=== PATIENT | female | born 1955 | race Caucasian/White ===

== ENCOUNTER 2020-01-30 13:54 | Outpatient (CLI) | payer OTHER, SELFPAY ==
--- NOTE | ~2020-01-30 | US_ITS ---
EXAMINATION: US art doppler w press LE BI DATE: 01/30/2020 15:05 CDT INDICATION: Leg pain. TECHNIQUE: Segmental pressures and plethysmographic and Doppler waveforms of the brachial and lower e xtremity arteries were obtained. COMPARISON: None. FINDINGS: Right and left brachial artery pressures of 131 mm Hg and 122 mm Hg, respectively, are concordant (no rmal difference <= 30 mmHg). The right high-thigh pressure index is 1.28 (normal > 1.2). The right ankle-brachial index (CLAUDIO) is 1 .02 (normal >= 0.9-1.0). The right great toe-brachial index (TBI) is 0.63 (normal >= 0.60). The right lower extremity segmental pressure gradients are normal (normal gradients <= 20-30 mmHg between armando cent levels on the same leg or the same levels on the two legs). Arterial Doppler waveforms are bipha sic and triphasic. The left high-thigh pressure index is 1.14. The left CLAUDIO is 0.98. The left TBI is 0.72. The left lowe r extremity segmental pressure gradients are normal. Arterial Doppler waveforms are mixed biphasic an d triphasic. IMPRESSION: 1. Normal lower extremity Doppler. Normal ankle-brachial indices. Reviewed, dictated and finalized at location A.
== END 2020-01-30 13:55 | disposition home or self-care (01) ==
PROVIDERS: PCP Internal Medicine; Visit Provider Nurse Practitioner
DX: M79.604 Pain in right leg (principal); M79.605 Pain in left leg
CPT/HCPCS: 93923

== ENCOUNTER → 2020-03-08 13:49 | Outpatient (CLI) | payer OTHER, SELFPAY ==
--- NOTE | ~2020-03-08 | MM_ITS ---
EXAMINATION: MM screening [facility] BI w oziel HISTORY: Screening mammogram TECHNIQUE: Craniocaudal and mediolateral oblique 3-D tomosynthesis images were obtained and synthetic 2-D images were generated. CAD analysis was submitted and interpreted. COMPARISON: 01/08/2019, 01/14/2018, 01/05/2018, 11/09/2015 BREAST PARENCHYMAL COMPOSITION: There are scattered areas of fibroglandular density. FINDINGS: Scattered benign-appearing calcifications are present. There is no evidence of suspicious m ass, calcification, or architectural distortion to suggest malignancy in either breast. There has bee n no suspicious interval change. IMPRESSION: 1. No mammographic evidence of malignancy. 2. Recommend routine screening mammography in one year. BI-RADS Category 2: Benign finding(s). Reviewed, dictated and finalized at location A.
--- NOTE | ~2020-03-08 | CT_ITS ---
EXAMINATION: CT lung screening DATE: 03/08/2020 14:34 INDICATION: History of tobacco use. Personal history of tobacco dependence. TECHNIQUE: Computed tomography (CT) of the chest was performed without intravenous contrast. The dose -length product was 98.20 mGy-cm. Automated exposure control and iterative reconstruction technique w ere employed. COMPARISON: CT dated 03/12/2016 FINDINGS: There is emphysema. No significant pleural or pericardial effusion. No thoracic lymphadenop athy. There is atherosclerosis of the aorta and coronary arteries. There are liver cysts. There is a 5 mm perifissural subsolid nodule, image 72. No other pulmonary nodules or masses. No endobronchial l esions. No pneumothorax. No focal lung consolidation. IMPRESSION: 1. Lung-RADS category 2: Benign appearance or behavior. Continue annual screening with noncontrast lo w-dose chest CT in 12 months. Reviewed, dictated and finalized at location A. IMPRESSION: 1. Lung-RADS category 2: Benign appearance or behavior. Continue annual screeni ng with noncontrast low-dose chest CT in 12 months.
== END ==
PROVIDERS: PCP Internal Medicine; Visit Provider Nurse Practitioner
DX: Z12.2 Encounter for screening for malignant neoplasm of respiratory organs (principal); Z87.891 Personal history of nicotine dependence; Z12.31 Encounter for screening mammogram for malignant neoplasm of breast
CPT/HCPCS: 77063; 77067; G0297

== ENCOUNTER 2020-03-14 12:55 | Outpatient (CLI) | payer OTHER, SELFPAY ==
--- NOTE | ~2020-03-14 | DEXA_ITS ---
Bone Density Report Name: Delaney Mckeon Age: 64 Sex: Female Ethnicity: White Date of : 1955 Indication: postmenopausal; height loss; prior fracture; Referring Provider: CAROL TAPIA Study: Bone densitometry was performed. Exam Date: March 14, 2020 Accession number: [id number] Bone Density: Region BMD T-score Z-score Classification AP Spine (L1, L4) 1.008 -0.3 1.6 Normal Femoral Neck (Left) 0.708 -1.3 0.3 Osteopenia Total Hip (Left) 0.840 -0.8 0.5 Normal Total Hip Bilateral Avg 0.809 -1.1 0.3 Osteopenia Femoral Neck (Right) 0.644 -1.8 -0.2 Osteopenia Total Hip (Right) 0.778 -1.3 0.0 Osteopenia World Health Organization criteria for BMD impression classify patients as: Normal (T-score at or above -1.0), Osteopenia (T-score between -1.0 and -2.5), or Osteoporosis (T-score at or below -2.5). 10-year Fracture Risk(1): Major Osteoporotic Fracture 17% Hip Fracture 2.4% Reported Risk Factors: [place] (), Neck BMD=0.644, BMI=29.1, previous fracture (1) FRAX(R) Version 3.08. Fracture probability calculated for an untreated patient. Fracture probability may be lower if the patient has received treatment. Clinical Information Provided by Patient: Has had a low trauma fracture Has used the following medications: Vitamin D, Calcium Patient maximum height was 65.5 Menopause Age: 50 Onset of menses at age 13 Number of children 0 Impression: The patient has low bone mass, based on the Right Femoral Neck T-score. The patient has an estimated ten-year risk of hip fracture of 2.4% and an estimated ten-year risk of major fracture of 17%, based on the WHO FRAX algorithm. The patient has risk factors, including: previous fracture. Discussion: BONE DENSITY IS LOW AT ONE OR MORE SKELETAL SITES. This patient's lowest T-score is low at one or more skeletal sites. It meets the World Health Organization's (WHO) criteria for ?low bone mass? (T-score between -1.0 and -2.5). The patient's 10-year risk of fracture as calculated by FRAX is less than the threshold where pharmacological therapy is recommended by the National Osteoporosis Foundation (NOF). However, all treatment decisions require clinical judgment and consideration of individual patient factors, including patient preferences, comorbidities, previous drug use, risk factors not captured in the FRAX model (e.g., frailty, falls, vitamin D deficiency, increased bone turnover, interval significant decline in bone density) and possible under or overestimation of fracture risk by FRAX. The patient should follow a healthful lifestyle (good nutrition with adequate calcium and vitamin D, and appropriate weight-bearing exercise). Follow-Up: Consider repeating this study in 2 to 3 years to reassess this patient's status, or sooner if there is some new clinical ind
== END 2020-03-14 12:56 | disposition home or self-care (01) ==
LOC: ANHIMG 13:00
PROVIDERS: PCP Internal Medicine; Visit Provider Internal Medicine
DX: Z78.0 Asymptomatic menopausal state (principal); I10 Essential (primary) hypertension; Z79.899 Other long term (current) drug therapy; M85.852 Other specified disorders of bone density and structure, left thigh; M85.851 Other specified disorders of bone density and structure, right thigh
CPT/HCPCS: 77080

== ENCOUNTER 2020-04-18 07:55 | Outpatient (CLI) | payer OTHER, SELFPAY ==
--- NOTE | 2020-04-27 12:07 | WPDPFTINT ---
PFT Interpretation PFT Interpretation: This PFT met all criteria for ATS standards and reproducibility FEV/FVC post bronchodilator 69% FEV1 133% FVC 140% TLC 133% RV 134% RV/TLC 39% DLCO 73% when adjusted for alveolar volume but not adjusted for hemoglobin Flow volume loops showed some expiratory coving Impression: Mild airflow obstruction with hyperinflation, air trapping and mildly reduced diffusion capacity. This pattern is suggestive of COPD. Clinical correlation is advised.
== END 2020-04-18 07:56 | disposition home or self-care (01) ==
PROVIDERS: PCP Internal Medicine; Visit Provider Internal Medicine
DX: J43.9 Emphysema, unspecified (principal); I10 Essential (primary) hypertension; Z79.899 Other long term (current) drug therapy
CPT/HCPCS: 94060; 94726; 94729

== ENCOUNTER 2020-10-10 10:31 | Outpatient (CLI) | payer OTHER, SELFPAY ==
--- NOTE | ~2020-10-10 | US_ITS ---
EXAMINATION: US thyroid DATE: 10/10/2020 10:58 INDICATION: Nontoxic multinodular goiter. TECHNIQUE: Multiple ultrasound images of the thyroid were obtained. COMPARISON: Ultrasound 03/05/2018 FINDINGS: The right thyroid lobe is absent The left thyroid lobe measures 4.1 x 1.7 x 1.8 cm. In the left thyr oid lobe, there is a 15 mm solid, isoechoic, [id number] nodule with ill-defined margin without e chogenic foci (TI-RADS TR3), stable from 04/25/2016. IMPRESSION: 1. Left thyroid nodule, stable from 04/25/2016. Biopsy on 05/01/2016 was benign. Reviewed, dictated and finalized at location A. IMPRESSION: 1. Left thyroid nodule, stable from 04/25/2016. Biopsy on 05/01/2016 was benign .
== END 2020-10-10 10:32 | disposition home or self-care (01) ==
PROVIDERS: PCP Internal Medicine; Visit Provider Nurse Practitioner
DX: E04.2 Nontoxic multinodular goiter (principal)
CPT/HCPCS: 76536

== ENCOUNTER 2021-03-14 14:18 | Outpatient (CLI) | payer OTHER, SELFPAY ==
--- NOTE | ~2021-03-14 | CT_ITS ---
EXAMINATION: CT lung screening DATE: 03/14/2021 14:43 INDICATION: Personal history of nicotine dependence, prior smoker with 60 pack year history TECHNIQUE: Computed tomography (CT) of the chest was performed without intravenous contrast. The dose -length product (DLP) was 105.07 mGy-cm. Automated exposure control and iterative reconstruction tech Lift were employed. COMPARISON: 03/08/2020 FINDINGS: There is a stable 2 mm nodule of the right middle lobe. A stable fissural lymph node is aga in noted in the right minor fissure. No new pulmonary nodules are identified. There is moderate emphy sema. The lungs are free of acute opacities. There is no pleural effusion or pneumothorax. There are changes of right hemithyroidectomy. No pathologically enlarged thoracic lymph nodes are identified. T he heart size is normal. There is calcified coronary artery atherosclerosis. Cysts of the liver measu re up to 1.6 cm in the left hepatic lobe. There is severe thoracic spondylosis. IMPRESSION: 1. Lung-RADS category 2: Benign appearance or behavior. Continue annual screening with noncontrast lo w-dose chest CT in 12 months. Reviewed, dictated and finalized at location B. IMPRESSION: 1. Lung-RADS category 2: Benign appearance or behavior. Continue annual screeni ng with noncontrast low-dose chest CT in 12 months.
== END 2021-03-14 14:19 | disposition home or self-care (01) ==
LOC: ANHIMG 14:18
PROVIDERS: PCP Internal Medicine; Visit Provider Nurse Practitioner
DX: Z87.891 Personal history of nicotine dependence (principal)
CPT/HCPCS: 71271

== ENCOUNTER → 2021-05-28 13:31 | Outpatient (CLI) | payer OTHER, SELFPAY ==
--- NOTE | ~2021-05-28 | MM_ITS ---
EXAMINATION: MM screening [facility] BI w oziel HISTORY: Screening TECHNIQUE: Craniocaudal and mediolateral oblique 3-D tomosynthesis images were obtained and synthetic 2-D images were generated. CAD analysis was submitted and interpreted. COMPARISON: Comparison to multiple prior studies sequentially, with oldest reviewed study dated 05/2015. BREAST PARENCHYMAL COMPOSITION: There are scattered areas of fibroglandular density. FINDINGS: There is no evidence of suspicious mass, calcification, or architectural distortion to sugg est malignancy in either breast. There has been no suspicious interval change. IMPRESSION: 1. No mammographic evidence of malignancy. 2. Recommend routine screening mammography in one year. BI-RADS Category 1: Negative Reviewed, dictated and finalized at location A. WINDER
== END ==
PROVIDERS: PCP Internal Medicine; Visit Provider Nurse Practitioner
DX: Z12.31 Encounter for screening mammogram for malignant neoplasm of breast (principal)
CPT/HCPCS: 77063; 77067

== ENCOUNTER 2021-07-28 14:09 | Emergency (ER) | payer OTHER, SELFPAY ==
--- NOTE | ~2021-07-28 | XR_ITS ---
XR femur RT min 2V DATE: 07/28/2021 15:06 INDICATION: Fall. Right hip and leg pain TECHNIQUE: AP and lateral views COMPARISON: None FINDINGS: There is a comminuted distal femoral metaphyseal fracture with impaction and approximately 1.3 cm lateral displacement. There is a transverse fracture of the mid to upper aspect of the patella. Normal alignment at the hip and knee joints. No dislocation. IMPRESSION: Comminuted fracture of the distal femoral metaphysis Transverse patellar fracture Reviewed, dictated and finalized at location A.
--- NOTE | ~2021-07-28 | CT_ITS ---
EXAMINATION: CT cervical spine wo con DATE: 07/28/2021 14:48 INDICATION: Fall today. Head and neck injury. TECHNIQUE: Computed tomography (CT) of the cervical spine was performed without intravenous contrast. Automated exposure control and iterative reconstruction technique were employed. Exam dose: 463.63 mGy-cm total exam DLP. COMPARISON: None FINDINGS: There is reversal of the cervical spine. No fracture or dislocation or locked facet. There is minimal anterolisthesis at C2-3 and C3-4. There is 3 mm anterolisthesis at C4-5. There is mild degenerative disc disease at C4-5. There is severe degenerative disc disease at C5-6. There is moderately severe degenerative disc disease at C6-7 and C7-T1.. There is degenerative change at the apophyseal joints, especially severe at C2-3, C3-4, C4-5. Emphysematous changes are noted. IMPRESSION: Reversal of cervical curvature Minimal anterolisthesis at C2-3 and C3-4 3mm anterolisthesis at C4-5 Multi-level degenerative disc disease No fracture or dislocation or locked facet. Reviewed, dictated and finalized at Location A. Reviewed, dictated and finalized at location A.
--- NOTE | ~2021-07-28 | XR_ITS ---
XR humerus RT DATE: 07/28/2021 15:05 INDICATION: Fall, injury of arm TECHNIQUE: AP and lateral views COMPARISON: None FINDINGS: There is a transverse minimally medially displaced fracture at the surgical neck of the num erus. No other fracture or dislocation, periosteal reaction or bone destruction. IMPRESSION: Surgical neck fracture of humerus Reviewed, dictated and finalized at location A.
--- NOTE | ~2021-07-28 | XR_ITS ---
XR knee RT 2V DATE: 07/28/2021 15:06 INDICATION: Fall. Right knee injury. TECHNIQUE: AP and crosstable lateral views COMPARISON: None FINDINGS: There is a prominently comminuted intra-articular fracture of the right distal femoral meta physeal area with impaction and approximately 12 mm medial displacement of the distal fragment. Additionally there is an intra-articular minimally displaced transverse fracture through the mid to u pper aspect of the patella. No dislocation. Mild osteoarthritis including periarticular spurring of the patella. Diffuse osteopenia. IMPRESSION: Comminuted distal femoral metaphyseal fracture Transverse patellar fracture Reviewed, dictated and finalized at location A.
--- NOTE | ~2021-07-28 | CT_ITS ---
EXAMINATION: CT brain wo con DATE: 07/28/2021 14:48 INDICATION: Fall today. Head injury. TECHNIQUE: Computed tomography (CT) of the head was performed without intravenous contrast. The mA wa s adjusted according to patient size. Iterative reconstruction technique was employed. Exam dose: 60 5.33 mGy-cm total exam DLP. COMPARISON: None FINDINGS: There is bilateral vertebral artery and carotid siphon internal carotid artery calcificatio n. There is nonspecific diminished attenuation of the cerebral white matter, likely due to chronic sm all vessel ischemic changes. No intracranial mass lesion or hemorrhage or cerebrovascular accident is evident. No subdural or epid ural hematoma. No orbital mass lesion. Included paranasal sinuses and mastoid air cells are normally developed and aerated. No fracture or b one destruction of the cranial vault. IMPRESSION: Cerebral atherosclerosis and chronic small vessel ischemic changes of cerebral white mat ter No acute intracranial finding or skull fracture Reviewed, dictated and finalized at Location A. Reviewed, dictated and finalized at location A. IMPRESSION: Cerebral atherosclerosis and chronic small vessel ischemic changes of cerebral white matter No acute intracranial finding or skull fracture
--- NOTE | ~2021-07-28 | XR_ITS ---
XR hip RT 2V w AP pelvis DATE: 07/28/2021 15:06 INDICATION: Fall. Right hip injury, pain TECHNIQUE: AP pelvis. AP and crosstable lateral views of right hip COMPARISON: None FINDINGS: No pelvic fracture or bone destruction. Normal alignment at the pubic symphysis and sacral iliac joints. Hip joint spaces are relatively preserved. No fracture or dislocation, avascular necrosis or bone destruction of the right hip. IMPRESSION: No pelvic or right hip fracture or dislocation Reviewed, dictated and finalized at location A.
--- NOTE | ~2021-07-28 | XR_ITS ---
XR shoulder RT min 2V DATE: 07/28/2021 15:05 INDICATION: Fall. Right shoulder injury, pain TECHNIQUE: 2 views COMPARISON: None FINDINGS: There is a transverse fracture of the surgical neck of the right humerus with minimal media l displacement. Old healed fracture of the midshaft of the clavicle. Alignment is preserved at the acromioclavicular and glenohumeral joints. Diffuse osteopenia. IMPRESSION: Transverse fracture of right humeral surgical neck Osteopenia Reviewed, dictated and finalized at location A.
[2021-07-28 14:13] VITALS: BP 153/58; PULSE 89; RESP 24; TEMP 36.2; O2SAT 98
[2021-07-28] MEDS: fentaNYL CITRATE INJ (*CRX) 100 MCG/2 ML VIAL 50 MCG IV PUSH (15:04)
[2021-07-28 15:53] VITALS: BP 142/77; PULSE 97; RESP 18; O2SAT 99
--- NOTE | 2021-07-28 15:56 | ED.FALL ---
HPI - Fall General Chief Complaint: Fall Stated Complaint: FALL WITH INJURIES Time Seen by Provider: 07/28/21 14:21 History of Present Illness HPI Narrative: Patient is a 66-year-old female who presents ER with pain to the right side of her body. Patient was stepping over a dog gate when she tripped falling onto her right side. She had sudden onset pain in her shoulder and her knee. She has been unable to get up or move. EMS reports deformity to the knee and the shoulder. They placed her in a sling for comfort. Patient did strike her head but did not lose consciousness. She has some achiness in her neck as well. Denies numbness or tingling to the arms or legs. Patient is not on a blood thinner. Related Data Home Medications Medication Instructions Recorded Confirmed cholecalciferol (vitamin D3) 25 1,000 unit PO DAILY 07/28/19 04/01/21 mcg (1,000 unit) capsule multivitamin 1 tablet PO DAILY 02/15/20 04/01/21 calcium-vit D3-ferrous fumarate tablet PO BID tablet 04/01/21 04/01/21 600 mg-125 unit-18 mg tablet Allergies Allergy/AdvReac Type Severity Reaction Status Date / Time Sulfa (Sulfonamide Allergy Unknown Hives Verified 07/28/21 14:25 Antibiotics) Review of Systems Review of Systems: All systems reviewed & are unremarkable except as noted in HPI and below Constitutional: Constitutional: Denies chills, Denies fever(s) and Denies weakness ENT: Denies nasal congestion and Denies sore throat Cardiovascular: Cardiovascular: Denies chest pain, Denies rapid heart rate and Denies radiating jaw, neck or arm pain Respiratory: Respiratory: Denies cough, Denies dyspnea and Denies wheezing Gastrointestinal: Gastrointestinal: Denies abdominal pain, Denies nausea and Denies vomiting Musculoskeletal: Musculoskeletal: Reports arthralgias, Reports joint swelling and Denies muscle cramps Neurologic: Denies dizziness, Denies syncope, Denies headache(s), Denies focal weakness and Denies numbness PMFSH Past Medical History Medical History Anxiety Arthritis of foot, degenerative Depression Dizziness Hypertension Muscle spasm of calf Obesity Vertigo Vision abnormalities Surgical History Surgical History Status post removal of thyroid nodule Family History Family History Father Hypertension, Onset Age: 72 Patient's father is , Onset Age: 72 Other Family history of alcoholism High cholesterol Social History Social History Smoking packs per day: 2 Smoking cigarettes per day: 40.0 Years smoked: 25 Smoking pack-years: 50.00 Smoking status: Former smoker Tobacco type: cigarettes Second hand tobacco smoke exposure: No Smoking end date: 05/11/07 Alcohol intake: never Substance use: never Substance use type: does not use Exam Narrative: GENERAL: Well-appearing, well-nourished, and in no acute distress. HEAD: Normocephalic, atraumatic. EYES: PERRLA and EOMI. ENT: Mucous membranes moist. NECK: Supple. C-Spine immobilized. CHEST: Clear to auscultation. No respiratory distress. HEART: Regular rate and rhythm. Normal peripheral pulses. ABDOMEN: Soft, nontender, nondistended. EXTREMITIES: Swelling of the right knee with tenderness over the patella and distal femur. Range of motion not performed right lower extremity due to pain. No tenderness at the hip. Patient has tenderness at the right shoulder and her arm is in a sling. No tenderness at the elbow/forearm/wrist. Neurovascular intact in both extremities. No abnormalities to the left sided extremities. SKIN: Warm, dry, no rash. NEURO: Alert and oriented x3. PSYCH: Normal mood and affect. Course Reevaluation(s) Reevaluation #1: Patient informed of results. Will necessitate transf
[2021-07-28] MEDS: MORPHINE SULFATE (*CRX) 4 MG/ML INJ IV PUSH (16:36)
[2021-07-28 17:21] VITALS: BP 138/72; PULSE 76; RESP 18; O2SAT 99
== END 2021-07-28 17:24 | disposition short-term general hospital (02) ==
PROVIDERS: Emergency Provider Emergency Medicine; PCP Internal Medicine
DX: S42.211A Unspecified displaced fracture of surgical neck of right humerus, initial encounter for closed fracture (principal); S79.191A Other physeal fracture of lower end of right femur, initial encounter for closed fracture; S82.031A Displaced transverse fracture of right patella, initial encounter for closed fracture; I10 Essential (primary) hypertension; M19.079 Primary osteoarthritis, unspecified ankle and foot; E66.9 Obesity, unspecified; Z68.29 Body mass index [BMI] 29.0-29.9, adult; Z87.891 Personal history of nicotine dependence; I67.2 Cerebral atherosclerosis; M50.323 Other cervical disc degeneration at C6-C7 level; M85.811 Other specified disorders of bone density and structure, right shoulder; W18.09XA Striking against other object with subsequent fall, initial encounter
CPT/HCPCS: 70450; 72125; 73030; 73060; 73502; 73552; 73560; 96374; 96375; 99285; J2270; J3010

== ENCOUNTER 2022-04-17 11:00 | Outpatient (CLI) | payer OTHER, SELFPAY ==
--- NOTE | ~2022-04-17 | CT_ITS ---
EXAMINATION: CT lung screening DATE: 04/17/2022 11:16 INDICATION: Personal history of tobacco dependence TECHNIQUE: Computed tomography (CT) of the chest was performed without intravenous contrast. The dose -length product was 103.08 mGy-cm. Automated exposure control and iterative reconstruction technique were employed. COMPARISON: CT dated 03/14/2021 FINDINGS: Heart size is normal. There is atherosclerosis. No mediastinal lymphadenopathy. No signific ant pleural or pericardial effusion. There are liver cysts, largest measuring 1.7 cm. There is emphys sandra. Stable 2 mm right middle lobe nodule since August right fissural lymph node measuring 3 mm. No en dobronchial lesions. No pneumothorax. No focal airspace disease. No new pulmonary nodules or masses. Moderate-severe thoracic spondylosis. No focal lytic or blastic lesions. IMPRESSION: 1. Lung-RADS category 2: Benign appearance or behavior. Continue annual screening with noncontrast lo w-dose chest CT in 12 months. Reviewed, dictated and finalized at location A. 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 Lung-RADS category 2: Benign appearance or behavior. Continue annual screeni ng with noncontrast low-dose chest CT in 12 months.
== END 2022-04-17 11:01 | disposition home or self-care (01) ==
PROVIDERS: PCP Internal Medicine; Visit Provider Nurse Practitioner
DX: Z12.2 Encounter for screening for malignant neoplasm of respiratory organs (principal); Z87.891 Personal history of nicotine dependence
CPT/HCPCS: 71271

== ENCOUNTER 2023-04-04 13:54 | Emergency (ER) | payer OTHER, SELFPAY ==
--- NOTE | ~2023-04-04 | XR_ITS ---
EXAM: XR wrist RT min 3V DATE: 04/04/2023 15:31 HISTORY: fall; Rt wrist pain . COMPARISON: None available. FINDINGS: Decreased mineralization. No fracture or dislocation. No lytic or blastic lesion. Scattere d osteoarthritic changes. No erosion or periosteal change. Soft tissues within normal limits. IMPRESSION: No acute osseous finding in the right wrist. Reviewed, dictated and finalized at location K. 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
--- NOTE | ~2023-04-04 | XR_ITS ---
EXAM: XR humerus RT DATE: 04/04/2023 16:02 HISTORY: fall . COMPARISON: 07/28/2021. FINDINGS: Decreased mineralization. Old healed right humeral head fracture. No new acute fracture or dislocation. No lytic or blastic lesion. Moderate degenerative change at the AC joint and glenohumer al joint. No erosion or periosteal change. Soft tissues within normal limits. IMPRESSION: No acute osseous finding in the right humerus. Reviewed, dictated and finalized at location K. S GRINDER
--- NOTE | ~2023-04-04 | CT_ITS ---
EXAMINATION: CT brain wo con DATE: 04/04/2023 15:23 INDICATION: fall . TECHNIQUE: Computed tomography (CT) of the head was performed without intravenous contrast. The mA wa s adjusted according to patient size. Iterative reconstruction technique was employed. The dose-lengt h product was 605.33 mGy-cm. COMPARISON: 07/28/2021. FINDINGS: No acute intracranial hemorrhage or extra-axial fluid collection. No hydrocephalus, mass, or herniation. No acute ischemic infarct. Unremarkable dural venous sinus attenuation. No acute osseous abnormality. The aerated spaces are clear. Mild atrophy and chronic white matter change. Atherosclerotic intracranial calcification. Bilateral l ens replacements. IMPRESSION: No acute intracranial process. Reviewed, dictated and finalized at location K. ORATOR OPERATOR
--- NOTE | ~2023-04-04 | CT_ITS ---
EXAMINATION: CT facial & cervical spine wo DATE: 04/04/2023 15:23 INDICATION: fall TECHNIQUE: Computed tomography (CT) of the maxillofacial region and cervical spine was performed with out intravenous contrast. Automated exposure control and iterative reconstruction technique were empl oyed. The dose-length product was 330.72 mGy-cm. COMPARISON: CT C-spine 07/28/2021; ultrasound thyroid 10/10/2020. FINDINGS: CERVICAL: Vertebral Body Alignment: Intact. Stable multilevel grade 1 degenerative listheses. Craniocervical and atlantoaxial alignment: Moderate degenerative change. Alignment intact. Osseous structures/fracture: No evidence of a lytic or blastic process in the visualized spine. No e vidence of acute fracture. Cervical soft tissues: The paraspinal soft tissues planes are maintained. Right thyroid lobectomy. Pr eviously biopsied left thyroid nodule. Emphysematous changes in the lung apices. Degenerative changes: Multilevel degenerative disc disease and facet arthropathy. No severe neural fo raminal narrowing. Moderate-severe degenerative central canal narrowing at C5-6. FACE: Soft Tissues: No significant superficial soft tissue swelling. Facial bones: No acute fracture. No lytic or blastic process. Eyes: The globes are intact. Bilateral lens replacements. The soft tissue planes of the orbits are m aintained. Paranasal Sinuses: The visualized aerated spaces are clear. Foreign Bodies: No radiopaque foreign bodies. Other Findings: None. IMPRESSION: No acute fracture or traumatic malalignment in the cervical spine. No acute facial bone fracture. Reviewed, dictated and finalized at location K. NCE CLERK IMPRESSION: No acute fracture or traumatic malalignment in the cervical spine. No acute fac ial bone fracture.
--- NOTE | ~2023-04-04 | XR_ITS ---
EXAMINATION: XR chest 2V Exam Date/Time: 04/04/2023 15:25 DAIRY FROZEN MANAGER HISTORY: fall, HTN, prev smoker Comparison: 03/25/2017; CT lung screening 04/17/2022. RESULT: Lines, tubes, and devices: None. Lungs and pleura: Clear. Cardiomediastinal silhouette: Stable. Other: No acute osseous or upper abdominal finding. IMPRESSION: No acute cardiopulmonary process. Reviewed, dictated and finalized at location K. Y FROZEN MANAGER
[2023-04-04 13:56] VITALS: BP 180/88; PULSE 90; RESP 18; TEMP 36.9; O2SAT 100
--- NOTE | 2023-04-04 15:52 | ED.GENADULT ---
[facility] - General Adult General Chief complaint: Fall Stated complaint: fall, hit head, right wrist Time Seen by Provider: 04/04/23 15:30 Source: patient Mode of arrival: ambulatory Limitations: no limitations History of Present Illness HPI narrative: This is a 67-year-old female who presents to the ED with chief complaint of a fall today. Reports that she stumbled while caring a small flag pole while in the backyard. Reports that she fell onto the flag on her chest. Reports that she hit her face on the ground. With reports of right arm and right wrist pain after the fall. She is complaining of some right lateral chest pain following the fall. Denies any preceding chest pain, shortness of breath. Denies any syncope, numbness or weakness. Denies headache, neck pain, back pain, any further sites of pain or injury. Related Data Allergies Allergy/AdvReac Type Severity Reaction Status Date / Time Sulfa (Sulfonamide Allergy Unknown Hives Verified 03/12/23 12:36 Antibiotics) Review of Systems Review of Systems: All systems as dictated in [facility] Past Medical History Medical History Anxiety Arthritis of foot, degenerative Depression Dizziness Hypertension Muscle spasm of calf Obesity Vertigo Vision abnormalities Surgical History Surgical History Status post removal of thyroid nodule Family History Family History Father Hypertension, Onset Age: 72 Patient's father is , Onset Age: 72 Other Family history of alcoholism High cholesterol Social History Social History Smoking packs per day: 1 Smoking cigarettes per day: 20.0 Years smoked: 30 Smoking pack-years: 30.00 Smoking status: Former smoker Tobacco type: cigarettes Second hand tobacco smoke exposure: No Smoking end date: 05/11/07 Alcohol intake: former Alcohol use details: Quit in 1992 Substance use: never Substance use type: does not use Exam Narrative: GENERAL: Well-appearing, well-nourished, and in no acute distress. HEAD: Normocephalic, atraumatic. EYES: PERRLA and EOMI. ENT: Mild tenderness to the right periorbital area. No bruising or crepitus. Nares clear, no rhinorrhea or epistaxis. Mucous membranes moist. Oropharynx without tonsillar hypertrophy exudate or other lesions. NECK: Supple. No adenopathy or masses. CHEST: No respiratory distress. Clear to auscultation. No wheezes rales or rhonchi HEART: Regular rate and rhythm. No murmur heard. Normal peripheral pulses. ABDOMEN: Soft, nontender, nondistended, normal active bowel sounds. MSK: Mild tenderness to the right lateral upper arm. No bruising or deformity. Mild tenderness to the lateral and medial right wrist. No bruising or deformity. Neurovascularly intact distally. MSK exam is otherwise intact. She is ambulatory. SKIN: Warm, dry, no rash. NEURO: Alert and oriented x3. No focal deficits. PSYCH: Normal mood and affect. Course Vital Signs Vital signs: Vital Signs Temperature 98.5 F 04/04/23 13:56 Pulse Rate 90 04/04/23 13:56 Respiratory Rate 18 04/04/23 13:56 Blood Pressure 180/88 H 04/04/23 13:56 Pulse Oximetry 100 04/04/23 13:56 Temperature 98.5 F 04/04/23 13:56 Pulse Rate 90 04/04/23 13:56 Respiratory Rate 18 04/04/23 13:56 Blood Pressure 180/88 H 04/04/23 13:56 Pulse Oximetry 100 04/04/23 13:56 Medical Decision Making MDM Narrative Medical decision making narrative: This is a 67-year-old female who presents to the ED with chief complaint of a mechanical ground level fall today. She has some facial, right arm, right wrist and right lateral chest wall pain. Vitals are normal. Exam remarkable for the above. Imaging of the chest, brain,
[2023-04-04] MEDS: ACETAMINOPHEN 500 MG TABLET 1000 MG PO (17:00)
[2023-04-04 17:02] VITALS: BP 167/63; PULSE 80; RESP 18; O2SAT 96
== END 2023-04-04 17:07 | disposition home or self-care (01) ==
PROVIDERS: Emergency Provider Physician Assistant; PCP Nurse Practitioner
DX: R07.81 Pleurodynia (principal); S09.93XA Unspecified injury of face, initial encounter; S69.91XA Unspecified injury of right wrist, hand and finger(s), initial encounter; S49.91XA Unspecified injury of right shoulder and upper arm, initial encounter; I10 Essential (primary) hypertension; M19.079 Primary osteoarthritis, unspecified ankle and foot; E66.9 Obesity, unspecified; Z68.27 Body mass index [BMI] 27.0-27.9, adult; Z87.891 Personal history of nicotine dependence; F41.9 Anxiety disorder, unspecified; F32.A Depression, unspecified; W01.198A Fall on same level from slipping, tripping and stumbling with subsequent striking against other object, initial encounter
CPT/HCPCS: 70450; 70486; 71046; 72125; 73060; 73110; 99284; A9270

== ENCOUNTER 2023-04-24 09:30 | Outpatient (CLI) | payer OTHER, SELFPAY ==
--- NOTE | ~2023-04-24 | CT_ITS ---
CT Scan of the Chest without Contrast: Clinical Indication: Lung cancer screening, smoking history Technique: Contiguous sections were acquired throughout the chest without intravenous contrast. Dose reduction technique was used on this scan by utilizing automated exposure control and iterative recon struction technique. The dose-length product (DLP) was 115.66 mGy-cm. COMPARISON: 04/17/2022 Findings: There is no evidence of any significant mediastinal, hilar or axillary lymphadenopathy. There are ath erosclerotic calcifications of the aorta and coronary arteries. There is no evidence of pleural or pericardial effusion. The lungs are clear. No pulmonary nodules or infiltrates are noted. Moderate emphysema. Images through the upper abdomen reveal probable hepatic cysts and 6 mm nonobstructing left renal sto ne. Impression: Lung RADS 1: Negative. [address] advised. Moderate emphysema. Reviewed, dictated and finalized at [facility]. HER SOFTENER Impression: Lung RADS 1: Negative. [address] advised. Moderate emphysema.
== END 2023-04-24 09:31 | disposition home or self-care (01) ==
PROVIDERS: PCP Nurse Practitioner; Visit Provider Nurse Practitioner
DX: Z12.2 Encounter for screening for malignant neoplasm of respiratory organs (principal); Z87.891 Personal history of nicotine dependence; J43.9 Emphysema, unspecified
CPT/HCPCS: 71271

== ENCOUNTER 2023-07-13 07:47 | Inpatient (IN) | payer OTHER, SELFPAY ==
[2023-07-13] VITALS (52 sets, daily range): BP systolic 58–140; BP diastolic 31–91; PULSE 88–111; RESP 17–27; TEMP 36.3–37.2; O2SAT 87–98; BMI 31.7
--- NOTE | ~2023-07-13 | XR_ITS ---
EXAM: XR abdomen/kub 1V DATE: 07/13/2023 20:38 HISTORY: abdominal distention . COMPARISON: CT abdomen pelvis, same date. FINDINGS: Temperature probe or Allen catheter projecting over the midline pelvis. Minimal bibasilar atelectasis. Normal bowel gas pattern. No organomegaly. No abnormal abdominal calcification. Thoracol umbar scoliosis and multilevel degenerative disc disease. Bilateral hip osteoarthritic arthritis. The proximal and of an intramedullary carlos noted in the right femur. IMPRESSION: No radiographic evidence of obstruction or ileus. Reviewed, dictated and finalized at location K. SPECIALIST
--- NOTE | ~2023-07-13 | XR_ITS ---
EXAMINATION: XR chest 2V DATE: 07/13/2023 08:46 INDICATION: Shortness of breath and weakness TECHNIQUE: AP and lateral views of the chest are obtained. COMPARISON: 04/04/2023 FINDINGS: The lungs are free of acute opacities. No pleural effusion or pneumothorax. The cardiomedia stinal silhouette is normal. There is moderate thoracic spondylosis. There is an old healed fracture of the proximal right humerus. IMPRESSION: 1. No acute cardiopulmonary abnormality. Reviewed, dictated and finalized at location B. INE PILOT/FIRST OFFICER
--- NOTE | ~2023-07-13 | XR_ITS ---
Portable chest x-ray Comparison: 07/14/2023 Clinical History: Shortness of breath Findings: Stable right IJ line present. There is minimal bibasilar haziness. Cardiomediastinal silh ouette is stable. Bones and soft tissues are unremarkable. Impression: Probable minimal bibasilar pulmonary edema/atelectasis. Stable support line. Reviewed, dictated and finalized at location . TING MACHINE OPERATOR Impression: Probable minimal bibasilar pulmonary edema/atelectasis. Stable support line.
--- NOTE | ~2023-07-13 | CT_ITS ---
EXAMINATION: CT abdomen pelvis wo con DATE: 07/13/2023 11:11 INDICATION: Severe sepsis. TECHNIQUE: Computed tomography (CT) of the abdomen and pelvis was performed without intravenous contr ast. Automated exposure control and iterative reconstruction technique were employed. The dose-length product was 1230.51 mGy-cm. COMPARISON: None. FINDINGS: The visualized portions of the lung bases demonstrate emphysema and mild atelectasis. No pl eural effusion. The heart size is normal. There are coronary artery calcifications. No pericardial ef fusion. There is a small sliding hiatal hernia. There is diffuse hepatic steatosis. There are cysts i n the kidneys measuring up to 18 mm. The gallbladder, spleen, pancreas, adrenal glands, and right kid ashley are normal. There are 3 stones in left kidney measuring up to 5 mm. There is mild left hydronephr osis. There are 5 mm and 2 mm stones in proximal left ureter. There are no dilated loops of bowel. Th e appendix is normal. There is asymmetric edema in left retroperitoneum. There are no pathologically enlarged lymph nodes. There is no free intraperitoneal fluid. There is calcified atherosclerosis of t he aorta and many of the other arteries. There is internal fixation of right femur. There is thoracol umbar dextroscoliosis and severe spondylosis. IMPRESSION: 1. 5 mm and 2 mm stones in proximal left ureter with mild left hydronephrosis. 2. Nonobstructing left kidney stones. 3. Small sliding hiatal hernia. Reviewed, dictated and finalized at location E. CTOR INFORMATION
--- NOTE | ~2023-07-13 | XR_ITS ---
EXAMINATION: XR chest port-a-cath/central INDICATION: Central line insertion TECHNIQUE: Portable AP chest at 1006 hours COMPARISON: 0841 hours FINDINGS: A right internal jugular central venous catheter is been inserted which ends with this tip in the distal superior vena cava. No pleural effusion or pneumothorax. The lungs are free of acute op acities. The cardiomediastinal silhouette is normal. Healed fracture of the proximal right humerus is again noted. IMPRESSION: 1. Right internal jugular central venous catheter insertion. No pneumothorax. Reviewed, dictated and finalized at location B. CONTENT MANAGER
--- NOTE | ~2023-07-13 | XR_ITS ---
EXAMINATION: XR retrograde pyelo w/stent LT DATE: 07/14/2023 10:48 INDICATION: Left ureteral stent placement TECHNIQUE: 8 fluoroscopic images of the abdomen and pelvis were obtained during procedure performed shabbir Diego. Radiologist was not present for the imaging or procedure. The amount of fluoroscopy t home used during this procedure was 0.3 minutes. COMPARISON: CT dated 07/13/2023 FINDINGS: Retrograde contrast injection into the left ureter extends to the left renal collecting system where there is persistent mild left hydronephrosis. The proximal left ureteral stone appears to remain in p lace, visible as a subtle density medially proximal to an abrupt change in course of the proximal ure ter. Final image demonstrates the proximal tip of an internal ureteral stent partially formed in the left renal pelvis. The stone appears to remain along side the stent in the proximal most left ureter. IMPRESSION: 1. Fluoroscopy utilized during left intraureteral stent placement for a prior obstructing proximal le ft ureteral stone which appears to remain in the same position along side the stent. See procedure no te for further detail. Reviewed, dictated and finalized at location A. OR SECURITY ANALYST IMPRESSION: 1. Fluoroscopy utilized during left intraureteral stent placement for a prior o bstructing proximal left ureteral stone which appears to remain in the same pos ition along side the stent. See procedure note for further detail.
--- NOTE | ~2023-07-13 | XR_ITS ---
EXAMINATION: XR chest 1V portable Exam Date/Time: 07/14/2023 17:30 ROTARY DRILLER HISTORY: SOB Comparison: 07/14/2023 at 7:30 AM. FINDINGS/IMPRESSION: Right IJ central line remains in stable and good position. Unchanged pulmonary opacities. Reviewed, dictated and finalized at location K. RY DRILLER
--- NOTE | ~2023-07-13 | US_ITS ---
EXAMINATION: US abdomen limited DATE: 07/14/2023 09:34 INDICATION: Elevated liver function tests and bilirubin TECHNIQUE: Multiple grayscale and Doppler ultrasound images of the abdomen were obtained. COMPARISON: None FINDINGS: The pancreatic head and body are normal in appearance. The pancreatic tail is not visualized. Liver has normal echogenicity and contour, with a smooth surface. There are 3 anechoic hepatic cysts measur ing 1.8 cm, 1.4 cm and 1.6 similar maximal diameters. 2 of these cysts appear to demonstrate thin int ernal septations. No intrahepatic biliary duct dilation suspected. Portal venous flow was seen in the hepatopetal, normal direction but demonstrates increased venous pulsatility which can be seen with t ricuspid regurgitation, right heart failure or other cause of elevated right heart pressures. The vis ualized proximal inferior vena cava is normal. Small right pleural effusion. There is edematous wall thickening of the gallbladder and minimal pericholecystic fluid. No lala dilation of the gallbladder or evident cholelithiasis. Sonographic Winkler sign was reported as negative by the pickler helper. Comm on bile duct measures 6 mm in maximal diameter which is within normal limits for age. Visualized port ion of the right kidney demonstrates normal contour and echogenicity with no hydronephrosis. IMPRESSION: 1. Increased portal venous pulsatility with normal direction which can be seen with tricuspid regurgi tation, right heart failure or other cause of elevated right heart pressure. 2. Nonspecific edematous wall thickening of the gallbladder with trace amount of pericholecystic flui d. No evident cholelithiasis or Winkler sign to more specifically suggest acute cholecystitis and this as with the increased portal venous pulsatility is likely related to congestive heart failure. 3. Right pleural effusion. Reviewed, dictated and finalized at location A. RATORY SAMPLER IMPRESSION: 1. Increased portal venous pulsatility with normal direction which can be seen with tricuspid regurgitation, right heart failure or other cause of elevated ri ght heart pressure. 2. Nonspecific edematous wall thickening of the gallbladder with trace amount o f pericholecystic fluid. No evident cholelithiasis or Winkler sign to more speci fically suggest acute cholecystitis and this as with the increased portal venou s pulsatility is likely related to congestive heart failure. 3. Right pleural effusion.
--- NOTE | ~2023-07-13 | XR_ITS ---
EXAMINATION: XR chest 1V portable Exam Date/Time: 07/13/2023 20:25 MACHINE BOOKKEEPER HISTORY: new O2 requirement Comparison: 07/13/2023. RESULT: Lines, tubes, and devices: Right IJ central venous line, in good position. Lungs and pleura: Mild diffuse reticular opacities and cuffing. Cardiomediastinal silhouette: Stable. Other: No acute osseous or upper abdominal finding. IMPRESSION: Mild interstitial edema. Reviewed, dictated and finalized at location K. INE BOOKKEEPER IMPRESSION: Mild interstitial edema.
--- NOTE | ~2023-07-13 | XR_ITS ---
EXAMINATION: XR chest 1V portable DATE: 07/14/2023 07:32 INDICATION: Pulmonary edema. TECHNIQUE: A single frontal view of the chest was obtained. COMPARISON: Chest single view at 07/13/2023 FINDINGS: There is mild atelectasis in the lower lung zones. No pleural effusion or pneumothorax. The heart size is normal. A right internal jugular central venous catheter is seen with tip in the super ior vena cava. There is old healed fracture of proximal right humerus. IMPRESSION: 1. Mild atelectasis in the lower lung zones. Reviewed, dictated and finalized at location E. TATION INSPECTOR
--- NOTE | 2023-07-13 07:53 | ECG_ITS ---
Measurements Intervals [place] Rate: 105 P: ME: 0 QRS: 64 QRSD: 94 T: 56 QT: 335 QTc: 444 Interpretive Statements SINUS TACHYCRDIA FREQUENT ATRIAL PREMATURE COMPLEXES BASELINE ARTIFACT- I, II, III, AVR, AVL, AVF ABNORMAL ECG NO PREVIOUS ECG AVAILABLE FOR COMPARISON Electronically Signed On 07-13-2023 8:35:32 BUTTERMAKER by Levi Willett D.O.
--- NOTE | 2023-07-13 08:12 | ED.SOB ---
HPI - SOB/Dyspnea General Chief Complaint: Shortness of Breath/Dyspnea Stated Complaint: DYSPNEA Time Seen by Provider: 07/13/23 07:50 History of Present Illness HPI Narrative: Patient is a 68-year-old female who presents the ER with weakness and shortness of breath. Reports over last week she has been feeling more weak and not herself. Denies fevers. She has been feeling cold and clammy. No known sick contacts. Reports she had some low back pain last week and now she has some discomfort in her upper back between her shoulders over the muscles. She also reports that today she developed shortness of breath. It feels central in her chest. Occasionally feels like her heart is racing. No history of arrhythmia or heart failure. Related Data Allergies Allergy/AdvReac Type Severity Reaction Status Date / Time Sulfa (Sulfonamide Allergy Unknown Hives Verified 07/13/23 08:05 Antibiotics) Review of Systems Review of Systems: All systems reviewed & are unremarkable except as noted in HPI and below Constitutional: Constitutional: Reports chills, Reports fatigue, Denies fever(s) and Reports weakness ENT: Denies nasal congestion and Denies sore throat Cardiovascular: Cardiovascular: Denies chest pain, Reports rapid heart rate, Denies radiating jaw, neck or arm pain and Denies slow heart rate Respiratory: Respiratory: Denies chest congestion, Denies cough, Reports dyspnea and Denies wheezing Gastrointestinal: Gastrointestinal: Reports no additional gastrointestinal complaints Genitourinary: Genitourinary: Reports no additional female genitourinary complaints Musculoskeletal: Musculoskeletal: Reports no additional musculoskeletal complaints Integumentary/Breasts: Skin/Breast: Reports system reviewed and no additional complaints, except as docu PMFSH Past Medical History Medical History Anxiety Arthritis of foot, degenerative Depression Dizziness Hypertension Muscle spasm of calf Obesity Vertigo Vision abnormalities Surgical History Surgical History Status post removal of thyroid nodule Family History Family History Father Hypertension, Onset Age: 72 Patient's father is , Onset Age: 72 Other Family history of alcoholism High cholesterol Social History Social History Smoking packs per day: 1 Smoking cigarettes per day: 20.0 Years smoked: 30 Smoking pack-years: 30.00 Smoking status: Former smoker Tobacco type: cigarettes Second hand tobacco smoke exposure: No Smoking end date: 05/11/07 Alcohol intake: former Alcohol use details: Quit in 1992 Substance use: never Substance use type: does not use Exam Narrative: GENERAL: Fatigued-appearing, well-nourished, and in no acute distress. HEAD: Normocephalic, atraumatic. ENT: Mucous membranes moist. NECK: Supple. CHEST: Clear to auscultation. No respiratory distress. HEART: Regular rate and rhythm. Normal peripheral pulses. ABDOMEN: Soft, nontender, nondistended. EXTREMITIES: Normal range of motion. No edema. SKIN: Warm, dry, no rash. NEURO: Alert and oriented x3. PSYCH: Normal mood and affect. Course Course Emergency Course: patient and family informed of diagnosis and treatment plan. Patient with evidence of septic shock related to UTI. Patient consented for a central line. Patient is also full code. I discussed the case with the drip box tender as well as the hospitalist to both accepted the patient to their care. Patient will be started on meropenem for broad-spectrum coverage. She has received a 30 milliliter/kilogram IV fluid bolus without improvement her blood pressure. She will be started on a Levophed drip. Critical care time was performed to separate from the t
[2023-07-13] MEDS: SODIUM CHLORIDE 0.9% IV 1,000 ML 999 ML IV CONT (08:25)
[2023-07-13] MEDS: KETOROLAC 15 MG/ML VIAL (*BKC) IV PUSH (08:26)
[2023-07-13 08:30] LABS: Hematocrit 31.8 % (37.0-47.0); Hemoglobin 10.1 g/dL (12.0-15.0); Mean Corpuscular HGB Conc 31.8 g/dl (32-36); Mean Corpuscular Hemoglobin 27.2 pg (26-34); Mean Corpuscular Volume 85.5 fl (80-100); Mean Platelet Volume 12.2 fl (7.4-10.4); Platelet Count Result 138 k/mm3 (150-375); Red Blood Count 3.72 M/mm3 (4.2-5.4); Red Cell Distribution Width 16.3 % (11.5-14.5); White Blood Count 17.1 K/mm3 (4.5-10.0)
[2023-07-13 08:46] LABS: Band Neutrophils Percent 24 % (0-6); Lymphocytes Absolute Manual 0.17 K/mm3 (1.1-4.5); Neutrophils Absolute Manual 16.92 K/mm3 (1.7-7.2); Neutrophils Percent Manual 75 % (46-73); Total Cells Counted 100
[2023-07-13 08:47] LABS: Hypochromasia 1+ (NORMAL); Schistocytes None Seen (NORMAL)
[2023-07-13 08:54] LABS: Albumin Level 3.4 g/dL (3.5-5.1); Alkaline Phosphatase 86 U/L (38-126); Anion Gap 16 mmol/L (8-16); Aspartate Amino Transferase 67 U/L (14-36); Bilirubin,Total 1.7 mg/dL (0.2-1.3); Blood Urea Nitrogen 36 mg/dL (7-17); Calcium 7.8 mg/dL (8.4-10.2); Carbon Dioxide 18 mmol/L (22-30); Chloride 99 mmol/L (98-107); Estimated CRCL calculation 27 ml/min; Estimated Glomerular Filt Rate 28; Glucose 104 mg/dL (65-110); Lactic Acid Reflex 6.6 mmol/L (0.7-2.0); Potassium 3.3 mmol/L (3.4-5.0); Sodium 133 mmol/L (137-145)
[2023-07-13 08:57] LABS: NT Pro B Type Natriuretic Pept 13000 pg/mL (19.9-100)
[2023-07-13] MEDS: SODIUM CHLORIDE 0.9% IV 2,400 ML/1,000 ML BAG 999 ML IV CONT ×3 (09:05→13:15)
[2023-07-13 09:06] LABS: Influenza A QL RT-PCR Negative (Negative); Influenza B QL RT-PCR Negative (Negative); RSV RNA, RT-PCR Negative (Negative); SARS-CoV-2 RNA PCR Negative (Negative)
[2023-07-13 09:42] LABS: Alanine Aminotransferase 50 U/L (6-35)
[2023-07-13 09:49] LABS: Appearance Urine Turbid (Clear); Bacteria Urine 4+ /hpf; Bilirubin Urine Negative (Negative); Blood Urine 3+ (Negative); Color Urine Yellow (Yellow); Glucose Urine UA Negative (Negative); Ketones Urine Trace mg/dL (Negative); Leukocyte Esterase Ur 3+ LEU/UL (Negative); Nitrate Urine Negative (Negative); Non Pathogenic Casts >20; Protein Urine 2+ mg/dL (Negative); RBC Urine 21-50 /hpf (0-2); Specific Grav Ur 1.018 (1.001-1.035); Squamous Epithelial Cell Urine None seen /hpf (Few); WBC Clumps Urine Present /HPF; WBC Urine >100 /hpf
[2023-07-13 09:51] LABS: Add Urine Microscopic? YES
[2023-07-13] MEDS: MEROPENEM 1 GM/NS 100 ML 1 GM/100 ML BAG IVPB ×2 (09:57→20:58)
[2023-07-13 10:01] LABS: Troponin I 0.038 ng/mL (0.000-0.034)
[2023-07-13] MEDS: NOREPINEPHRINE 8 MG/D5W 250 ML 8 MG/250 ML BAG 9.38 MG IV CONT (10:19)
[2023-07-13] MEDS: SODIUM CHLORIDE 0.9% IV 1,000 ML 125 ML IV CONT ×2 (10:37→17:53)
--- NOTE | 2023-07-13 11:24 | ADMGEN ---
This patient, Delaney Mckeon, was admitted to Intensive Care Unit-5. Patient/family oriented to hospital policies and general routines including ID bracelet, bed and alarms, visiting hours, pain management, procedures, bathroom and other care routines, personal items, smoking policy, room service/diet, and visiting hours. Information on how to activate the Rapid Response Team has been discussed. Patient/Family are encouraged to report perceived risks to care and to ask questions if they do not understand what they are told or what they should do.
[2023-07-13 11:25] LABS: Reflex Lactic Acid Yes or No Add Lactic
[2023-07-13 11:58] LABS: Lactic Acid 4.6 mmol/L (0.7-2.0)
--- NOTE | 2023-07-13 12:01 | WPDCNINT ---
Assessment and Plan Assessment and plan (1) Septic shock: Code(s): A41.9 - Sepsis, unspecified organism; R65.21 - Severe sepsis with septic shock Status: Acute Assessment and Plan: Patient with septic shock most likely related to pyelonephritis/UTI -CT scan of the abdomen and pelvis showed left-sided kidney stones with mild hydronephrosis, Urology has been consulted -patient was found to be hypotensive despite 2 L IV fluid bolus, and additional IV fluid bolus was also then given in the ER for a total of 3 L -central line in the right IJ was inserted in the ER on 07/13/2023 -started on Levophed, will maintain MAP > 65 mm Hg OR SBP > 100 mmHg all times for adequate end organ perfusion -continue to monitor renal function and urine output, - insert Allen for accurate I's and O's -patient started on meropenem, will add vancomycin (07/12) -07/12: Blood cultures have been ordered -07/12: Urine cultures have been ordered 07/12: CT scan abdomen and pelvis without contrast IMPRESSION: 1. 5 mm and 2 mm stones in proximal left ureter with mild left hydronephrosis. 2. Nonobstructing left kidney stones. 3. Small sliding hiatal hernia. (2) Acute UTI: Code(s): N39.0 - Urinary tract infection, site not specified Status: Acute Assessment and Plan: Acute UTI as above (3) OLIVA (acute kidney injury): Code(s): N17.9 - Acute kidney failure, unspecified Status: Acute Assessment and Plan: Acute kidney injury most likely related to hypotension, septic shock, UTI/pyelonephritis. Creatinine elevated at 1.80 on admission,(normal range is 0.6-0.8) -patient also takes lisinopril at home -patient has been hypotensive requiring 3 L IV fluid bolus in total in the ER, -continue maintenance IV fluids -continue Levophed to titrate mean arterial pressures > 65 mmHg for adequate renal perfusion -monitor urine output, renal function electrolytes (4) Anemia: Code(s): D64.9 - Anemia, unspecified Status: Acute Assessment and Plan: Check vitamin B12, folic acid -stool Hemoccult -no active bleeding noted, continue to monitor hemoglobin (5) Anxiety and depression: Code(s): F41.9 - Anxiety disorder, unspecified; F32.9 - Major depressive disorder, single episode, unspecified Status: Acute Assessment and Plan: On buspirone and venlafaxine at home -will restart a.m. (6) Benign essential hypertension: Code(s): I10 - Essential (primary) hypertension Status: Acute Assessment and Plan: Patient with history of essential hypertension on lisinopril at home currently on hold due to patient being on pressors (7) Mixed hyperlipidemia: Code(s): E78.2 - Mixed hyperlipidemia Status: Acute Assessment and Plan: Will start atorvastatin Plan DVT prophylaxis: Lovenox Stress ulcer prophylaxis: Not indicated Nutrition: Heart healthy diet Code Status: Full code Critical Care Time Spent: 49 minutes Discussed with patient and updated her with her condition and plan of care. I answered all her questions Due to a high probability of clinically significant, life threatening deterioration, the patient required my highest level of preparedness to intervene emergently and I personally spent this critical care time directly and personally managing the patient. This critical care time included obtaining a history; examining the patient; pulse oximetry; ordering and review of studies; arranging urgent treatment with development of a management plan; evaluation of patient's response to treatment; frequent reassessment; and discussions with other providers. It was exclusive of separately billable procedures and treating other patients and teaching time. Please see Assessment and Plan section and the rest of the note for further information on patient assessment and treatment This dictation may have been done utilizing a voice recognition system. Attempts have been ma
--- NOTE | 2023-07-13 12:47 | WPDURCON ---
Assessment and Plan Assessment and plan (1) Septic shock: Code(s): A41.9 - Sepsis, unspecified organism; R65.21 - Severe sepsis with septic shock Status: Acute (2) OLIVA (acute kidney injury): Code(s): N17.9 - Acute kidney failure, unspecified Status: Acute (3) Ureteral stone: Code(s): N20.1 - Calculus of ureter Status: Acute Plan patient is currently in the ICU. She has decreasing pressor requirements. She is actively eating lunch. In light of all this I think the risk benefit ratio of placing an emergent ureteral stent is on the side of waiting. I have spoken to the ICU provider. I have left the know if she has worsening clinical status overnight which should be called immediately and stent or nephrostomy tube should be considered. Otherwise we will plan on left ureteral stent tomorrow. Continue antibiotics. Awaiting urine culture. Continue ICU care Urology Consult Note HPI Date Seen: 07/13/23 Requesting Physician: Reid Zamarripa MD Primary Care Provider: Amadou Chapa APRN Consult Narrative Narrative: Delaney Mckeon is a 68 year old female she is seen at request of the ICU. Her family is present in the room. They tell me she has not been acting herself for about a week. She has been missing social engagements which is not like her normal personality. She has been having flu-like symptoms at home with fatigue and fevers and chills. She presented to the emergency room this morning. she was found to be hypotensive and showing signs of septic shock. She was transferred to the ICU and started on pressors. CT scan was done which showed 2 proximal ureteral stones with mild hydronephrosis. She had acute kidney injury with elevated creatinine and abnormal urinalysis. She is currently on pressors in the ICU. She is awake and alert. Her pressor requirements are decreasing. She has no symptoms of urinary tract infection. She has no blood in the urine or dysuria. She has no flank pain. She has no prior history of kidney stones Review of Systems Review of Systems: All systems reviewed & are unremarkable except as noted in HPI and below PMFSH Past Medical History Medical History Anxiety Arthritis of foot, degenerative Depression Dizziness Hypertension Muscle spasm of calf Obesity Vertigo Vision abnormalities Surgical History Surgical History Status post removal of thyroid nodule Family History Family History Father Hypertension, Onset Age: 72 Patient's father is , Onset Age: 72 Other Family history of alcoholism High cholesterol Social History Social History Smoking packs per day: 2 Smoking cigarettes per day: 40.0 Years smoked: 30 Smoking pack-years: 60.00 Smoking status: Former smoker Tobacco type: cigarettes Second hand tobacco smoke exposure: No Smoking end date: 05/11/07 Alcohol intake: never Alcohol use details: Quit in 1992 Substance use: never Substance use type: does not use Do You Feel Safe in your Home?: Yes Lack of Transportation: No Lack of Food: Never True Current Housing: I Have Housing Concerned About Future Housing: No Difficulty Paying Gas/Electric Bills: No Difficulty Paying for Meds: No Currently Unemployed: No Education: High School Diploma/GED Difficulty w/ Childcare or Family Care: No Spiritual care concerns: No Meds Home Medications and Allergies Home Medications Medication Instructions Recorded Confirmed Type calcium carbonate 500 mg-vitamin 500 mg PO BIDWM #0 tabs 08/19/21 07/13/23 Rx D3 5 mcg (200 unit) tablet (Oyster Shell Calcium-Vitamin D3) atorvastatin 20 mg tablet 20 mg PO DAILY #90 tabs 03/12/23 07/13/23 Rx
--- NOTE | 2023-07-13 12:57 | PM.IMHP ---
H&P: HPI History of Present Illness Date/Time: 07/13/23 12:57 Chief Complaint: SOB, Hypotension, Weakness Narrative: 68 y/o F presents here with multiple medical complaints with PMH of depression, dizziness, HTN, emphysema, and vertigo. Patient presented to [place] ED via EMS for further evaluation of SOB, weakness, chills, upper back pain, and intermittent palpitations. Patient's symptoms initially started approximately 1 week ago with flu-like symptoms, i.e. chills, congestion, cough, and fatigue. Subsequently developed poor p.o. intake, diarrhea, chills, clammy sensation, and low back pain. Low back pain is described as stiffness/aching, constant, and radiates into her abdomen. Family also noted that patient has been not acting like herself, citing missing social engagements and a deviation from our normal personality. Upon arrival to the ED, vital signs initially appeared stable with mild tachycardia, no tachypnea, and afebrile. Shortly thereafter developed profound hypotension, BP 58/36. Patient given 2400 mL sepsis bolus of NS. Hypotension did not resolve, started on norepinephrine was started. Infusion titrated with starting dose of 5 mcg/min and now 21 mcg/min and maintaining MAP greater than 60-65. Patient was started on meropenem and R IJ central line was placed. Patient is currently feeling modestly improved, remains fatigued. Fever, chills, and body aches have resolved. Continuing to have mild SOB. Denies dark tarry stools, BRB per rectum, or abnormal bleeding. Reporting new abdominal distention and tightness . LBM yesterday, /. Initial VS at presentation: 97.4 F, HR 105, RR 20, 108/82, 98% on RA -> HR 105, RR 22, 58/36, and 96% on RA. ED workup showed: WBC 17.1, Hgb 10.1, plt count 138, K 3.3, Ham Trimmer 1.8 (previously 0.73), lactic acid 4.6, AT/ALT mildly elevated, CK 350, trop 0.038, and BNP 85139, and UA consistent with UTI. CT of the abd/pelvis showed 5 mm and 2 mm stones in proximal left ureter with mild left hydronephrosis.Nonobstructing left kidney stones. Small sliding hiatal hernia. CXR showed no acute cardiopulmonary abnormality. EKG showed sinus tachycardia with a rate of 105 and frequent atrial premature complexes. Review of Systems Review of Systems: All systems reviewed & are unremarkable except as noted in HPI and below PMFSH Past Medical History Medical History Anxiety and depression Arthritis of foot, degenerative Chronic neck and back pain Closed fracture of right distal femur (~07/28/21) R patella and R humeral Fx as well - transferred to U Depression Dizziness Hypertension Mixed hyperlipidemia Muscle spasm of calf Obesity Osteopenia Postmenopause Vertigo Vision abnormalities Surgical History Surgical History Status post removal of thyroid nodule Family History Family History Father Hypertension, Onset Age: 72 Patient's father is , Onset Age: 72 Other Family history of alcoholism High cholesterol Social History Social History Smoking packs per day: 2 Smoking cigarettes per day: 40.0 Years smoked: 30 Smoking pack-years: 60.00 Smoking status: Former smoker Tobacco type: cigarettes Second hand tobacco smoke exposure: No Smoking end date: 05/11/07 Alcohol intake: never Alcohol use details: Quit in 1992 Substance use: never Substance use type: does not use Do You Feel Safe in your Home?: Yes Lack of Transportation: No Lack of Food: Never True Current Housing: I Have Housing Concerned About Future Housing: No Difficulty Paying Gas/Electric Bills: No Difficulty Paying for Meds: No Currently Unemployed: No Education: High School Diploma/GED Difficulty w/ Childcare or Family Care: No Spiritual care conc
[2023-07-13] MEDS: ALBUMIN HUMAN 25% 25 GM/100 ML 100 ML IVPB ×3 (13:04→23:52)
[2023-07-13] MEDS: VANCOMYCIN 2,000 MG/NS 500 ML 2,000 MG/500 ML BAG 250 MG IVPB (13:05)
[2023-07-13] MEDS: CENTRAL LINE FLUSH 10 ML IV PUSH ×2 (13:05→21:01)
[2023-07-13 13:19] LABS: Creatine Kinase 350 U/L (30-135)
[2023-07-13 14:12] LABS: MRSA (PCR) NOT DETECTED (NOT DETECTE)
[2023-07-13 14:15] LABS: Eosinophil Urine None Seen % (None Seen)
[2023-07-13 14:16] LABS: Urine Eos QC 2nd Tech Confirmed
[2023-07-13 14:25] LABS: Potassium Urine Random 48.1 meq/L; Sodium Urine Random 9 meq/L
[2023-07-13] MEDS: PANTOPRAZOLE SODIUM IV 40 MG VIAL IV PUSH (15:03)
[2023-07-13] MEDS: ACETAMINOPHEN 325 MG TABLET 650 MG PO (17:51)
[2023-07-13] MEDS: NOREPINEPHRINE 8 MG/D5W 250 ML 8 MG/250 ML BAG 18.75 MG IV CONT (18:37)
[2023-07-13 19:23] LABS: Iron 16 ug/dL (37-170)
[2023-07-13 19:33] LABS: Percent Iron Saturation 5 % (20-50)
[2023-07-13 19:43] LABS: Troponin I 0.079 ng/mL (0.000-0.034)
[2023-07-13] MEDS: LACTATED RINGERS 1,000 ML 75 ML IV CONT (20:58)
[2023-07-14] VITALS (27 sets, daily range): BP systolic 108–147; BP diastolic 38–95; PULSE 76–98; RESP 16–28; TEMP 33.3–37.3; O2SAT 92–100
--- NOTE | 2023-07-14 | ECHO_ITS ---
Patient Info Name: Delaney Mckeon Age: 68 years : 1955 Gender: Female Ht: 64 in Wt: 191 lbs BSA: 2.01 m2 HR: 97 bpm BP: 147 / 64 mmHg Heart Rhythm: Sinus Rhythm Technical Quality: Fair Exam Date: 07/14/2023 2:03 PM Exam Location: Echo Lab Patient Status: Inpatient Admit Date: 07/13/2023 Staff Ordering Physician: Luis Bojorquez MD Fixed Income Director: Yvonne Teague RDCS Attending Provider: Nilo Zamarripa MD Referring Physician: Reno SANTANA; Exam Type: CA echo doppler color flow Study Info Indications - elevated troponin Complete two-dimensional, color flow and Doppler transthoracic echocardiogram is performed. Summary 1. Complete two-dimensional, color flow and Doppler transthoracic echocardiogram is performed. 2. Left ventricular chamber dimension is normal. 3. Left ventricular systolic function is normal, estimated at 60-65%. 4. The left ventricular diastolic function is normal. 5. E/e' 9 is minimally elevated. 6. There is trace mitral valve regurgitation. 7. There is mild tricuspid valve regurgitation. 8. Moderate pulmonary hypertension, estimated pulmonary arterial systolic pressure is 58 mmHg. 9. Dilated inferior vena cava with <50% collapse upon inspiration consistent with elevated right atrial pressure, 10 mmHg. Left Ventricle E/e' 9 is minimally elevated. Left ventricular chamber dimension is normal. Left ventricular systolic function is normal, estimated at 60-65%. The left ventricular diastolic function is normal. Right Ventricle Right ventricular systolic function is normal and with normal TAPSE 1.9 cm. Right ventricular chamber dimension is normal. Left Atria Left atrial chamber dimension is normal. Right Atria Right atrial chamber dimension is normal. Aortic Valve The aortic valve is not well visualized. Cannot determine number of aortic valve leaflets. There is no aortic valve stenosis. There is no aortic valve regurgitation. Pulmonic Valve There is no pulmonic regurgitation. Mitral Valve There is no mitral valve stenosis. There is trace mitral valve regurgitation. Tricuspid Valve There is mild tricuspid valve regurgitation. Moderate pulmonary hypertension, estimated pulmonary arterial systolic pressure is 58 mmHg. Pericardium/Pleural There is no pericardial effusion. Inferior Vena Cava Dilated inferior vena cava with <50% collapse upon inspiration consistent with elevated right atrial pressure, 10 mmHg. Aorta The aortic root size at the sinus of Valsalva is normal. Left Ventricular Outflow Tract Name Value Normal LVOT 2D LVOT Diameter 1.9 cm LVOT Doppler LVOT Peak Gradient 6 mmHg LVOT Mean Gradient 3 mmHg LVOT VTI 20 cm LVOT VTI/AV VTI Ratio 0.9 LVOT Stroke Volume 56 ml LVOT CO 5.2 l/min LVOT CI 2.6 l/min/m2 Pulmonic Valve Name Value Normal
--- NOTE | 2023-07-14 04:31 | ECG_ITS ---
Measurements Intervals [place] Rate: 90 P: -3 SD: 133 QRS: 63 QRSD: 77 T: 39 QT: 384 QTc: 470 Interpretive Statements SINUS RHYTHM BASELINE ARTIFACT- I, II, III, AVR, AVL, AVF, V1-V2, V4 NORMAL ECG COMPARED TO ECG 07/13/2023 07:56:10 SINUS RHYTHM NOW PRESENT Electronically Signed On 07-14-2023 6:51:48 ELEVATOR INSTALLER APPRENTICE by Levi Willett D.O.
[2023-07-14 04:57] LABS: Basophils Absolute Auto 0.1 K/mm3 (0.0-0.1); Basophils Percent Auto 0.7 % (0.2-1.2); Eosinophils Percent Auto 0.1 % (0-4.4); Hematocrit 25.8 % (37.0-47.0); Hemoglobin 8.5 g/dL (12.0-15.0); Immature Granulocyte Absolute 2.59 K/mm3 (0.00-0.031); Immature Platelet Fraction Pct 9.4 % (0.9-11.2); Lymphocytes Absolute Auto 0.82 K/mm3 (0.9-3.2); Lymphocytes Percent Auto 4.7 % (18.3-44.2); Mean Corpuscular HGB Conc 32.9 g/dl (32-36); Mean Corpuscular Hemoglobin 27.7 pg (26-34); Monocytes Absolute Auto 0.4 K/mm3 (0.1-0.6); Monocytes Percent Auto 2.4 % (2.6-8.5); Neutrophils Absolute Auto 13.4 K/mm3 (1.3-6.7); Neutrophils Percent Auto 77.1 % (45.5-73.1); Platelet Count Result 80 k/mm3 (150-375); Red Blood Count 3.07 M/mm3 (4.2-5.4); Red Cell Distribution Width 16.5 % (11.5-14.5); White Blood Count 17.3 K/mm3 (4.5-10.0)
[2023-07-14 05:04] LABS: Lactic Acid Reflex 1.9 mmol/L (0.7-2.0)
[2023-07-14 05:18] LABS: Alanine Aminotransferase 52 U/L (6-35); Albumin Level 3.5 g/dL (3.5-5.1); Alkaline Phosphatase 80 U/L (38-126); Anion Gap 10 mmol/L (8-16); Aspartate Amino Transferase 96 U/L (14-36); Bilirubin,Total 2.5 mg/dL (0.2-1.3); Blood Urea Nitrogen 31 mg/dL (7-17); Calcium 7.4 mg/dL (8.4-10.2); Carbon Dioxide 19 mmol/L (22-30); Chloride 113 mmol/L (98-107); Creatine Kinase 704 U/L (30-135); Estimated CRCL calculation 42 ml/min; Estimated Glomerular Filt Rate 44; Glucose 106 mg/dL (65-110); Lipase 52 U/L (23-300); Magnesium 1.8 mg/dL (1.6-2.3); Phosphorus 2.7 mg/dL (2.5-4.5); Potassium 3.3 mmol/L (3.4-5.0); Sodium 142 mmol/L (137-145)
[2023-07-14 05:27] LABS: Troponin I 0.205 ng/mL (0.000-0.034)
[2023-07-14] MEDS: ASPIRIN 325 MG TABLET PO (06:09)
[2023-07-14] MEDS: CENTRAL LINE FLUSH 10 ML IV PUSH ×3 (06:09→23:20)
[2023-07-14] MEDS: ALBUMIN HUMAN 25% 25 GM/100 ML 100 ML IVPB (06:09)
[2023-07-14] MEDS: NITROGLYCERIN SL 0.4 MG TABLET SUBLINGUAL ×2 (06:20→17:32)
[2023-07-14] MEDS: PANTOPRAZOLE SODIUM IV 40 MG VIAL IV PUSH (07:48)
[2023-07-14] MEDS: ATORVASTATIN 20 MG TABLET PO (07:48)
[2023-07-14] MEDS: KCL 40 MEQ/WATER 100 ML 100 ML 25 ML IVPB (08:03)
[2023-07-14] MEDS: MEROPENEM 1 GM/NS 100 ML 1 GM/100 ML BAG IVPB ×2 (08:04→21:35)
[2023-07-14 08:14] LABS: Hepatitis B Surface Antigen Negative (Negative)
[2023-07-14 08:20] LABS: HAV RESULT Negative (Negative); Hepatitis B Core IgM Result Negative (Negative)
[2023-07-14 08:32] LABS: Hepatitis C Virus Antibody Negative (Negative)
--- NOTE | 2023-07-14 09:24 | WPDUROPN2 ---
Progress Note: A&P Assessment and Plan (1) Septic shock: Code(s): A41.9 - Sepsis, unspecified organism; R65.21 - Severe sepsis with septic shock Status: Acute Assessment and Plan: Source of infection felt to be septic stone/UTI Remains on pressors, managed by primary team (2) Ureteral stone: Code(s): N20.1 - Calculus of ureter Status: Acute Assessment and Plan: 5 mm and 2 mm left proximal ureteral stone mild left hydronephrosis noted on CT Planning for cystoscopy with left ureteral stent placement today with Dr. Diego Discussed procedure in detail and patient agrees to proceed. Discussed temporary nature of stent, possible stent pain/discomfort, need for definitive stone treatment at a later date and appropriate outpatient follow-up; she understands (3) Acute UTI: Code(s): N39.0 - Urinary tract infection, site not specified Status: Suspected Assessment and Plan: Urine culture pending, continue empiric antibiotics while awaiting urine culture results (4) OLIVA (acute kidney injury): Code(s): N17.9 - Acute kidney failure, unspecified Status: Acute Assessment and Plan: Creatinine trending down, 1.2 today Subjective Subjective Date/Time Seen: 07/14/23 09:24 Interval history: Delaney is feeling fair today. She complains of abdominal pressure and discomfort. Denies flank pain or back pain. She denies nausea, vomiting, fever, or chills. Her Allen catheter is draining clear yellow urine. Urine culture is pending. Preliminary blood cultures with growth of Gram-negative rods. WBC remains elevated, 17.3. Creatinine improved to 1.2 Review of Systems Review of Systems: All systems reviewed & are unremarkable except as noted in HPI and below Exam Narrative: General: Awake, alert, comfortable, no acute distress HEENT: Normocephalic, atraumatic, sclerae anicteric Respiratory: Normal respiratory effort, no accessory muscle use Abdomen: Nondistended, soft, nontender : Allen catheter draining clear yellow urine Skin: Normal coloration, warm and dry Neurologic: No focal neuro deficits noted Psychiatric: Appropriate mood and affect, judgment and insight intact Objective Data Vital Signs Vital Signs: Vital Signs - 24 hr 07/13/23 10:19 07/13/23 10:30 07/13/23 10:35 Temperature Pulse Rate 103 H 104 H 103 H Respiratory Rate 22 H Blood Pressure 68/41 L 77/55 L 76/45 L Pulse Oximetry 96 Oxygen Delivery Oxygen Flow Rate 07/13/23 10:42 07/13/23 10:56 07/13/23 11:00 Temperature Pulse Rate 105 H 107 H 106 H Respiratory Rate 22 H Blood Pressure 74/44 L 69/44 L 96/51 L Pulse Oximetry 96 Oxygen Delivery Oxygen Flow Rate 07/13/23 10:50 07/13/23 11:24 07/13/23 11:25 Temperature 98.4 F Pulse Rate 107 H 108 H 108 H Respiratory Rate 22 H Blood Pressure 76/36 L 70/42 L 70/42 L Pulse Oximetry 95 Oxygen Delivery Oxygen Flow Rate 07/13/23 11:31 07/13/23 11:36 07/13/23 11:45 Temperature Pulse Rate 106 H 106 H 109 H Respiratory Rate Blood Pressure 63/31 L 92/74 L 95/69 L Pulse Oximetry Oxygen Delivery Oxygen Flow Rate 07/13/23 12:00 07/13/23 12:00 07/13/23 12:00 Temperature 98.4 F Pulse Rate 102 H 111 H Respiratory Rate 26 H Blood Pressure 103/70 103/70 Pulse Oximetry 92 95 Oxygen Delivery Room Air Oxygen Flow Rate 07/13/23 12:00 07/13/23 12:20 07/13/23 12:40 Temperature Pulse Rate 108 H 106 H 104 H Respiratory Rate Blood Pressure 116/61 106/91 H Pulse Oximetry Oxygen Delivery Oxygen Flow Rate 07/13/23 12:50 07/13/23 13:00 07/13/23 13:23 Temperature Pulse Rate 105 H 104 H 102 H Respiratory Rate Blood Pressure 112/71 115/63 113/61 Pulse Oximetry Oxygen Delivery Oxygen Flow Rate 07/13/23 13:45 07/13/23 14:00 07/13/23 14:15 Temperature Pulse Rate 100 102 H 100 Respiratory Rate Blo
--- NOTE | 2023-07-14 09:49 | PC.NURSE ---
To OR per [stretcher ], IV [ saline locked]. Report given to [OR nurses ].
[2023-07-14] MEDS: LACTATED RINGERS 1,000 ML 30 ML IV CONT (09:50)
--- NOTE | 2023-07-14 10:16 | PM.CNCAR ---
Assessment and Plan Assessment and plan (1) Elevated troponin: Code(s): R79.89 - Other specified abnormal findings of blood chemistry Status: Acute Assessment and Plan: Mildly elevated troponin level in the setting of septic shock from urosepsis. EKG without ischemic changes. No chest pain. Likely from demand ischemia from septic shock, profound hypotension on presentation. Unlikely to be an acute coronary syndrome. In addition, given significant drop in platelet count, not a candidate for anticoagulation at this time. Echocardiogram ordered and pending. Agree with statin. (2) Septic shock: Code(s): A41.9 - Sepsis, unspecified organism; R65.21 - Severe sepsis with septic shock Status: Acute Assessment and Plan: From urosepsis. Management as per ICU team. (3) OLIVA (acute kidney injury): Code(s): N17.9 - Acute kidney failure, unspecified Status: Acute Assessment and Plan: From urosepsis. Follow renal function. Plan Recommendations and plan discussed with Building Manager, Dr. Bojorquez. History of Present Illness History of Present Illness Consult date/time: 07/14/23 10:16 Requesting physician: Luis Bojorquez MD Consult reason: Other (Elevated troponin) Reason For Visit: Septic Shock/UTI/OLIVA Narrative: We are consulted for elevated troponin. This is a 68 year old female with hypertension, emphysema, anxiety, depression, arthritis, vertigo who presented with shortness of breath, generalized weakness, flu-like symptoms for the past week, poor appetite, diarrhea. In the ER, she was found to be hypotensive with BP 58/36mmHg. Patient given fluids and started on Levophed. Admitted to the ICU for septic shock from urosepsis. Her ED workup showed WBC 17, SCr of 1.8, lactate of 4.6. Troponins of 0.038, 0.079, 0.205. CT A/P shows 5mm and 2mm stones in the proximal left ureter with mild left hydronephrosis, nonobstructing left kidney stones. EKG with sinus rhythm without ischemic changes. Blood cultures are now positive for Gram negative bacilli in aerobic bottles. She is undergoing cystoscopy with left ureteral stent plaement today with Urology. Review of Systems Review of Systems: All systems reviewed & are unremarkable except as noted in HPI and below (HPI) [facility] Past Medical History Medical History Anxiety and depression Arthritis of foot, degenerative Chronic neck and back pain Closed fracture of right distal femur (~07/28/21) R patella and R humeral Fx as well - transferred to U Depression Dizziness Hypertension Mixed hyperlipidemia Muscle spasm of calf Obesity Osteopenia Postmenopause Vertigo Vision abnormalities Surgical History Surgical History Status post removal of thyroid nodule Family History Family History Father Hypertension, Onset Age: 72 Patient's father is , Onset Age: 72 Other Family history of alcoholism High cholesterol Social History Social History Smoking packs per day: 2 Smoking cigarettes per day: 40.0 Years smoked: 30 Smoking pack-years: 60.00 Smoking status: Former smoker Tobacco type: cigarettes Second hand tobacco smoke exposure: No Smoking end date: 05/11/07 Alcohol intake: never Alcohol use details: Quit in 1992 Substance use: never Substance use type: does not use Do You Feel Safe in your Home?: Yes Lack of Transportation: No Lack of Food: Never True Current Housing: I Have Housing Concerned About Future Housing: No Difficulty Paying Gas/Electric Bills: No Difficulty Paying for Meds: No Currently Unemployed: No Education: High School Diploma/GED Difficulty w/ Childcare or Family Care: No Spiritual care concerns: No Meds Home Medications and Allergi
--- NOTE | 2023-07-14 10:17 | WPDANESEPPF ---
Anes - Initial Pre Proc Eval Procedure: Operation Date: 07/14/23 14:15 Proposed Procedures p Cystoscopy,Left Stent Placement - Jv Diego MD Date/Time: 07/14/23 10:17 Surgeon: Reid Zamarripa MD Pre Op Diagnosis: Septic Shock/UTI/OLIVA Patient Data Age: 68 Gender: F Height: 1.63 m Weight: 87 kg Last Vital Signs Temp 99.2 F 07/14/23 09:59 Pulse 97 07/14/23 09:59 Resp 20 07/14/23 09:59 BP 147/64 H 07/14/23 09:59 Pulse Ox 95 07/14/23 09:59 O2 Del Method Nasal Cannula 07/14/23 09:59 O2 Flow Rate 4 07/14/23 09:59 Allergies Allergy/AdvReac Type Severity Reaction Status Date / Time Sulfa (Sulfonamide Allergy Unknown Hives Verified 07/13/23 08:05 Antibiotics) Home Medications Medication Instructions Recorded Confirmed Type calcium carbonate 500 mg-vitamin 500 mg PO BIDWM #0 tabs 08/19/21 07/13/23 Rx D3 5 mcg (200 unit) tablet (Oyster Shell Calcium-Vitamin D3) atorvastatin 20 mg tablet 20 mg PO DAILY #90 tabs 03/12/23 07/13/23 Rx lisinopril 20 mg tablet 20 mg PO DAILY #90 tabs 03/12/23 07/13/23 Rx buspirone 30 mg tablet 30 mg PO BID 07/13/23 07/13/23 History venlafaxine 75 mg capsule,extended 225 mg PO DAILY 07/13/23 07/13/23 History release 24 hr Laboratory Tests 07/13/23 07/13/23 07/13/23 09:20 11:33 12:48 WBC RBC Hgb Hct MCV MCH MCHC RDW Plt Count MPV Immature Gran % (Auto) Neut % (Auto) Lymph % (Auto) [place] % (Auto) Eos % (Auto) Baso % (Auto) Lymph # (Auto) [place] # (Auto) Eos # (Auto) Baso # (Auto) Abs Immat Gran (auto) Absolute Neuts (auto) Absolute Nucleated RBC Nucleated RBC % % Immature Plt Fraction Sodium Potassium Chloride Carbon Dioxide Anion Gap BUN Creatinine Estim Creat Clear Calc Estimated GFR Glucose Lactic Acid 4.6 H* mmol/L (0.7-2.0) Calcium Phosphorus Magnesium Iron TIBC % Saturation Ferritin Total Bilirubin AST ALT Alkaline Phosphatase Total Creatine Kinase 350 H U/L (30-135) Troponin I Total Protein Albumin Lipase Urine Eosinophils None seen % (None Seen) Ur Random Creatinine Pending Ur Random Sodium 9 meq/L Ur Random Potassium 48.1 meq/L Ur Random Chloride Pending U Random Chloride/Creat Pending Urine Creatinine Cancelled Nasal MRSA (PCR) Hepatitis A IgM Ab Hep Bs Antigen Hep B Core IgM Ab Hepatitis C Ab Screen Ur L.pneumophila Ag Urine Pneumococcal Ag 07/13/23 07/13/23 07/14/23 12:48 19:06 04:47 WBC 17.3 H K/mm3 (4.5-10.0) RBC 3.07 L M/mm3 (4.2-5.4) Hgb 8.5 L g/dL (12.0-15.0) Hct 25.8 L % (37.0-47.0) MCV 84.0 fl (80-100) MCH 27.7 pg (26-34) MCHC 32.9 g/dl (32-36) RDW 16.5 H % (11.5-14.5) Plt Count 80 L k/mm3 (150-375) MPV 12.0 H fl (7.4-10.4) Immature Gran % (Auto) 15.0 H % (0-0.5) Neut % (Auto) 77.1 H % (45.5-73.1) Lymph % (Auto) 4.7 L % (18.3-44.2) [place] % (Auto) 2.4 L % (2.6-8.5) Eos % (Auto) 0.1 % (0-4.4) Baso % (Auto) 0.7 % (0.2-1.2) Lymph # (Auto) 0.82 L K/mm3 (0.9-3.2) [place] # (Auto) 0.4 K/mm3 (0.1
--- NOTE | 2023-07-14 10:17 | WPDHPUPDATE1 ---
History and Physical Update Update Date/Time: 07/14/23 10:17 History and Physical has been reviewed, including an updated exam of the patient. There are NO changes in the patient's condition. Risks, benefits, and alternatives have been discussed and questions answered. Patient agrees to proceed with procedure. Proceed with cystoscopy, left retrograde, left stent placement.
[2023-07-14] MEDS: LIDOCAINE HCL 2% GEL UROJET 10 ML PKG MUCOUS MEM (10:42)
--- NOTE | 2023-07-14 10:44 | W.PM.PROC2 ---
Procedure Note - Detailed Date of Procedure 07/14/23 Pre-op Diagnosis Left ureteral calculi and sepsis Post-op Diagnosis Same Procedure Performed Cystoscopy, left retrograde pyelogram, left ureteral stent placement 4.8 Singaporean contour Surgeon Jv Diego MD Anesthesia General Description of Procedure Patient was taken to the operative suite correctly identified. Once anesthesia was obtained she was placed in dorsal lithotomy position and prepped and draped usual sterile fashion. Twenty-two Singaporean scope was inserted in the bladder. There were no tumors. The left ureteral orifice was cannulated with a ureteral catheter and a pyelogram was performed to confirm placement of the stent. Contrast made its way all the way up into the renal pelvis. The stones were difficult to visualize. 4.8 Singaporean contour stent was then placed with the proximal end coiled in the renal pelvis and the distal in the bladder. 2% viscous lidocaine was inserted into the urethra. Sixteen Singaporean Allen was placed with 10 cc in the balloon. Patient is taken recovery stable condition. Will plan on a CT KUB when she gets over her acute episode for further evaluation and management decisions of the stones. This completes dictation. Please send a copy of op note to my office. Estimated Blood Loss 0 Drains Yes Packing No Pathology None sent Complications No immediate complications Condition Stable Disposition PACU
--- NOTE | 2023-07-14 11:07 | WPDINTPN ---
Progress Note: A&P Assessment and Plan (1) Septic shock: Code(s): A41.9 - Sepsis, unspecified organism; R65.21 - Severe sepsis with septic shock Status: Acute Assessment and Plan: Patient with septic shock most likely related to pyelonephritis/UTI -CT scan of the abdomen and pelvis showed left-sided kidney stones with mild hydronephrosis, Urology has been consulted -patient was found to be hypotensive despite 2 L IV fluid bolus, and additional IV fluid bolus was also then given in the ER for a total of 3 L -central line in the right IJ was inserted in the ER on 07/13/2023 -started on Levophed, will maintain MAP > 65 mm Hg OR SBP > 100 mmHg all times for adequate end organ perfusion -continue to monitor renal function and urine output, -lactic acid has resolved -continue meropenem and vancomycin (07/12) -07/12: Blood cultures growing Gram-negative bacilli / bottles, identification and sensitivities pending -07/12: Urine cultures have been ordered 07/12: CT scan abdomen and pelvis without contrast IMPRESSION: 1. 5 mm and 2 mm stones in proximal left ureter with mild left hydronephrosis. 2. Nonobstructing left kidney stones. 3. Small sliding hiatal hernia. (2) Ureteral stone: Code(s): N20.1 - Calculus of ureter Status: Acute Assessment and Plan: Patient in the OR for cystoscopy and left ureteral stent placement by Urology (3) Acute UTI: Code(s): N39.0 - Urinary tract infection, site not specified Status: Suspected Assessment and Plan: Acute UTI as above (4) OLIVA (acute kidney injury): Code(s): N17.9 - Acute kidney failure, unspecified Status: Acute Assessment and Plan: Acute kidney injury most likely related to hypotension, septic shock, UTI/pyelonephritis. Creatinine elevated at 1.80 on admission,(normal range is 0.6-0.8) -patient also takes lisinopril at home -patient has been hypotensive requiring 3 L IV fluid bolus in total in the ER, -will discontinue IV fluids -Creatinine trending down, urine output has been adequate -off Levophed -monitor urine output, renal function and electrolytes (5) Anemia: Code(s): D64.9 - Anemia, unspecified Status: Acute Assessment and Plan: -stool Hemoccult pending -no active bleeding noted, continue to monitor hemoglobin (6) Anxiety and depression: Code(s): F41.9 - Anxiety disorder, unspecified; F32.9 - Major depressive disorder, single episode, unspecified Status: Inactive Assessment and Plan: Will restart buspirone and venlafaxine, she is on these medications at home (7) Benign essential hypertension: Code(s): I10 - Essential (primary) hypertension Status: Inactive Assessment and Plan: Patient with history of essential hypertension on lisinopril at home, -continue to hold as she just came off pressors 0.038, 0.079, 0.205 -patient was given aspirin, nitroglycerin. -did not start on heparin infusion or therapeutic Lovenox due to thrombocytopenia -echocardiogram has been ordered -cardiology has been consulted (8) Mixed hyperlipidemia: Code(s): E78.2 - Mixed hyperlipidemia Status: Inactive Assessment and Plan: Continue atorvastatin (9) Chest tightness: Code(s): R07.89 - Other chest pain Status: Acute Assessment and Plan: Chest tightness overnight, EKG did not show any ST changes, normal sinus rhythm -troponins were elevated (10) Thrombocytopenia: Code(s): D69.6 - Thrombocytopenia, unspecified Status: Acute Assessment and Plan: Likely related to septic shock, Gram-negative bacteremia -no active bleeding noted -will continue to monitor Plan DVT prophylaxis: SCDs Stress ulcer prophylaxis: Not indicated Nutrition: Heart healthy diet Code Status: Full code Critical Care Time Spent: 33 minutes Discussed with patient and updated her with her condition and plan of care. I answered all her que
[2023-07-14] MEDS: VANCOMYCIN 1,250 MG/NS 250 ML 1,250 MG/250 ML BAG 166.67 MG IVPB (13:20)
--- NOTE | 2023-07-14 17:26 | PM.IMPN ---
Progress Note: A&P Assessment and Plan (1) Septic shock: Code(s): A41.9 - Sepsis, unspecified organism; R65.21 - Severe sepsis with septic shock Status: Acute Assessment and Plan: . - suspected source: urosepsis/pyelonephritis/septic stone - started on meropenem on 07/12 - blood cultures drawn on 07/12 - UA: turbid, 2+ protein, trace ketones, 3+ blood, 3+ leuks, 21-50 rbc's, greater than 100 wbc's, WBC clumps present, no epithelial cells, 4+ bacteria, greater than 20 casts - CXR: No acute cardiopulmonary abnormality. - R IJ central line placed, confirmed via CXR - dutton placed for accurate I&Os - admitted to ICU, professor of history consulted. [place] DON, provided the following recommendations: Add vancomycin, started on 07/12 Add albumin x4 Anemia: Check B12, folic acid, stool occult, monitor hemoglobin Anxiety: Restart BuSpar and venlafaxine in a.m. - pt is on levophed - pt is on merrem - order cxr as pt is sob resp is up post op stent placement (2) Acute UTI: Code(s): N39.0 - Urinary tract infection, site not specified Status: Suspected Assessment and Plan: - UA: Turbid, 2+ protein, trace ketones, 3+ blood, 3+ leuks, 21-50 rbc's, greater than 100 wbc's, WBC clumps present, no epithelial cells, 4+ bacteria, greater than 20 casts - UC pending, done on 07/12 - previous micro reviewed: none on file - started on Meropenem on 07/12 - currently complicated by kidney stones in the L proximal ureter with mild left hydronephrosis - pt had stent placed today (3) Ureteral stone: Code(s): N20.1 - Calculus of ureter Status: Acute Assessment and Plan: - CT abd/pelvis (07/12): There are cysts in the kidneys measuring up to 18 mm. There are 3 stones in left kidney measuring up to 5 mm. There is mild left hydronephrosis. There are 5 mm and 2 mm stones in proximal left ureter.? - sp stent placement (4) OLIVA (acute kidney injury): Code(s): N17.9 - Acute kidney failure, unspecified Status: Acute Assessment and Plan: - creatinine 1.8 - creat is 1.2 - continue fluids (5) SOB (shortness of breath): Code(s): R06.02 - Shortness of breath Status: Acute Assessment and Plan: - history of emphysema - no adventitious lung sounds on exam, however requiring supplemental O2: 3L - CXR, initial: No acute process. The lungs are free of acute opacities. No pleural effusion or pneumothorax. The cardiomediastinal silhouette is normal.? - CXR, repeat: Mild interstitial edema (mild diffuse reticular opacities and cuffing) - rpt cxr today - dc fluids as pt has received alot of fluids - DuoNebs p.r.n. should you diurese summary with a kidney stone with hydronephrosis (6) Elevated troponin: Code(s): R79.89 - Other specified abnormal findings of blood chemistry Status: Acute Assessment and Plan: - troponin: 0.038-> 0.079. Third troponin ordered. - suspect elevation in troponin is secondary to ischemia due to earlier hypotension/current sepsis - EKG, initial: Sinus tachycardia with a rate of 105, frequent atrial premature complexes, baseline artifact, no previous EKG available for comparison (7) Anemia: Code(s): D64.9 - Anemia, unspecified Status: Acute Assessment and Plan: - Hgb 10.1 - previously 13.0 on 03/2023 - MCV 85.5, MCHC 31.8, RDW 16.3 - check B12, folic acid, stool occult, iron, ferritin, TIBC panel - monitor hemoglobin (8) Hypertension: Code(s): I10 - Essential (primary) hypertension Status: Acute Assessment and Plan: - chronic, currently requiring pressor - hold home med: lisinopril - monitor closely Subjective Date/time seen: 07/14/23 17:26 Interval history: Reason for consult: Septic shock, UTI, left renal stones with mild hydronephrosis 07/14/2023: Patient seen and examined the ICU, had some chest tightness early this morning, EKG not show any ST-T chand
[2023-07-14] MEDS: busPIRone HCL 10 MG TABLET 30 MG PO (17:41)
--- NOTE | 2023-07-14 19:02 | ECG_ITS ---
Measurements Intervals [place] Rate: 91 P: 24 LA: 147 QRS: 59 QRSD: 79 T: 44 QT: 364 QTc: 449 Interpretive Statements SINUS RHYTHM BASELINE ARTIFACT- I, II, III, AVR, AVL, AVF NORMAL ECG COMPARED TO ECG 07/14/2023 04:40:58 NO SIGNIFICANT CHANGES Electronically Signed On 07-15-2023 6:27:11 [employer]IDE ATTENDANT by Levi Willett D.O.
[2023-07-14] MEDS: IPRATROPIUM 0.5 MG/ALBUTEROL SULFATE 2.5 MG AMPUL.NEB 3 ML INHALATION (19:54)
[2023-07-15] VITALS (12 sets, daily range): BP systolic 115–171; BP diastolic 63–89; PULSE 75–96; RESP 15–22; TEMP 36.6–37.2; O2SAT 92–100
[2023-07-15] MEDS: CENTRAL LINE FLUSH 10 ML IV PUSH ×3 (04:47→22:00)
[2023-07-15 05:52] LABS: Hematocrit 28.7 % (37.0-47.0); Hemoglobin 9.1 g/dL (12.0-15.0); Immature Platelet Fraction Pct 12.2 % (0.9-11.2); Mean Corpuscular HGB Conc 31.7 g/dl (32-36); Mean Corpuscular Hemoglobin 27.1 pg (26-34); Mean Corpuscular Volume 85.4 fl (80-100); Mean Platelet Volume 12.6 fl (7.4-10.4); Platelet Count Result 96 k/mm3 (150-375); Red Blood Count 3.36 M/mm3 (4.2-5.4); Red Cell Distribution Width 16.8 % (11.5-14.5); White Blood Count 25.8 K/mm3 (4.5-10.0)
[2023-07-15 05:57] LABS: Alanine Aminotransferase 49 U/L (6-35); Albumin Level 3.3 g/dL (3.5-5.1); Alkaline Phosphatase 105 U/L (38-126); Anion Gap 6 mmol/L (8-16); Aspartate Amino Transferase 68 U/L (14-36); Blood Urea Nitrogen 27 mg/dL (7-17); Carbon Dioxide 21 mmol/L (22-30); Chloride 114 mmol/L (98-107); Estimated CRCL calculation 61 ml/min; Estimated Glomerular Filt Rate > 60; Glucose 129 mg/dL (65-110); Magnesium 2.1 mg/dL (1.6-2.3); Phosphorus 2.9 mg/dL (2.5-4.5); Potassium 4.2 mmol/L (3.4-5.0); Sodium 141 mmol/L (137-145)
[2023-07-15 05:58] LABS: Lactic Acid Reflex 1.2 mmol/L (0.7-2.0)
[2023-07-15 08:25] LABS: Band Neutrophils Percent 16 % (0-6); Lymphocytes Absolute Manual 1.29 K/mm3 (1.1-4.5); Neutrophils Absolute Manual 24.51 K/mm3 (1.7-7.2); Neutrophils Percent Manual 79 % (46-73); Total Cells Counted 100
[2023-07-15 08:26] LABS: Hypochromasia 1+ (NORMAL); Platelet Estimate Decreased (Adequate); Schistocytes None Seen (NORMAL)
[2023-07-15] MEDS: busPIRone HCL 10 MG TABLET 30 MG PO ×2 (08:36→16:14)
[2023-07-15] MEDS: PANTOPRAZOLE SODIUM IV 40 MG VIAL IV PUSH (08:36)
[2023-07-15] MEDS: VENLAFAXINE HCL XR 75 MG CAP.ER.24H 225 MG PO (08:36)
[2023-07-15] MEDS: ATORVASTATIN 20 MG TABLET PO (08:37)
[2023-07-15] MEDS: MEROPENEM 1 GM/NS 100 ML 1 GM/100 ML BAG IVPB ×2 (08:37→20:09)
--- NOTE | 2023-07-15 08:56 | WPDANESPN ---
Anes - Prog Note Post-Op Date/Time: 07/15/23 08:56 Vital Signs: Last Vital Signs Temp 36.8 C 07/15/23 04:00 Pulse 81 07/15/23 06:00 Resp 16 07/15/23 04:00 BP 154/87 H 07/15/23 04:00 Pulse Ox 97 07/15/23 04:00 O2 Del Method Nasal Cannula 07/15/23 04:00 O2 Flow Rate 2 07/15/23 04:00 Pain Score (VAS): 0 I/O: Intake & Output 07/14/23 07/15/23 07/15/23 23:59 07:59 15:59 Intake Total 1200 400 Output Total 1000 1450 Balance 200 -1050 Laboratory Tests 07/15/23 05:37 07/15/23 05:37 07/15/23 05:37 WBC 25.8 H RBC 3.36 L Hgb 9.1 L Hct 28.7 L MCV 85.4 MCH 27.1 MCHC 31.7 L RDW 16.8 H Plt Count 96 L MPV 12.6 H Immature Gran % (Auto) Not Reportable Neut % (Auto) Not Reportable Lymph % (Auto) Not Reportable [place] % (Auto) Not Reportable Eos % (Auto) Not Reportable Baso % (Auto) Not Reportable Lymph # (Auto) Not Reportable [place] # (Auto) Not Reportable Eos # (Auto) Not Reportable Baso # (Auto) Not Reportable Abs Immat Gran (auto) Not Reportable Absolute Neuts (auto) Not Reportable Absolute Nucleated RBC Not Reportable Total Counted 100 Neutrophils % (Manual) 79 H Band Neutrophils % 16 H Lymphocytes % (Manual) 5.0 L Nucleated RBC % Not Reportable Abs Neuts (Manual) 24.51 H Abs Lymphs (Manual) 1.29 Platelet Estimate Decreased % Immature Plt Fraction 12.2 H Hypochromasia 1+ Schistocytes None seen Sodium 141 Potassium 4.2 Chloride 114 H Carbon Dioxide 21 L Anion Gap 6 L BUN 27 H Creatinine 0.80 Estim Creat Clear Calc 61 Estimated GFR > 60 Glucose 129 H Lactic Acid 1.2 Calcium 8.0 L Phosphorus 2.9 Magnesium 2.1 Total Bilirubin 2.0 H AST 68 H ALT 49 H Alkaline Phosphatase 105 Total Protein 6.0 L Albumin 3.3 L Microbiology 07/13/23 09:20 Blood Blood Culture - Preliminary Escherichia Coli 07/13/23 09:20 Blood Blood Culture - Preliminary Escherichia Coli 07/13/23 09:29 Urine Clean Catch Urine Culture - Preliminary Escherichia Coli Patient Feedback: Patient satisfied with anesthetic care. pt sleeping, report from RN that pt was doing fine, no issues from anesthesia that she was aware of.
--- NOTE | 2023-07-15 12:38 | PM.IMPN ---
Progress Note: A&P Assessment and Plan (1) Septic shock: Code(s): A41.9 - Sepsis, unspecified organism; R65.21 - Severe sepsis with septic shock Status: Acute Assessment and Plan: - suspected source: urosepsis/pyelonephritis/septic stone - started on meropenem on 07/12 - blood cultures drawn on 07/12 - UA: turbid, 2+ protein, trace ketones, 3+ blood, 3+ leuks, 21-50 rbc's, greater than 100 wbc's, WBC clumps present, no epithelial cells, 4+ bacteria, greater than 20 casts - CXR: No acute cardiopulmonary abnormality. - R IJ central line placed, confirmed via CXR - dutton placed for accurate I&Os - admitted to ICU, battery stacker consulted. [place] DON, provided the following recommendations: Add vancomycin, started on 07/12 Add albumin x4 Anemia: Check B12, folic acid, stool occult, monitor hemoglobin Anxiety: Restart BuSpar and venlafaxine in a.m. - pt is on merrem and oral vancomycin - off levophed now - bp slightly up today - Cxr shows opacities (2) Acute UTI: Code(s): N39.0 - Urinary tract infection, site not specified Status: Suspected Assessment and Plan: - UA: Turbid, 2+ protein, trace ketones, 3+ blood, 3+ leuks, 21-50 rbc's, greater than 100 wbc's, WBC clumps present, no epithelial cells, 4+ bacteria, greater than 20 casts - UC pending, done on 07/12 - previous micro reviewed: none on file - started on Meropenem on 07/12 - currently complicated by kidney stones in the L proximal ureter with mild left hydronephrosis - pt had stent placed yesterday (3) Ureteral stone: Code(s): N20.1 - Calculus of ureter Status: Acute Assessment and Plan: - CT abd/pelvis (07/12): There are cysts in the kidneys measuring up to 18 mm. There are 3 stones in left kidney measuring up to 5 mm. There is mild left hydronephrosis. There are 5 mm and 2 mm stones in proximal left ureter.? - sp stent placement (4) LOIVA (acute kidney injury): Code(s): N17.9 - Acute kidney failure, unspecified Status: Acute Assessment and Plan: - creatinine is 0.8 can dc fluids (5) SOB (shortness of breath): Code(s): R06.02 - Shortness of breath Status: Acute Assessment and Plan: - history of emphysema - no adventitious lung sounds on exam, however requiring supplemental O2: 3L - CXR, initial: No acute process. The lungs are free of acute opacities. No pleural effusion or pneumothorax. The cardiomediastinal silhouette is normal.? - CXR, repeat: Mild interstitial edema (mild diffuse reticular opacities and cuffing) - rpt cxr today - dc fluids as pt has received alot of fluids - DuoNebs p.r.n. should you diurese summary with a kidney stone with hydronephrosis (6) Elevated troponin: Code(s): R79.89 - Other specified abnormal findings of blood chemistry Status: Acute Assessment and Plan: - troponin: 0.038-> 0.079. Third troponin ordered. - suspect elevation in troponin is secondary to ischemia due to earlier hypotension/current sepsis - EKG, initial: Sinus tachycardia with a rate of 105, frequent atrial premature complexes, baseline artifact, no previous EKG available for comparison (7) Anemia: Code(s): D64.9 - Anemia, unspecified Status: Acute Assessment and Plan: - Hgb 10.1 - previously 13.0 on 03/2023 - MCV 85.5, MCHC 31.8, RDW 16.3 - check B12, folic acid, stool occult, iron, ferritin, TIBC panel - monitor hemoglobin (8) Hypertension: Code(s): I10 - Essential (primary) hypertension Status: Acute Assessment and Plan: - chronic, Bp corrected restart oral bp medications Subjective Date/time seen: 07/15/23 12:38 Interval history: Reason for consult: Septic shock, UTI, left renal stones with mild hydronephrosis 07/14/2023: Patient seen and examined the ICU, had some chest tightness early this morning, EKG not show any ST-T changes, normal sinus rhythm. Patient also compl
[2023-07-15 12:54] LABS: Vancomycin Trough 6.8 ug/mL (10.0-20.0)
[2023-07-15] MEDS: lisinopriL 20 MG TABLET PO (13:08)
--- NOTE | 2023-07-15 13:55 | WPDUROPN2 ---
Progress Note: A&P Assessment and Plan (1) Septic shock: Code(s): A41.9 - Sepsis, unspecified organism; R65.21 - Severe sepsis with septic shock Status: Acute Assessment and Plan: Source of infection felt to be septic stone/UTI Continue antibiotics tailored to blood in urine cultures (2) Ureteral stone: Code(s): N20.1 - Calculus of ureter Status: Acute Assessment and Plan: 5 mm and 2 mm left proximal ureteral stone with mild left hydronephrosis noted on CT Underwent cystoscopy, left retrograde pyelogram, and left ureteral stent placement on 07/14/[address] Diego She is aware of need for outpatient follow-up for definitive stone management (3) Acute UTI: Code(s): N39.0 - Urinary tract infection, site not specified Status: Suspected Assessment and Plan: Urine culture with growth of E coli (also present in blood cultures). Continue IV meropenem (4) OLIVA (acute kidney injury): Code(s): N17.9 - Acute kidney failure, unspecified Status: Acute Assessment and Plan: Resolved. Creatinine has normalized, 0.8 today Subjective Subjective Date/Time Seen: 07/15/23 09:00 Interval history: Delaney is doing well today. She was sitting up in bed eating breakfast at the time of my evaluation. Reports no concerns. Allen catheter draining light pink urine. Creatinine normalized, 0.8 today. WBC increased to 25.8. Review of Systems Review of Systems: All systems reviewed & are unremarkable except as noted in HPI and below Exam Narrative: General: Awake, alert, comfortable, no acute distress HEENT: Normocephalic, atraumatic, sclerae anicteric Respiratory: Normal respiratory effort, no accessory muscle use Abdomen: Nondistended, soft, nontender : Allen catheter draining clear light pink urine Skin: Normal coloration, warm and dry Neurologic: No focal neuro deficits noted Psychiatric: Appropriate mood and affect, judgment and insight intact Objective Data Vital Signs Vital Signs: Vital Signs - 24 hr 07/14/23 14:18 07/14/23 16:00 07/14/23 14:00 Temperature 98.4 F 92 F L Pulse Rate 95 92 94 Respiratory Rate 21 H 24 H Blood Pressure 124/38 L 129/73 Pulse Oximetry 96 96 Oxygen Delivery Oxygen Flow Rate 07/14/23 16:00 07/14/23 18:00 07/14/23 19:55 Temperature Pulse Rate 92 89 94 Respiratory Rate 24 H 24 H Blood Pressure Pulse Oximetry 96 Oxygen Delivery Nasal Cannula Oxygen Flow Rate 4 07/14/23 20:07 07/14/23 20:00 07/14/23 20:00 Temperature Pulse Rate 96 87 96 Respiratory Rate 22 H 18 Blood Pressure Pulse Oximetry 96 Oxygen Delivery Nasal Cannula Oxygen Flow Rate 2 07/14/23 20:00 07/14/23 22:00 07/15/23 00:00 Temperature 98.2 F Pulse Rate 88 76 76 Respiratory Rate 18 Blood Pressure 125/67 Pulse Oximetry 94 Oxygen Delivery Oxygen Flow Rate 07/15/23 00:00 07/15/23 00:00 07/15/23 03:00 Temperature 97.9 F Pulse Rate 76 76 75 Respiratory Rate 22 H 16 Blood Pressure 115/63 Pulse Oximetry 97 97 Oxygen Delivery Nasal Cannula Oxygen Flow Rate 2 07/15/23 04:00 07/15/23 04:00 07/15/23 04:00 Temperature 98.2 F Pulse Rate 77 80 82 Respiratory Rate 16 16 Blood Pressure 154/87 H Pulse Oximetry 97 97 Oxygen Delivery Nasal Cannula Oxygen Flow Rate 2 07/15/23 06:00 07/15/23 08:00 07/15/23 08:00 Temperature Pulse Rate 81 81 Respiratory Rate Blood Pressure Pulse Oximetry 98 Oxygen Delivery Nasal Cannula Oxygen Flow Rate 2 07/15/23 08:00 07/15/23 09:37 07/15/23 10:00 Temperature 98.4 F Pulse Rate 81 93 Respiratory Rate 15 Blood Pressure 160/80 H Pulse Oximetry 100 93 Oxygen Delivery Nasal Cannula Oxygen Flow Rate 2 07/15/23 12:00 07/15/23 12:00 07/15/23 12:00 Temperature 99 F Pulse Rate 92 92 Respiratory Rate 18 Blood Pressure 171/86 H Pulse Oximetry 96 97 Oxygen De
--- NOTE | 2023-07-15 15:53 | PM.PNCARD ---
Progress Note: A&P Assessment and Plan (1) SOB (shortness of breath): Code(s): R06.02 - Shortness of breath Status: Acute Assessment and Plan: Has some shortness of breath, on supplemental oxygen. CXR with bilateral opacities. She did receive a lot of IVFs on admission given septic shock and is currently 4.7L net positive. Will give a one time dose of IV Lasix. (2) Elevated troponin: Code(s): R79.89 - Other specified abnormal findings of blood chemistry Status: Acute Assessment and Plan: Mildly elevated troponin level in the setting of septic shock from urosepsis. EKG without ischemic changes. No chest pain. Likely from demand ischemia from septic shock, profound hypotension on presentation. Unlikely to be an acute coronary syndrome. Agree with statin. Echocardiogram shows normal LVEF 60-65%, normal diastolic dysfunction, no significant valvular disease, moderate PHTN (3) Septic shock: Code(s): A41.9 - Sepsis, unspecified organism; R65.21 - Severe sepsis with septic shock Status: Acute Assessment and Plan: From urosepsis. Management as per ICU team. Off pressors now (4) OLIVA (acute kidney injury): Code(s): N17.9 - Acute kidney failure, unspecified Status: Acute Assessment and Plan: From urosepsis. Follow renal function. (5) Hypertension: Code(s): I10 - Essential (primary) hypertension Status: Acute Assessment and Plan: Agree with resuming Lisinopril. Subjective Date/time seen: 07/15/23 15:53 Interval history: Reason for visit: Elevated troponin HPI: We are consulted for elevated troponin. This is a 68 year old female with hypertension, emphysema, anxiety, depression, arthritis, vertigo who presented with shortness of breath, generalized weakness, flu-like symptoms for the past week, poor appetite, diarrhea. In the ER, she was found to be hypotensive with BP 58/36mmHg. Patient given fluids and started on Levophed. Admitted to the ICU for septic shock from urosepsis. Her ED workup showed WBC 17, SCr of 1.8, lactate of 4.6. Troponins of 0.038, 0.079, 0.205. CT A/P shows 5mm and 2mm stones in the proximal left ureter with mild left hydronephrosis, nonobstructing left kidney stones. EKG with sinus rhythm without ischemic changes. Blood cultures are now positive for Gram negative bacilli in aerobic bottles. She is undergoing cystoscopy with left ureteral stent placement today with Urology. Date of service 07/14: Feels short of breath at times. Otherwise, no chest pain. Exam Const: General: comfortable and no acute distress HENMT: Mouth: Yes moist mucous membranes Eyes: General: appearance normal, both eyes and all related structures Sclera: sclerae normal Neck: Neck: supple Resp: Effort & Inspection: normal respiratory effort Cardio: Rate: regular rate Skin: General skin exam: normal color Neuro: Speech: normal speech Psych: Mental Status: mental status grossly normal Affect: normal affect Objective Data Vital Signs Vital Signs: Vital Signs - 24 hr 07/14/23 16:00 07/14/23 16:00 07/14/23 18:00 Temperature 33.3 C L Pulse Rate 92 92 89 Respiratory Rate 24 H 24 H Blood Pressure 129/73 Pulse Oximetry 96 96 Oxygen Delivery Nasal Cannula Oxygen Flow Rate 4 07/14/23 19:55 07/14/23 20:07 07/14/23 20:00 Temperature Pulse Rate 94 96 87 Respiratory Rate 24 H 22 H Blood Pressure Pulse Oximetry Oxygen Delivery Oxygen Flow Rate 07/14/23 20:00 07/14/23 20:00 07/14/23 22:00 Temperature 36.8 C Pulse Rate 96 88 76 Respiratory Rate 18 18 Blood Pressure 125/67 Pulse Oximetry 96 94 Oxygen Delivery Nasal Cannula Oxygen Flow Rate 2 07/15/23 00:00 07/15/23 00:00 07/15/23 00:00 Temperature 36.6 C Pulse Rate 76 76 76 Respiratory Rate 22 H 16 Blood Pressure 115/63 Pulse Oximetry 97 97 Oxygen Delivery Nasal Cannula Oxygen Flow Rate 2 07/15/23 03:00 07/15/23 04:0
[2023-07-15] MEDS: FUROSEMIDE INJ 40 MG/4 ML VIAL IV PUSH (16:14)
[2023-07-15 18:38] LABS: Pneumococcal Antigen Urine Not Detected (Not Detected)
[2023-07-16] VITALS (11 sets, daily range): BP systolic 131–191; BP diastolic 67–93; PULSE 81–104; RESP 13–21; TEMP 36.6–37.3; O2SAT 95–98
[2023-07-16 01:59] LABS: Legionella pneumophila Ag Ur Not Detected (Not Detected)
[2023-07-16] MEDS: CENTRAL LINE FLUSH 10 ML IV PUSH ×3 (05:44→21:37)
[2023-07-16 06:12] LABS: Basophils Percent Auto 0.1 % (0.2-1.2); Eosinophils Percent Auto 0.1 % (0-4.4); Hematocrit 28.3 % (37.0-47.0); Hemoglobin 9.1 g/dL (12.0-15.0); Immature Granulocyte Absolute 0.16 K/mm3 (0.00-0.031); Immature Granulocyte Percent A 0.9 % (0-0.5); Lymphocytes Absolute Auto 1.64 K/mm3 (0.9-3.2); Lymphocytes Percent Auto 9.7 % (18.3-44.2); Mean Corpuscular HGB Conc 32.2 g/dl (32-36); Mean Corpuscular Hemoglobin 26.5 pg (26-34); Mean Corpuscular Volume 82.5 fl (80-100); Mean Platelet Volume 12.5 fl (7.4-10.4); Monocytes Percent Auto 5.7 % (2.6-8.5); Neutrophils Absolute Auto 14.2 K/mm3 (1.3-6.7); Neutrophils Percent Auto 83.5 % (45.5-73.1); Nucleated Red Blood Cells Perc 0.1 % (0.0-0.2); Platelet Count Result 100 k/mm3 (150-375); Red Blood Count 3.43 M/mm3 (4.2-5.4); Red Cell Distribution Width 16.7 % (11.5-14.5)
[2023-07-16 06:16] LABS: Lactic Acid Reflex 0.9 mmol/L (0.7-2.0)
[2023-07-16 06:20] LABS: Alanine Aminotransferase 57 U/L (6-35); Albumin Level 3.2 g/dL (3.5-5.1); Alkaline Phosphatase 106 U/L (38-126); Anion Gap 7 mmol/L (8-16); Aspartate Amino Transferase 58 U/L (14-36); Bilirubin,Total 1.6 mg/dL (0.2-1.3); Blood Urea Nitrogen 35 mg/dL (7-17); Calcium 8.1 mg/dL (8.4-10.2); Carbon Dioxide 24 mmol/L (22-30); Chloride 110 mmol/L (98-107); Estimated CRCL calculation 49 ml/min; Estimated Glomerular Filt Rate 55; Glucose 96 mg/dL (65-110); Magnesium 1.8 mg/dL (1.6-2.3); Phosphorus 3.5 mg/dL (2.5-4.5); Potassium 3.4 mmol/L (3.4-5.0); Sodium 141 mmol/L (137-145)
[2023-07-16] MEDS: lisinopriL 20 MG TABLET PO (08:42)
[2023-07-16] MEDS: ATORVASTATIN 20 MG TABLET PO (08:42)
[2023-07-16] MEDS: MEROPENEM 1 GM/NS 100 ML 1 GM/100 ML BAG IVPB (08:43)
[2023-07-16] MEDS: busPIRone HCL 10 MG TABLET 30 MG PO ×2 (08:43→16:23)
[2023-07-16] MEDS: VENLAFAXINE HCL XR 75 MG CAP.ER.24H 225 MG PO (08:44)
[2023-07-16] MEDS: PANTOPRAZOLE SODIUM IV 40 MG VIAL IV PUSH (08:44)
--- NOTE | 2023-07-16 09:57 | PM.PNCARD ---
Progress Note: A&P Assessment and Plan (1) SOB (shortness of breath): Code(s): R06.02 - Shortness of breath Status: Acute Assessment and Plan: Had some shortness of breath, was on supplemental oxygen. CXR with bilateral opacities. She did receive a lot of IVFs on admission given septic shock and was 4.7L net positive. Gave her a one time dose of IV Lasix 3/6, with great urine output. Denies shortness of breath now and is off of supplemental oxygen. Do not anticipate that she will need terminal make up operator or maintenance dose of Lasix. (2) Elevated troponin: Code(s): R79.89 - Other specified abnormal findings of blood chemistry Status: Acute Assessment and Plan: Mildly elevated troponin level in the setting of septic shock from urosepsis. EKG without ischemic changes. No chest pain. Likely from demand ischemia from septic shock, profound hypotension on presentation. Unlikely to be an acute coronary syndrome. Agree with statin. Echocardiogram shows normal LVEF 60-65%, normal diastolic dysfunction, no significant valvular disease, moderate PHTN (3) Septic shock: Code(s): A41.9 - Sepsis, unspecified organism; R65.21 - Severe sepsis with septic shock Status: Acute Assessment and Plan: From urosepsis. Management as per ICU team. Off pressors now (4) OLIVA (acute kidney injury): Code(s): N17.9 - Acute kidney failure, unspecified Status: Acute Assessment and Plan: From urosepsis. Follow renal function. (5) Hypertension: Code(s): I10 - Essential (primary) hypertension Status: Acute Assessment and Plan: Agree with resuming Lisinopril. Plan Cardiology will sign off at this time. Please call us back if needed. Subjective Date/time seen: 07/16/23 09:57 Interval history: Reason for visit: Elevated troponin HPI: We are consulted for elevated troponin. This is a 68 year old female with hypertension, emphysema, anxiety, depression, arthritis, vertigo who presented with shortness of breath, generalized weakness, flu-like symptoms for the past week, poor appetite, diarrhea. In the ER, she was found to be hypotensive with BP 58/36mmHg. Patient given fluids and started on Levophed. Admitted to the ICU for septic shock from urosepsis. Her ED workup showed WBC 17, SCr of 1.8, lactate of 4.6. Troponins of 0.038, 0.079, 0.205. CT A/P shows 5mm and 2mm stones in the proximal left ureter with mild left hydronephrosis, nonobstructing left kidney stones. EKG with sinus rhythm without ischemic changes. Blood cultures are now positive for Gram negative bacilli in aerobic bottles. She is undergoing cystoscopy with left ureteral stent placement today with Urology. Date of service 07/14: Feels short of breath at times. Otherwise, no chest pain. Date of service 07/15: Feeling well this morning. Denies shortness of breath. Off of oxygen now. She diuresed quite well yesterday with the IV Lasix. Review of Systems Review of Systems: All systems reviewed & are unremarkable except as noted in HPI and below (HPI) Exam Const: General: comfortable and no acute distress Eyes: General: appearance normal, both eyes and all related structures Sclera: sclerae normal Resp: Effort & Inspection: normal respiratory effort Cardio: Rate: regular rate Rhythm: regular rhythm Skin: General skin exam: normal color Neuro: Speech: normal speech Psych: Mental Status: mental status grossly normal Affect: normal affect Objective Data Vital Signs Vital Signs: Vital Signs - 24 hr 07/15/23 10:00 07/15/23 12:00 07/15/23 12:00 Temperature Pulse Rate 93 92 Respiratory Rate Blood Pressure Pulse Oximetry 96 Oxygen Delivery Nasal Cannula Oxygen Flow Rate 2 07/15/23 12:00 07/15/23 14:00 07/15/23 16:00 Temperature 37.2 C Pulse Rate 92 96 92 Respiratory Rate 18 Blood Pressure 171/86 H Pulse Oximetry 97 Oxygen Delivery Oxygen Flow Rate 07/15/23 16:
--- NOTE | 2023-07-16 13:36 | PM.IMPN ---
Progress Note: A&P Assessment and Plan (1) Septic shock: Code(s): A41.9 - Sepsis, unspecified organism; R65.21 - Severe sepsis with septic shock Status: Acute Assessment and Plan: - suspected source: urosepsis/pyelonephritis/septic stone - started on meropenem on 07/12 - blood cultures drawn on 07/12 - UA: turbid, 2+ protein, trace ketones, 3+ blood, 3+ leuks, 21-50 rbc's, greater than 100 wbc's, WBC clumps present, no epithelial cells, 4+ bacteria, greater than 20 casts - CXR: No acute cardiopulmonary abnormality. - R IJ central line placed, confirmed via CXR - dutton placed for accurate I&Os - admitted to ICU, varnisher plasticoater consulted. [place] DON, provided the following recommendations: Add vancomycin, started on 07/12 Add albumin x4 Anemia: Check B12, folic acid, stool occult, monitor hemoglobin Anxiety: Restart BuSpar and venlafaxine in a.m. - pt is on rocephin - merem and vanc stopped - BC and UC show ecoli - off levophed now - bp slightly up today - Cxr shows opacities - rpt BC and UC (2) Acute UTI: Code(s): N39.0 - Urinary tract infection, site not specified Status: Suspected Assessment and Plan: - UA: Turbid, 2+ protein, trace ketones, 3+ blood, 3+ leuks, 21-50 rbc's, greater than 100 wbc's, WBC clumps present, no epithelial cells, 4+ bacteria, greater than 20 casts - UC pending, done on 07/12 - previous micro reviewed: none on file - started on Meropenem on 07/12 - currently complicated by kidney stones in the L proximal ureter with mild left hydronephrosis - pt had stent placed - treat infection here and dc with urology follow up (3) Ureteral stone: Code(s): N20.1 - Calculus of ureter Status: Acute Assessment and Plan: - CT abd/pelvis (07/12): There are cysts in the kidneys measuring up to 18 mm. There are 3 stones in left kidney measuring up to 5 mm. There is mild left hydronephrosis. There are 5 mm and 2 mm stones in proximal left ureter.? - sp stent placement (4) OLIVA (acute kidney injury): Code(s): N17.9 - Acute kidney failure, unspecified Status: Acute Assessment and Plan: - creatinine is 0.8 can dc fluids (5) SOB (shortness of breath): Code(s): R06.02 - Shortness of breath Status: Acute Assessment and Plan: - history of emphysema - no adventitious lung sounds on exam, however requiring supplemental O2: 3L - CXR, initial: No acute process. The lungs are free of acute opacities. No pleural effusion or pneumothorax. The cardiomediastinal silhouette is normal.? - CXR, repeat: Mild interstitial edema (mild diffuse reticular opacities and cuffing) - Indu p.r.nRaghavendra should you diurese summary with a kidney stone with hydronephrosis (6) Elevated troponin: Code(s): R79.89 - Other specified abnormal findings of blood chemistry Status: Acute Assessment and Plan: - troponin: 0.038-> 0.079. Third troponin ordered. - suspect elevation in troponin is secondary to ischemia due to earlier hypotension/current sepsis - EKG, initial: Sinus tachycardia with a rate of 105, frequent atrial premature complexes, baseline artifact, no previous EKG available for comparison (7) Anemia: Code(s): D64.9 - Anemia, unspecified Status: Acute Assessment and Plan: - Hgb 9 - previously 13.0 on 03/2023 - MCV 85.5, MCHC 31.8, RDW 16.3 - check B12, folic acid, stool occult, iron, ferritin, TIBC panel - monitor hemoglobin (8) Hypertension: Code(s): I10 - Essential (primary) hypertension Status: Acute Assessment and Plan: - chronic, Bp corrected restart oral bp medications Subjective Date/time seen: 07/16/23 13:36 Interval history: Reason for consult: Septic shock, UTI, left renal stones with mild hydronephrosis 07/14/2023: Patient seen and examined the ICU, had some chest tightness early this morning, EKG not show any ST-T changes, normal sinu
--- NOTE | 2023-07-16 16:07 | WPDUROPN2 ---
Progress Note: A&P Assessment and Plan (1) Septic shock: Code(s): A41.9 - Sepsis, unspecified organism; R65.21 - Severe sepsis with septic shock Status: Acute Assessment and Plan: Source of infection felt to be septic stone/UTI Continue antibiotics tailored to blood in urine cultures (2) Ureteral stone: Code(s): N20.1 - Calculus of ureter Status: Acute Assessment and Plan: 5 mm and 2 mm left proximal ureteral stone with mild left hydronephrosis noted on CT Underwent cystoscopy, left retrograde pyelogram, and left ureteral stent placement on 07/14/[address] Diego Will plan for follow up CT/KUB following improvement in her clinical status. She will require definitive stone management at a later date. (3) Acute UTI: Code(s): N39.0 - Urinary tract infection, site not specified Status: Suspected Assessment and Plan: Urine culture with growth of E coli (also present in blood cultures). Continue IV ceftriaxone (4) OLIVA (acute kidney injury): Code(s): N17.9 - Acute kidney failure, unspecified Status: Acute Assessment and Plan: Resolved. Creatinine has normalized, 1.0today Subjective Subjective Date/Time Seen: 07/16/23 16:07 Interval history: Delaney is doing well today. Denies flank pain or back pain. Denies nausea, vomiting, fever, or chills. Reports no concerns. Allen catheter is draining clear yellow urine. Review of Systems Review of Systems: All systems reviewed & are unremarkable except as noted in HPI and below Exam Narrative: General: Awake, alert, comfortable, no acute distress HEENT: Normocephalic, atraumatic, sclerae anicteric Respiratory: Normal respiratory effort, no accessory muscle use Abdomen: Nondistended, soft, nontender : Allen catheter draining clear yellow urine Skin: Normal coloration, warm and dry Neurologic: No focal neuro deficits noted Psychiatric: Appropriate mood and affect, judgment and insight intact Objective Data Vital Signs Vital Signs: Vital Signs - 24 hr 07/15/23 18:00 07/15/23 20:00 07/15/23 20:00 Temperature 98.4 F Pulse Rate 89 92 91 Respiratory Rate 16 Blood Pressure 159/89 H Pulse Oximetry 96 Oxygen Delivery 07/15/23 20:00 07/16/23 00:00 07/16/23 00:00 Temperature Pulse Rate 82 Respiratory Rate Blood Pressure Pulse Oximetry Oxygen Delivery Room Air Room Air 07/16/23 02:00 07/16/23 04:00 07/16/23 04:00 Temperature Pulse Rate 81 87 Respiratory Rate Blood Pressure Pulse Oximetry Oxygen Delivery Room Air 07/16/23 00:00 07/16/23 04:00 07/16/23 06:00 Temperature 98.4 F Pulse Rate 83 87 104 H Respiratory Rate 15 19 Blood Pressure 142/79 H 131/67 Pulse Oximetry 96 95 Oxygen Delivery 07/16/23 08:00 07/16/23 12:00 07/16/23 13:53 Temperature 97.8 F 97.8 F Pulse Rate 88 89 Respiratory Rate 13 21 H Blood Pressure 175/93 H 149/89 H Pulse Oximetry 95 97 96 Oxygen Delivery Room Air 07/16/23 08:00 07/16/23 10:00 07/16/23 12:00 Temperature Pulse Rate 89 92 98 Respiratory Rate Blood Pressure Pulse Oximetry Oxygen Delivery 07/16/23 14:00 Temperature Pulse Rate 93 Respiratory Rate Blood Pressure Pulse Oximetry Oxygen Delivery Intake/Output Intake/Output: Intake & Output 07/13/23 07/14/23 07/15/23 07/16/23 23:59 23:59 23:59 23:59 Intake Total 6934 2792 1320 480 Output Total 600 3826 0490 1250 Balance 6334 -1013 -3730 -770 Meds/Results Medications: Active Medications Generic Name Dose Route Start Last Admin Trade Name Freq PRN Reason Stop Dose Admin Acetaminophen 650 mg 07/13/23 09:34 07/13/23 17:51 Acetaminophen 325 Mg Tablet PO 650 mg Q4H PRN Administration Mild Pain (1-3) or Fever Hydrocodone Bitart/Acetaminophen 1 tab 07/13/23 09:34 Hydrocodone/Acetaminophen (*Crx) 5-325 Mg Tablet PO Q4H PRN Pain Rated
[2023-07-16] MEDS: hydrALAZINE HCL 25 MG TABLET PO (16:44)
[2023-07-16] MEDS: cefTRIAXone 2 GM/NS 100 ML 2 GM/100 ML BAG IVPB (21:37)
[2023-07-17] VITALS (9 sets, daily range): BP systolic 130–169; BP diastolic 69–81; PULSE 88–103; RESP 16–25; TEMP 36.6–37.4; O2SAT 94–98
[2023-07-17] MEDS: CENTRAL LINE FLUSH 10 ML IV PUSH (04:44)
[2023-07-17 04:56] LABS: Basophils Absolute Auto 0.1 K/mm3 (0.0-0.1); Basophils Percent Auto 0.5 % (0.2-1.2); Eosinophils Absolute Auto 0.1 K/mm3 (0-0.3); Hematocrit 28.7 % (37.0-47.0); Hemoglobin 9.3 g/dL (12.0-15.0); Immature Granulocyte Absolute 0.05 K/mm3 (0.00-0.031); Immature Granulocyte Percent A 0.5 % (0-0.5); Lymphocytes Absolute Auto 1.95 K/mm3 (0.9-3.2); Lymphocytes Percent Auto 18.9 % (18.3-44.2); Mean Corpuscular HGB Conc 32.4 g/dl (32-36); Mean Corpuscular Hemoglobin 26.7 pg (26-34); Mean Corpuscular Volume 82.5 fl (80-100); Mean Platelet Volume 12.6 fl (7.4-10.4); Monocytes Absolute Auto 1.4 K/mm3 (0.1-0.6); Monocytes Percent Auto 13.6 % (2.6-8.5); Neutrophils Absolute Auto 6.8 K/mm3 (1.3-6.7); Neutrophils Percent Auto 65.5 % (45.5-73.1); Nucleated Red Blood Cells Perc 0.4 % (0.0-0.2); Platelet Count Result 131 k/mm3 (150-375); Red Blood Count 3.48 M/mm3 (4.2-5.4); Red Cell Distribution Width 16.9 % (11.5-14.5); White Blood Count 10.3 K/mm3 (4.5-10.0)
[2023-07-17 05:14] LABS: Alanine Aminotransferase 51 U/L (6-35); Albumin Level 3.3 g/dL (3.5-5.1); Alkaline Phosphatase 92 U/L (38-126); Anion Gap 9 mmol/L (8-16); Aspartate Amino Transferase 47 U/L (14-36); Bilirubin,Total 1.8 mg/dL (0.2-1.3); Blood Urea Nitrogen 25 mg/dL (7-17); Carbon Dioxide 22 mmol/L (22-30); Chloride 107 mmol/L (98-107); Estimated CRCL calculation 67 ml/min; Estimated Glomerular Filt Rate > 60; Glucose 95 mg/dL (65-110); Magnesium 1.6 mg/dL (1.6-2.3); Phosphorus 4.2 mg/dL (2.5-4.5); Potassium 3.1 mmol/L (3.4-5.0); Sodium 138 mmol/L (137-145)
[2023-07-17] MEDS: busPIRone HCL 10 MG TABLET 30 MG PO ×2 (08:05→17:22)
[2023-07-17] MEDS: VENLAFAXINE HCL XR 75 MG CAP.ER.24H 225 MG PO (08:05)
[2023-07-17] MEDS: lisinopriL 20 MG TABLET PO (08:06)
[2023-07-17] MEDS: ATORVASTATIN 20 MG TABLET PO (08:06)
[2023-07-17] MEDS: amLODIPine BESYLATE 5 MG TABLET PO (08:06)
[2023-07-17 13:56] LABS: Chloride Rand Ur <20 mmol/L (32-290); Creatinine Random Urine 136 mg/dL (20-275)
--- NOTE | 2023-07-17 17:48 | PM.IMPN ---
Progress Note: A&P Assessment and Plan (1) Septic shock: Code(s): A41.9 - Sepsis, unspecified organism; R65.21 - Severe sepsis with septic shock Status: Acute Assessment and Plan: Septic shock related to UTI/urinary stone requiring IV vasopressor started on meropenem on 07/12 - blood cultures drawn on 07/12 with E coli - UA: turbid, 2+ protein, trace ketones, 3+ blood, 3+ leuks, 21-50 rbc's, greater than 100 wbc's, WBC clumps present, no epithelial cells, 4+ bacteria, greater than 20 casts - CXR: No acute cardiopulmonary abnormality. Repeat blood culture negative - off levophed now Chest x-ray shows opacities likely due to fluid overload and was diuresed. (2) Acute UTI: Code(s): N39.0 - Urinary tract infection, site not specified Status: Suspected Assessment and Plan: - UA: Turbid, 2+ protein, trace ketones, 3+ blood, 3+ leuks, 21-50 rbc's, greater than 100 wbc's, WBC clumps present, no epithelial cells, 4+ bacteria, greater than 20 casts - UC with E coli started on Meropenem on 07/12 subsequently switched to ceftriaxone - currently complicated by kidney stones in the L proximal ureter with mild left hydronephrosis Status post cystoscopy left retrograde pyelogram and left ureteral stent placement on 07/14/2023 Definitive stone management as outpatient basis (3) Ureteral stone: Code(s): N20.1 - Calculus of ureter Status: Acute Assessment and Plan: - CT abd/pelvis (07/12): There are cysts in the kidneys measuring up to 18 mm. There are 3 stones in left kidney measuring up to 5 mm. There is mild left hydronephrosis. There are 5 mm and 2 mm stones in proximal left ureter.? - sp stent placement (4) OLIVA (acute kidney injury): Code(s): N17.9 - Acute kidney failure, unspecified Status: Acute Assessment and Plan: - creatinine is 0.8 (5) SOB (shortness of breath): Code(s): R06.02 - Shortness of breath Status: Acute Assessment and Plan: - history of emphysema - no adventitious lung sounds on exam, however requiring supplemental O2: 3L - CXR, initial: No acute process. The lungs are free of acute opacities. No pleural effusion or pneumothorax. The cardiomediastinal silhouette is normal.? - CXR, repeat: Mild interstitial edema (mild diffuse reticular opacities and cuffing) - Indu pederson should you diurese summary with a kidney stone with hydronephrosis (6) Elevated troponin: Code(s): R79.89 - Other specified abnormal findings of blood chemistry Status: Acute Assessment and Plan: - troponin: 0.038-> 0.079. Third troponin ordered. - suspect elevation in troponin is secondary to ischemia due to earlier hypotension/current sepsis - EKG, initial: Sinus tachycardia with a rate of 105, frequent atrial premature complexes, baseline artifact, no previous EKG available for comparison (7) Anemia: Code(s): D64.9 - Anemia, unspecified Status: Acute Assessment and Plan: - Hgb 9 - previously 13.0 on 03/2023 - MCV 85.5, MCHC 31.8, RDW 16.3 - check B12, folic acid, stool occult, iron, ferritin, TIBC panel - monitor hemoglobin (8) Hypertension: Code(s): I10 - Essential (primary) hypertension Status: Acute Subjective Date/time seen: 07/17/23 17:48 Interval history: Patient feeling much better. Denies any pain. Off oxygen now. Blood pressure optimal. Right IJ in place. Review of Systems Review of Systems: All systems reviewed & are unremarkable except as noted in HPI and below Exam Narrative: General: Awake, alert, comfortable, no acute distress HEENT: Normocephalic, atraumatic, sclerae anicteric Respiratory: Normal respiratory effort, no accessory muscle use Abdomen: Nondistended, soft, nontender : Allen catheter draining clear yellow urine Skin: Normal coloration, warm and dry Neurologic: No focal neuro deficits noted Psychiatric: Appropriate mood and a
[2023-07-17] MEDS: cefTRIAXone 2 GM/NS 100 ML 2 GM/100 ML BAG IVPB (20:04)
[2023-07-18] VITALS: BP 130/72; PULSE 84; RESP 19; TEMP 37.1; O2SAT 97
[2023-07-18 03:57] LABS: Basophils Percent Auto 0.3 % (0.2-1.2); Eosinophils Absolute Auto 0.2 K/mm3 (0-0.3); Eosinophils Percent Auto 1.5 % (0-4.4); Hematocrit 30.2 % (37.0-47.0); Hemoglobin 9.5 g/dL (12.0-15.0); Lymphocytes Absolute Auto 1.91 K/mm3 (0.9-3.2); Lymphocytes Percent Auto 19.7 % (18.3-44.2); Mean Corpuscular HGB Conc 31.5 g/dl (32-36); Mean Corpuscular Hemoglobin 26.4 pg (26-34); Mean Corpuscular Volume 83.9 fl (80-100); Mean Platelet Volume 12.3 fl (7.4-10.4); Monocytes Absolute Auto 1.4 K/mm3 (0.1-0.6); Neutrophils Absolute Auto 6.2 K/mm3 (1.3-6.7); Neutrophils Percent Auto 63.5 % (45.5-73.1); Nucleated Red Blood Cells Perc 0.2 % (0.0-0.2); Platelet Count Result 184 k/mm3 (150-375); Red Cell Distribution Width 17.1 % (11.5-14.5); White Blood Count 9.7 K/mm3 (4.5-10.0)
[2023-07-18 04:00] VITALS: BP 126/74; PULSE 74; PULSE 95; RESP 16; TEMP 36.5; O2SAT 100
[2023-07-18 04:07] LABS: Alanine Aminotransferase 45 U/L (6-35); Albumin Level 3.5 g/dL (3.5-5.1); Alkaline Phosphatase 94 U/L (38-126); Anion Gap 5 mmol/L (8-16); Aspartate Amino Transferase 34 U/L (14-36); Bilirubin,Total 1.4 mg/dL (0.2-1.3); Blood Urea Nitrogen 19 mg/dL (7-17); Calcium 8.5 mg/dL (8.4-10.2); Carbon Dioxide 29 mmol/L (22-30); Chloride 106 mmol/L (98-107); Estimated CRCL calculation 67 ml/min; Estimated Glomerular Filt Rate > 60; Glucose 108 mg/dL (65-110); Magnesium 1.7 mg/dL (1.6-2.3); Potassium 3.3 mmol/L (3.4-5.0); Sodium 140 mmol/L (137-145)
[2023-07-18 08:00] VITALS: BP 126/64; PULSE 90; PULSE 91; RESP 18; TEMP 36.5; O2SAT 100; O2SAT 99
[2023-07-18] MEDS: amLODIPine BESYLATE 5 MG TABLET PO (08:57)
[2023-07-18] MEDS: busPIRone HCL 10 MG TABLET 30 MG PO ×2 (08:57→16:38)
[2023-07-18] MEDS: ATORVASTATIN 20 MG TABLET PO (08:57)
[2023-07-18] MEDS: lisinopriL 20 MG TABLET PO (08:58)
[2023-07-18] MEDS: VENLAFAXINE HCL XR 75 MG CAP.ER.24H 225 MG PO (08:58)
--- NOTE | 2023-07-18 09:03 | WPDUROPN2 ---
Progress Note: A&P Assessment and Plan (1) Ureteral stone: Code(s): N20.1 - Calculus of ureter Status: Acute Assessment and Plan: Stent in place. Will need definitive stone management in the future (2) Septic shock: Code(s): A41.9 - Sepsis, unspecified organism; R65.21 - Severe sepsis with septic shock Status: Acute Assessment and Plan: E coli sepsis. Antibiotics per Medicine team Subjective Subjective Date/Time Seen: 07/18/23 09:03 Interval history: Much improved with antibiotics and stent placement Exam Narrative: No acute distress Normal breathing Resting comfortably Objective Data Vital Signs Vital Signs: Vital Signs - 24 hr 07/17/23 11:14 07/17/23 11:25 07/17/23 12:00 Temperature 98.3 F Pulse Rate 98 103 H Respiratory Rate 18 Blood Pressure 146/74 H Pulse Oximetry 94 Oxygen Delivery Autopap 07/17/23 14:44 07/17/23 15:53 07/17/23 16:00 Temperature 98.1 F Pulse Rate 101 H 100 Respiratory Rate 22 H Blood Pressure 136/69 Pulse Oximetry 95 Oxygen Delivery Room Air 07/17/23 20:00 07/17/23 20:00 07/18/23 00:00 Temperature 98.8 F Pulse Rate 96 96 84 Respiratory Rate 16 Blood Pressure 130/74 Pulse Oximetry 98 Oxygen Delivery 07/18/23 00:00 07/18/23 04:00 07/18/23 04:00 Temperature 98.8 F 97.7 F Pulse Rate 84 95 74 Respiratory Rate 19 16 Blood Pressure 130/72 126/74 Pulse Oximetry 97 100 Oxygen Delivery 07/18/23 08:00 Temperature 97.7 F Pulse Rate 91 Respiratory Rate 18 Blood Pressure 126/64 Pulse Oximetry 100 Oxygen Delivery Intake/Output Intake/Output: Intake & Output 07/15/23 07/16/23 07/17/23 07/18/23 23:59 23:59 23:59 23:59 Intake Total 1320 1920 1120 Output Total 5050 3100 3000 860 Balance -3730 -1180 -1880 -860 Meds/Results Medications: Active Medications Generic Name Dose Route Start Last Admin Trade Name Freq PRN Reason Stop Dose Admin Acetaminophen 650 mg 07/13/23 09:34 07/13/23 17:51 Acetaminophen 325 Mg Tablet PO 650 mg Q4H PRN Administration Mild Pain (1-3) or Fever Hydrocodone Bitart/Acetaminophen 1 tab 07/13/23 09:34 Hydrocodone/Acetaminophen (*Crx) 5-325 Mg Tablet PO Q4H PRN Pain Rated 4-6 Albuterol/Ipratropium 3 ml 07/14/23 00:13 07/14/23 19:54 Ipratropium 0.5 Mg/Albuterol Sulfate 2.5 Mg Ampul.Neb 3 Ml INHALATION 3 ml Q6HRT PRN Administration Shortness Of Breath Or Wheezing Amlodipine Besylate 5 mg 07/17/23 09:00 07/18/23 08:57 Amlodipine Besylate 5 Mg Tablet PO 5 mg QAM PATT Administration Atorvastatin Calcium 20 mg 07/14/23 09:00 07/18/23 08:57 Atorvastatin 20 Mg Tablet PO 20 mg DAILY PATT Administration Buspirone HCl 30 mg 07/14/23 17:00 07/18/23 08:57 Buspirone Hcl 10 Mg Tablet PO 30 mg BID PATT Administration Fentanyl Citrate 25 mcg 07/14/23 09:39 Fentanyl Citrate Inj (*Crx) 100 Mcg/2 Ml Vial IV PUSH Q2M PRN Pain Hydralazine HCl 25 mg 07/16/23 17:43 Hydralazine Hcl 25 Mg Tablet PO TID PRN Blood Pressure - High Ceftriaxone Sodium 2 gm in 100 mls @ 200 mls/hr 07/16/23 21:00 07/17/23 20:34 Rocephin 2 Gm/Ns 100 Ml IVPB Infused Q24H PATT Infusion Lisinopril 20 mg 07/15/23 12:50 07/18/23 08:58 Lisinopril 20 Mg Tablet PO 20 mg DAILY PATT Administration Nitroglycerin 0.4 mg 07/14/23 05:54 07/14/23 17:32 Nitroglycerin Sl 0.4 Mg Tablet SUBLINGUAL 0.4 mg Q5MIN PRN Administration Chest Pain Ondansetron HCl 4 mg 07/13/23 12:09 Ondansetron Inj 4 Mg/2 Ml Vial IV PUSH Q6H PRN Nausea And Vomiting Ondansetron HCl 4 mg 07/14/23 09:39 Ondansetron Inj 4 Mg/2 Ml Vial IV PUSH ONCE PRN Nausea Venlafaxine HCl 225 mg 07/15/23 09:00 07/18/23 08:58 Venlafaxine Hcl Xr 75 Mg Cap.Er.24h PO 225 mg DAILY PATT Administration Radiology Results: ITS Impressions Abdomen/Pelvi
--- NOTE | 2023-07-18 12:29 | PC.NURSE ---
This patient, Delaney Mckeon, was transferred to [[id number] ] on 07/18/23 at 1220. Personal belongings sent with patient. Report given to [Sonia ZAYAS ]. Appropriate documentation sent with patient.
[2023-07-18 12:33] VITALS: BP 153/63; PULSE 92; RESP 18; TEMP 37.3; O2SAT 98
--- NOTE | 2023-07-18 13:35 | PM.IMPN ---
Progress Note: A&P Assessment and Plan (1) Septic shock: Code(s): A41.9 - Sepsis, unspecified organism; R65.21 - Severe sepsis with septic shock Status: Acute Assessment and Plan: Septic shock related to UTI/urinary stone requiring IV vasopressor started on meropenem on 07/12 - blood cultures drawn on 07/12 with E coli - UA: turbid, 2+ protein, trace ketones, 3+ blood, 3+ leuks, 21-50 rbc's, greater than 100 wbc's, WBC clumps present, no epithelial cells, 4+ bacteria, greater than 20 casts - CXR: No acute cardiopulmonary abnormality. Repeat blood culture negative - off levophed now Chest x-ray shows opacities likely due to fluid overload and was diuresed. Will switch to levofloxacin to complete the course for total 10 days today is day 5 (2) Acute UTI: Code(s): N39.0 - Urinary tract infection, site not specified Status: Suspected Assessment and Plan: - UA: Turbid, 2+ protein, trace ketones, 3+ blood, 3+ leuks, 21-50 rbc's, greater than 100 wbc's, WBC clumps present, no epithelial cells, 4+ bacteria, greater than 20 casts - UC with E coli started on Meropenem on 07/12 subsequently switched to ceftriaxone - currently complicated by kidney stones in the L proximal ureter with mild left hydronephrosis Status post cystoscopy left retrograde pyelogram and left ureteral stent placement on 07/14/2023 Definitive stone management as outpatient basis (3) Ureteral stone: Code(s): N20.1 - Calculus of ureter Status: Acute Assessment and Plan: - CT abd/pelvis (07/12): There are cysts in the kidneys measuring up to 18 mm. There are 3 stones in left kidney measuring up to 5 mm. There is mild left hydronephrosis. There are 5 mm and 2 mm stones in proximal left ureter.? - sp stent placement (4) OLIVA (acute kidney injury): Code(s): N17.9 - Acute kidney failure, unspecified Status: Acute Assessment and Plan: - creatinine is 0.8 (5) SOB (shortness of breath): Code(s): R06.02 - Shortness of breath Status: Acute Assessment and Plan: - history of emphysema - no adventitious lung sounds on exam, however requiring supplemental O2: 3L - CXR, initial: No acute process. The lungs are free of acute opacities. No pleural effusion or pneumothorax. The cardiomediastinal silhouette is normal.? - CXR, repeat: Mild interstitial edema (mild diffuse reticular opacities and cuffing) - Indu pederson should you diurese summary with a kidney stone with hydronephrosis (6) Elevated troponin: Code(s): R79.89 - Other specified abnormal findings of blood chemistry Status: Acute Assessment and Plan: - troponin: 0.038-> 0.079. Third troponin ordered. - suspect elevation in troponin is secondary to ischemia due to earlier hypotension/current sepsis - EKG, initial: Sinus tachycardia with a rate of 105, frequent atrial premature complexes, baseline artifact, no previous EKG available for comparison (7) Anemia: Code(s): D64.9 - Anemia, unspecified Status: Acute Assessment and Plan: - Hgb 9 - previously 13.0 on 03/2023 - MCV 85.5, MCHC 31.8, RDW 16.3 - check B12, folic acid, stool occult, iron, ferritin, TIBC panel - monitor hemoglobin (8) Hypertension: Code(s): I10 - Essential (primary) hypertension Status: Acute Subjective Date/time seen: 07/18/23 13:35 Interval history: No overnight events. Feels better. Right IJ has been removed. Labs reviewed. Review of Systems Review of Systems: All systems reviewed & are unremarkable except as noted in HPI and below Exam Narrative: General: Awake, alert, comfortable, no acute distress HEENT: Normocephalic, atraumatic, sclerae anicteric Respiratory: Normal respiratory effort, no accessory muscle use Abdomen: Nondistended, soft, nontender : Allen catheter draining clear yellow urine Skin: Normal coloration, warm and dry Neurologic: No focal kenneth
[2023-07-18 13:58] VITALS: BP 153/63; PULSE 92; RESP 18; TEMP 37.3; O2SAT 98
[2023-07-18 16:00] VITALS: BP 148/67; PULSE 93; RESP 16; TEMP 37.2; O2SAT 100
[2023-07-18] MEDS: levoFLOXacin 750 MG TABLET PO (20:22)
[2023-07-18] MEDS: ACETAMINOPHEN 325 MG TABLET 650 MG PO (20:25)
[2023-07-19] VITALS: BP 151/75; PULSE 91; RESP 13; TEMP 37.1; O2SAT 98
--- NOTE | 2023-07-19 03:34 | PC.NURSE ---
Daylight Savings Time For Daylight Savings Time Ending in the Fall - Clocks are moved back. For Daylight Savings Time Beginning in the Spring - Clocks are moved ahead. For [facility], the time of change occurs at 0200 hrs. Time is taken from the meteorological observer. This entry on the patient's chart recognizes the change in time reflected during documentation. Example: 2 entries for vital signs may be charted for 0200 hrs.
[2023-07-19 05:00] VITALS: BP 145/68; PULSE 84; RESP 13; TEMP 36.6; O2SAT 99
[2023-07-19 06:17] LABS: Basophils Percent Auto 0.2 % (0.2-1.2); Eosinophils Absolute Auto 0.2 K/mm3 (0-0.3); Eosinophils Percent Auto 1.8 % (0-4.4); Hematocrit 28.3 % (37.0-47.0); Hemoglobin 8.8 g/dL (12.0-15.0); Immature Granulocyte Absolute 0.14 K/mm3 (0.00-0.031); Immature Granulocyte Percent A 1.5 % (0-0.5); Lymphocytes Absolute Auto 1.52 K/mm3 (0.9-3.2); Lymphocytes Percent Auto 16.5 % (18.3-44.2); Mean Corpuscular HGB Conc 31.1 g/dl (32-36); Mean Corpuscular Hemoglobin 26.1 pg (26-34); Mean Platelet Volume 12.5 fl (7.4-10.4); Monocytes Absolute Auto 1.1 K/mm3 (0.1-0.6); Monocytes Percent Auto 11.5 % (2.6-8.5); Neutrophils Absolute Auto 6.3 K/mm3 (1.3-6.7); Neutrophils Percent Auto 68.5 % (45.5-73.1); Platelet Count Result 225 k/mm3 (150-375); Red Blood Count 3.37 M/mm3 (4.2-5.4); Red Cell Distribution Width 17.6 % (11.5-14.5); White Blood Count 9.2 K/mm3 (4.5-10.0)
[2023-07-19 06:22] LABS: Alanine Aminotransferase 37 U/L (6-35); Albumin Level 3.5 g/dL (3.5-5.1); Alkaline Phosphatase 86 U/L (38-126); Anion Gap 9 mmol/L (8-16); Aspartate Amino Transferase 30 U/L (14-36); Bilirubin,Total 1.3 mg/dL (0.2-1.3); Blood Urea Nitrogen 17 mg/dL (7-17); Calcium 8.5 mg/dL (8.4-10.2); Carbon Dioxide 23 mmol/L (22-30); Chloride 105 mmol/L (98-107); Estimated CRCL calculation 67 ml/min; Estimated Glomerular Filt Rate > 60; Glucose 123 mg/dL (65-110); Magnesium 1.8 mg/dL (1.6-2.3); Potassium 3.4 mmol/L (3.4-5.0); Sodium 137 mmol/L (137-145)
[2023-07-19] MEDS: ATORVASTATIN 20 MG TABLET PO (10:07)
[2023-07-19] MEDS: amLODIPine BESYLATE 5 MG TABLET PO (10:07)
[2023-07-19] MEDS: lisinopriL 20 MG TABLET PO (10:08)
[2023-07-19] MEDS: VENLAFAXINE HCL XR 75 MG CAP.ER.24H 225 MG PO (10:08)
[2023-07-19] MEDS: busPIRone HCL 10 MG TABLET 30 MG PO ×2 (10:08→16:16)
--- NOTE | 2023-07-19 12:04 | PM.IMPN ---
Progress Note: A&P Assessment and Plan (1) Septic shock: Code(s): A41.9 - Sepsis, unspecified organism; R65.21 - Severe sepsis with septic shock Status: Acute Assessment and Plan: Septic shock related to UTI/urinary stone requiring IV vasopressor started on meropenem on 07/12 - blood cultures drawn on 07/12 with E coli - UA: turbid, 2+ protein, trace ketones, 3+ blood, 3+ leuks, 21-50 rbc's, greater than 100 wbc's, WBC clumps present, no epithelial cells, 4+ bacteria, greater than 20 casts - CXR: No acute cardiopulmonary abnormality. Repeat blood culture 05/14 positive again for E coli definitive treatment for source control done on 07/14/2023 - off levophed now Chest x-ray shows opacities likely due to fluid overload and was diuresed. Switched to levofloxacin to complete the course for total 10 days (2) Acute UTI: Code(s): N39.0 - Urinary tract infection, site not specified Status: Suspected Assessment and Plan: - UA: Turbid, 2+ protein, trace ketones, 3+ blood, 3+ leuks, 21-50 rbc's, greater than 100 wbc's, WBC clumps present, no epithelial cells, 4+ bacteria, greater than 20 casts - UC with E coli started on Meropenem on 07/12 subsequently switched to ceftriaxone - currently complicated by kidney stones in the L proximal ureter with mild left hydronephrosis Status post cystoscopy left retrograde pyelogram and left ureteral stent placement on 07/14/2023 Definitive stone management as outpatient basis (3) Ureteral stone: Code(s): N20.1 - Calculus of ureter Status: Acute Assessment and Plan: - CT abd/pelvis (07/12): There are cysts in the kidneys measuring up to 18 mm. There are 3 stones in left kidney measuring up to 5 mm. There is mild left hydronephrosis. There are 5 mm and 2 mm stones in proximal left ureter.? - sp stent placement (4) OLIVA (acute kidney injury): Code(s): N17.9 - Acute kidney failure, unspecified Status: Acute Assessment and Plan: - creatinine is 0.8 (5) SOB (shortness of breath): Code(s): R06.02 - Shortness of breath Status: Acute Assessment and Plan: - history of emphysema - no adventitious lung sounds on exam, however requiring supplemental O2: 3L - CXR, initial: No acute process. The lungs are free of acute opacities. No pleural effusion or pneumothorax. The cardiomediastinal silhouette is normal.? - CXR, repeat: Mild interstitial edema (mild diffuse reticular opacities and cuffing) - Indu p.rrebeka should you diurese summary with a kidney stone with hydronephrosis (6) Elevated troponin: Code(s): R79.89 - Other specified abnormal findings of blood chemistry Status: Acute Assessment and Plan: - troponin: 0.038-> 0.079. Third troponin ordered. - suspect elevation in troponin is secondary to ischemia due to earlier hypotension/current sepsis - EKG, initial: Sinus tachycardia with a rate of 105, frequent atrial premature complexes, baseline artifact, no previous EKG available for comparison (7) Anemia: Code(s): D64.9 - Anemia, unspecified Status: Acute Assessment and Plan: - Hgb 9 - previously 13.0 on 03/2023 - MCV 85.5, MCHC 31.8, RDW 16.3 - check B12, folic acid, stool occult, iron, ferritin, TIBC panel - monitor hemoglobin (8) Hypertension: Code(s): I10 - Essential (primary) hypertension Status: Acute Subjective Date/time seen: 07/19/23 12:04 Interval history: No overnight events. Feels better. Right IJ has been removed. Labs reviewed. Repeat blood culture from 07/14 turned out positive for E coli. Repeat blood culture has been obtained Review of Systems Review of Systems: All systems reviewed & are unremarkable except as noted in HPI and below Exam Narrative: General: Awake, alert, comfortable, no acute distress HEENT: Normocephalic, atraumatic, sclerae anicteric Respiratory: Normal respiratory effort, no accessor
[2023-07-19 13:51] VITALS: BP 133/61; PULSE 96; RESP 17; TEMP 36.3; O2SAT 98
[2023-07-19] MEDS: levoFLOXacin 750 MG TABLET PO (20:05)
[2023-07-19 21:41] VITALS: BP 131/75; PULSE 96; RESP 16; TEMP 36.8; O2SAT 98
[2023-07-20 05:54] VITALS: BP 124/64; PULSE 86; RESP 16; TEMP 36.3; O2SAT 97
[2023-07-20] MEDS: ATORVASTATIN 20 MG TABLET PO (09:47)
[2023-07-20] MEDS: lisinopriL 20 MG TABLET PO (09:47)
[2023-07-20] MEDS: busPIRone HCL 10 MG TABLET 30 MG PO (09:47)
[2023-07-20] MEDS: amLODIPine BESYLATE 5 MG TABLET PO (09:47)
[2023-07-20] MEDS: VENLAFAXINE HCL XR 75 MG CAP.ER.24H 225 MG PO (09:47)
--- NOTE | 2023-07-20 09:58 | PCNWS ---
Weekly nutritional screen. Patient is tolerating current regular diet with adequate intake, 100% all meals. No weight loss reported. No nutritional needs at this time.
--- NOTE | 2023-07-20 11:58 | PM.DS ---
DS: Admitting Diagnosis Discharge Date 07/20/2023 Admitting Diagnosis Septic shock DS: Discharge Diagnosis Discharge Diagnosis (1) Septic shock: Code(s): A41.9 - Sepsis, unspecified organism; R65.21 - Severe sepsis with septic shock Status: Acute (2) Acute UTI: Code(s): N39.0 - Urinary tract infection, site not specified Status: Suspected (3) Ureteral stone: Code(s): N20.1 - Calculus of ureter Status: Acute (4) OLIVA (acute kidney injury): Code(s): N17.9 - Acute kidney failure, unspecified Status: Acute (5) SOB (shortness of breath): Code(s): R06.02 - Shortness of breath Status: Acute (6) Elevated troponin: Code(s): R79.89 - Other specified abnormal findings of blood chemistry Status: Acute (7) Anemia: Code(s): D64.9 - Anemia, unspecified Status: Acute (8) Hypertension: Code(s): I10 - Essential (primary) hypertension Status: Acute DS: Summary Hospital Course Hospital Course: # septic shock: Septic shock related to UTI/urinary stone requiring IV vasopressor started on meropenem on 07/12 - blood cultures drawn on 07/12 with E coli - UA: turbid, 2+ protein, trace ketones, 3+ blood, 3+ leuks, 21-50 rbc's, greater than 100 wbc's, WBC clumps present, no epithelial cells, 4+ bacteria, greater than 20 casts - CXR: No acute cardiopulmonary abnormality. Repeat blood culture 05/14 positive again for E coli definitive treatment for source control done on 07/14/2023 - off levophed now Chest x-ray shows opacities likely due to fluid overload and was diuresed. Switched to levofloxacin to complete the course for total 10 days. Five more days at discharge # acute UTI: - UA: Turbid, 2+ protein, trace ketones, 3+ blood, 3+ leuks, 21-50 rbc's, greater than 100 wbc's, WBC clumps present, no epithelial cells, 4+ bacteria, greater than 20 casts - UC with E coli ?started on Meropenem on 07/12 subsequently switched to ceftriaxone - currently complicated by kidney stones in the L proximal ureter with mild left hydronephrosis Status post cystoscopy left retrograde pyelogram and left ureteral stent placement on 07/14/2023 Definitive stone management as outpatient basis. Follow-up with Urology # Ureteral stone: - CT abd/pelvis (07/12): There are cysts in the kidneys measuring up to 18 mm. There are 3 stones in left kidney measuring up to 5 mm. There is mild left hydronephrosis. There are 5 mm and 2 mm stones in proximal left ureter.? - sp stent placement # Oliva (acute kidney injury): - creatinine is 0.8 # sOB (shortness of breath): - history of emphysema - no adventitious lung sounds on exam, however requiring supplemental O2: 3L - CXR, initial:? No acute process.?The lungs are free of acute opacities. No pleural effusion or pneumothorax. The cardiomediastinal silhouette is normal.? - CXR, repeat:? Mild interstitial edema (mild diffuse reticular opacities and cuffing) - DuoNebs p.r.n. improved with diuresis # elevated troponin: - troponin:? 0.038-> 0.079. Third troponin ordered. - suspect elevation in troponin is secondary to ischemia due to earlier hypotension/current sepsis - EKG, initial: Sinus tachycardia with a rate of 105, frequent atrial premature complexes, baseline artifact, no previous EKG available for comparison # anemia: - Hgb 9 - previously 13.0 on 03/2023 - MCV 85.5, MCHC 31.8, RDW 16.3 - check B12, folic acid, stool occult, iron, ferritin, TIBC panel - monitor hemoglobin # hypertension: Lisinopril added amlodipine during the hospital stay Time Spent with Patient Time attestation: Total time spent providing and/or coordinating discharge services: 35 minutes Exam Narrative: General: Awake, alert, comfortable, no acute distress HEENT: Normocephalic, atraumatic, sclerae anicteric Respiratory: Normal respiratory effort, no accessory muscle use Abdomen: Nondistended, soft, nontender Skin: Normal coloration, warm and dry Neurologic
--- NOTE | 2023-07-20 12:18 | PC.NURSE ---
iv's out, d/c papers discussed with patient, sister is at bedside to take home by private car. denies any questions at this time.
== END 2023-07-20 12:55 | disposition home or self-care (01) | DRG 853 ==
LOC: ANHED 10:04 → ANHICU 10:28 → ANH3MEDSUR 07-18 12:49
PROVIDERS: Internal Medicine; Student in an Organized Health Care Education/Training Program; Urology; Admitting Provider Internal Medicine; Emergency Provider Emergency Medicine; PCP Nurse Practitioner; Visit Provider Internal Medicine
PROC: 0T778ZZ Dilation of Left Ureter, Via Natural or Artificial Opening Endoscopic (ICD-10-PCS; CPT 52352; principal; 2023-07-14 14:15)
DX: A41.51 Sepsis due to Escherichia coli [E. coli] (principal); R65.21 Severe sepsis with septic shock; N13.6 Pyonephrosis; N17.9 Acute kidney failure, unspecified; I24.89 Other forms of acute ischemic heart disease; I10 Essential (primary) hypertension; D64.9 Anemia, unspecified; E87.70 Fluid overload, unspecified; E78.5 Hyperlipidemia, unspecified; E66.9 Obesity, unspecified; R42 Dizziness and giddiness; M19.079 Primary osteoarthritis, unspecified ankle and foot; F41.9 Anxiety disorder, unspecified; F32.A Depression, unspecified; Z20.822 Contact with and (suspected) exposure to COVID-19; Z87.891 Personal history of nicotine dependence
CPT/HCPCS: 36415; 36556; 71045; 71046; 74018; 74176; 74420; 76705; 80053; 80074; 80202; 81001; 82436; 82550; 82570; 82728; 83540; 83550; 83605; 83690; 83735; 83880; 84100; 84133; 84300; 84484; 85025; 85055; 85999; 87040; 87077; 87086; 87088; 87186; 87449; 87637; 87641; 87899; 93005; 93306; 94640; 96361; 96374; 97161; 97165; 97530; 99291; A9270; C1758; C1769; C2617; C9113; J0696; J1100; J1885; J1940; J2185; J2250; J2371; J2405; J2704; J3010; J3370; J3480; J7030; J7120; P9047; Q9966

== ENCOUNTER 2023-08-20 07:54 | Outpatient (CLI) | payer OTHER, SELFPAY ==
--- NOTE | ~2023-08-20 | MM_ITS ---
EXAMINATION: MM screening lilliam BI w oziel HISTORY: Screening mammogram TECHNIQUE: Craniocaudal and mediolateral oblique 3-D tomosynthesis images were obtained and synthetic 2-D images were generated. CAD analysis was submitted and interpreted. COMPARISON: 05/28/2021, 03/08/2020 bilateral screening mammogram examinations BREAST PARENCHYMAL COMPOSITION: There are scattered areas of fibroglandular density. FINDINGS: A suspicious new irregular approximately 5 mm opacity is noted in the posterior outer mid l eft breast. Diagnostic left mammogram and left breast ultrasound examination are recommended. Otherwise there is no evidence of suspicious mass, calcification, or architectural distortion to sugg est malignancy in either breast. There has been no other suspicious interval change. IMPRESSION: 1. New suspicious irregular approximately 5 mm opacity in the posterior outer mid left breast 2. Diagnostic left mammogram and left breast ultrasound examination are recommended BI-RADS Category 0: Incomplete: Needs additional imaging evaluation. Reviewed, dictated and finalized at location A. IMPRESSION: 1. New suspicious irregular approximately 5 mm opacity in the posterior outer m id left breast 2. Diagnostic left mammogram and left breast ultrasound examination are recomme nded BI-RADS Category 0: Incomplete: Needs additional imaging evaluation.
--- NOTE | ~2023-08-20 | DEXA_ITS ---
Bone Density Report Name: SOUMYA SWAN Age: 68 Sex: Female Ethnicity: White Date of : 1955 Indication: postmenopausal; screening for osteoporosis; height loss; asthma or emphysema; Referring Provider: TAYLOR CROOKS Study: Bone densitometry was performed. Exam Date: August 20, 2023 Accession number: [id number] Bone Density: Region BMD T-score Z-score Classification AP Spine(L1-L4) 1.115 0.6 2.7 Normal Femoral Neck (Left) 0.746 -0.9 0.9 Normal Total Hip (Left) 0.882 -0.5 1.0 Normal World Health Organization criteria for BMD impression classify patients as: Normal (T-score at or above -1.0), Osteopenia (T-score between -1.0 and -2.5), or Osteoporosis (T-score at or below -2.5). 10-year Fracture Risk: FRAX not reported because: All T-scores for Spine Total, Hip Total, Femoral Neck at or above -1.0 Previous Exams: Region Exam Age BMD T-score BMD Change BMD Change Date g/cm2 vs Baseline vs Previous Total Hip(Left) 08/20/2023 68 0.882 -0.5 0.043 (5.1%)* 0.043 (5.1%)* 03/14/2020 64 0.840 -0.8 *Denotes significance at 95% confidence level, LSC for Total Hip = 0.027 g/cm2 Clinical Information Provided by Patient: Has used the following medications: Vitamin D, Calcium Has the following medical conditions: Asthma or Emphysema Patient maximum height was 65.5 Menopause Age: 50 No regular weight bearing exercise Onset of menses at age 11 Number of children 0 Impression: The patient has normal bone mass. No significant bone loss was observed. Discussion: BONE DENSITY IS ABOVE THE MINIMUM DESIRABLE LEVEL AT ALL SKELETAL SITES TESTED. This patient?s bone mineral density is above the minimum desirable level (T-score -1.0 or better) at all sites measured. The patient should follow a healthful lifestyle (good nutrition with adequate calcium and vitamin D, and appropriate weight-bearing exercise). Follow-Up: Consider repeating this study in 5 years or sooner if there is some new clinical indication. Reported by: JOSEPHINE on 08/20/2023 8:34:00 AM. Reviewed, dictated and finalized at location Prema JUÁREZ
== END 2023-08-20 07:55 | disposition home or self-care (01) ==
PROVIDERS: PCP Nurse Practitioner Family; Visit Provider Nurse Practitioner
DX: Z12.31 Encounter for screening mammogram for malignant neoplasm of breast (principal); Z78.0 Asymptomatic menopausal state; R92.8 Other abnormal and inconclusive findings on diagnostic imaging of breast
CPT/HCPCS: 77063; 77067; 77080

== ENCOUNTER 2023-08-31 14:03 | Outpatient (CLI) | payer OTHER, SELFPAY ==
--- NOTE | ~2023-08-31 | CT_ITS ---
EXAMINATION: CT abdomen pelvis wo con DATE: 08/31/2023 14:35 INDICATION: Left ureteral stone. TECHNIQUE: Computed tomography (CT) of the abdomen and pelvis was performed without intravenous contr ast. Automated exposure control and iterative reconstruction technique were employed. The dose-length product was 372.36 mGy-cm. COMPARISON: CT abdomen and pelvis 07/13/23 FINDINGS: The visualized portions of the lung bases demonstrate mild emphysema and mild atelectasis. No pleural effusion. The heart size is normal. There are coronary artery calcifications. No pericardi al effusion. There is a small sliding hiatal hernia. There are cysts in the liver measuring up to 18 mm. The gallbladder, spleen, pancreas, adrenal glands, and right kidney are normal. There is a 4 mm s tone in left kidney. There is a left internal ureteral stent in expected position. There is a [address] one in proximal left ureter. There are no dilated loops of bowel. The appendix is normal. There is ca lcified atherosclerosis of the aorta and many of the other arteries. There are no pathologically enla rged lymph nodes. There is no free intraperitoneal fluid. There is internal fixation of right femur. There is thoracolumbar dextroscoliosis and severe spondylosis. IMPRESSION: 1. 4 mm stone in proximal left ureter with left internal ureteral stent in expected position. 2. 4 mm nonobstructing left kidney stone. Reviewed, dictated and finalized at location E. IMPRESSION: 1. 4 mm stone in proximal left ureter with left internal ureteral stent in expe cted position. 2. 4 mm nonobstructing left kidney stone.
--- NOTE | ~2023-08-31 | XR_ITS ---
XR abdomen/kub 1V 08/31/2023 14:25 Indication: Left ureteral stone Procedure: KUB Comparison: 07/13/2023 Findings: There is a left internal ureteral stent. There are stones in the proximal left ureter at th e L3 level adjacent to the stent. Bowel gas pattern is nonobstructive. Moderate dextroscoliosis. No a cute osseous abnormality. Impression: 1: Proximal left ureterolithiasis with stones present at the L3 level. Reviewed, dictated and finalized at location B. Impression: 1: Proximal left ureterolithiasis with stones present at the L3 level.
== END 2023-08-31 14:04 | disposition home or self-care (01) ==
PROVIDERS: PCP Nurse Practitioner Family; Visit Provider Urology
DX: N20.2 Calculus of kidney with calculus of ureter (principal)
CPT/HCPCS: 74018; 74176

== ENCOUNTER 2023-09-02 12:44 | Outpatient (CLI) | payer OTHER, SELFPAY ==
[2023-09-02 13:26] LABS: Prothrombin Time 13.3 Seconds (11.1-14.7)
[2023-09-02 14:03] LABS: Appearance Urine Cloudy (Clear); Bacteria Urine None Seen /hpf; Bilirubin Urine Negative (Negative); Blood Urine 3+ (Negative); Color Urine Yellow (Yellow); Glucose Urine UA Negative (Negative); Ketones Urine Negative (Negative); Leukocyte Esterase Ur 1+ LEU/UL (Negative); Nitrate Urine Negative (Negative); Protein Urine 2+ mg/dL (Negative); RBC Urine >100 /hpf (0-2); Specific Grav Ur 1.019 (1.001-1.035); Squamous Epithelial Cell Urine Occasional /hpf (Few); Urobilinogen Urine 0.2 mg/dL (<2.0); WBC Urine 21-50 /hpf (0-3); pH Urine 5.5 (5.0-9.0)
[2023-09-02 14:22] LABS: Add Urine Microscopic? YES
== END 2023-09-02 12:45 | disposition home or self-care (01) ==
LOC: ANHSURGERY 12:48
PROVIDERS: PCP Nurse Practitioner Family; Visit Provider Urology
DX: N20.1 Calculus of ureter (principal); Z01.818 Encounter for other preprocedural examination
CPT/HCPCS: 36415; 81001; 85610; 85730; 87086

== ENCOUNTER 2023-09-04 01:11 | Day surgery (SDC) | payer OTHER, SELFPAY ==
[2023-09-02 09:38] VITALS: BMI 29.0
--- NOTE | 2023-09-02 10:04 | PC.NURSE ---
Report to the Outpatient Waiting Room, entrance under the green pavilion located off [facility], at time __6:30AM on date __09/04/23 . Planned Procedure Time: ___8:30AM . Time changes happen often and if your time is changed the preop area will call you the afternoon before. - You and your visitor will be asked to self-screen and do not enter if you have any COVID symptoms. - A mask is optional within the hospital at this time. Patients may have clear liquids (water, carbonated beverages, clear teas, apple juice) until 3 hours prior to surgery with a maximum of 20 ounces. - No food from midnight until time of surgery. Take the following medications with a SIP of water the morning of surgery: ___AMLODIPINE, BUSPIRONE, VENLAFAXINE DO NOT STOP ANY OF YOUR OTHER PRESCRIPTION MEDICATIONS PRIOR TO SURGERY ?EXCEPT THE FOLLOWING Medications to discontinue per physician ____HOLD ALL VITAMINS/SUPPLEMENTS 3 DAYS [id number] STARTED HOLDING YESTERDAY 09/01/23____ Please no make-up, nail luxembourgish, hairspray, perfume, deodorant, or body powder the day of surgery. No jewelry (including any body piercings) or valuables the day of surgery, leave them at home. Please take a shower or bath the night before, or the morning of, surgery with an antibacterial soap. Wear comfortable, loose fitting clothing. - Jewelry must be removed prior to entering the operating room. Rings and piercings that are not removed may be cut off. - The hospital will not accept responsibility for valuables. - Please leave all valuables, including medications, at home the day of surgery. If you are going home after surgery, a licensed public transit trolley driver must drive you home. - NO public transportation without another adult if you receive anesthesia. - We recommend that an adult stay with you for 24 hours following discharge. - We also recommend that you do not drive, make important decision, drink alcoholic beverages, or take any drugs that were not prescribed by your health care provider for at least 24 hours after your discharge time. Follow any additional instructions given to you from your surgeon. If you or anyone in your household have experienced Covid symptoms in the past week, please notify your surgeon or the nurse liaison at the phone number below for possible testing. Telephone instructions given to ____PATIENT and asked if any additional questions and then verbalized understanding. Patient advised to call surgeon office or pre surgery nurse liaison [phone] if any additional questions.
[2023-09-04] VITALS (9 sets, daily range): BP systolic 127–197; BP diastolic 43–87; PULSE 81–93; RESP 14–17; TEMP 36.1–36.8; O2SAT 96–99
--- NOTE | ~2023-09-04 | XR_ITS ---
XR abdomen/kub 1V 09/04/2023 06:13 Indication: Preop ESWL Procedure: KUB Comparison: 08/31/2023 Findings: Bowel gas pattern nonobstructive. Moderate colonic fecal loading. There is a left internal ureteral stent. There is a stone in the ureter at the L3 level. Stable position. No other stones iden tified. Bowel pattern nonobstructive. Impression: 1: Stable position of left ureteral stone at the L3 level. Reviewed, dictated and finalized at location B. Impression: 1: Stable position of left ureteral stone at the L3 level.
[2023-09-04] MEDS: LACTATED RINGERS 1,000 ML 30 ML IV CONT ×2 (06:35→08:59)
--- NOTE | 2023-09-04 07:19 | WPDHPUPDATE1 ---
History and Physical Update Update Date/Time: 09/04/23 07:19 History and Physical has been reviewed, including an updated exam of the patient. There are NO changes in the patient's condition. Risks, benefits, and alternatives have been discussed and questions answered. Patient agrees to proceed with procedure. Proceed with eswl of left ureteral/renal calculus
--- NOTE | 2023-09-04 07:25 | WPDANESEPPF ---
Anes - Initial Pre Proc Eval Procedure: Operation Date: 09/04/23 07:30 Proposed Procedures p Left Extracorporeal Shock Wave Lithotripsy - Jv Diego MD Date/Time: 09/04/23 07:25 Surgeon: Jv Diego MD Pre Op Diagnosis: left ureteral and renal calculus Patient Data Age: 68 Gender: F Height: 1.64 m Weight: 79.5 kg Last Vital Signs Temp 98.2 F 09/04/23 06:23 Pulse 93 09/04/23 06:23 Resp 16 09/04/23 06:23 BP 169/73 H 09/04/23 06:23 Pulse Ox 96 09/04/23 06:23 O2 Del Method Room Air 09/04/23 06:23 Allergies Allergy/AdvReac Type Severity Reaction Status Date / Time Sulfa (Sulfonamide Allergy Unknown Hives Verified 09/04/23 06:22 Antibiotics) Home Medications Medication Instructions Recorded Confirmed Type calcium carbonate 500 mg-vitamin 500 mg PO BIDWM #0 tabs 08/19/21 09/02/23 Rx D3 5 mcg (200 unit) tablet (Oyster Shell Calcium-Vitamin D3) atorvastatin 20 mg tablet 20 mg PO DAILY #90 tabs 03/12/23 09/02/23 Rx buspirone 30 mg tablet 30 mg PO BID 07/13/23 09/02/23 History venlafaxine 75 mg capsule,extended 225 mg PO QAM 07/13/23 09/02/23 History release 24 hr ferrous sulfate 325 mg (65 mg 325 mg PO DAILY #30 tabs 07/27/23 09/02/23 Rx iron) tablet amlodipine 5 mg tablet (Norvasc) 5 mg PO QAM #90 tabs 08/11/23 09/02/23 Rx lisinopril 20 mg tablet 20 mg PO QAM 09/02/23 09/02/23 History Patient hx anesthesia problems: none Family hx anesthesia problems: none Results Review: All pre-operative results and documents have been reviewed as part of the pre-operative evaluation. [facility] Past Medical History Medical History Anxiety and depression Arthritis of foot, degenerative Chronic neck and back pain Closed fracture of right distal femur (~07/28/21) R patella and R humeral Fx as well - transferred to [facility] Depression Dizziness Hypertension Mixed hyperlipidemia Muscle spasm of calf Obesity Osteopenia Postmenopause Vertigo Vision abnormalities Surgical History Surgical History Status post removal of thyroid nodule Family History Family History Father Hypertension, Onset Age: 72 Patient's father is , Onset Age: 72 Other Family history of alcoholism High cholesterol Social History Social History Smoking packs per day: 2 Smoking cigarettes per day: 40.0 Years smoked: 30 Smoking pack-years: 60.00 Smoking status: Former smoker Tobacco type: cigarettes Second hand tobacco smoke exposure: No Smoking end date: 05/11/07 Alcohol intake: never Alcohol use details: Quit in 1992 Substance use: never Substance use type: does not use Do You Feel Safe in your Home?: Yes Lack of Transportation: No Lack of Food: Never True Current Housing: I Have Housing Concerned About Future Housing: No Difficulty Paying Gas/Electric Bills: No Difficulty Paying for Meds: No Currently Unemployed: No Education: High School Diploma/GED Difficulty w/ Childcare or Family Care: No Living arrangements: alone Spiritual care concerns: No Anes - Eval Final PreProcedure Day of Procedure 09/04/23 07:25 Patient weight: normal Heart: regular rate and rhythm Lungs: clear to auscultation Airway: Mallampati scale class II Neurological: alert and oriented Last oral intake: >/= 8 hours ASA classification: III Emergent: no Anesthetic plan: proceed Anesthesia type and monitoring: general LMA and standard monitoring Results Review: All pre-operative results and documents have been reviewed as part of the pre-operative evaluation. Informed Consent: The patient's anesthetic plan and its attendant risks and benefits were discussed with the patient/family/POA. Questions were solicited and an
[2023-09-04] MEDS: ceFAZolin 2 GM/D5W 50 ML 2 GM/50 ML BAG IVPB (07:35)
--- NOTE | 2023-09-04 08:53 | W.PM.PROC2 ---
Procedure Note - Detailed Date of Procedure 09/04/23 Pre-op Diagnosis left ureteral and renal calculus Post-op Diagnosis Same Procedure Performed Lithotripsy of left ureteral and renal calculus Surgeon Jv Diego MD Anesthesia General Description of Procedure Patient is taken the operative suite correctly identified. Once anesthesia was obtained she was placed supine position with the ureteral stone localized in both planes. Three thousand shocks were given the stone. There appeared to be fragmentation. We then repositioned the patient to the left renal stone. Two thousand five hundred shocks were given to the stone. Patient tolerated procedure well without complications and was taken recovery stable condition. She will follow-up in approximately 1-2 weeks with KUB. This completes dictation. Please send a copy of op note to my office. Estimated Blood Loss 0 Drains No Packing No Pathology None sent Complications No immediate complications Condition Stable Disposition PACU
== END 2023-09-04 11:00 | disposition home health service (06) ==
PROVIDERS: PCP Nurse Practitioner Family; Visit Provider Urology
PROC: (CPT 50590; principal; 2023-09-04 07:30)
DX: N20.2 Calculus of kidney with calculus of ureter (principal); I10 Essential (primary) hypertension; E78.2 Mixed hyperlipidemia; F41.8 Other specified anxiety disorders; Z87.891 Personal history of nicotine dependence
CPT/HCPCS: 50590; 36415; 74018; 81001; 85610; 85730; 87086; J0690; J1100; J2405; J2704; J3010; J7120

== ENCOUNTER 2023-09-14 09:40 | Outpatient (CLI) | payer OTHER, SELFPAY ==
--- NOTE | ~2023-09-14 | XR_ITS ---
EXAMINATION: XR abdomen/kub 1V DATE: 09/14/2023 10:03 INDICATION: Left ureteral stone. TECHNIQUE: A supine view of the abdomen on 2 radiographs was obtained. COMPARISON: CT abdomen and pelvis 08/31/2023 FINDINGS: There are no dilated loops of bowel. There is a left internal ureteral stent in expected po sition. There are greater than ten 1-2 mm stones in the proximal left ureter. IMPRESSION: 1. Greater than ten 1-2 mm stones in the proximal left ureter with left internal ureteral stent in ex pected position. Reviewed, dictated and finalized at location A. IMPRESSION: 1. Greater than ten 1-2 mm stones in the proximal left ureter with left interna l ureteral stent in expected position.
== END 2023-09-14 09:41 | disposition home or self-care (01) ==
PROVIDERS: PCP Nurse Practitioner Family; Visit Provider Urology
DX: N20.1 Calculus of ureter (principal)
CPT/HCPCS: 74018

== ENCOUNTER 2023-09-21 08:42 | Outpatient (CLI) | payer OTHER, SELFPAY ==
--- NOTE | ~2023-09-21 | XR_ITS ---
Supine and upright views of the abdomen Clinical history: Left ureteral stone COMPARISON: 09/14/2023 Findings: Bowel gas pattern is nonspecific. No evidence for obstruction or free air. Multiple small s tones are probably present proximal left ureter along side the stent. Left ureteral stent in place. O sseous structures are intact. Impression: Multiple small left ureteral stones are present proximally, with left ureteral stent remaining in rachel ce. Reviewed, dictated and finalized at location M. Impression: Multiple small left ureteral stones are present proximally, with left ureteral stent remaining in place.
== END 2023-09-21 08:43 | disposition home or self-care (01) ==
LOC: ANHIMG 08:47
PROVIDERS: PCP Nurse Practitioner Family; Visit Provider Urology
DX: N20.1 Calculus of ureter (principal)
CPT/HCPCS: 74018

== ENCOUNTER 2023-09-21 11:01 | Outpatient (CLI) | payer OTHER, SELFPAY ==
--- NOTE | ~2023-09-21 | MMUS_ITS ---
EXAMINATION: MM diagnostic lilliam LT w oziel, US breast LT limited HISTORY: New suspicious irregular approximate 5 mm mammographic opacity in posterior outer mid left b reast on August 20, 2023 screening mammogram TECHNIQUE: Additional 3-D tomosynthesis images of the left breast were performed and synthetic 2-D im ages were generated. CAD analysis was submitted and interpreted. High resolution targeted left breast ultrasound was performed. COMPARISON: 08/20/2023 bilateral screening mammogram FINDINGS: MAMMOGRAPHIC FINDINGS: Irregular approximately 3 x 4.7 mm hypodensity opacity is again confirmed in the posterior upper oute r left breast at approximately 2:00-3:00 position. ULTRASOUND: 3:00 3 cm from nipple: There is a poorly circumscribed irregular antiparallel hypoechoic area with po sterior shadowing, corresponding to the above described mammographic finding, suspicious for malignan cy. IMPRESSION: 1. Suspicious irregular shadowing mass of left breast at 3:00 3 cm from nipple 2. Ultrasound guided biopsy of left breast 3:00 lesion is recommended BI-RADS category 4, suspicious findings. Dr. Lerma telephoned the report and ultrasound-guided biopsy recommendation of the left breast 3:00 le haylie on 09/21/2023 at 1240 hours to Yamile Barroso's voicemail. Reviewed, dictated and finalized at location A. IMPRESSION: 1. Suspicious irregular shadowing mass of left breast at 3:00 3 cm from nipple 2. Ultrasound guided biopsy of left breast 3:00 lesion is recommended BI-RADS category 4, suspicious findings. Dr. Lerma telephoned the report and ultrasound-guided biopsy recommendation of t he left breast 3:00 lesion on 09/21/2023 at 1240 hours to Yamile Barroso's voicemai l. IMPRESSION: 1. Suspicious irregular shadowing mass of left breast at 3:00 3 cm from nipple 2. Ultrasound guided biopsy of left breast 3:00 lesion is recommended BI-RADS category 4, suspicious findings. Dr. Lerma telephoned the report and ultrasound-guided biopsy recommendation of t he left breast 3:00 lesion on 09/21/2023 at 1240 hours to Yamile Barroso's nina david
== END 2023-09-21 11:02 | disposition home or self-care (01) ==
LOC: ANHIMG 11:02
PROVIDERS: PCP Nurse Practitioner Family; Visit Provider Nurse Practitioner Family
DX: R92.8 Other abnormal and inconclusive findings on diagnostic imaging of breast (principal)
CPT/HCPCS: 76642; 77061; 77065; G0279

== ENCOUNTER 2023-10-13 10:45 | Outpatient (CLI) | payer OTHER, SELFPAY | END 2023-10-13 10:46 | disposition home or self-care (01) | LOC: ANHAUDIO 10:45 | PROVIDERS: PCP Nurse Practitioner Family; Visit Provider Nurse Practitioner Family | DX: H91.90 Unspecified hearing loss, unspecified ear (principal) | CPT/HCPCS: 92557; 92567 ==

== ENCOUNTER 2023-10-15 07:44 | Outpatient (CLI) | payer OTHER, SELFPAY ==
--- NOTE | ~2023-10-15 | US_ITS ---
US breast LT limited 10/15/2023 09:08 Indication: Shadowing soft tissue noted on prior examination. Biopsy requested. Procedure: High-resolution Limited ultrasound of the left breast Comparison: 09/21/2023 and 08/20/2023 Findings: There is heterogeneous soft tissue at 3:00, 3 cm from the nipple which appears to represent intervening interstitial tissue with associated shadowing. No discrete mass identified for biopsy. G iven the location of this cyst does not likely correspond to the area of mammographic abnormality. Impression: 1: No identifiable mass is identified for biopsy purposes. Review of previous mammograms performed. G iven the previously identified mass on mammogram is identified with fatty background this would be am enable to stereotactic biopsy. Alternatively, further evaluation with MRI of the breasts may be perfo rmed or 6 month follow-up diagnostic left mammogram and ultrasound. Recommend consultation between e patient and the referring physician. BI-RADS CATEGORY 4-SUSPICIOUS ABNORMALITY Reviewed, dictated and finalized at location B. Impression: 1: No identifiable mass is identified for biopsy purposes. Review of previous m ammograms performed. Given the previously identified mass on mammogram is ident ified with fatty background this would be amenable to stereotactic biopsy. Alte rnatively, further evaluation with MRI of the breasts may be performed or 6 mon th follow-up diagnostic left mammogram and ultrasound. Recommend consultation b etween the patient and the referring physician. BI-RADS CATEGORY 4-SUSPICIOUS ABNORMALITY
== END 2023-10-15 07:45 | disposition home or self-care (01) ==
PROVIDERS: PCP Nurse Practitioner Family; Visit Provider Surgery
DX: R92.8 Other abnormal and inconclusive findings on diagnostic imaging of breast (principal); N63.20 Unspecified lump in the left breast, unspecified quadrant
CPT/HCPCS: 76642

== ENCOUNTER 2023-10-27 10:46 | Outpatient (CLI) | payer OTHER, SELFPAY ==
--- NOTE | ~2023-10-27 | XR_ITS ---
XR abdomen/kub 1V Ordering provider: Jv Diego MD History: . LT Ureteral stone SURG JULY 2023 F/U . Comparison: September 21, 2023 FINDINGS: BOWEL: Nonobstructive bowel gas pattern. ORGANOMEGALY: None. SIGNIFICANT PATHOLOGIC CALCIFICATIONS: None. Degenerative changes of the spine. Bilateral hip osteoarthritic changes. OTHER: Dextroscoliosis. No free air is seen under the diaphragm. IMPRESSION: NO ACUTE ABDOMINAL FINDINGS. Reviewed, dictated and finalized at location A.
== END 2023-10-27 10:47 | disposition home or self-care (01) ==
LOC: ANHIMG 10:48
PROVIDERS: PCP Nurse Practitioner Family; Visit Provider Urology
DX: N20.1 Calculus of ureter (principal)
CPT/HCPCS: 74018

== ENCOUNTER 2023-11-19 09:02 | Outpatient (CLI) | payer OTHER, SELFPAY ==
--- NOTE | ~2023-11-19 | MM_ITS ---
MM stereotactic specimen LT, MM post biopsy invasive LT, MM stereotactic bx LT EXAMINATION: MM stereotactic specimen LT, MM post biopsy invasive LT, MM stereotactic bx LT INDICATION: Abnormal mass in the left breast. Stereotactic core biopsy is requested evaluate for mal ignancy. TECHNIQUE AND FINDINGS: The risks and potential benefits of the procedure were discussed with the patient and written informe d consent was obtained. The patient was placed in the prone position clustered at the table with the left breast in craniocaudal compression, and the area of interest was localized and targeted utilizi ng digital imaging with stereotaxis. After sterile preparation of the skin, 1% lidocaine was utilized for local anesthesia at the skin pun cture site and 1% lidocaine with epinephrine was utilized for deeper local anesthesia/is about the bi opsy site. A 9G Amerpages vacuum assisted biopsy needle was advanced to the level of the calcification o f interest from a cephalad approach utilizing stereotactic guidance and a total of 6 tissue core biop sies were obtained. A specimen radiograph demonstrates that the calcifications of interest are included within the tissue cores. A tissue marker clip was then placed at the biopsy site. The needle was removed and hemosta sis was achieved. The patient tolerated the procedure well and there is no evidence of significant i mmediate complication. The patient was given verbal as well as written postprocedural instructions p rior to discharge from the department. Tissue cores were submitted to surgical pathology for histolo gic analysis. A 2-view left unilateral digital mammogram was obtained post procedure and this demonstrates that the tissue marker clip is in expected position. IMPRESSION: 1. Successful stereotactic biopsy of the left breast, followed by tissue marker clip placement. Ple ase refer to pathology report for histologic analysis. Reviewed, dictated and finalized at location B. IMPRESSION: 1. Successful stereotactic biopsy of the left breast, followed by tissue marke r clip placement. Please refer to pathology report for histologic analysis. IMPRESSION: 1. Successful stereotactic biopsy of the left breast, followed by tissue marke r clip placement. Please refer to pathology report for histologic analysis.
== END 2023-11-19 09:03 | disposition home or self-care (01) ==
PROVIDERS: PCP Nurse Practitioner Family; Visit Provider Surgery
DX: N63.20 Unspecified lump in the left breast, unspecified quadrant (principal); R92.8 Other abnormal and inconclusive findings on diagnostic imaging of breast; C50.912 Malignant neoplasm of unspecified site of left female breast
CPT/HCPCS: 19081; 88305; 88342

== ENCOUNTER 2023-11-20 10:58 | Emergency (ER) | payer OTHER, SELFPAY ==
--- NOTE | 2023-11-20 11:04 | ED.SKABFB ---
HPI - Skin/Abscess/Foreign Bdy General Chief complaint: Skin/Abscess/Foreign Body Stated complaint: Had biopsy/blister by tape Time Seen by Provider: 11/20/23 11:37 Source: patient, RN notes reviewed and old records reviewed Mode of arrival: ambulatory Limitations: no limitations History of Present Illness HPI narrative: 68 year presents to the [facility] with concerns of a blister that is underneath the Tegaderm. Had a biopsy yesterday. Clear fluid blister noted to the left breast, under Tegaderm. No redness or swelling noted Had a breast biopsy done yesterday Related Data Home Medications Medication Instructions Recorded Confirmed buspirone 30 mg tablet 30 mg PO BID 07/13/23 11/20/23 Allergies Allergy/AdvReac Type Severity Reaction Status Date / Time Sulfa (Sulfonamide AdvReac Mild Hives Verified 11/20/23 11:09 Antibiotics) Review of Systems Review of Systems: All systems reviewed & are unremarkable except as noted in HPI and below Constitutional: Constitutional: Reports no additional constitutional complaints Eyes: Eyes: Reports no additional eye complaints ENT: Reports system reviewed and no additional complaints, except as documented Cardiovascular: Cardiovascular: Reports no additional cardiovascular complaints, Denies chest pain and Denies dyspnea Respiratory: Respiratory: Reports no additional respiratory complaints, Denies chest congestion, Denies cough and Denies dyspnea Gastrointestinal: Gastrointestinal: Reports no additional gastrointestinal complaints, Denies abdominal pain, Denies nausea and Denies vomiting Musculoskeletal: Musculoskeletal: Reports no additional musculoskeletal complaints Integumentary/Breasts: Skin/Breast: Reports as per HPI Neurologic: Reports system reviewed and no additional complaints, except as documented Psychiatric: Psychiatric: Reports no additional psychiatric complaints Allergic/Immunologic: Allergic/Immunologic: Reports no additional allergic/immunologic complaints FORMERLY [facility] Past Medical History Medical History Anxiety and depression Arthritis of foot, degenerative Chronic neck and back pain Closed fracture of right distal femur (~07/28/21) R patella and R humeral Fx as well - transferred to [facility] Depression Dizziness Elevated troponin Hypertension Mixed hyperlipidemia Muscle spasm of calf Obesity Osteopenia Postmenopause Septic shock Ureteral stone Vertigo Vision abnormalities Surgical History Surgical History Status post removal of thyroid nodule Family History Family History Father Hypertension, Onset Age: 72 Patient's father is , Onset Age: 72 Other Family history of alcoholism High cholesterol Social History Social History Smoking packs per day: 2 Smoking cigarettes per day: 40.0 Years smoked: 36 Smoking pack-years: 72.00 Smoking status: Former smoker Tobacco type: cigarettes Second hand tobacco smoke exposure: No Smoking end date: 11/09/11 Alcohol intake: never Alcohol use details: Quit in 1992 Substance use: never Substance use type: does not use Do You Feel Safe in your Home?: Yes Lack of Transportation: No Lack of Food: Never True Current Housing: I Have Housing Concerned About Future Housing: No Difficulty Paying Gas/Electric Bills: No Difficulty Paying for Meds: No Currently Unemployed: No Education: High School Diploma/GED Difficulty w/ Childcare or Family Care: No Living arrangements: alone Spiritual care concerns: No Comments At the time of my signature, I reviewed and agree with the nursing past medical, surgical, social, and family history. There is no relevant family history pertinent to the patient complaint. Exam Const:
[2023-11-20 11:05] VITALS: BP 149/65; PULSE 98; RESP 16; TEMP 36.6; O2SAT 99
== END 2023-11-20 11:50 | disposition home or self-care (01) ==
PROVIDERS: Emergency Provider Nurse Practitioner; PCP Family Medicine
DX: S20.122A Blister (nonthermal) of breast, left breast, initial encounter (principal); X58.XXXA Exposure to other specified factors, initial encounter; Z87.891 Personal history of nicotine dependence; I10 Essential (primary) hypertension; E78.2 Mixed hyperlipidemia; E66.9 Obesity, unspecified; Z68.29 Body mass index [BMI] 29.0-29.9, adult; M85.80 Other specified disorders of bone density and structure, unspecified site; F41.9 Anxiety disorder, unspecified; F32.A Depression, unspecified
CPT/HCPCS: 99212; G0463

== ENCOUNTER 2023-12-08 08:09 | Outpatient (CLI) | payer OTHER, SELFPAY ==
--- NOTE | ~2023-12-08 | MR_ITS ---
MR breast BI wo/w con 12/08/2023 13:33 CDT INDICATION: Left breast mass seen on prior mammogram. Mass not well visualized by ultrasound. TECHNIQUE: MRI of the breasts perform using standard protocol pre-and post IV contrast with the follo wing sequences: Axial T2 STIR, axial T1, axial vibrant T1 with fat suppression precontrast and multip hasic postcontrast. 15 cc of MultiHance administered intravenously. COMPARISON: Comparison to multiple prior studies sequentially, with oldest reviewed study dated 05/28. FINDINGS: There are no abnormalities on the precontrast sequences. There is mild background parenchym al enhancement. No enhancing lesions following contrast administration. No areas of enhancement annika ting threshold criteria on CAD analysis. No evidence of signal abnormalities in the axillary or inte rnal mammary node distributions. LEFT BREAST: No signal abnormalities on precontrast sequences. There is mild background parenchymal enhancement. In the lower outer quadrant of the left breast, at 5:00, middle third 8.4 cm posterior t o the nipple there is a 6 x 5 x 4 mm oval mass with rapid washout enhancement. There is a contiguous feeding vessel. This corresponds to the mammographic finding. No evidence of signal abnormalities in the axillary or internal mammary node distributions.] IMPRESSION: 1: Right breast: Negative. No evidence of malignancy. BI-RADS category 1. Recommend annual mammo graphy follow-up. 2: Left breast: Abnormal 6 mm mass of the left breast at 5:00 in the lower outer quadrant, middle th ird with rapid washout enhancement. This corresponds to the mammographic abnormality. Recommend furth er evaluation with either stereotactic or MRI guided biopsy. BI-RADS CATEGORY 4-SUSPICIOUS ABNORMALITY Reviewed, dictated and finalized at location B. IMPRESSION: 1: Right breast: Negative. No evidence of malignancy. BI-RADS category 1. Recommend annual mammography follow-up. 2: Left breast: Abnormal 6 mm mass of the left breast at 5:00 in the lower out er quadrant, middle third with rapid washout enhancement. This corresponds to t he mammographic abnormality. Recommend further evaluation with either stereotac tic or MRI guided biopsy. BI-RADS CATEGORY 4-SUSPICIOUS ABNORMALITY
== END 2023-12-08 08:10 | disposition home or self-care (01) ==
PROVIDERS: PCP Family Medicine; Visit Provider Surgery
DX: C50.912 Malignant neoplasm of unspecified site of left female breast (principal)
CPT/HCPCS: 77049; A9577; C8908

== ENCOUNTER 2023-12-31 07:27 | Outpatient (CLI) | payer OTHER, SELFPAY ==
--- NOTE | ~2023-12-31 | MMUS_ITS ---
MM post biopsy diagnostic LT, US_MAGSEEDLT_US EXAMINATION: MM post biopsy diagnostic LT, US_MAGSEEDLT_US INDICATION: Left breast invasive lobular carcinoma. TECHNIQUE: The procedure for a ultrasound -guided Magseed localization was discussed with the patient . Risks discussed included bleeding and infection. The patient verbalized understanding and agreed to proceed. The time out was performed to verify the patient's name, date of , and site of procedure. The s kin overlying the left breast was prepared in usual fashion. Utilizing ultrasound guidance, the needl e was advanced into the left breast. Confirmation of Magseed position was achieved with ultrasound an d subsequent mediolateral and craniocaudal mammogram. The patient tolerated procedure without immedia te complication. BREAST PARENCHYMAL COMPOSITION: Not dense: There are scattered areas of fibroglandular density. FINDINGS: Ultrasound and mammographic images demonstrate deployment of the Magseed device of the biop sy-proven left breast cancer. IMPRESSION: 1. Successful ultrasound-guided left breast Magseed localization. Post procedure mammogram for marker placement. Reviewed, dictated and finalized at location B. IMPRESSION: 1. Successful ultrasound-guided left breast Magseed localization. Post procedur e mammogram for marker placement.
== END 2023-12-31 07:28 | disposition home or self-care (01) ==
PROVIDERS: PCP Family Medicine; Visit Provider Surgery
DX: C50.912 Malignant neoplasm of unspecified site of left female breast (principal)
CPT/HCPCS: 19285; 77065; A4648

== ENCOUNTER 2024-01-05 02:14 | Day surgery (SDC) | payer OTHER, SELFPAY ==
--- NOTE | 2023-12-30 13:14 | PC.NURSE ---
Report to the Outpatient Waiting Room, entrance under the green pavilion located off [facility], at time _7:00 AM on date ___01/05/24____. Planned Procedure Time: __9:00 AM . NUCLEAR MED AT 0815 Time changes happen often and if your time is changed the preop area will call you the afternoon before. - You and your visitor will be asked to self-screen and do not enter if you have any COVID symptoms. - A mask is optional within the hospital at this time. Patients may have clear liquids (water, carbonated beverages, clear teas, apple juice) until 3 hours prior to surgery( 6:00 AM) with a maximum of 20 ounces. - No food from midnight until time of surgery - Infants may have breast milk until 4 hours before surgery, infant formula 6 hours prior to surgery. - Children will be allowed to drink immediately following surgery. If applicable, please bring a bottle or sippy cup to assist with drinking. Juice, water, soda, and popsicles are readily available. For infants on formula, please bring formula the day of surgery. Pacifiers are allowed. Take the following medications with a SIP of water the morning of surgery: ___AMLODIPINE,BUSPIRONE,VENLAFAXINE DO NOT STOP ANY OF YOUR OTHER PRESCRIPTION MEDICATIONS PRIOR TO SURGERY ?EXCEPT THE FOLLOWING Medications to discontinue per physician HOLD ALL VITAMINS AND SUPPLEMENT 3 DAYS PRE OP .LAST DOSE 01/01/24 Please no make-up, nail cape verdean, hairspray, perfume, deodorant, or body powder the day of surgery. No jewelry (including any body piercings) or valuables the day of surgery, leave them at home. Please take a shower or bath the night before, or the morning of, surgery with an antibacterial soap. Wear comfortable, loose fitting clothing. Children are encouraged to wear pajamas. - Jewelry must be removed prior to entering the operating room. Rings and piercings that are not removed may be cut off. - The hospital will not accept responsibility for valuables. - Please leave all valuables, including medications, at home the day of surgery. If you are going home after surgery, a licensed interstate bus driver must drive you home. - NO public transportation without another adult if you receive anesthesia. - We recommend that an adult stay with you for 24 hours following discharge. - We also recommend that you do not drive, make important decision, drink alcoholic beverages, or take any drugs that were not prescribed by your health care provider for at least 24 hours after your discharge time. Follow any additional instructions given to you from your surgeon. If you or anyone in your household have experienced Covid symptoms in the past week, please notify your surgeon or the nurse liaison at the phone number below for possible testing. Telephone instructions given to ___PATIENT and asked if any additional questions and then verbalized understanding. Patient advised to call surgeon office or pre surgery nurse liaison [phone] if any additional questions.
[2023-12-30 13:21] VITALS: BMI 31.1
[2024-01-05] VITALS (11 sets, daily range): BP systolic 110–158; BP diastolic 60–92; PULSE 77–99; RESP 12–20; TEMP 36.5–36.6; O2SAT 95–100; BMI 31.1
--- NOTE | ~2024-01-05 | MM_ITS ---
MM_FAXITRON_MG 01/05/2024 10:13 Indication: Post surgical biopsy specimen Procedure: Specimen radiograph of the left breast Comparison: 12/31/2023 Findings: Specimen contains the mass of interest as well as the tissue marker from previous biopsy an d magseed. Please refer to procedural report for details. Impression: 1: Specimen radiograph contains the magseed, tissue marker and mass of interest. Reviewed, dictated and finalized at location B. Impression: 1: Specimen radiograph contains the magseed, tissue marker and mass of interest .
--- NOTE | ~2024-01-05 | NM_ITS ---
EXAMINATION: NM sentinel node inject only DATE: 01/05/2024 08:55 INDICATION: Left breast cancer TECHNIQUE: 1.054 mCi Tc-99m filtered sulfur colloid was injected in 4 aliquots along the margins of t he areola at the 12, 3, 6 and 9:00 positions. No images were obtained. IMPRESSION: 1. Successful left breast sentinel lymph node radiopharmaceutical injection. Reviewed, dictated and finalized at location A.
--- NOTE | 2024-01-05 07:37 | WPDHPUPDATE1 ---
History and Physical Update Update Date/Time: 01/05/24 07:37 - Left breast lumpectomy with Mag seed localization, left sentinel lymph node biopsy with Lymphoseek, possible methylene blue injection for dual tracing, possible adjacent tissue transfer History and Physical has been reviewed, including an updated exam of the patient. There are NO changes in the patient's condition. Risks, benefits, and alternatives have been discussed and questions answered. Patient agrees to proceed with procedure.
[2024-01-05] MEDS: LIDOCAINE/PRILOCAINE CREAM 2.5-2.5% TUBE 1 EACH TOPICAL (07:42)
[2024-01-05] MEDS: LACTATED RINGERS 1,000 ML 30 ML IV CONT ×2 (07:48→10:29)
--- NOTE | 2024-01-05 07:54 | W.PM.PROC2 ---
Procedure Note - Detailed Date of Procedure 01/05/24 Pre-op Diagnosis Left breast invasive lobular carcinoma Post-op Diagnosis Same Procedure Performed 1. Left lumpectomy with magseed localization 2. Left sentinel lymph node biopsy 3. Injection of methylene blue for dual tracing Surgeon Vanessa Baugh MD Warehouse Consultant Judy Coyle PA-C Anesthesia General Description of Procedure Patient was identified in the pre-operative area and brought to the OR suite. She underwent tumor localization previously by IR with magseed placement as well as injection of lymphoseek radiotracer by Nuclear Medicine. She was laid supine in the operating table and sequential compression devices were applied. General anesthesia was induced without difficulties. The left chest and axillary regions were prepped and draped in a sterile fashion. Dilated methylene blue (50%) was injected into the perioareolar sudermal region as a second tracer. The Neoprobe was used to identify the area with highest radioactivity in the axilla, and a small incision was made overlying this area. Dissection was carried down through the subcutaneous tissue into the clavipectoral fascia, which was incised. The probe was again used to scan this area, and a hot and blue node was identified. This was carefully grasped and excised using the Ligasure device. The Neoprobe was used to obtain the following count: sentinel lymph node #1 [id number]. The Neoprobe was again used to scan the axilla looking for any additional radioactive lymph nodes that 10% or greater count compared to the sentinel node and no additional areas of significant radioactivity in the axilla were present. The wound was irrigated with saline and hemostasis was assured. The deep dermal layer was closed with 3-0 vicryl followed by 4-0 monocryl for the skin. Dermabond was applied followed by a sterile dressing. Attention was then turned to the breast. The magnetic probe was used to identify the area where the magseed was placed and an incision was made overlying this area. Dissection was carried down through the subcutaneous tissue into the breast tissue. The tumor was identified with probe, and a rim of normal breast tissue was excised along with the tumor as our lumpectomy specimen. Once the specimen was completely excised, it was oriented using surgical paint as the following: green anterior, yellow medial, orange lateral, superior red, blue inferior, and black posterior. The lumpectomy specimen was then placed in faxitron and 2 views were obtained for radiographic confirmation of Tumor, biopsy marker and magseed within the specimen. Once the radiographic confirmation was received, the wound was irrigated with saline and hemostasis was assured. The deep dermal layer was approximated using interrupected 3-0 vicryl followed by 4-0 monocryl for the skin. Dermabond was applied followed by a surgical bra. Patient was awoken from anesthesia and taken to the recovery area in stable condition. All needles, instruments and sponge counts were correct as reported by the operating room staff. Patient tolerated the procedure well with no immediate complications. Judy Coyle PA-C was present and assisted with patient positioning and retraction throughout the case. Estimated Blood Loss 5 Pathology Yes Complications No immediate complications Condition Stable Disposition PACU [facility] Billing Surgery - Charge Forward: Surgery Billing (CPT 29039, [id number], [id number])
[2024-01-05] MEDS: ACETAMINOPHEN 500 MG TABLET 1000 MG PO (08:00)
--- NOTE | 2024-01-05 08:49 | WPDANESEPPF ---
Anes - Initial Pre Proc Eval Procedure: Operation Date: 01/05/24 09:00 Proposed Procedures p Left Breast Lumpectomy with Mag Seed Localization, Left [place] Lymph Node Biopsy with Lymphoseek, Possible Methylene Blue Injection for [place] Node Mapping, Possible Adjacent Tissue Transfer - Vanessa Baugh MD Date/Time: 01/05/24 08:49 Surgeon: Vanessa Baugh MD Pre Op Diagnosis: CA left breast Patient Data Age: 68 Gender: F Height: 1.64 m Weight: 83.6 kg Last Vital Signs Temp 97.7 F 01/05/24 07:00 Pulse 99 01/05/24 07:00 Resp 16 01/05/24 07:00 BP 158/71 H 01/05/24 07:00 Pulse Ox 99 01/05/24 07:00 O2 Del Method Room Air 01/05/24 07:00 Allergies Allergy/AdvReac Type Severity Reaction Status Date / Time Sulfa (Sulfonamide AdvReac Mild Hives Verified 01/05/24 07:25 Antibiotics) adhesive AdvReac Redness of Verified 01/05/24 07:25 Skin transparent dressing AdvReac Blister Verified 01/05/24 07:25 Home Medications Medication Instructions Recorded Confirmed Type buspirone 30 mg tablet 30 mg PO BID 07/13/23 12/30/23 History amlodipine 5 mg tablet (Norvasc) 5 mg PO QAM #90 tabs 08/11/23 12/30/23 Rx venlafaxine 75 mg capsule,extended 225 mg PO QAM #270 caps 09/14/23 12/30/23 Rx release 24 hr lisinopril 20 mg tablet See Rx Instructions .Route 10/06/23 12/30/23 Rx .COMPLEX #90 tabs atorvastatin 20 mg tablet 20 mg PO DAILY #90 tabs 10/12/23 12/30/23 Rx calcium-vitamin D3-vitamin K 500 1 tablet PO BID 12/30/23 12/30/23 History mg-100 unit-40 mcg chewable tablet cholecalciferol (vitamin D3) 25 25 mcg PO DAILY 12/30/23 12/30/23 History mcg (1,000 unit) capsule dcigoekk-aeb-elyx-FA-Ca carb-vit K 1 tablet PO DAILY 12/30/23 12/30/23 History 18 mg iron-400 mcg-500 mg tablet Patient hx anesthesia problems: none Family hx anesthesia problems: none Results Review: All pre-operative results and documents have been reviewed as part of the pre-operative evaluation. [facility] Past Medical History Medical History Anxiety and depression Arthritis of foot, degenerative Chronic neck and back pain Closed fracture of right distal femur (~07/28/21) R patella and R humeral Fx as well - transferred to [facility] Depression Dizziness Elevated troponin Hypertension Mixed hyperlipidemia Muscle spasm of calf Obesity Osteopenia Postmenopause Septic shock Ureteral stone Vertigo Vision abnormalities Surgical History Surgical History Status post removal of thyroid nodule Family History Family History Father Hypertension, Onset Age: 72 Patient's father is , Onset Age: 72 Other Family history of alcoholism High cholesterol Social History Social History Smoking packs per day: 2 Smoking cigarettes per day: 40.0 Years smoked: 30 Smoking pack-years: 60.00 Smoking status: Former smoker Tobacco type: cigarettes Second hand tobacco smoke exposure: No Smoking end date: 05/11/11 Alcohol intake: former Alcohol use details: QUIT 1992 Substance use: never Substance use type: does not use Do You Feel Safe in your Home?: Yes Lack of Transportation: No Lack of Food: Never True Current Housing: I Have Housing Concerned About Future Housing: No Difficulty Paying Gas/Electric Bills: No Difficulty Paying for Meds: No Currently Unemployed: No Education: High School Diploma/GED Difficulty w/ Childcare or Family Care: No Living arrangements: alone Spiritual care concerns: No Anes - Eval Final PreProcedure Day of Procedure 01/05/24 08:49 Patient weight: normal Heart: regular rate and rhythm Lungs: clear to auscultation Airway: Mallampati scale class II Neurological: alert and oriented [place]
[2024-01-05] MEDS: ceFAZolin 2 GM/D5W 50 ML 2 GM/50 ML BAG IVPB (09:00)
[2024-01-05] MEDS: BUPIVACAINE/EPINEPHRINE 0.5% 50 ML VIAL 40 ML INFILTRATE (09:48)
== END 2024-01-05 12:45 | disposition home or self-care (01) ==
PROVIDERS: PCP Family Medicine; Visit Provider Surgery
PROC: (CPT 19301; principal; 2024-01-05 09:00)
DX: C50.912 Malignant neoplasm of unspecified site of left female breast (principal); Z17.0 Estrogen receptor positive status [ER+]; F41.8 Other specified anxiety disorders; I10 Essential (primary) hypertension; E78.2 Mixed hyperlipidemia; E66.9 Obesity, unspecified; Z68.31 Body mass index [BMI] 31.0-31.9, adult
CPT/HCPCS: 19301; 38525; 38792; 76098; 88307; 88342; A9270; A9520; J0330; J0690; J1100; J1170; J2405; J2704; J3010; J7120; Q9968

== ENCOUNTER 2024-06-09 01:45 | Day surgery (SDC) | payer OTHER, SELFPAY ==
--- OUTSIDE RECORDS SUMMARY | 2024-06-09 01:48 | XMS_ITS | Encounter Summary ---
Author Organization [facility] Address [address] [place] [address] Care Team Providers Care Commercial Loan Assistant Name Role Phone Travis Pizano MD Primary Care Provider Pavel Russo DO Primary Care Provider [phone] Travis Pizano MD Primary Care Provider [phone] Encounter Details Date Type Department Care Team (Late st Contact Info) Description 12/23/2018 Lab Requisition [facility] [address] [place] [address] Gene Love MD [address] [place] [address] Social History Tobacco Use Types Packs/Day Years Used Date Smoking Tobacco: Never Assessed Sex and Gender Information Value Date Recorded Sex Assigned at Not on file Gender Identity Not on file Sexual Orientation Not on file documented as of this encounter Plan of Treatment Not on file documented as of this encounter Procedures Procedure Name Priority Date/Time Associated Diagnosis Comments DERMATOPATHOLOGY Routine 12/22/2018 12:0 0 AM CDT documented in this encounter Results * DERMATOPATHOLOGY (12/22/2018 12:00 AM CDT) Case Report Dermatopathology Report ? Case: [id number] ? Authorizing Provider: ??Gene Love MD ?Collected: ? 12/22/2018 12:00 AM ? Ordering Location: ? [facility] ?Received: ?12/23/2018 12:54 PM ? Pathologist: ? Ariela Bourgeois MD ? Specimen: ?Skin, right distal anterior thigh ? 9 1:00 PM CDT DERMATOPATHOLOGY LABORATORY Final Diagnosis Specimen A. SKIN, right distal anterior thigh: COMPOUND MELANOCYTIC NEVUS (D22.71) (see microscopic description) 9 1:00 PM T DERMATOPATHOLOGY LABORATORY Clinical History R/O dys nevus vs ISK. 9 1:00 PM T DERMATOPATHOLOGY LABORATORY Gross Description Specimen A: Received is one formalin filled container labeled with the patient's name and designated right distal anterior thigh. The specimen consists of a shave biopsy measuring [id number]. Jar 0. 9 1:00 PM CDT DERMATOPATHOLOGY LABORATORY Microscopic Description Specimen A. SKIN, right distal anterior thigh: There are nests of melanocytes at the dermal-epidermal junction and within the dermis. Additional deeper sections were obtained and reviewed. 9 1:00 PM CDT DERMATOPATHOLOGY LABORATORY Disclaimer An external and internal positive and negative controls are appropriate for the histochemical, immunohistochemical and immunofluorescence stain(s) in this case (if any), except where stated explicitly. The performance characteristics of the stain(s) cited in this report were developed and its performance characteristic determined by the Dermatopathology Laboratory at [facility], directed by Dr. Gloria Bourgeois. These tests need not be, and therefore are not, approved by the [place] Food and Drug Administration. The tests are used for clinical purposes. Billing Codes Specimen Charges Stain Charges 30215 1 9 1:00 PM CDT DERMATOPATHOLOGY LABORATORY Embedded Images 9 1:00 PM CDT DERMATOPATHOLOGY LABORATORY Pathology/Cytolog y TISSUE SPECIMEN FROM SKIN / Unknown 12/22/2018 12/23/2018 12:54 PM CDT Gene Love MD LAB - PATHOLOGY/CYTO LOGY ORDERABLES DERMATOPATHOLOGY LABORATORY [facility] - Department of Dermatology [address] [place] [address], [address] Floor Lab [address] [phone] documented in this encounter Visit Diagnoses Not on filedocumented in this encounter Care Teams Commercial Loan Assistant Relationship Specialty Start Date End Date Travis Pizano MD [address] [place] [id number] PCP - General 04/12/18 02/17/22 Pavel Russo DO [address] [place] [address] PCP - General Internal Medicine 02/18/22 02/23/22 Travis Pizano MD [address] [place] [phone] PCP - General 02/24/22 documented as of this encounter
--- OUTSIDE RECORDS SUMMARY | 2024-06-09 01:48 | XMS_ITS | Clinical Summary ---
Author Organization [facility] [employer] Address [address] [place] [address] Care Team Providers Care Enrollment Eligibility Representative Name Role Phone Travis Pizano MD Primary Care Provider [phone] Source Comments [facility] [employer],non-owned Affiliates and Associated Physician Practices is amultiple site organization consisting of ambulatory clinics and hospital sitesin [place], [place], [place] and [place]. This disclosure is being madepursuant to the Care Everywhere program and may not contain all information available regarding this patient. Last updated 18.[facility] [employer] Allergies Active Allergy Reactions Criticality Noted Date Comments Sulfa Drugs Urticaria Medium 07/28/2021 Medications * Be aware that medications may not be up to date on this document. Alwaysverify current medications with the patient. Medication Sig Dispensed Refills Start Date End Date Status lisinopril (PRINIVIL; ZESTRIL) 20 MG tablet Take 1 (one) tablet by mouth once daily Active atorvastatin (LIPITOR) 20 MG tablet Take 1 (one) tablet by mouth once daily Active venlafaxine XR 24hr (EFFEXOR XR) 75 MG capsule Take 3 (three) capsules by mouth daily with breakfast Active acetaminophen (Tylenol) 500 MG tablet Take 1 (one) tablet to 2 (two) tablets by mouth every 6 hours as needed for Fever or Pain Maximum allowable Acetaminophen amount = 4 Grams (4000 mg) / 24 hours. Active Multiple Vitamin (MULTIVITAMIN ADULT PO) Take 1 tablet by mouth once daily Active biotin 5 MG tablet Take 5 mg by mouth once daily Active Vitamin D3 (Cholecalciferol) 25 MCG tablet Take 1 (one) tablet by mouth once daily Active calcium 500 mg tablet Take 650 mg by mouth daily with food Active busPIRone (Buspar) 30 MG tablet Take 1 (one) tablet by mouth 2 times daily 02/10/2022 Active aspirin (Aspirin) 325 MG tablet Take 1 (one) tablet by mouth once daily Active naproxen (Naprosyn) 500 MG tabletIndications :Osteoarthritis Take 1 (one) tablet by mouth 2 times daily for 14 days Reasons: Joint Damage causing Pain and Loss of Function 28 tablet 06/02/2024 06/16/2024 Active diclofenac sodium (Voltaren) 1 % gel Apply 2 (two) g to affected area 4 times daily 100 g 06/02/2024 Active cyclobenzaprine (Flexeril) 10 MG tablet Take 1 (one) tablet by mouth 3 times daily as needed for Muscle Spasms 30 tablet 06/02/2024 Active acetaminophen (Tylenol) 500 MG tablet Take 1 (one) tablet by mouth every 4 hours as needed for Fever or Pain Maximum allowable Acetaminophen amount = 4 Grams (4000 mg) / 24 hours. 06/02/2024 Active Active Problems Problem Noted Date Diagnosed Date Right patella fracture 07/30/2021 Fracture of proximal end of right humerus 2021 Closed fracture of right distal femur 07/29/2021 Encounters Date Type Department Care Team Description 06/02/2024 12:42 PM ELEVATOR MECHANIC APPRENTICE - 06/02/2024 2:11 PM [facility] [[email or web address]] Emergency [facility] EMERGENCY DEPARTMENT [address] [place] [phone] Usama Marcelo DO Patellofemoral arthritis (Primary Dx); Chronic pain of right knee; Nerve pain Discharge Disposition: Home or Self Care 06/02/2024 Travel from Last 3 Months Family History Medical History Relation Name Comments CAD (Coronary Artery Disease) Father Cirrhosis Mother Relation Name Status Comments Father Mother Social History Tobacco Use Types Packs/Day Years Used Date Smoking Tobacco: Former Cigarettes Q uit: 2009 Smokeless Tobacco: Former Tobacco Cessation:Counseling Given: Not Answered Alcohol Use Standard Drinks/Week Comments Not Currently 0 (1 standard drink = 0.6 oz pur e alcohol) AUDIT-C Answer Date Recorded Q1: How often do you have a drink containing alc ohol? Monthly or less 07/28/2021 Q2: How many drinks containi ng alcohol do you have on a typical day when you are drinking? Patient declined 07/28/2021 Q3: How often do you have si x or more drinks on one occasion? Less than monthly 07/28/2021 Hunger Vital Sign Answer Date Recorded Within the past 12 months, y ou worried that your food would run out before you got the money to buy more. Never true 07/30/19 22 Within the past 12 months, t he food you bought just didn't last and you didn't have money to get more. Never true 07/29/2021 Sex and Gender Information Value Date Recorded Sex Assigned at Not on file Gender Identity Not on file Sexual Orientation Not on file Last Filed Vital Signs Vital Sign Reading Time Taken Comments Blood Pressure 168/83 06/02/2024 7:07 AM ELEVATOR MECHANIC APPRENTICE Pulse 113 06/02/2024 7:07 AM ELEVATOR MECHANIC APPRENTICE Temperature 36.6 ??C (97.8 ??F) 06/02/2024 7:07 AM CS T Respiratory Rate 12 06/02/2024 7:07 AM ELEVATOR MECHANIC APPRENTICE Oxygen Saturation 99% 06/02/2024 7:07 AM ELEVATOR MECHANIC APPRENTICE Inhaled Oxygen Concentration 45% 08/01/2021 6 :00 AM CDT Weight 88 kg (194 lb) 06/02/2024 7:07 AM ELEVATOR MECHANIC APPRENTICE Height 162.6 cm (5' 4 ) 06/02/2024 7:07 AM ELEVATOR MECHANIC APPRENTICE Body Mass Index 33.3 06/02/2024 7:07 AM ELEVATOR MECHANIC APPRENTICE Plan of Treatment Health Maintenance Due Date Last Done Comments BONE DENSITY TESTING 1955 COLOGUARD (AGES 45-75) - COLON CA SCREENING 1953 COLON MONITORING 1953 COLONOSCOPY - COLON CA SCREENING 1953 CT COLONOGRAPHY - COLON CA SCREENING 1955 Colorectal Cancer Screening 1953 FIT - COLON CA SCREENING 1953 FLEX SIG - COLON CA SCREENING 1955 MAMMOGRAM 1953 HEPATITIS C SCREENING 05/04/1971 DTAP/TDAP/TD VACCINES (1 - Tdap) 1972 PNEUMOCOCCAL VACCINE 50+ (1 of 1 - PCV) 2003 ZOSTER VACCINE (1 of 2) 2003 COVID-19 VACCINE (4 - season) 2024 03/01/2021, 07/21/2020, 06/23/2020 INFLUENZA VACCINE (#1) 2024 1, 02/25/2020, 02/23/2019, Additional history exists DEPRESSION SCREENING 05/11/2024 MEDICARE AWV ? CALENDAR YEAR 2024 SCREENING FOR DIABETES 06/02/2027 5, 12/20/2021, 08/01/2021, Additional history exists Respiratory Syncytial Virus (RSV) Vaccine Pt: or over 60 yrs (1 - 1-dose 75+ series) 2028 HEPATITIS B VACCINE Aged Out No longe r eligible based on patient's age to complete this topic HIB VACCINE Aged Out No longer eligi ble based on patient's age to complete this topic HPV VACCINE Aged Out No longer eligi ble based on patient's age to complete this topic MENINGOCOCCAL (Group B) VACCINE Aged Out No longer eligible based on patient's age to complete this topic MENINGOCOCCAL VACCINE Aged Out No mounika marie eligible based on patient's age to complete this topic Medical Devices Implanted Type Area Chain Sales Representative Device Identifier Shelf Expiration Date Model / Serial / Lot Graft Bone Accell Evo3 Dbm 10ml Ptty - [id number] Implanted:Qty: 1 on 07/31/2021 by Wu Vazquez MD at [facility] Right: Leg [employer] 07/08/2022-5000-100 / [id number] / [id number] Rfn - Advanced System - Locking Attachment Washer (Law) - 10 Degree - Right Implanted:Qty: 1 on 07/31/2021 by Wu Vazquez MD at [facility] Right: Leg [id number] / / Optilink 5.0mm Va Locking Screw - 60mm Implanted:Qty: 1 on 07/31/2021 by Wu Vazquez MD at [facility] Right: Leg [id number] / / Optilink 5.0mm Va Locking Screw - 80mm Implanted:Qty: 1 on 07/31/2021 by Wu Vazquez MD at [facility] Right: Leg [id number] / / Screw 4.5mm 8mm 76mm Cortx Slf-Tap Lg Implanted:Qty: 1 on 07/31/2021 by Wu Vazquez MD at [facility] Right: Leg Synthes Usa [id number] / / Graft Bone Canc 60ml Frzdr Chp 4-9.5mm Implanted:Qty: 1 on 07/31/2021 by Wu Vazquez MD at [facility] Right: Leg Allosource 09/14/2025 [id number] / / Description:ID: [id number] Rfna / 11mm/ 360mm - 5 Degree Bend Implanted:Qty: 1 on 07/31/2021 by Wu Vazquez MD at [facility] Right: Femur 04/09/2026 [id number] / / [id number] Screw 5mm 4.3mm 72mm T25 Ft Slf-Tap Lck Implanted:Qty: 1 on 07/31/2021 by Wu Vazquez MD at [facility] Right: Leg S[employer]s Usa [id number] / / Screw 5mm 4.3mm 68mm T25 Ft Slf-Tap Lck Implanted:Qty: 1 on 07/31/2021 by Wu Vazquez MD at [facility] Right: Leg [employer]sa [id number] / / Screw 5mm 4.3mm 40mm T25 Ft Slf-Tap Lck Implanted:Qty: 1 on 07/31/2021 by Wu Vazquez MD at [facility] Right: Leg [employer]sa [id number] / / Screw 3.5mm 6mm 34mm 2.5mm Ft Slf-Tap Implanted:Qty: 1 on 07/31/2021 by Wu Vazquez MD at [facility] Right: Leg [employer] Usa [id number] / / Screw 3.5mm 6mm 32mm 2.5mm Ft Slf-Tap Implanted:Qty: 1 on 07/31/2021 by Wu Vazquez MD at [facility] Right: Leg [employer]s Usa 204.832 / / Explanted Type Area Chain Sales Representative Device Identifier Shelf Expiration Date Model / Serial / Lot Screw 3.5mm 6mm 36mm 2.5mm Ft Slf-Tap Explanted:Qty: 1 on 07/31/2021 by Wu Vazquez MD at [facility] Right: Leg [employer] Usa [id number] / / Procedures Procedure Name Priority Date/Time Associated Diagnosis Comments C-REACTIVE PROTEIN JOSE L 06/02/2024 9: 54 AM ELEVATOR MECHANIC APPRENTICE ERYTHROCYTE SEDIMENTATION RATE STAT 06/02/2024 9:54 AM ELEVATOR MECHANIC APPRENTICE CBC W AUTO DIFFERENTIAL STAT 06/02/2024 9:54 AM ELEVATOR MECHANIC APPRENTICE COMPREHENSIVE METABOLIC PANEL STAT 06/02/2024 9:54 AM ELEVATOR MECHANIC APPRENTICE XR KNEE RIGHT 3VW STAT 06/02/2024 7:5 7 AM ELEVATOR MECHANIC APPRENTICE Chronic pain of right knee from Last 3 Months Results * C-REACTIVE PROTEIN (06/02/2024 9:54 AM ELEVATOR MECHANIC APPRENTICE) Pathologist [facility] C-Reactive Protein <0.5 <=0.5 mg/dL 06/02/2024 10:30 AM ELEVATOR MECHANIC APPRENTICE [facility] Blood BLOOD SPECIMEN / Unknown Venipuncture / Unknown 06/02/2024 9:54 AM ELEVATOR MECHANIC APPRENTICE 06/02/2024 10:01 AM ELEVATOR MECHANIC APPRENTICE Jefe Parish MD LAB - CHEMISTR Y ORDERABLES [facility] [address] [place] [phone], [facility] [phone] * ERYTHROCYTE SEDIMENTATION RATE (06/02/2024 9:54 AM ELEVATOR MECHANIC APPRENTICE) Pathologist [facility] Erythrocyte Sedimentation Rate Westergren 5 0 - 30 MM/HR 06/02/2024 10:22 AM [facility] Blood BLOOD SPECIMEN / Unknown Venipuncture / Unknown 06/02/2024 9:54 AM ELEVATOR MECHANIC APPRENTICE 06/02/2024 10:01 AM [facility] [[email or web address]] Jefe Parish MD LAB - HEMATOLO GY ORDERABLES [facility] [address] [place] [address], [facility] [phone] * CBC W AUTO DIFFERENTIAL (06/02/2024 9:54 AM [facility] [[email or web address]]) WBC 8.6 4.0 - 10.7 x10E9/L 06/02/2024 10:09 AM [facility] RBC Count 4.72 3.90 - 5.20 x10E12/L 06/02/2024 10:09 AM [facility] Hemoglobin 14.9 11.9 - 15.8 g/dL 06/02/2024 10:09 AM [facility] Hematocrit 43.1 34.8 - 46.1 % 06/02/2024 10:09 AM [facility] MCV 91.3 80.0 - 98.0 fL 06/02/2024 10:09 AM [facility] MCH 31.6 26.7 - 33.6 pg 06/02/2024 10:09 AM [facility] MCHC 34.6 31.7 - 36.3 g/dL 06/02/2024 10:09 AM [facility] RDW-CV 12.8 11.3 - 14.8 % 06/02/2024 10:09 AM [facility] Platelet Count 258 150 - 420 x10E9/L 06/02/2024 10:09 AM [facility] MPV 11.4 7.8 - 11.4 fL 06/02/2024 10:09 AM [facility] Neutrophil % 67.1 41.0 - 74.0 % 06/02/2024 10:09 AM [facility] Lymphocyte % 25.2 17.0 - 47.0 % 06/02/2024 10:09 AM [facility] Monocyte % 5.8 3.0 - 11.0 % 06/02/2024 10:09 AM [facility] Eosinophil % 1.2 0.0 - 7.0 % 06/02/2024 10:09 AM [facility] Basophil % 0.5 0.0 - 1.6 % 06/02/2024 10:09 AM [facility] Immature Granulocytes % 0.2 0.0 - 1.0 % 06/02/2024 10:09 AM [facility] Neutrophil Absolute 5.77 1.60 - 7.50 x10E9/L 06/02/2024 10:09 AM [facility] Lymphocyte Absolute 2.17 1.00 - 4.40 x10E9/L 06/02/2024 10:09 AM [facility] Monocyte Absolute 0.50 0.15 - 1.00 x10E9/L 06/02/2024 10:09 AM [facility] Eosinophil Absolute 0.10 0.00 - 0.60 x10E9/L 06/02/2024 10:09 AM [facility] Basophil Absolute 0.04 0.00 - 0.13 x10E9/L 06/02/2024 10:09 AM [facility] Blood BLOOD SPECIMEN / Unknown Venipuncture / Unknown 06/02/2024 9:54 AM [facility] [[email or web address]] 06/02/2024 10:01 AM [facility] [[email or web address]] Jefe Parish MD LAB - HEMATOLO GY ORDERABLES Performing Organization Address [facility] [employer] Phone Number [address] [address], [facility] [phone] * (ABNORMAL) COMPREHENSIVE METABOLIC PANEL (06/02/2024 9:54 AM [facility] [[email or web address]]) BUN 20 7 - 26 mg/dL 06/02/2024 10:27 AM [facility] Creatinine 1.08(H) 0.56 - 0.96 mg/dL 06/02/2024 10:27 AM [facility] Sodium 138 136 - 145 mmol/L 06/02/2024 10:27 AM [facility] Potassium 4.2 3.5 - 4.5 mmol/L 06/02/2024 10:27 AM [facility] Chloride 105 98 - 107 mmol/L 06/02/2024 10:27 AM [facility] CO2 21(L) 22 - 29 mmol/L 06/02/2024 10:27 AM [facility] Glucose 170(H) 70 - 99 mg/dL 06/02/2024 10:27 AM [facility] Calcium 9.4 8.4 - 10.2 mg/dL 06/02/2024 10:27 AM [facility] Protein Total 7.8 6.0 - 8.3 g/dL 06/02/2024 10:27 AM [facility] Albumin 4.4 3.4 - 5.0 g/dL 06/02/2024 10:27 AM [facility] Bilirubin Total 1.6(H) 0.2 - 1.2 mg/dL 06/02/2024 10:27 AM [facility] Alkaline Phosphatase 63 40 - 150 U/L 06/02/2024 10:27 AM [facility] ALT 21 5 - 55 U/L 06/02/2024 10:27 AM [facility] AST 24 5 - 34 U/L 06/02/2024 10:27 AM [facility] Anion Gap 12 6 - 16 06/02/2024 10:27 AM [facility] BUN/Creatinine Ratio 19 7 - 23 06/02/2024 10:27 AM [facility] Osmolality Calculated 293 275 - 295 mOsm/kg 06/02/2024 10:27 AM [facility] Albumin/Globulin Ratio 1.3 1.1 - 2.3 06/02/2024 10:27 AM [facility] eGFR by CKD-EPI 55(L) >=90 mL/min/1.7 3 m2 06/02/2024 10:27 AM [facility] Blood BLOOD SPECIMEN / Unknown Venipuncture / Unknown 06/02/2024 9:54 AM [facility] [[email or web address]] 06/02/2024 10:01 AM [facility] [[email or web address]] Jefe Parish MD LAB - CHEMISTR Y ORDERABLES [facility] [address] [place] [address], [facility] [phone] * XR Knee Right 3Vw (06/02/2024 7:57 AM ELEVATOR MECHANIC APPRENTICE) Anatomical Region Laterality Modality Lower Extremity Digital Radiogra phy 06/02/2024 7:59 AM ELEVATOR MECHANIC APPRENTICE Impressions 06/02/2024 8:39 AM ELEVATOR MECHANIC APPRENTICE IMPRESSION: No acute fracture or dislocation identified; Healed internally fixed distal femoral fracture and patellar fracture. Hardware appears intact without evidence of loosening. Patellofemoral arthritis. This preliminary report was dictated by Joel Cross MD (DR/IR Resident). IEmperatriz MD have personally reviewed and interpreted this examination/study. > Interpreting Provider: Emperatriz Bean MD on 06/02/2024 8:39 AM Narrative 06/02/2024 8:39 AM ELEVATOR MECHANIC APPRENTICE PROCEDURE: ??XR KNEE RIGHT 3VW, DATE/TIME OF EXAM: ??06/02/2024 7:57 AM, LOCATION ??[facility] INDICATION: M25.561: Chronic pain of right knee G89.29: Chronic pain of right knee ADDITIONAL CLINICAL INFORMATION: Ordering Provider Reason For Exam: ??Right knee pain Technologist Note: Additional: COMPARISON: Two-view femur x-ray 01/23/2022 TECHNIQUE: AP, lateral, and tunnel view radiographs of the right knee were obtained. FINDINGS: Postsurgical changes of right distal femoral and patellar ORIF with retrograde femoral intramedullary nail, lateral condylar plate with 4 fixation screws, and 2 patellar screws are seen. Hardware is intact without evidence of loosening. Medial condylar callus has remodeled in the interim and appears smaller in size with appropriate cortication. There is a superior patellar enthesophyte. The osseous structures are intact and well aligned without acute fracture or dislocation. Suspect patellofemoral arthritis, otherwise the knee joint spaces are preserved. No joint effusion is seen. Bone density is decreased. Procedure Note Emperatriz Bean MD - 06/02/2024 PROCEDURE: XR KNEE RIGHT 3VW, DATE/TIME OF EXAM: 06/02/2024 7:57 AM, LOCATION [facility] INDICATION: M25.561: Chronic pain of right knee G89.29: Chronic pain of right knee ADDITIONAL CLINICAL INFORMATION: Ordering Provider Reason For Exam: Right knee pain Technologist Note: Additional: COMPARISON: Two-view femur x-ray 01/23/2022 TECHNIQUE: AP, lateral, and tunnel view radiographs of the right knee wereobtained. FINDINGS: Postsurgical changes of right distal femoral and patellar ORIF with retrograde femoral intramedullary nail, lateral condylar plate with 4 fixation screws, and 2 patellar screws are seen. Hardware is intactwithout evidence of loosening. Medial condylar callus has remodeled in theinterim and appears smaller in size with appropriate cortication. There is a superior patellar enthesophyte. The osseous structures are intact and well aligned without acute fracture or dislocation. Suspect patellofemoral arthritis, otherwise the knee joint spaces are preserved.No joint effusion is seen. Bone density is decreased. IMPRESSION: No acute fracture or dislocation identified; Healed internally fixed distal femoral fracture and patellar fracture. Hardware appears intact without evidence of loosening. Patellofemoral arthritis. This preliminary report was dictated by Joel Cross MD (DR/IR Resident). I, Emperatriz Bean MD have personally reviewed and interpreted this examination/study. > Interpreting Provider: Emperatriz Bean MD on 06/02/2024 8:39 AM Jefe Parish MD DIAGNOSTIC PATO GING ORDERABLES from Last 3 Months Advance Directives Documents on File Type Date Recorded Patient Manager [employer] Expl anation Adv Directive/Living Will/POA 08/07/2021 9:37 AM * Full Code (Latest Code Status on File) Date Activated Date Inactivated Comments 07/29/2021 4:25 AM 08/02/2021 8:11 PM Care Teams Enrollment Eligibility Representative Relationship Specialty Start Date End Date Travis Pizano MD [address] [place] [id number] PCP - General 02/24/22
--- OUTSIDE RECORDS SUMMARY | 2024-06-09 01:48 | XMS_ITS | Patient Health Summary ---
Author Organization [facility] Address [address] [place] [address] Care Team Providers Care Cupola Tender Name Role Phone Travis Pizano MD Primary Care Provider [phone] Note from [facility],non-owned Affiliates and Associated Physician Practices is amultiple site organization consisting of ambulatory clinics and hospital sitesin [place], [place], [place] and [place]. This disclosure is being madepursuant to the Care Everywhere program and may not contain all information available regarding this patient. Last updated 18.[facility] Allergies * Sulfa Drugs(Urticaria) -Medium Criticality Medications * Be aware that medications may not be up to date on this document. Alwaysverify current medications with the patient. * lisinopril (PRINIVIL; ZESTRIL) 20 MG tablet Take 1 (one) tablet by mouth once daily * atorvastatin (LIPITOR) 20 MG tablet Take 1 (one) tablet by mouth once daily * venlafaxine XR 24hr (EFFEXOR XR) 75 MG capsule Take 3 (three) capsules by mouth daily with breakfast * acetaminophen (Tylenol) 500 MG tablet Take 1 (one) tablet to 2 (two) tablets by mouth every 6 hours as needed for Fever or Pain Maximum allowable Acetaminophen amount = 4 Grams (4000 mg) / 24 hours. * Multiple Vitamin (MULTIVITAMIN ADULT PO) Take 1 tablet by mouth once daily * biotin 5 MG tablet Take 5 mg by mouth once daily * Vitamin D3 (Cholecalciferol) 25 MCG tablet Take 1 (one) tablet by mouth once daily * calcium 500 mg tablet Take 650 mg by mouth daily with food * busPIRone (Buspar) 30 MG tablet(Started 02/10/2022) Take 1 (one) tablet by mouth 2 times daily * aspirin (Aspirin) 325 MG tablet Take 1 (one) tablet by mouth once daily * naproxen (Naprosyn) 500 MG tablet(Started 06/02/2024) Take 1 (one) tablet by mouth 2 times daily for 14 days Reasons: Joint Damage causing Pain and Loss of Function * diclofenac sodium (Voltaren) 1 % gel(Started 06/02/2024) Apply 2 (two) g to affected area 4 times daily * cyclobenzaprine (Flexeril) 10 MG tablet(Started 06/02/2024) Take 1 (one) tablet by mouth 3 times daily as needed for Muscle Spasms * acetaminophen (Tylenol) 500 MG tablet(Started 06/02/2024) Take 1 (one) tablet by mouth every 4 hours as needed for Fever or Pain Maximum allowable Acetaminophen amount = 4 Grams (4000 mg) / 24 hours. Active Problems Problem Noted Date Diagnosed Date Right patella fracture 07/30/2021 Fracture of proximal end of right humerus 2021 Closed fracture of right distal femur 07/29/2021 Social History Tobacco Use Types Packs/Day Years [...] Comments Blood Pressure 168/83 06/02/2024 7:07 AM BRANCH SALES MANAGER Pulse 113 06/02/2024 7:07 AM BRANCH SALES MANAGER Temperature 36.6 ??C (97.8 ??F) 06/02/2024 7:07 AM CS T Respiratory Rate 12 06/02/2024 7:07 AM BRANCH SALES MANAGER Oxygen Saturation 99% 06/02/2024 7:07 AM BRANCH SALES MANAGER Inhaled Oxygen Concentration 45% 08/01/2021 6 :00 AM CDT Weight 88 kg (194 lb) 06/02/2024 7:07 AM BRANCH SALES MANAGER Height 162.6 cm (5' 4 ) 06/02/2024 7:07 AM BRANCH SALES MANAGER Body Mass Index 33.3 06/02/2024 7:07 AM BRANCH SALES MANAGER Medical Devices Implanted Type Area Coding File Clerk Device Identifier Shelf Expiration Date Model / Serial / Lot Graft Bone Accell Evo3 Dbm 10ml Ptty - [id number] Implanted:Qty: 1 on 07/31/2021 by Wu Vazquez MD at [facility] Right: Leg [employer] 07/08/2022 02-5000-100 / [id number] / [id number] Rfn - Advanced System - Locking Attachment Washer (Law) - 10 Degree - Right Implanted:Qty: 1 on 07/31/2021 by Wu Vazquez MD at [facility] Right: Leg [id number] / / Optilink 5.0mm Va Locking Screw - 60mm Implanted:Qty: 1 on 07/31/2021 by Wu Vazquez MD at [facility] Right: Leg [id number] / / Optilink 5.0mm Va Locking Screw - 80mm Implanted:Qty: 1 on 07/31/2021 by Wu Vazquez MD at [facility] Right: Leg [id number] / / Screw 4.5mm 8mm 76mm Cortx Slf-Tap Lg Implanted:Qty: 1 on 07/31/2021 by Wu Vazquez MD at [facility] Right: Leg Synthes Usa 214.876 / / Graft Bone Canc 60ml Frzdr Chp 4-9.5mm Implanted:Qty: 1 on 07/31/2021 by Wu Vazquez MD at [facility] Right: Leg [employer] 09/14/2025 [id number] / / Description:ID: [id number] Rfna / 11mm/ 360mm - 5 Degree Bend Implanted:Qty: 1 on 07/31/2021 by Wu Vazquez MD at [facility] Right: Femur 04/09/2026 04.233.136S / / [id number] Screw 5mm 4.3mm 72mm T25 Ft Slf-Tap Lck Implanted:Qty: 1 on 07/31/2021 by Wu Vazquez MD at [facility] Right: Leg [employer] [id number] / / Screw 5mm 4.3mm 68mm T25 Ft Slf-Tap Lck Implanted:Qty: 1 on 07/31/2021 by Wu Vazquez MD at [facility] Right: Leg [employer] 04.005.558S / / Screw 5mm 4.3mm 40mm T25 Ft Slf-Tap Lck Implanted:Qty: 1 on 07/31/2021 by Wu Vazquez MD at [facility] Right: Leg [employer] [id number] / / Screw 3.5mm 6mm 34mm 2.5mm Ft Slf-Tap Implanted:Qty: 1 on 07/31/2021 by Wu Vazquez MD at [facility] Right: Leg [employer] 204.834 / / Screw 3.5mm 6mm 32mm 2.5mm Ft Slf-Tap Implanted:Qty: 1 on 07/31/2021 by Wu Vazquez MD at [facility] Right: Leg [employer] 204.832 / / Explanted Type Area Coding File Clerk Device Identifier Shelf Expiration Date Model / Serial / Lot Screw 3.5mm 6mm 36mm 2.5mm Ft Slf-Tap Explanted:Qty: 1 on 07/31/2021 by Wu Vazquez MD at [facility] Right: Leg Synthes [facility] 204.836 / / Procedures * C-REACTIVE PROTEIN(Performed 06/02/2024) * ERYTHROCYTE SEDIMENTATION RATE(Performed 06/02/2024) * CBC W AUTO DIFFERENTIAL(Performed 06/02/2024) * COMPREHENSIVE METABOLIC PANEL(Performed 06/02/2024) * XR KNEE RIGHT 3VW(Performed 06/02/2024) Performed for Chronic pain of right knee * CARDIAC RHYTHM STRIP ORDER(Performed 02/20/2022) * WV KNEE SCOPE,LYSIS OF ADHESNS(Performed 02/18/2022) Performed for M24.661 * XR FEMUR RIGHT 2VW(Performed 01/23/2022) Performed for Closed fracture of distal end of right femur with routine healing, unspecified fracture morphology, subsequent encounter * FL ARMANDO SURGERY(Performed 12/25/2021) Performed for Closed fracture of distal end of right femur with routine healing, unspecified fracture morphology, subsequent encounter * WV MANIPULATN KNEE JT+ANESTHESIA(Performed 12/25/2021) Performed for Closed nondisplaced fracture of right patella, unspecified fracture morphology, sequela, Closed fracture of distal end of right femur, unspecified fracture morphology, sequela * BASIC METABOLIC PANEL (CALCIUM TOTAL)(Performed 12/20/2021) Performed for Pre-op evaluation * CT KNEE RIGHT WO CONTRAST(Performed 12/12/2021) Performed for Closed fracture of distal end of right femur with routine healing, unspecified fracture morphology, subsequent encounter * XR FEMUR RIGHT 2VW(Performed 12/05/2021) Performed for Closed fracture of distal end of right femur with routine healing, unspecified fracture morphology, subsequent encounter * XR SHOULDER RIGHT 2VW OR MORE(Performed 12/05/2021) Performed for Closed fracture of proximal end of right humerus with routine healing, unspecified fracture morphology, subsequent encounter * XR FEMUR RIGHT 2VW(Performed 10/03/2021) Performed for Closed fracture of distal end of right femur, unspecified fracture morphology, initial encounter ([facility]) * XR SHOULDER RIGHT 2VW OR MORE(Performed 10/03/2021) Performed for Closed fracture of proximal end of right humerus, unspecified fracture morphology, initial encounter * XR SHOULDER RIGHT 2VW OR MORE(Performed 09/05/2021) Performed for Closed fracture of proximal end of right humerus, unspecified fracture morphology, initial encounter * XR KNEE RIGHT 3VW(Performed 09/05/2021) Performed for Closed nondisplaced fracture of right patella, unspecified fracture morphology, initial encounter * XR FEMUR RIGHT 2VW(Performed 09/05/2021) Performed for Closed fracture of distal end of right femur, unspecified fracture morphology, initial encounter ([facility]) * CARDIAC EKG ORDER(Performed 08/07/2021) * CARDIAC EKG ORDER(Performed 08/06/2021) * SARS-COV-2 (COVID-19) RAPID(Performed 08/02/2021) * PHOSPHORUS BLOOD(Performed 08/01/2021) * CALCIUM IONIZED WHOLE BLOOD(Performed 08/01/2021) * MAGNESIUM BLOOD(Performed 08/01/2021) * CBC W AUTO DIFFERENTIAL(Performed 08/01/2021) * BASIC METABOLIC PANEL (CALCIUM TOTAL)(Performed 08/01/2021) * PHOSPHORUS BLOOD(Performed 08/01/2021) * XR CHEST 1VW PORTABLE(Performed 08/01/2021) Performed for Closed fracture of distal end of right femur, unspecified fracture morphology, initial encounter ([facility]) * PREPARE RBC LEUKOREDUCED UNIT(Performed 08/01/2021) * BLOOD GASES ART + COOX PANEL(Performed 08/01/2021) * PHOSPHORUS BLOOD(Performed 08/01/2021) * CALCIUM IONIZED WHOLE BLOOD(Performed 08/01/2021) * MAGNESIUM BLOOD(Performed 08/01/2021) * CBC W AUTO DIFFERENTIAL(Performed 08/01/2021) * BASIC METABOLIC PANEL (CALCIUM TOTAL)(Performed 08/01/2021) * CBC W AUTO DIFFERENTIAL(Performed 07/31/2021) * XR CHEST 1VW PORTABLE(Performed 07/31/2021) Performed for Hypoxia * BLOOD GASES ART + COOX PANEL(Performed 07/31/2021) * XR FEMUR RIGHT 2VW(Performed 07/31/2021) Performed for Closed fracture of distal end of right femur, unspecified fracture morphology, initial encounter ([facility]) * FL ARMANDO SURGERY(Performed 07/31/2021) Performed for Closed fracture of distal end of right femur, unspecified fracture morphology, initial encounter ([facility]) * WV OPEN RX PATELLA FX(Performed 07/31/2021) Performed for Closed displaced fracture of right patella, unspecified fracture morphology, initial encounter, Closed fracture of right femur, unspecified fracture morphology, unspecified portion of femur, initial encounter ([facility]) * OPEN REDUCTION INTERNAL FIXATION (ORIF) FEMUR(Performed 07/31/2021) Performed for Closed displaced fracture of right patella, unspecified fracture morphology, initial encounter, Closed fracture of right femur, unspecified fracture morphology, unspecified portion of femur, initial encounter ([facility]) * ENDOTRACHEAL TUBE NOTE(Performed 07/31/2021) * PHOSPHORUS BLOOD(Performed 07/31/2021) * MAGNESIUM BLOOD(Performed 07/31/2021) * BASIC METABOLIC PANEL (CALCIUM TOTAL)(Performed 07/31/2021) * CBC W/O DIFFERENTIAL(Performed 07/31/2021) * OT EVAL AND TREAT(Performed 07/30/2021) * PT EVAL AND TREAT(Performed 07/30/2021) * PHOSPHORUS BLOOD(Performed 07/30/2021) * MAGNESIUM BLOOD(Performed 07/30/2021) * BASIC METABOLIC PANEL (CALCIUM TOTAL)(Performed 07/30/2021) * CBC W/O DIFFERENTIAL(Performed 07/30/2021) * EKG 12-LEAD(Performed 07/29/2021) Performed for Fall, initial encounter * XR HUMERUS RIGHT 2VW OR MORE(Performed 07/29/2021) Performed for Acute pain of right shoulder * XR FEMUR RIGHT 2VW(Performed 07/29/2021) Performed for Closed fracture of distal end of right femur, unspecified fracture morphology, initial encounter ([facility]) * CT KNEE RIGHT WO CONTRAST(Performed 07/28/2021) Performed for Fall, initial encounter * CT LUMBAR SPINE WO CONTRAST(Performed 07/28/2021) Performed for Fall, initial encounter * CT THORACIC SPINE WO CONTRAST(Performed 07/28/2021) Performed for Fall, initial encounter * XR KNEE RIGHT 2VW OR LESS(Performed 07/28/2021) Performed for Fall, initial encounter * SARS-COV-2 (COVID-19)+INFLU A+B PCR RAPID(Performed 07/28/2021) * COMPREHENSIVE METABOLIC PANEL(Performed 07/28/2021) * XR PELVIS 1 OR 2VW(Performed 07/28/2021) Performed for Fall, initial encounter * XR CHEST 1VW PORTABLE(Performed 07/28/2021) Performed for Fall, initial encounter * BLOOD TYPE VERIFICATION(Performed 07/28/2021) * TYPE + SCREEN PANEL(Performed 07/28/2021) * PTT [facility](Performed 07/28/2021) * PT-INR [facility](Performed 07/28/2021) * CBC W AUTO DIFFERENTIAL(Performed 07/28/2021) * COMPREHENSIVE METABOLIC PANEL(Performed 07/28/2021) * XR SHOULDER RIGHT 2VW OR MORE(Performed 07/28/2021) Performed for Fall, initial encounter, Acute pain of right shoulder * XR KNEE RIGHT 3VW(Performed 07/28/2021) Performed for Fall, initial encounter, Acute pain of right knee * EKG 12-LEAD(Performed 07/28/2021) Performed for Fall, initial encounter * DERMATOPATHOLOGY(Performed 12/22/2018) Results * C-REACTIVE PROTEIN (06/02/2024 9:54 AM BRANCH SALES MANAGER) C-Reactive Protein <0.5 <=0.5 mg/dL 06/02/2024 10:30 AM BRANCH SALES MANAGER [facility] Blood BLOOD SPECIMEN / Unknown Venipuncture / Unknown 06/02/2024 9:54 AM BRANCH SALES MANAGER 06/02/2024 10:01 AM BRANCH SALES MANAGER Jefe Parish MD LAB - CHEMISTR Y ORDERABLES [facility] [address] [address], [facility] [phone] * ERYTHROCYTE SEDIMENTATION RATE (06/02/2024 9:54 AM BRANCH SALES MANAGER) Erythrocyte Sedimentation Rate Westergren 5 0 - 30 MM/HR 06/02/2024 10:22 AM BRANCH SALES MANAGER [facility] Blood BLOOD SPECIMEN / Unknown Venipuncture / Unknown 06/02/2024 9:54 AM BRANCH SALES MANAGER 06/02/2024 10:01 AM BRANCH SALES MANAGER Jefe Parish MD LAB - HEMATOLO GY ORDERABLES [facility] [address] [place] [address], [facility] [phone] * CBC W AUTO DIFFERENTIAL (06/02/2024 9:54 AM [facility]) Only the most recent of5 resultswithin the time period is included. WBC 8.6 4.0 - 10.7 x10E9/L 06/02/2024 10:09 AM [facility] RBC Count 4.72 3.90 - 5.20 x10E12/L 06/02/2024 10:09 AM [facility] Hemoglobin 14.9 11.9 - 15.8 g/dL 06/02/2024 10:09 AM [facility] Hematocrit 43.1 34.8 - 46.1 % 06/02/2024 10:09 AM [facility] MCV 91.3 80.0 - 98.0 fL 06/02/2024 10:09 AM [facility] MCH 31.6 26.7 - 33.6 pg 06/02/2024 10:09 AM [facility] MCHC 34.6 31.7 - 36.3 g/dL 06/02/2024 10:09 AM [facility] RDW-CV 12.8 11.3 - 14.8 % 06/02/2024 10:09 AM [facility] Platelet Count 258 150 - 420 x10E9/L 06/02/2024 10:09 AM [facility] MPV 11.4 7.8 - 11.4 fL 06/02/2024 10:09 AM [facility] Neutrophil % 67.1 41.0 - 74.0 % 06/02/2024 10:09 AM [facility] Lymphocyte % 25.2 17.0 - 47.0 % 06/02/2024 10:09 AM [facility] Monocyte % 5.8 3.0 - 11.0 % 06/02/2024 10:09 AM [facility] Eosinophil % 1.2 0.0 - 7.0 % 06/02/2024 10:09 AM [facility] Basophil % 0.5 0.0 - 1.6 % 06/02/2024 10:09 AM [facility] Immature Granulocytes % 0.2 0.0 - 1.0 % 06/02/2024 10:09 AM [facility] Neutrophil Absolute 5.77 1.60 - 7.50 x10E9/L 06/02/2024 10:09 AM [facility] Lymphocyte Absolute 2.17 1.00 - 4.40 x10E9/L 06/02/2024 10:09 AM [facility] Monocyte Absolute 0.50 0.15 - 1.00 x10E9/L 06/02/2024 10:09 AM [facility] Eosinophil Absolute 0.10 0.00 - 0.60 x10E9/L 06/02/2024 10:09 AM [facility] Basophil Absolute 0.04 0.00 - 0.13 x10E9/L 06/02/2024 10:09 AM [facility] Blood BLOOD SPECIMEN / Unknown Venipuncture / Unknown 06/02/2024 9:54 AM [facility] 06/02/2024 10:01 AM [facility] Jefe Parish MD LAB - HEMATOLO GY ORDERABLES [facility] [address] [place] [address], [facility] [phone] * (ABNORMAL) COMPREHENSIVE METABOLIC PANEL (06/02/2024 9:54 AM [facility]) Only the most recent of3 resultswithin the time period is included. BUN 20 7 - 26 mg/dL 06/02/2024 10:27 AM [facility] Creatinine 1.08(H) 0.56 - 0.96 mg/dL 06/02/2024 10:27 AM [facility] Sodium 138 136 - 145 mmol/L 06/02/2024 10:27 AM [facility] Potassium 4.2 3.5 - 4.5 mmol/L 06/02/2024 10:27 AM [facility] Chloride 105 98 - 107 mmol/L 06/02/2024 10:27 AM [facility] CO2 21(L) 22 - 29 mmol/L 06/02/2024 10:27 AM [facility] Glucose 170(H) 70 - 99 mg/dL 06/02/2024 10:27 AM [facility] Calcium 9.4 8.4 - 10.2 mg/dL 06/02/2024 10:27 AM [facility] Protein Total 7.8 6.0 - 8.3 g/dL 06/02/2024 10:27 AM [facility] Albumin 4.4 3.4 - 5.0 g/dL 06/02/2024 10:27 AM [facility] Bilirubin Total 1.6(H) 0.2 - 1.2 mg/dL 06/02/2024 10:27 AM [facility] Alkaline Phosphatase 63 40 - 150 U/L 06/02/2024 10:27 AM [facility] ALT 21 5 - 55 U/L 06/02/2024 10:27 AM [facility] AST 24 5 - 34 U/L 06/02/2024 10:27 AM [facility] Anion Gap 12 6 - 16 06/02/2024 10:27 AM [facility] BUN/Creatinine Ratio 19 7 - 23 06/02/2024 10:27 AM [facility] Osmolality Calculated 293 275 - 295 mOsm/kg 06/02/2024 10:27 AM [facility] Albumin/Globulin Ratio 1.3 1.1 - 2.3 06/02/2024 10:27 AM [facility] eGFR by CKD-EPI 55(L) >=90 mL/min/1.7 3 m2 06/02/2024 10:27 AM [facility] Blood BLOOD SPECIMEN / Unknown Venipuncture / Unknown 06/02/2024 9:54 AM BR[employer]CH SALES MANAGER 06/02/2024 10:01 AM [facility] Jefe Parish MD LAB - CHEMISTR Y ORDERABLES [facility] [address] [place] [address], [facility] [phone] * XR Knee Right 3Vw (06/02/2024 7:57 AM [facility]) Only the most recent of3 resultswithin the time period is included. Anatomical Region Laterality Modality Lower Extremity Digital Radiogra phy 06/02/2024 7:59 AM BRANCH SALES MANAGER Impressions 06/02/2024 8:39 AM BRANCH SALES MANAGER IMPRESSION: No acute fracture or dislocation identified; Healed internally fixed distal femoral fracture and patellar fracture. Hardware appears intact without evidence of loosening. Patellofemoral arthritis. This preliminary report was dictated by Joel Cross MD (DR/IR Resident). I, Emperatriz Bean MD have personally reviewed and interpreted this examination/study. > Interpreting Provider: Emperatriz Bean MD on 06/02/2024 8:39 AM Narrative 06/02/2024 8:39 AM BRANCH SALES MANAGER PROCEDURE: ??XR KNEE RIGHT 3VW, DATE/TIME OF EXAM: ??06/02/2024 7:57 AM, LOCATION ??[facility] INDICATION: M25.561: Chronic pain of right knee [...] DATE/TIME OF EXAM: 06/02/2024 7:57 AM, LOCATION [facility] INDICATION: M25.561: Chronic pain of right knee [...] dictated by Joel Cross MD (DR/IR Resident). Emperatriz Cruz MD have personally reviewed and interpreted this examination/study. > Interpreting Provider: Emperatriz Bean MD on 06/02/2024 8:39 AM Jefe Parish MD DIAGNOSTIC MADELAINE GING ORDERABLES * CARDIAC RHYTHM STRIP ORDER (02/20/2022 11:11 AM CDT) Narrative 02/20/2022 11:11 AM CDT Ordered by an unspecified provider. Scanned Document CARDIAC SERVICES ORD ERABLES * XR FEMUR RIGHT 2VW (01/23/2022 9:14 AM CDT) Only the most recent of6 resultswithin the time period is included. Anatomical Region Laterality Modality Lower Extremity Radiographic Madelaine ging 01/23/2022 9:18 AM CDT Impressions 01/23/2022 9:44 AM CDT IMPRESSION: Internally fixated distal femoral and patellar fractures, unchanged in osseous alignment. Report dictated by Ade Rich MD (technical operations vice president). Sebastian Cruz MD have personally reviewed and interpreted this examination/study. > Interpreting Provider: Sebastian Montalvo MD on 01/23/2022 9:44 AM Narrative 01/23/2022 9:44 AM CDT PROCEDURE: ??XR FEMUR RIGHT 2VW, DATE/TIME OF EXAM: ??01/23/2022 9:14 AM, LOCATION ??[facility] INDICATION: S72.401D: Closed fracture of distal end of right femur with routine healing, unspecified fracture morphology, subsequent encounter ADDITIONAL CLINICAL INFORMATION: Ordering Provider Reason For Exam: ??post op COMPARISON: Right femur radiograph dated 12/05/2021. FINDINGS: There is redemonstration of a distal femoral fracture status post internal fixation with an intramedullary nail, plate, and multiple screws. Hardware is intact. Osseous alignment is unchanged. There is no significant callus progression. There is redemonstration of an internally fixated patellar fracture with 2 interfragmentary screws. Hardware is intact. Osseous alignment is unchanged. The bones are osteopenic. Procedure Note Sebastian Montalvo MD - 01/23/2022 PROCEDURE: XR FEMUR RIGHT 2VW, DATE/TIME OF EXAM: 01/23/2022 9:14 AM, LOCATION [facility] INDICATION: S72.401D: Closed fracture of distal end of right femur with routine healing, unspecified fracture morphology, subsequent encounter ADDITIONAL CLINICAL INFORMATION: Ordering Provider Reason For Exam: post op COMPARISON: Right femur radiograph dated 12/05/2021. FINDINGS: There is redemonstration of a distal femoral fracture status postinternal fixation with an intramedullary nail, plate, and multiple screws.Hardware is intact. Osseous alignment is unchanged. There is no significantcallus progression. There is redemonstration of an internally fixated patellar fracture with 2 interfragmentary screws. Hardware is intact. Osseous alignment is unchanged. The bones are osteopenic. IMPRESSION: Internally fixated distal femoral and patellar fractures, unchanged in osseous alignment. Report dictated by Ade Rich MD (technical operations vice president). I, Sebastian Montalvo MD have personally reviewed and interpreted this examination/study. > Interpreting Provider: Sebastian Montalvo MD on 29:44 AM Wu Vazquez MD DIAGNOSTIC IMAGING ORDERABLES * FL ARMANDO SURGERY (12/25/2021 9:53 AM CDT) Only the most recent of2 resultswithin the time period is included. Narrative [facility] - 12/25/2021 9:55 AM CDT Fluoroscopy was used for this exam in the OR. Please see the Operative report. Wu Vazquez MD FLUOROSCOPY ORDERAB LES [facility] * BASIC METABOLIC PANEL (CALCIUM TOTAL) (12/20/2021 1:30 PM CDT) Only the most recent of5 resultswithin the time period is included. BUN 16 7 - 26 mg/dL 12/20/2021 2:05 PM [facility] Creatinine 0.69 0.56 - 0.96 mg/dL 12/20/2021 2:05 PM [facility] Sodium 139 136 - 145 mmol/L 12/20/2021 2:05 PM [facility] Potassium 4.3 3.5 - 4.5 mmol/L 12/20/2021 2:05 PM [facility] Chloride 100 98 - 107 mmol/L 12/20/2021 2:05 PM [facility] CO2 27 22 - 29 mmol/L 12/20/2021 2:05 PM [facility] Glucose 109 70 - 115 mg/dL 12/20/2021 2:05 PM [facility] Calcium 10.0 8.4 - 10.2 mg/dL 12/20/2021 2:05 PM [facility] Anion Gap 16 8 - 18 12/20/2021 2:05 PM [facility] BUN/Creatinine Ratio 23 7 - 23 12/20/2021 2:05 PM [facility] Osmolality Calculated 290 270 - 300 mOsm/kg 12/20/2021 2:05 PM [facility] eGFR by CKD-EPI >90 >=90 mL/min/1.7 3 m2 12/20/2021 2:05 PM [facility] Blood BLOOD SPECIMEN / Unknown Lab Venipuncture / Unknown 12/20/2021 1:30 PM CDT 12/20/2021 1:41 PM CDT Apurva Rojas PRESCHOOL ASSISTANT-THREADING MACHINE TENDER LAB - [facility] ORDERABLES [facility] [address] [place] [address], [facility] [phone] * CT KNEE RIGHT WO CONTRAST (12/12/2021 6:44 AM CDT) Only the most recent of2 resultswithin the time period is included. Anatomical Region Laterality Modality Lower Extremity Computed Tomogra phy 12/12/2021 6:47 AM CDT Impressions 12/12/2021 7:39 AM CDT IMPRESSION: ?? Internally fixated distal femoral fracture and patellar fracture with evidence of healing. The hardware is intact. The osseous alignment is grossly unchanged. > Dictated by Desi Jones MD (technical operations vice president). I, Ra Tineo MD have personally reviewed and interpreted this examination/study. > Interpreting Provider: Ra Tineo MD on 12/12/2021 7:39 AM Narrative 12/12/2021 7:39 AM CDT INDICATION: CT right knee without contrast S/p ORIF of R distal femur fracture and R patella fracture on 07/31/21. Evaluation of fracture healing. COMPARISON: CT right knee without contrast dated 07/28/2021 TECHNIQUE: Axial CT images of the right knee were obtained without intravenous contrast. Coronal and sagittal reformats were performed. FINDINGS: Postoperative changes of internal fixation of distal femoral fracture with intramedullary nail and 3 interfixing screws. The fracture is healing with several areas of bridging callus. Postoperative changes of internal fixation of patellar fracture with 2 screws. This fracture also appears healing with multiple areas of bridging callus/bone. The hardware appears to be intact. The osseous alignment is grossly unchanged. There is no significant surrounding soft tissue swelling. Procedure Note Ra Tineo MD - 12/12/2021 INDICATION: CT right knee without contrast S/p ORIF of R distal femur fracture and R patella fracture on 07/31/21. Evaluation of fracturehealing. COMPARISON: CT right knee without contrast dated 07/28/2021 TECHNIQUE: Axial CT images of the right knee were obtained without intravenous contrast. Coronal and sagittal reformats were performed. FINDINGS: Postoperative changes of internal fixation of distal femoral fracturewith intramedullary nail and 3 interfixing screws. The fracture is healingwith several areas of bridging callus. Postoperative changes of internal fixation of patellar fracture with 2 screws. This fracture also appears healing with multiple areas of bridging callus/bone. The hardwareappears to be intact. The osseous alignment is grossly unchanged. There is no significant surrounding soft tissue swelling. IMPRESSION: Internally fixated distal femoral fracture and patellar fracture with evidence of healing. The hardware is intact. The osseous alignment is grossly unchanged. > Dictated by Desi Jones MD (technical operations vice president). IRa MD have personally reviewed and interpreted this examination/study. > Interpreting Provider: Ra Tineo MD on 12/12/2021 7:39 AM Wu Vazquez MD CT ORDERABLES * XR SHOULDER RIGHT 2VW OR MORE (12/05/2021 10:16 AM CDT) Only the most recent of4 resultswithin the time period is included. Anatomical Region Laterality Modality Upper Extremity Radiographic Madelaine ging 12/05/2021 1:05 PM CDT Impressions 12/05/2021 3:21 PM CDT IMPRESSION: Unchanged osseous alignment of the impacted proximal humeral fracture. Dictated by Marquis Bernstein DO (technical operations vice president). Dr. EMPERATRIZ Cruz M.D. have personally reviewed and interpreted this examination/study. This report was electronically signed by EMPERATRIZ BEAN M.D. ??on 12/05/2021 3:21 PM . Narrative 12/05/2021 3:21 PM CDT EXAMINATION: XR SHOULDER RIGHT 2VW OR MORE HISTORY: S42.201D: Closed fracture of proximal end of right humerus with routine healing, unspecified fracture morphology, subsequent encounter COMPARISON: 10/03/2021 FINDINGS: Redemonstrated impacted proximal humerus fracture. No significant change in osseous alignment. Increased callus formation. Normal alignment of the humeral head with the glenoid. Healed mid clavicular fracture is again seen. Mild degenerative changes in the acromioclavicular joint. Procedure Note Emperatriz Bean MD - 12/05/2021 EXAMINATION: XR SHOULDER RIGHT 2VW OR MORE HISTORY: S42.201D: Closed fracture of proximal end of right humerus with routine healing, unspecified fracture morphology, subsequent encounter COMPARISON: 10/03/2021 FINDINGS: Redemonstrated impacted proximal humerus fracture. No significant change in osseous alignment. Increased callus formation. Normal alignment ofthe humeral head with the glenoid. Healed mid clavicular fracture is again seen. Mild degenerative changes in the acromioclavicular joint. IMPRESSION: Unchanged osseous alignment of the impacted proximal humeral fracture. Dictated by Marquis Bernstein DO (technical operations vice president). I, Dr. EMPERATRIZ BEAN M.D. have personally reviewed and interpreted this examination/study. This report was electronically signed by EMPERATRIZ BEAN M.D. on 12/05/2021 3:21 PM . Wu Vazquez MD DIAGNOSTIC IMAGING ORDERABLES * CARDIAC EKG ORDER (08/07/2021 11:37 AM CDT) Only the most recent of2 resultswithin the time period is included. Narrative 08/07/2021 11:37 AM CDT Ordered by an unspecified provider. Scanned Document CARDIAC SERVICES ORD ERABLES * SARS-COV-2 (COVID-19) RAPID (08/02/2021 1:21 PM CDT) COVID-19 PCR Not detected Not detected 08/03/19 2:17 PM CDT [facility] Microbiology SPECIMEN FROM NASOPHARYNGEAL STRUCTURE / Unknown Collection / Unknown 08/02/2021 1:21 PM CDT 08/02/2021 1:32 PM CDT Narrative [facility] - 08/02/2021 2:17 PM CDT This nucleic acid amplification assay performance was validated by [facility]. This test has been authorized by the Food and Drug administration (FDA)under an Emergency??Use Authorization (EUA). This test has been validated in accordance with the FDA's guidance document Policy for Diagnostic Testing in Laboratories Certified to perform High Complexity Testing under CLIA prior to Emergency Use Authorization for Coronavirus Disease-2019 during the Public Health Emergency issued on July 09, 2019. FDA independent review of this validation is pending. This test is only authorized for the duration of time the declaration that circumstances exist justifying the authorization of emergency use of in vitro diagnostic tests for detection of SARS-CoV-2 virus and/or diagnosis of COVID-19 infection under section 564(b)(1) of the Act, 21 U.S.C 360bbb-3 (b)(1), unless the authorization is terminated or revoked sooner. Fact Sheets for this EUA assay are available upon request. Reid Anderson MD LAB - MICROBIOLOGY ORDERABLES Performing Organization Address City/[facility]/ZIP Co de Phone Number [address] [address], [facility] [phone] * (ABNORMAL) CALCIUM IONIZED WHOLE BLOOD (08/01/2021 11:20 PM CDT) Only the most recent of2 resultswithin the time period is included. Calcium Ionized 1.03 mmol/L 08/01/2021 11:58 PM CDT [facility] pH 7.39 7.35 - 7.45 pH 08/01/2021 11:58 PM CDT [facility] Ionized Calcium pH Adjusted 1.03(L) 1.19 - 1.34 mmol/L 08/01/2021 11:58 PM CDT [facility] Blood BLOOD SPECIMEN / Unknown Venipuncture / Unknown 08/01/2021 11:20 PM CDT 08/01/2021 11:55 PM CDT Reid Anderson MD LAB - CHEMISTRY OR DERABLES Performing Organization Address [facility]/ZIP Co de Phone Number [address] [address], [facility] [phone] * (ABNORMAL) PHOSPHORUS BLOOD (08/01/2021 11:20 PM CDT) Only the most recent of5 resultswithin the time period is included. Phosphorus 2.5(L) 2.9 - 5.1 mg/dL 08/02/2021 12:24 AM CDT [facility] Blood BLOOD SPECIMEN / Unknown Venipuncture / Unknown 08/01/2021 11:20 PM CDT 08/01/2021 11:57 PM CDT Reid Anderson MD LAB - CHEMISTRY OR DERABLES Performing Organization Address City/[facility]/ZIP Co de Phone Number [address] [address], [facility] [phone] * MAGNESIUM BLOOD (08/01/2021 11:20 PM CDT) Only the most recent of4 resultswithin the time period is included. Magnesium 2.1 1.6 - 2.6 mg/dL 08/02/2021 12:24 AM CDT [facility] Blood BLOOD SPECIMEN / Unknown Venipuncture / Unknown 08/01/2021 11:20 PM CDT 08/01/2021 11:57 PM CDT Reid Anderson MD LAB - CHEMISTRY OR DERABLES Performing Organization Address City/[facility]/ZIP Co de Phone Number [address] [address], [facility] [phone] * XR CHEST 1VW PORTABLE (08/01/2021 5:06 AM CDT) Only the most recent of3 resultswithin the time period is included. Anatomical Region Laterality Modality Chest Radiographic Madelaine ging 08/01/2021 8:08 AM CDT Impressions 08/01/2021 4:14 PM CDT FINDINGS/IMPRESSION: Linear opacities in the mid right lung likely represents atelectasis. There is otherwise no focal consolidation, pleural effusion, or pneumothorax. The cardiomediastinal silhouette is normal. Dictated by Tejal Estrella MD (technical operations vice president). I, Dr. ZAFAR BOWMAN have personally reviewed and interpreted this examination/study. This report was electronically signed by ZAFAR BOWMAN ??on 08/01/2021 4:14 PM . Narrative 08/01/2021 4:14 PM CDT EXAMINATION: XR CHEST 1VW PORTABLE HISTORY: S72.401A: Closed fracture of distal end of right femur, unspecified fracture morphology, initial encounter COMPARISON: Comparison is made with a portable AP chest radiograph from 08/01/2019. Procedure Note Zafar Bowman, DO - 08/01/2021 EXAMINATION: XR CHEST 1VW PORTABLE HISTORY: S72.401A: Closed fracture of distal end of right femur, unspecified fracture morphology, initial encounter COMPARISON: Comparison is made with a portable AP chest radiograph from 08/01/2019. FINDINGS/IMPRESSION: Linear opacities in the mid right lung likely represents atelectasis. There is otherwise no focal consolidation, pleural effusion, or pneumothorax. The cardiomediastinal silhouette is normal. Dictated by Tejal Estrella MD (technical operations vice president). I, Dr. ZAFAR BOWMAN have personally reviewed and interpreted this examination/study. This report was electronically signed by ZAFAR BOWMAN on 08/01/2021 4:14 PM . Sung Rowe PA-C DIAGNOSTIC IMAGIN G ORDERABLES * PREPARE (CROSSMATCH) RBC UNIT(S), 1 Units (08/01/2021 1:17 AM CDT) Unit Description AS1 LR PRBC [facility] Unit ABO O [facility] Unit Rh NEG [facility] Product Number R02 [facility] B LO[facility] Unit Donor # [id number] [facility] Unit Status released [facility] BLOO D [facility] Product Code [id number] [facility] B[facility] OD [facility]ANK [facility] Blood Type Barcode 9500 [facility] Expiration Date [id number] S BLOOD BANK LAB Blood Bank BLOOD SPECIMEN / Unknown 07/28/2021 8:16 PM CDT Wu Vazquez MD LAB - BLOOD BANK OR DERABLES [facility] [address] [place] [address], [place] [phone] * (ABNORMAL) BLOOD GASES ART + COOX PANEL (08/01/2021 12:22 AM [facility]) Only the most recent of2 resultswithin the time period is included. pH Arterial 7.50(H) 7.35 - 7.45 pH 08/01/2021 12:35 AM [facility] pO2 Arterial 101(H) 80 - 100 mmHg 08/01/2021 12:35 AM [facility] pCO2 Arterial 30(L) 35 - 45 mmHg 12:35 AM [facility] HCO3 Arterial 23 20 - 30 mmol/l 08/01/2021 12:35 AM [facility] BE Arterial 0.4 -2.0 - 2.0 mmol/L 08/01/2021 12:35 AM [facility] Oxyhemoglobin Arterial 96.6 % 08/01/2021 12:35 AM [facility] Dexoyhemoglobin (HHB) % 0.8 % 08/01/2021 12:35 AM [facility] Methemoglobin <0.8 0.0 - 2.0 % 08/01/2021 12:35 AM [facility] Carboxyhemoglobin 1.9 0.0 - 2.0 % 2021 12:35 AM [facility] O2 Content Arterial 10.8 Interpret within clinical context mg/dL 08/01/2021 12:35 AM [facility] Hemoglobin by COOX 7.8(L) 12.0 - 15.6 g/dL 08/01/2021 12:35 AM [facility] O2 Saturation Arterial 99 90 - 100 % 08/01/2021 12:35 AM [facility] FI O2 Arterial 50.0 % 08/01/2021 12:35 AM [facility] Blood, arterial ARTERIAL BLOOD SPECIMEN / Unknown Arterial Puncture / Unknown 08/01/2021 12:22 AM T 08/01/2021 12:32 AM [facility] - 08/01/2021 12:35 AM [facility] Carboxyhemoglobin Normal Concentration: Non-smokers: 0-2%; Smokers: 0-9%; Toxic: >20% Reid Anderson MD LAB - BLOOD GASES ORDERABLES [facility] [address] [place] [address], [facility] [phone] * ETT LINE PERFORMABLE (07/31/2021 12:55 PM CDT) Narrative Carla Still, DO - 07/31/2021 12:55 PM CDT Carla Still, DO ? 07/31/2021 12:56 PM Endotracheal Tube Placement: ? Patient Location: OR. Intubation Event Date/Time: ??07/31/2021 12:40 PM Procedure: intubation ([id number]). Procedure Section: ?? Sedation: under general anesthesia. Indications for Airway Management: ??anesthesia Induction: standard IV Patient Position: ??supine Mask Ventilation: easy. Blade Type: Hitesh Blade Size: 3 Laryngoscopy View: grade 1 (full cords) Intubation Adjuncts: stylet Tube: endotracheal tube Placement: oral Tube type: cuff - inflated Tube Size (MM): 7 Depth of Insertion (CM): 22 Measured From: lips Cuff Inflated With: air Number of Attempts: 2. Ventilation between attempts: No. Placement Verified By: direct visualization, bilateral breath sounds, chest auscultation and CO2 monitor Tube secured with: ??adhesive tape. Dentition unchanged? ??Yes Difficult Airway? ??No. Procedure Start Time: 07/31/2021 12:40 PM. Staff Section ? Anesthesia Provider: Sandrine Vaughan Anes Asst, Performed the procedure ? Provider #1: María Elena Robin MD. Additional Comments: Attempt #1 by [employer] student. Unable to achieve view. Attempt #2 by Alexus. Atraumatic intubation with lips, teeth, and tongue in pre-op condition. Eyes taped prior to airway manipulation. María Elena Robin MD GENERAL ANESTHESIA O RDERABLES * (ABNORMAL) CBC W/O DIFFERENTIAL (07/31/2021 1:45 AM CDT) Only the most recent of2 resultswithin the time period is included. WBC 8.1 3.5 - 10.5 10? 3 /uL 07/31/2021 2:11 AM [facility] RBC 2.75(L) 3.80 - 5.20 10? 6 /uL 07/31/2021 2:11 AM [facility] Hemoglobin 8.8(L) 12.0 - 15.6 g/dL 07/31/2021 2:11 AM [facility] Hematocrit 25.9(L) 35.0 - 45.0 % 07/31/2021 2:11 AM [facility] MCV 94.2 80.7 - 98.3 fL 07/31/2021 2:11 AM [facility] MCH 32.0 26.7 - 34.0 pg 07/31/2021 2:11 AM [facility] MCHC 34.0 30.8 - 35.9 g/dL 07/31/2021 2:11 AM [facility] Platelet Count 132(L) 150 - 400 10? 3 /uL 07/31/2021 2:11 AM [facility] RDW-SD 45.1 36.0 - 50.0 fL 07/31/2021 2:11 AM [facility] RDW-CV 13.1 11.2 - 14.8 % 07/31/2021 2:11 AM [facility] MPV 12.6 9.4 - 12.9 fL 07/31/2021 2:11 AM [facility] nRBC Absolute 0.00 0 10? 3 /uL 07/31/2021 2:11 AM [facility] nRBC Auto 0.0 0 /100 WBC 07/31/2021 2:11 AM [facility] Blood BLOOD SPECIMEN / Unknown Lab Venipuncture / Unknown 07/31/2021 1:45 AM CDT 07/31/2021 1:55 AM CDT Tova Wright MD LAB - HEMATOLOGY ORD ERABLES [facility] [address] [place] [address], [facility] [phone] * EKG 12-LEAD (07/29/2021 3:32 PM CDT) Only the most recent of2 resultswithin the time period is included. Ventricular Rate 92 BPM [facility] Atrial Rate 92 BPM [facility] P-R Interval 132 ms [facility] QRS Duration ms 72 ms [facility] Q-T Interval ms 354 ms [facility] QTC Calculation (Bezet) 437 ms [facility] Calculated P [place] 36 degrees [facility] Calculated R [place] 67 degrees [facility] Calculated T [place] 22 degrees [facility] Interpretation EKG NORMAL SINUS RHYTHM NONSPECIFIC T WAVE ABNORMALITY ABNORMAL ECG WHEN COMPARED WITH ECG OF 28-JUL-2021 14:21 NONSPECIFIC T WAVE ABNORMALITY IS NOW PRESENT Confirmed by Stephen Valverde ([id number]) on 07/31/2021 11:56:25 AM [facility] 07/29/2021 3:32 PM CDT 07/31/2021 11:56 AM CDT Melissa Salvador PRESCHOOL ASSISTANT-[facility] ECG ORDERABLES [facility] * XR HUMERUS RIGHT 2VW OR MORE (07/29/2021 5:43 AM CDT) Anatomical Region Laterality Modality Upper Extremity Radiographic Madelaine ging 07/29/2021 8:09 AM CDT Impressions 07/29/2021 3:48 PM CDT FINDINGS/IMPRESSION: Redemonstration of an impacted, comminuted fracture of the right humeral neck. Osseous alignment is unchanged from the prior exam. The joint spaces are preserved. Surrounding soft tissue swelling. Dictated by Riley Manuel MD (technical operations vice president). I, Dr. RAJIV HALL M.D. have personally reviewed and interpreted this examination/study. This report was electronically signed by RAJIV HALL M.D. ??on 07/29/2021 3:48 PM . Narrative 07/29/2021 3:48 PM CDT EXAMINATION: XR HUMERUS RIGHT 2VW OR MORE HISTORY: M25.511: Acute pain of right shoulder COMPARISON: Right shoulder radiographs 07/28/2021 Procedure Note Rajiv Hall MD - 07/29/2021 EXAMINATION: XR HUMERUS RIGHT 2VW OR MORE HISTORY: M25.511: Acute pain of right shoulder COMPARISON: Right shoulder radiographs 07/28/2021 FINDINGS/IMPRESSION: Redemonstration of an impacted, comminuted fracture of the right humeral neck. Osseous alignment is unchanged from the prior exam. The jointspaces are preserved. Surrounding soft tissue swelling. Dictated by Riley Manuel MD (technical operations vice president). Dr. RAJIV Cruz M.D. have personally reviewed andinterpreted this examination/study. This report was electronically signed by RAJIV HALL M.D. on 07/29/2021 3:48 PM . Reid Anderson MD DIAGNOSTIC IMAGING ORDERABLES * CT LUMBAR SPINE WO CONTRAST (07/28/2021 11:01 PM CDT) Anatomical Region Laterality Modality Spine Computed Tomogra phy 07/28/2021 11:0 7 PM CDT Impressions 07/29/2021 8:14 PM CDT IMPRESSION: 1. No evidence of acute fracture in the thoracic or lumbar spine. 2. Degenerative changes of the thoracic and lumbar spine as described above. Dictated by Juwan Yin MD (Sec Accountant) This report was approved ??by Juwan Yin ?? on 07/29/2021 8:14 PM . IDr. NOHEMI have personally reviewed and interpreted this examination/study. This report was electronically signed by NOHEMI CRUZ ??on 07/29/2021 8:14 PM . Narrative 07/29/2021 8:[address] THORACIC SPINE WO CONTRAST, CT LUMBAR SPINE WO CONTRAST DATE: 07/28/2021 11:02 PM EXAMINATION: 1. CT of the thoracic spine without contrast 2. CT of the lumbar spine without contrast HISTORY: W19.XXXA: Fall, initial encounter TECHNIQUE: CT of the thoracic and lumbar spine was performed without contrast according to standard protocol. FINDINGS: No prior study is available for comparison at the time of this dictation. Thoracic spine: The osseous structures are diffusely demineralized. There is a mild dextrocurvature of the thoracic spine centered at T6 and levoscoliosis at the thoracolumbar junction. Vertebral bodies are normal in height without evidence of acute fracture. There is advanced degenerative disc disease. No central canal stenosis is seen. There is mild facet osteoarthritis at multiple levels. No neural foraminal stenosis is seen. There is subsegmental atelectasis in the dependent portions of the lung bases.There is atherosclerotic calcification of the thoracic aorta and its branch vessels. Coronary calcifications are present. Lumbar spine: There is trace retrolisthesis of L1 on L2. There is a mild dextrocurvature of the lumbar spine centered at L3. The bones are submitted. Vertebral bodies are normal in height without evidence of acute fracture. There is advanced degenerative disc disease. No central canal stenosis is seen. There is advanced facet osteoarthritis at multiple levels. There are varying degrees of neural foraminal stenosis at multiple levels. There is atherosclerotic calcification of the abdominal aorta and its branch vessels. A large stool ball is present within the rectum. There is a small hiatal hernia. Procedure Note Nohemi Cruz MD - 07/29/2021 CT THORACIC SPINE WO CONTRAST, CT LUMBAR SPINE WO CONTRAST DATE: 07/28/2021 11:02 PM EXAMINATION: 1. CT of the thoracic spine without contrast 2. CT of the lumbar spine without contrast HISTORY: W19.XXXA: Fall, initial encounter TECHNIQUE: CT of the thoracic and lumbar spine was performed without contrast according to standard protocol. FINDINGS: No prior study is available for comparison at the time of this dictation. Thoracic spine: The osseous structures are diffusely demineralized. There is a mild dextrocurvature of the thoracic spine centered at T6 and levoscoliosis at the thoracolumbar junction. Vertebral bodies are normal in height without evidence of acute fracture. There is advanced degenerative disc disease. No central canal stenosis is seen. There is mild facet osteoarthritis at multiple levels. No neural foraminalstenosis is seen. There is subsegmental atelectasis in the dependent portions of the lung bases.There is atherosclerotic calcification of the thoracic aorta and its branch vessels. Coronary calcifications are present. Lumbar spine: There is trace retrolisthesis of L1 on L2. There is a milddextrocurvature of the lumbar spine centered at L3. The bones are submitted. Vertebral bodies are normal in height without evidence of acute fracture. There is advanced degenerative disc disease. No central canal stenosis is seen. There is advanced facet osteoarthritis at multiple levels. There are varying degrees of neural foraminal stenosis at multiple levels. Thereis atherosclerotic calcification of the abdominal aorta and its branch vessels. A large stool ball is present within the rectum. There is asmall hiatal hernia. IMPRESSION: 1. No evidence of acute fracture in the thoracic or lumbar spine. 2. Degenerative changes of the thoracic and lumbar spine as described above. Dictated by Juwan Yin MD (Sec Accountant) This report was approved by Juwan Yin on 07/29/2021 8:14 PM . I, Dr. NOHEMI CRUZ have personally reviewed and interpreted this examination/study. This report was electronically signed by NOHEMI CRUZ on07/29/2021 8:14 PM . Kevin Taylor MD CT ORDERABLES * CT THORACIC SPINE WO CONTRAST (07/28/2021 11:01 PM CDT) Anatomical Region Laterality Modality Spine Computed Tomogra phy 07/28/2021 11:0 7 PM CDT Impressions 07/29/2021 8:14 PM CDT IMPRESSION: 1. No evidence of acute fracture in the thoracic or lumbar spine. 2. Degenerative changes of the thoracic and lumbar spine as described above. Dictated by Juwan Yin MD (Sec Accountant) This report was approved ??by Juwan Yin ?? on 07/29/2021 8:14 PM . I, Dr. NOHEMI CRUZ have personally reviewed and interpreted this examination/study. This report was electronically signed by NOHEMI CRUZ ??on 07/29/2021 8:14 PM . Narrative 07/29/2021 8:[address] THORACIC SPINE WO CONTRAST, CT LUMBAR SPINE WO CONTRAST DATE: 07/28/2021 11:02 PM EXAMINATION: 1. CT of the thoracic spine without contrast 2. CT of the lumbar spine without contrast HISTORY: W19.XXXA: Fall, initial encounter TECHNIQUE: CT of the thoracic and lumbar spine was performed without contrast according to standard protocol. FINDINGS: No prior study is available for comparison at the time of this dictation. Thoracic spine: The osseous structures are diffusely demineralized. There is a mild dextrocurvature of the thoracic spine centered at T6 and levoscoliosis at the thoracolumbar junction. Vertebral bodies are normal in height without evidence of acute fracture. There is advanced degenerative disc disease. No central canal stenosis is seen. There is mild facet osteoarthritis at multiple levels. No neural foraminal stenosis is seen. There is subsegmental atelectasis in the dependent portions of the lung bases.There is atherosclerotic calcification of the thoracic aorta and its branch vessels. Coronary calcifications are present. Lumbar spine: There is trace retrolisthesis of L1 on L2. There is a mild dextrocurvature of the lumbar spine centered at L3. The bones are submitted. Vertebral bodies are normal in height without evidence of acute fracture. There is advanced degenerative disc disease. No central canal stenosis is seen. There is advanced facet osteoarthritis at multiple levels. There are varying degrees of neural foraminal stenosis at multiple levels. There is atherosclerotic calcification of the abdominal aorta and its branch vessels. A large stool ball is present within the rectum. There is a small hiatal hernia. Procedure Note Nohemi Cruz MD - 07/29/2021 CT THORACIC SPINE WO CONTRAST, CT LUMBAR SPINE WO CONTRAST DATE: 07/28/2021 11:02 PM EXAMINATION: 1. CT of the thoracic spine without contrast 2. CT of the lumbar spine without contrast HISTORY: W19.XXXA: Fall, initial encounter TECHNIQUE: CT of the thoracic and lumbar spine was performed without contrast according to standard protocol. FINDINGS: No prior study is available for comparison at the time of this dictation. Thoracic spine: The osseous structures are diffusely demineralized. There is a mild dextrocurvature of the thoracic spine centered at T6 and levoscoliosis at the thoracolumbar junction. Vertebral bodies are normal in height without evidence of acute fracture. There is advanced degenerative disc disease. No central canal stenosis is seen. There is mild facet osteoarthritis at multiple levels. No neural foraminalstenosis is seen. There is subsegmental atelectasis in the dependent portions of the lung bases.There is atherosclerotic calcification of the thoracic aorta and its branch vessels. Coronary calcifications are present. Lumbar spine: There is trace retrolisthesis of L1 on L2. There is a milddextrocurvature of the lumbar spine centered at L3. The bones are submitted. Vertebral bodies are normal in height without evidence of acute fracture. There is advanced degenerative disc disease. No central canal stenosis is seen. There is advanced facet osteoarthritis at multiple levels. There are varying degrees of neural foraminal stenosis at multiple levels. Thereis atherosclerotic calcification of the abdominal aorta and its branch vessels. A large stool ball is present within the rectum. There is asmall hiatal hernia. IMPRESSION: 1. No evidence of acute fracture in the thoracic or lumbar spine. 2. Degenerative changes of the thoracic and lumbar spine as described above. Dictated by Juwan Yin MD (Sec Accountant) This report was approved by Juwan Yin on 07/29/2021 8:14 PM . IDr. NOHEMI have personally reviewed and interpreted this examination/study. This report was electronically signed by NOHEMI CRUZ on07/29/2021 8:14 PM . Kevin Taylor MD CT ORDERABLES * XR KNEE RIGHT 2VW OR LESS (07/28/2021 9:29 PM CDT) Anatomical Region Laterality Modality Lower Extremity Radiographic Madelaine ging 07/28/2021 9:30 PM CDT Impressions 07/29/2021 2:57 PM CDT IMPRESSION: 1.Interval splinting of an acute, comminuted, mildly displaced, impacted distal femoral fracture. The alignment is unchanged. 2.Acute, comminuted, mildly displaced patellar fracture in unchanged alignment. Dictated by Juwan Yin MD (technical operations vice president). Dr. EMPERATRIZ Cruz M.D. have personally reviewed and interpreted this examination/study. This report was electronically signed by EMPERATRIZ BEAN M.D. ??on 07/29/2021 2:57 PM . Narrative 07/29/2021 2:57 PM CDT EXAMINATION: XR KNEE RIGHT 2VW OR LESS HISTORY: W19.XXXA: Fall, initial encounter COMPARISON: Right knee radiographs dated 07/28/2021 at 6:47 PM. FINDINGS: There is an acute, comminuted, mildly displaced, impacted supracondylar fracture with apex anterior angulation with apparent extension to articular cortex of the patellofemoral joint. There is an acute, comminuted, mildly displaced patellar fracture. No other fractures are identified. The knee joint space is preserved. No joint effusion is identified. A splint is present obscuring bone and soft tissue detail. Procedure Note Emperatriz Bean MD - 07/29/2021 EXAMINATION: XR KNEE RIGHT 2VW OR LESS HISTORY: W19.XXXA: Fall, initial encounter COMPARISON: Right knee radiographs dated 07/28/2021 at 6:47 PM. FINDINGS: There is an acute, comminuted, mildly displaced, impacted supracondylar fracture with apex anterior angulation with apparent extension to articular cortex of the patellofemoral joint. There is an acute, comminuted, mildly displaced patellar fracture. No other fractures are identified. The knee joint space is preserved. No joint effusion is identified. A splint is present obscuring bone and soft tissue detail. IMPRESSION: 1.Interval splinting of an acute, comminuted, mildly displaced, impacted distal femoral fracture. The alignment is unchanged. 2.Acute, comminuted, mildly displaced patellar fracture in unchanged alignment. Dictated by Juwan Yin MD (technical operations vice president). I, Dr. EMPERATRIZ BEAN M.D. have personally reviewed and interpreted this examination/study. This report was electronically signed by EMPERATRIZ BEAN M.D. on 07/29/2021 2:57 PM . Kevin Taylor MD DIAGNOSTIC IMAGING O RDERABLES * SARS-COV-2 (COVID-19)+INFLU A+B PCR RAPID (07/28/2021 9:03 PM CDT) COVID-19 PCR Not detected Not detected 07/29/19 9:35 PM CDT [facility] Influenza A Rapid BELLA Not Detected Not Detected 07/28/2021 9:35 PM CDT [facility] Influenza B BELLA Rapid Not Detected Not Detected 07/28/2021 9:35 PM CDT [facility] Microbiology SPECIMEN FROM NASOPHARYNGEAL STRUCTURE / Unknown Collection / Unknown 07/28/2021 9:03 PM CDT 07/28/2021 9:12 PM CDT Narrative [facility] - 07/28/2021 9:35 PM CDT Influenza assay performed by Nucleic Acid Amplification. Results do not exclude the possibility of a mixed viral infection. NOTE: ??Detecting and identifying specific viral nucleic acids from individuals exhibiting signs and symptoms of respiratory infection aids in the diagnosis of respiratory infection, if used in conjunction with other clinical and laboratory findings. The results of this test should not be used as the sole basis for diagnosis, treatment, or patient management decisions. This nucleic acid amplification assay performance was validated by [facility]. This test has been authorized by the Food and Drug administration (FDA)under an Emergency??Use Authorization (EUA). This test has been validated in accordance with the FDA's guidance document Policy for Diagnostic Testing in Laboratories Certified to perform High Complexity Testing under CLIA prior to Emergency Use Authorization for Coronavirus Disease-2019 during the Public Health Emergency issued on July 09, 2019. FDA independent review of this validation is pending. This test is only authorized for the duration of time the declaration that circumstances exist justifying the authorization of emergency use of in vitro diagnostic tests for detection of SARS-CoV-2 virus and/or diagnosis of COVID-19 infection under section 564(b)(1) of the Act, 21 U.S.C 360bbb-3 (b)(1), unless the authorization is terminated or revoked sooner. Fact Sheets for this EUA assay are available upon request. Kevin Taylor MD LAB - MICROBIOLOGY O RDERABLES [facility] [address] [place] [address], [facility] [phone] * XR PELVIS 1 OR 2VW (07/28/2021 8:39 PM CDT) Anatomical Region Laterality Modality Pelvis Radiographic Madelaine ging 07/28/2021 8:38 PM CDT Impressions 07/29/2021 2:50 PM CDT IMPRESSION: No acute fracture identified. Dictated by Juwan Yin MD (technical operations vice president). I, Dr. EMPERATRIZ BEAN M.D. have personally reviewed and interpreted this examination/study. This report was electronically signed by EMPERATRIZ BEAN M.D. ??on 07/29/2021 2:50 PM . Narrative 07/29/2021 2:50 PM CDT EXAMINATION: XR PELVIS 1 OR 2VW HISTORY: W19.XXXA: Fall, initial encounter COMPARISON: No prior study is available for comparison at the time of this dictation. FINDINGS: No acute fracture is identified. The femoral heads appear well-seated within their respective acetabula. There is mild narrowing of the hips. The pubic symphysis is intact. The sacroiliac joints are normal. Procedure Note Emperatriz Bean MD - 07/29/2021 EXAMINATION: XR PELVIS 1 OR 2VW HISTORY: W19.XXXA: Fall, initial encounter COMPARISON: No prior study is available for comparison at the time ofthis dictation. FINDINGS: No acute fracture is identified. The femoral heads appear well-seated within their respective acetabula. There is mild narrowing of the hips. The pubic symphysis is intact. The sacroiliac joints are normal. IMPRESSION: No acute fracture identified. Dictated by Juwan Yin MD (technical operations vice president). I, Dr. EMPERATRIZ BEAN M.D. have personally reviewed and interpreted this examination/study. This report was electronically signed by EMPERATRIZ BEAN M.D. on 07/29/2021 2:50 PM . Kevin Taylor MD DIAGNOSTIC IMAGING O RDERABLES * BLOOD TYPE VERIFICATION (07/28/2021 8:22 PM CDT) ABO Rh O NEG 07/28/2021 9:1 1 PM CDT [facility] Blood Bank BLOOD SPECIMEN / Unknown Venipuncture / Unknown 07/28/2021 8:22 PM CDT 07/28/2021 8:27 PM CDT Kevin Taylor MD LAB - BLOOD BANK ORD ERABLES [facility] [address] [place] [address], [facility] [phone] * PTT [facility] (07/28/2021 8:05 PM CDT) APTT 24.6 23.0 - 38.4 Seconds 07/28/2021 8:28 PM CDT [facility] Comment:Suggested therapeuti c range for full dose I.V. unfractionated heparin therapy for venous thromboembolism is 71 to 109 seconds. Blood BLOOD SPECIMEN / Unknown Venipuncture / Unknown 07/28/2021 8:05 PM CDT 07/28/2021 8:11 PM CDT Kevin Taylor MD LAB - COAGULATION OR DERABLES Performing Organization Address [facility] Co de Phone Number [address] [place] [address], [facility] [phone] * PT-INR [facility] (07/28/2021 8:05 PM CDT) PT 13.3 12.1 - 14.8 Seconds 07/28/2021 8:27 PM CDT [facility] INR 1.0 See Comment 07/28/2021 8:27 PM CDT [facility] Comment:The suggested therap eutic range for standard coumadin (warfarin) therapy is an INR of 2.0-3.0. For high-risk patients (Mechanical Mitral Valve Prosthesis, etc.), the suggested prophylactic therapeutic range is an INR of 2.5-3.5. Blood BLOOD SPECIMEN / Unknown Venipuncture / Unknown 07/28/2021 8:05 PM CDT 07/28/2021 8:11 PM CDT Kevin Taylor MD LAB - COAGULATION OR DERABLES Performing Organization Address City/[facility] Co de Phone Number [address] [address], [facility] [phone] * TYPE + SCREEN PANEL (07/28/2021 8:05 PM CDT) Antibody Screen NEG 9:06 PM CDT [facility] ABO Rh O NEG 07/28/2021 9:06 PM CDT [facility] Blood Bank BLOOD SPECIMEN / Unknown Venipuncture / Unknown 07/28/2021 8:05 PM CDT 07/28/2021 8:16 PM CDT Kevin Taylor MD LAB - BLOOD BANK DARRYL WATSON Performing Organization Address [facility]/State/[facility] Co de Phone Number [facility] [address] [place] [address], [facility] [phone] * DERMATOPATHOLOGY (12/22/2018 12:00 AM CDT) Case Report Dermatopathology Report ? Case: [id number] ? Authorizing Provider: ??Gene Love MD ?Collected: ? 12/22/2018 12:00 AM ? Ordering Location: ? [facility] Derm[facility] Lab ?Received: ?12/23/2018 12:54 PM ? Pathologist: ? Ariela Bourgeois MD ? Specimen: ?Skin, right distal anterior thigh ? 9 1:00 PM CDT DERMATOPATHOLOGY LABORATORY Final Diagnosis Specimen A. SKIN, right distal anterior thigh: COMPOUND MELANOCYTIC NEVUS (D22.71) (see microscopic description) 9 1:00 PM CDT DERMATOPATHOLOGY LABORATORY Clinical History R/O dys nevus vs ISK. 9 1:00 PM CDT DERMATOPATHOLOGY LABORATORY Gross Description Specimen A: Received is one formalin filled container labeled with the patient's name and designated right distal anterior thigh. The specimen consists of a shave biopsy measuring [id number]. Jar 0. 1:00 PM CDT DERMATOPATHOLOGY LABORATORY Microscopic Description Specimen A. SKIN, right distal anterior thigh: There are nests of melanocytes at the dermal-epidermal junction and within the dermis. Additional deeper sections were obtained and reviewed. 1:00 PM CDT DERMATOPATHOLOGY LABORATORY Disclaimer An external and internal positive and negative controls are appropriate for the histochemical, immunohistochemical and immunofluorescence stain(s) in this case (if any), except where stated explicitly. The performance characteristics of the stain(s) cited in this report were developed and its performance characteristic determined by the Dermatopathology Laboratory at [facility], directed by Dr. Gloria Bourgeois. These tests need not be, and therefore are not, approved by the [place] Food and Drug Administration. The tests are used for clinical purposes. Billing Codes Specimen Charges Stain Charges 32162 1 1:00 PM CDT DERMATOPATHOLOGY LABORATORY Embedded Images 1:00 PM CDT DERMATOPATHOLOGY LABORATORY Pathology/Cytolog y TISSUE SPECIMEN FROM SKIN / Unknown 12/22/2018 12/23/2018 12:54 PM CDT Gene Love MD LAB - PATHOLOGY/CYTO LOGY ORDERABLES DERMATOPATHOLOGY LABORATORY [facility] - Department of Dermatology [address] [place] [address], 5th Floor Lab [address] [phone] Care Teams Cupola Tender Relationship Specialty Start Date End Date Travis Pizano MD [address] [place] [address] PCP - General 02/24/22
--- OUTSIDE RECORDS SUMMARY | 2024-06-09 01:48 | XMS_ITS | Referral Summary ---
Author Organization [facility] Address [address] [place] [address] Care Team Providers Care Physical Therapy Assistant Name Role Phone Travis Pizano MD Primary Care Provider [phone] Source Comments [facility],non-owned Affiliates and Associated Physician Practices is amultiple site organization consisting of ambulatory clinics and hospital sitesin [place], [place], [place] and [place]. This disclosure is being madepursuant to the Care Everywhere program and may not contain all information available regarding this patient. Last updated 18.[facility] Encounters Date Type Department Care Team Description 06/02/2024 Travel 06/02/2024 12:42 PM [facility] - 06/02/2024 2:11 PM [facility] Emergency [facility] EMERGENCY [facility] [address] [place] [address] Usama Marcelo DO Patellofemoral arthritis (Primary Dx); Chronic pain of right knee; Nerve pain Discharge Disposition: Home or Self Care from Last 3 Months Allergies Active Allergy Reactions Criticality Noted Date [...] Comments Blood Pressure 168/83 06/02/2024 7:07 AM [facility] Pulse 113 06/02/2024 7:07 AM [facility] Temperature 36.6 ??C (97.8 ??F) 06/02/2024 7:07 AM CS T Respiratory Rate 12 06/02/2024 7:07 AM [facility] Oxygen Saturation 99% 06/02/2024 7:07 AM [facility] Inhaled Oxygen Concentration 45% 08/01/2021 6 :00 AM CDT Weight 88 kg (194 lb) 06/02/2024 7:07 AM [facility] Height 162.6 cm (5' 4 ) 06/02/2024 7:07 AM [facility] Body Mass Index 33.3 06/02/2024 7:07 AM [facility] Functional Status Functional Status Response Date of Assess ment Is person deaf or have serious hearing difficult y? No 12/25/2021 Is person blind or have serious difficulty seein g? No 12/25/2021 Does person have serious dif ficulty walking/climbing stairs? Yes 12/25/2021 Does person have difficulty dressing/bathing? No 12/25/2021 Does person have difficulty doing errands alone? No 12/25/2021 Cognitive Status Response Date of Assessm ent Does person have difficulty concentrating/remembering/making decisions? No 12/25/2021 Plan of Treatment Not on file Medical Devices Implanted Type Area Stain Maker Device Identifier Shelf Expiration Date Model / Serial / Lot Graft Bone Accell Evo3 Dbm 10ml Ptty - [id number] Implanted:Qty: 1 on 07/31/2021 by Wu Vazquez MD at [facility] Right: Leg [employer] 07/08/2022 [id number] / [id number] / [id number] Rfn - Advanced System - Locking Attachment Washer (Law) - 10 Degree - Right Implanted:Qty: 1 on 07/31/2021 by Wu Vazquez MD at [facility] Right: Leg 02.233.104S / / Optilink 5.0mm Va Locking Screw - 60mm Implanted:Qty: 1 on 07/31/2021 by Wu Vazquez MD at [facility] Right: Leg 42.231.260 / / Optilink 5.0mm Va Locking Screw - 80mm Implanted:Qty: 1 on 07/31/2021 by Wu Vazquez MD at [facility] Right: Leg 42.231.280 / / Screw 4.5mm 8mm 76mm Cortx Slf-Tap Lg Implanted:Qty: 1 on 07/31/2021 by Wu Vazquez MD at [facility] Right: Leg Synthes Usa 214.876 / / Graft Bone Canc 60ml Frzdr Chp 4-9.5mm Implanted:Qty: 1 on 07/31/2021 by Wu Vazquez MD at [facility] Right: Leg Allosource 09/14/2025 [id number] / / Description:ID: [id number] Rfna / 11mm/ 360mm - 5 Degree Bend Implanted:Qty: 1 on 07/31/2021 by Wu Vazquez MD at [facility] Right: Femur 04/09/2026 04.233.136S / / [id number] Screw 5mm 4.3mm 72mm T25 Ft Slf-Tap Lck Implanted:Qty: 1 on 07/31/2021 by Wu Vazquez MD at [facility] Right: Leg S[employer] Usa 04.005.562S / / Screw 5mm 4.3mm 68mm T25 Ft Slf-Tap Lck Implanted:Qty: 1 on 07/31/2021 by Wu Vazquez MD at [facility] Right: Leg [employer]sa 04.005.558S / / Screw 5mm 4.3mm 40mm T25 Ft Slf-Tap Lck Implanted:Qty: 1 on 07/31/2021 by Wu Vazquez MD at [facility] Right: Leg [employer]sa 04.005.530S / / Screw 3.5mm 6mm 34mm 2.5mm Ft Slf-Tap Implanted:Qty: 1 on 07/31/2021 by Wu Vazquez MD at [facility] Right: Leg [employer]sa 204.834 / / Screw 3.5mm 6mm 32mm 2.5mm Ft Slf-Tap Implanted:Qty: 1 on 07/31/2021 by Wu Vazquez MD at [facility] Right: Leg [employer] Usa 204.832 / / Explanted Type Area Stain Maker Device Identifier Shelf Expiration Date Model / Serial / Lot Screw 3.5mm 6mm 36mm 2.5mm Ft Slf-Tap Explanted:Qty: 1 on 07/31/2021 by Wu Vazquez MD at [facility] Right: Leg [employer] Usa 204.836 / / Procedures Procedure Name Priority Date/Time Associated Diagnosis Comments C-REACTIVE PROTEIN JOSE L 06/02/2024 9: 54 AM [facility] ERYTHROCYTE SEDIMENTATION RATE STAT 06/02/2024 9:54 AM [facility] CBC W AUTO DIFFERENTIAL STAT 06/02/2024 9:54 AM [facility] COMPREHENSIVE METABOLIC PANEL STAT 06/02/2024 9:54 AM [facility] XR KNEE RIGHT 3VW STAT 06/02/2024 7:5 7 AM [facility] Chronic pain of right knee from Last 3 Months Results * C-REACTIVE PROTEIN (06/02/2024 9:54 AM [facility]) C-Reactive Protein <0.5 <=0.5 mg/dL 06/02/2024 10:30 AM [facility] Blood BLOOD SPECIMEN / Unknown Venipuncture / Unknown 06/02/2024 9:54 AM [facility] 06/02/2024 10:01 AM [facility] Jefe Parish MD LAB - CHEMISTR Y ORDERABLES [address] [address], [facility] [phone] * ERYTHROCYTE SEDIMENTATION RATE (06/02/2024 9:54 AM [facility]) Erythrocyte Sedimentation Rate Westergren 5 0 - 30 MM/HR 06/02/2024 10:22 AM [facility] Blood BLOOD SPECIMEN / Unknown Venipuncture / Unknown 06/02/2024 9:54 AM [facility] 06/02/2024 10:01 AM [facility] Jefe Parish MD LAB - HEMATOLO GY ORDERABLES Performing Organization Address City/[facility]/ZIP Co de Phone Number [address] [address], [facility] [phone] * CBC W AUTO DIFFERENTIAL (06/02/2024 9:54 AM [facility]) WBC 8.6 4.0 - 10.7 x10E9/L 06/02/2024 10:09 AM [facility] RBC Count 4.72 3.90 - 5.20 x10E12/L 06/02/2024 10:09 AM [facility] Hemoglobin 14.9 11.9 - 15.8 g/dL 06/02/2024 10:09 AM [facility] Hematocrit 43.1 34.8 - 46.1 % 06/02/2024 10:09 AM [facility] MCV 91.3 80.0 - 98.0 fL 06/02/2024 10:09 AM [facility] MCH 31.6 26.7 - 33.6 pg 06/02/2024 10:09 AM [facility] MCHC 34.6 31.7 - 36.3 g/dL 06/02/2024 10:09 AM [facility] RDW-CV 12.8 11.3 - 14.8 % 06/02/2024 10:09 AM [facility] Platelet Count 258 150 - 420 x10E9/L 06/02/2024 10:09 AM [facility] MPV 11.4 7.8 - 11.4 fL 06/02/2024 10:09 AM [facility] Neutrophil % 67.1 41.0 - 74.0 % 06/02/2024 10:09 AM [facility] Lymphocyte % 25.2 17.0 - 47.0 % 06/02/2024 10:09 AM [facility] Monocyte % 5.8 3.0 - 11.0 % 06/02/2024 10:09 AM [facility] Eosinophil % 1.2 0.0 - 7.0 % 06/02/2024 10:09 AM [facility] Basophil % 0.5 0.0 - 1.6 % 06/02/2024 10:09 AM [facility] Immature Granulocytes % 0.2 0.0 - 1.0 % 06/02/2024 10:09 AM [facility] Neutrophil Absolute 5.77 1.60 - 7.50 x10E9/L 06/02/2024 10:09 AM [facility] Lymphocyte Absolute 2.17 1.00 - 4.40 x10E9/L 06/02/2024 10:09 AM [facility] Monocyte Absolute 0.50 0.15 - 1.00 x10E9/L 06/02/2024 10:09 AM [facility] Eosinophil Absolute 0.10 0.00 - 0.60 x10E9/L 06/02/2024 10:09 AM [facility] Basophil Absolute 0.04 0.00 - 0.13 x10E9/L 06/02/2024 10:09 AM [facility] Blood BLOOD SPECIMEN / Unknown Venipuncture / Unknown 06/02/2024 9:54 AM [facility] 06/02/2024 10:01 AM [facility] Jefe Parish MD LAB - HEMATOLO GY ORDERABLES [facility] [address] [place] [address], [facility] [phone] * (ABNORMAL) COMPREHENSIVE METABOLIC PANEL (06/02/2024 9:54 AM [facility]) BUN 20 7 - 26 mg/dL 06/02/2024 10:27 AM [facility] Creatinine 1.08(H) 0.56 - 0.96 mg/dL 06/02/2024 10:27 AM [facility] Sodium 138 136 - 145 mmol/L 06/02/2024 10:27 AM [facility] Potassium 4.2 3.5 - 4.5 mmol/L 06/02/2024 10:27 AM [facility] Chloride 105 98 - 107 mmol/L 06/02/2024 10:27 AM [facility] CO2 21(L) 22 - 29 mmol/L 06/02/2024 10:27 AM [facility] Glucose 170(H) 70 - 99 mg/dL 06/02/2024 10:27 AM [facility] Calcium 9.4 8.4 - 10.2 mg/dL 06/02/2024 10:27 AM [facility] Protein Total 7.8 6.0 - 8.3 g/dL 06/02/2024 10:27 AM [facility] Albumin 4.4 3.4 - 5.0 g/dL 06/02/2024 10:27 AM [facility] Bilirubin Total 1.6(H) 0.2 - 1.2 mg/dL 06/02/2024 10:27 AM [facility] Alkaline Phosphatase 63 40 - 150 U/L 06/02/2024 10:27 AM [facility] ALT 21 5 - 55 U/L 06/02/2024 10:27 AM [facility] AST 24 5 - 34 U/L 06/02/2024 10:27 AM [facility] Anion Gap 12 6 - 16 06/02/2024 10:27 AM [facility] BUN/Creatinine Ratio 19 7 - 23 06/02/2024 10:27 AM [facility] Osmolality Calculated 293 275 - 295 mOsm/kg 06/02/2024 10:27 AM [facility] Albumin/Globulin Ratio 1.3 1.1 - 2.3 06/02/2024 10:27 AM [facility] eGFR by CKD-EPI 55(L) >=90 mL/min/1.7 3 m2 06/02/2024 10:27 AM [facility] Blood BLOOD SPECIMEN / Unknown Venipuncture / Unknown 06/02/2024 9:54 AM [facility] 06/02/2024 10:01 AM [facility] Jefe Parish MD LAB - CHEMISTR Y ORDERABLES [facility] [address] [place] [address], [facility] [phone] * XR Knee Right 3Vw (06/02/2024 7:57 AM [facility]) Anatomical Region Laterality Modality Lower Extremity Digital Radiogra phy 06/02/2024 7:5 9 AM [facility] Impressions 06/02/2024 8:39 AM [facility] IMPRESSION: No acute fracture or dislocation identified; Healed internally fixed distal femoral fracture and patellar fracture. Hardware appears intact without evidence of loosening. Patellofemoral arthritis. This preliminary report was dictated by Joel Cross MD (DR/IR Resident). I, Emperatriz Bean MD have personally reviewed and interpreted this examination/study. > Interpreting Provider: Emperatriz Bean MD on 06/02/2024 8:39 AM Narrative 06/02/2024 8:39 AM [facility] PROCEDURE: ??XR KNEE RIGHT 3VW, DATE/TIME OF EXAM: ??06/02/2024 7:57 AM, LOCATION ??[facility] INDICATION: M25.561: Chronic pain of right knee [...] DATE/TIME OF EXAM: 06/02/2024 7:57 AM, LOCATION [facility] INDICATION: M25.561: Chronic pain of right knee [...] Documents on File Type Date Recorded Patient Celebrity Manager Expl anation Adv Directive/Living Will/POA 08/07/2021 9:37 AM * Full Code (Latest Code Status on File) Date Activated Date Inactivated Comments 07/29/2021 4:25 AM 08/02/2021 8:11 PM Care Teams Physical Therapy Assistant Relationship Specialty Start Date End Date Travis Pizano MD [address] [place] [address] PCP - General 02/24/22
[2024-06-09 12:02] VITALS: BP 145/81; PULSE 116; RESP 16; TEMP 35.7; O2SAT 98; BMI 33.2
[2024-06-09] MEDS: LACTATED RINGERS 1,000 ML 150 ML IV CONT (12:09)
--- NOTE | 2024-06-09 12:26 | WPDANESEPPF ---
Anes - Initial Pre Proc Eval Procedure: Operation Date: 06/09/24 13:30 Proposed Procedures p Colonoscopy - Ponce Andrew MD Date/Time: 06/09/24 12:26 Surgeon: Ponce Andrew MD Pre Op Diagnosis: hx of colon polyps Patient Data Age: 69 Gender: F Height: 1.6 m Weight: 85.1 kg Last Vital Signs Temp 35.7 C L 06/09/24 12:02 Pulse 116 H 06/09/24 12:02 Resp 16 06/09/24 12:02 BP 145/81 H 06/09/24 12:02 Pulse Ox 98 06/09/24 12:02 O2 Del Method Room Air 06/09/24 12:02 Allergies Allergy/AdvReac Type Severity Reaction Status Date / Time Sulfa (Sulfonamide AdvReac Mild Hives Verified 06/09/24 12:01 Antibiotics) adhesive AdvReac Redness of Verified 06/09/24 12:01 Skin transparent dressing AdvReac Blister Verified 06/09/24 12:01 Home Medications ?Medication ?Instructions ?Recorded ?Confirmed ?Type calcium 500 mg-vitamin D3 100 1 tablet PO BID 12/30/23 06/09/24 History unit-vitamin K 40 mcg chewable tablet cholecalciferol (vitamin D3) 25 25 mcg PO DAILY 12/30/23 06/09/24 History mcg (1,000 unit) capsule yrklzkbi-rkg-qpjn-FA-Ca carb-vit K 1 tablet PO DAILY 12/30/23 06/09/24 History 18 mg iron-400 mcg-500 mg tablet amlodipine 5 mg tablet See Rx Instructions .Route 02/03/24 06/09/24 Rx .COMPLEX #90 tabs atorvastatin 20 mg tablet See Rx Instructions .Route 04/08/24 06/09/24 Rx .COMPLEX #90 tabs lisinopril 20 mg tablet See Rx Instructions .Route 04/08/24 06/09/24 Rx .COMPLEX #90 tabs venlafaxine 75 mg capsule,extended 225 mg (3 x 75 mg) PO QAM #270 caps 04/08/24 06/09/24 Rx release 24 hr buspirone 30 mg tablet 30 mg PO BID 3 months #180 tabs 04/11/24 06/09/24 Rx anastrozole 1 mg tablet 1 mg PO DAILY 05/27/24 06/09/24 History Patient hx anesthesia problems: none Family hx anesthesia problems: none Results Review: All pre-operative results and documents have been reviewed as part of the pre-operative evaluation. [facility] Past Medical History Medical History (Updated 03/23/24 @ 16:15 by Chio Lancaster APRN) Abnormality of left breast on screening mammogram Breast mass, left Abnormal mammogram of left breast Elevated troponin Ureteral stone Septic shock Chronic neck and back pain Osteopenia Closed fracture of right distal femur (~07/28/21) R patella and R humeral Fx as well - transferred to [facility] Arthritis of foot, degenerative Postmenopause Depression Hypertension Vision abnormalities Vertigo Dizziness Muscle spasm of calf Obesity Anxiety and depression Mixed hyperlipidemia Surgical History Surgical History (Updated 03/22/24 @ 09:59 by Chio Lancaster APRN) History of lumpectomy of left breast Status post removal of thyroid nodule Family History Family History Father Hypertension, Onset Age: 72 Patient's father is , Onset Age: 72 Other Family history of alcoholism High cholesterol Social History Social History Smoking packs per day: 2 Smoking cigarettes per day: 40.0 Years smoked: 30 Smoking pack-years: 60.00 Smoking status: Former smoker Tobacco type: cigarettes Second hand tobacco smoke exposure: No Smoking end date: 05/11/11 Alcohol intake: former Alcohol use details: QUIT 1992 Substance use: never Substance use type: does not use Do You Feel Safe in your Home?: Yes Lack of Transportation: No Lack of Food: Never True Current Housing: I Have Housing Concerned About Future Housing: No Difficulty Paying Gas/Electric Bills: No Difficulty Paying for Meds: No Currently Unemployed: No Education: High School Diploma/GED Difficulty w/ Childcare or Family Care: No Living arrangements: alone Spiritual care concerns: No Anes - Eval Final PreProcedure Day of Procedure 06/09/24 12:26 Patient weight: obese Heart: regular rate and rhythm Lungs: clear to auscultation Airway: Mallampati scale class II Neurological: alert and oriented Last oral intake: >/= 8 hours ASA classification: III Emergent: no Anesthetic plan: proceed Anesthesia type and monitoring: general GIVS and standard monitoring Results Review: All pre-operative results and documents have been reviewed as part of the pre-operative evaluation. Informed Consent: The patient's anesthetic plan and its attendant risks and benefits were discussed with the patient/family/POA. Questions were solicited and answers provided to the satisfaction of the patient/family/POA.
--- NOTE | 2024-06-09 12:26 | PM.HPGS ---
History of Present Illness History of Present Illness Consent: Risks, benefits, and alternatives have been discussed and questions answered. Patient agrees to proceed with procedure. Chief complaint: hx of colon polyps Narrative: Delaney Mckeon is a 69 year old female with history colon polyp, last colonoscopy 2019 but did not have polyp Review of Systems Review of Systems: All systems reviewed & are unremarkable except as noted in HPI and below PMFSH Past Medical History Medical History (Updated 03/23/24 @ 16:15 by Chio Lancaster APRN) Abnormality of left breast on screening mammogram Breast mass, left Abnormal mammogram of left breast Elevated troponin Ureteral stone Septic shock Chronic neck and back pain Osteopenia Closed fracture of right distal femur (~07/28/21) R patella and R humeral Fx as well - transferred to U Arthritis of foot, degenerative Postmenopause Depression Hypertension Vision abnormalities Vertigo Dizziness Muscle spasm of calf Obesity Anxiety and depression Mixed hyperlipidemia Surgical History Surgical History (Updated 03/22/24 @ 09:59 by Chio Lancaster APRN) History of lumpectomy of left breast Status post removal of thyroid nodule Family History Family History Father Hypertension, Onset Age: 72 Patient's father is , Onset Age: 72 Other Family history of alcoholism High cholesterol Social History Social History Smoking packs per day: 2 Smoking cigarettes per day: 40.0 Years smoked: 30 Smoking pack-years: 60.00 Smoking status: Former smoker Tobacco type: cigarettes Second hand tobacco smoke exposure: No Smoking end date: 05/11/11 Alcohol intake: former Alcohol use details: QUIT 1992 Substance use: never Substance use type: does not use Do You Feel Safe in your Home?: Yes Lack of Transportation: No Lack of Food: Never True Current Housing: I Have Housing Concerned About Future Housing: No Difficulty Paying Gas/Electric Bills: No Difficulty Paying for Meds: No Currently Unemployed: No Education: High School Diploma/GED Difficulty w/ Childcare or Family Care: No Living arrangements: alone Spiritual care concerns: No Meds Home Medications and Allergies Home Medications ?Medication ?Instructions ?Recorded ?Confirmed ?Type calcium 500 mg-vitamin D3 100 1 tablet PO BID 12/30/23 06/09/24 History unit-vitamin K 40 mcg chewable tablet cholecalciferol (vitamin D3) 25 25 mcg PO DAILY 12/30/23 06/09/24 History mcg (1,000 unit) capsule fdrdpxty-gep-tqrm-FA-Ca carb-vit K 1 tablet PO DAILY 12/30/23 06/09/24 History 18 mg iron-400 mcg-500 mg tablet amlodipine 5 mg tablet See Rx Instructions .Route 02/03/24 06/09/24 Rx .COMPLEX #90 tabs atorvastatin 20 mg tablet See Rx Instructions .Route 04/08/24 06/09/24 Rx .COMPLEX #90 tabs lisinopril 20 mg tablet See Rx Instructions .Route 04/08/24 06/09/24 Rx .COMPLEX #90 tabs venlafaxine 75 mg capsule,extended 225 mg (3 x 75 mg) PO QAM #270 caps 04/08/24 06/09/24 Rx release 24 hr buspirone 30 mg tablet 30 mg PO BID 3 months #180 tabs 04/11/24 06/09/24 Rx anastrozole 1 mg tablet 1 mg PO DAILY 05/27/24 06/09/24 History Allergies Allergy/AdvReac Type Severity Reaction Status Date / Time Sulfa (Sulfonamide AdvReac Mild Hives Verified 06/09/24 12:01 Antibiotics) adhesive AdvReac Redness of Verified 06/09/24 12:01 Skin transparent dressing AdvReac Blister Verified 06/09/24 12:01 Vital Signs Vital Signs - 24 hr 06/09/24 12:02 Temperature 96.2 F L Pulse Rate 116 H Respiratory Rate 16 Blood Pressure 145/81 H Pulse Oximetry 98 Oxygen Delivery Room Air Exam Const: General: comfortable and no acute distress HENMT: Face/Nose/Sinus: Normal nares present Eyes: General: appearance normal, both eyes and all related structures Neck: Neck: no JVD Resp: Auscultation: clear to auscultation bilaterally Cardio: Rate: regular rate Rhythm: regular rhythm GI: Inspection: non-distended GI Palp: Yes Soft to palpation Skin: General skin exam: normal color Neuro: General: gait normal Speech: normal speech Extrem: General: normal to inspection Psych: Mental Status: mental status grossly normal Assessment and Plan Assessment and plan (1) Polyp of colon: Qualifiers: Colon polyp type: unspecified Colon location: unspecified part of colon Qualified Code(s): K63.5 - Polyp of colon Code(s): K63.5 - Polyp of colon Status: Acute Assessment and Plan: colonoscopy
[2024-06-09 12:46] VITALS: BP 122/77; PULSE 94; RESP 16; O2SAT 97
[2024-06-09 12:56] VITALS: BP 161/84; PULSE 83; RESP 22; O2SAT 100
[2024-06-09 13:06] VITALS: BP 144/77; PULSE 84; RESP 21; O2SAT 100
== END 2024-06-09 13:23 | disposition home or self-care (01) ==
PROVIDERS: PCP Family Medicine; Referring Provider Nurse Practitioner Family; Visit Provider Internal Medicine Gastroenterology
PROC: 0DJD8ZZ Inspection of Lower Intestinal Tract, Via Natural or Artificial Opening Endoscopic (ICD-10-PCS; CPT 45378; principal; 2024-06-09 13:30)
DX: Z12.11 Encounter for screening for malignant neoplasm of colon (principal); M85.88 Other specified disorders of bone density and structure, other site; I10 Essential (primary) hypertension; E78.2 Mixed hyperlipidemia; F41.8 Other specified anxiety disorders; G89.29 Other chronic pain; M54.2 Cervicalgia; M54.9 Dorsalgia, unspecified; M19.079 Primary osteoarthritis, unspecified ankle and foot; E66.9 Obesity, unspecified; Z68.33 Body mass index [BMI] 33.0-33.9, adult; Z98.890 Other specified postprocedural states; Z86.0100 Personal history of colon polyps, unspecified; Z87.442 Personal history of urinary calculi; Z87.891 Personal history of nicotine dependence
CPT/HCPCS: G0105; J2704; J7120

== ENCOUNTER 2024-06-24 12:44 | Outpatient (CLI) | payer OTHER, SELFPAY ==
--- NOTE | ~2024-06-24 | MM_ITS ---
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 CAD analysis was submitted and interpreted. COMPARISON: Comparison to multiple prior studies sequentially, with oldest reviewed study dated 01/08. BREAST PARENCHYMAL COMPOSITION: Not dense: There are scattered areas of fibroglandular density. FINDINGS: The right breast is stable without evidence for malignancy. There are lumpectomy changes in the lower outer quadrant of the left breast. There are no suspicious calcifications or discrete mass es. No architectural distortion. IMPRESSION: 1. No evidence for malignancy in either breast. Postlumpectomy changes of the left breast. 2. Routine yearly screening mammogram and regular clinical breast examination are recommended. BI-RADS Category 2: Benign finding(s). Reviewed, dictated and finalized at location B. O [employer] IMPRESSION: 1. No evidence for malignancy in either breast. Postlumpectomy changes of the l eft breast. 2. Routine yearly screening mammogram and regular clinical breast examination a re recommended. BI-RADS Category 2: Benign finding(s).
--- OUTSIDE RECORDS SUMMARY | 2024-06-24 12:49 | XMS_ITS | Encounter Summary ---
Author Organization [facility] Address [address] [facility] [place] [address] Care Team Providers Care Bleach Range Operator Name Role Phone Travis Pizano MD Primary Care Provider [phone] Pavel Russo DO Primary Care Provider [phone] Travis Pizano MD Primary Care Provider [phone] Encounter Details Date Type Department Care Team (Late st Contact Info) Description 12/23/2018 Lab Requisition [facility] Care DermPath Lab [address] [place] [address] [place] [address] Social History Tobacco Use Types [...] 12:00 AM CDT) Case Report Dermatopathology Report Case: [id number] Authorizing Provider: Gene Love MD Collected: 12/22/2018 12:00 AM Ordering Location: [facility] Derm[facility] Lab Received: 12/23/2018 12:54 PM Pathologist: Ariela Bourgeois MD Specimen: Skin, right distal anterior thigh 1:00 PM CDT DERMATOPATHOLOGY LABORATORY Final Diagnosis Specimen A. SKIN, right distal anterior thigh: COMPOUND MELANOCYTIC NEVUS (D22.71) (see microscopic description) 1:00 PM CDT DERMATOPATHOLOGY LABORATORY Clinical History R/O dys nevus vs ISK. 1:00 PM CDT DERMATOPATHOLOGY LABORATORY Gross Description Specimen A: Received is one formalin filled container labeled with the patient's name and designated right distal anterior thigh. The specimen consists of a shave biopsy measuring [id number]. Jar 0. 1:00 PM CDT DERMATOPATHOLOGY LABORATORY [...] characteristic determined by the Dermatopathology Laboratory at [facility], directed by Dr. Gloria Bourgeois. These tests need not be, and therefore are not, approved by the [place] Food and Drug Administration. The tests are used for clinical purposes. Billing Codes Specimen Charges Stain Charges 44253 1 1:00 PM CDT DERMATOPATHOLOGY LABORATORY Embedded Images 1:00 PM CDT DERMATOPATHOLOGY LABORATORY Pathology/Cytolog y TISSUE SPECIMEN FROM SKIN / Unknown 12/22/2018 12/23/2018 12:54 PM CDT Gene Love MD LAB - PATHOLOGY/CYTO LOGY ORDERABLES DERMATOPATHOLOGY LABORATORY [facility] - Department of Dermatology [address] [facility], 5th [address] Lab [address] [phone] documented in this encounter Visit Diagnoses Not on filedocumented in this encounter Care Teams Bleach Range Operator Relationship Specialty Start Date End Date Travis Pizano MD [address] [place] [address] PCP - General 04/12/18 02/17/22 Pavel Russo DO [address] [place] [address] PCP - General Internal Medicine 02/18/22 02/23/22 Travis Pizano MD [address] [place] [id number] PCP - General 02/24/22 documented as of this encounter
--- OUTSIDE RECORDS SUMMARY | 2024-06-24 12:49 | XMS_ITS | Clinical Summary ---
Author Organization [employer] [facility] Address [address] [facility] [place] [address] Phone Care Team Providers Care Hiv Cts Specialist Name Role Phone Alex Lerma MD Primary Care Provider [phone] Allergies Active Allergy Reactions Criticality Noted Date Comments Adhesive Tape-Silicones Hives High 12/03/2023 Blisters Sulfa (Sulfonamide Antibiotics) Hives,Rash High 11/09 Medications LISINOPRIL ORAL Take by mouth. Active amlodipine besylate (AMLODIPINE ORAL) Take by mouth. Active atorvastatin calcium (ATORVASTATIN ORAL) Take by mouth. Active CALCIUM CITRATE-VITAMIN D3 ORAL Take by mouth. Active multivitamin (DAILY-BILLY) tablet Take 1 Tablet by mouth daily. Active venlafaxine HCl (VENLAFAXINE ORAL) Take by mouth. Active buspirone HCl (BUSPIRONE ORAL) Take by mouth. Active anastrozole (Arimidex) 1 mg tablet Take 1 Tablet (1 mg) by mouth daily. 90 Tablet 2 03/29/2024 Active Active Problems No known active problems Encounters Date Type Department Care Team Description 06/02/2024 External Device Data STL ABSTRACTION Provider, Abstract 05/24/2024 Chart Note [facility] Emergency Department - [address] [address] Vladimir Ko MD 03/29/2024 1:00 PM DIRECTOR CORPORATE SECURITY Office Visit [facility] Oncology and Hematology [facility] [address] [place] [phone] David Judge MD Malignant neoplasm of left breast in female, estrogen receptor positive, unspecified site of breast (CMS/HCC) (Primary Dx) from Last 3 Months Family History Medical History Relation Name Comments Hypertension Father Hyperlipidemia Mother Hypertension Sister Relation Name Status Comments Father Mother Sister Alive Social History Tobacco Use Types Packs/Day Years Used Date Smoking Tobacco: Former Cigarettes Q uit: 02/08/2006 Tobacco Cessation:Counseling Given: Not Answered Alcohol Use Standard Drinks/Week Comments Not Currently 0 (1 standard drink = 0.6 oz pur e alcohol) stopped 10/1992 Comments Unknown Sex and Gender Information Value Date Recorded Sex Assigned at Not on file Legal Sex Female 4:14 AM DIRECTOR CORPORATE SECURITY Gender Identity Not on file Sexual Orientation Not on file Last Filed Vital Signs Vital Sign Reading Time Taken Comments Blood Pressure 129/69 03/29/2024 1:05 PM DIRECTOR CORPORATE SECURITY Pulse 99 03/29/2024 1:02 PM DIRECTOR CORPORATE SECURITY Temperature 36.1 C (97 F) 03/29/2024 1:02 PM DIRECTOR CORPORATE SECURITY Respiratory Rate 16 03/29/2024 1:02 PM DIRECTOR CORPORATE SECURITY Oxygen Saturation 95% 03/29/2024 1:02 PM DIRECTOR CORPORATE SECURITY Inhaled Oxygen Concentration - - Weight 84.8 kg (187 lb) 03/29/2024 1:02 PM DIRECTOR CORPORATE SECURITY Height 162.6 cm (5' 4 ) 12/03/2023 10:27 AM CDT Body Mass Index 32.1 12/03/2023 10:27 AM CDT Plan of Treatment Upcoming Encounters Date Type Department Care Team (Late st Contact Info) Description 07/07/2024 2:30 PM DIRECTOR CORPORATE SECURITY Office Visit [facility] Oncology and Hematology - [place] [address] [facility] [address] [place] [address] Davdi Judge MD [address] [facility] [address] [place] [address] Health Maintenance Due Date Last Done Comments DTAP/TDAP/TD VACCINES (1 - Tdap) 1972 BREAST CANCER SCREENING 1993 COLORECTAL SCREENING 1998 Colorectal Cancer Screening 1998 FIT-DNA Q 3 years 1998 FIT/FOBT Q 1 year 1998 Flex Sig/CT Colonography Q 5 years 1998 PNEUMOCOCCAL VACCINE 65+ YEARS (1 of 1 - PCV) 05/08/20 03 ZOSTER VACCINE (1 of 2) 2003 OSTEOPOROSIS SCREENING 2018 INFLUENZA VACCINE (#1) 2023 RSV VACCINE (60+ or ) (1 - 1-dose 75+ series) 2028 Procedures Procedure Name Priority Date/Time Associated Diagnosis Comments COMPREHENSIVE METABOLIC PANEL Routine 06/21/2024 6:43 AM DIRECTOR CORPORATE SECURITY CBC WITH DIFFERENTIAL Routine 06/21/2024 6:43 AM DIRECTOR CORPORATE SECURITY CANCER ANTIGEN 15-3 Routine 06/21/2024 6 :43 AM DIRECTOR CORPORATE SECURITY Malignant neoplasm of left breast in female, estrogen receptor positive, unspecified site of breast (CMS/HCC) from Last 3 Months Results * CANCER ANTIGEN 15-3 (06/21/2024 6:43 AM DIRECTOR CORPORATE SECURITY) Pathologist [facility] CA 15-3 23 <32 U/mL [facility] Comment: This test was performed using the Siemens ([employer]) chemiluminescent method. Values obtained from different assay methods cannot be used interchangeably. CA 15-3 levels, regardless of value, should not be interpreted as absolute evidence of the presence or absence of disease. FASTING:YES FASTING: YES Test Performed at: [facility] [address] [place] [address] Marycruz Lopes MD Blood 06/21/2024 6:43 AM DIRECTOR CORPORATE SECURITY 06/21/2024 6:45 AM DIRECTOR CORPORATE SECURITY us David Judge MD CHEMISTRY ORDERABLES Final Resu lt [facility] [phone] [facility] [address] [place] [address] * (ABNORMAL) CBC WITH DIFFERENTIAL (06/21/2024 6:43 AM DIRECTOR CORPORATE SECURITY) WBC 7.7 3.8 - 10.8 Thousand/u L [facility] RBC 4.47 3.80 - 5.10 Million/uL [facility] HEMOGLOBIN 14.2 11.7 - 15.5 g/dL [facility] HEMATOCRIT 43.4 35.0 - 45.0 % [facility] MCV 97.1 80.0 - 100.0 fL [facility] MCH 31.8 27.0 - 33.0 pg [facility] MCHC 32.7 32.0 - 36.0 g/dL [facility] Comment: For adults, a slight decrease in the calculated MCHC value (in the range of 30 to 32 g/dL) is most likely not clinically significant; however, it should be interpreted with caution in correlation with other red cell parameters and the patient's clinical condition. RDW 12.2 11.0 - 15.0 % [facility] PLATELETS 286 140 - 400 Thousand/u L [facility] MPV 12.6(H) 7.5 - 12.5 fL [facility] NEUTROPHIL ABSOLUTE 4,743 1,500 - 7,800 cells/uL [facility] LYMPHOCYTE ABSOLUTE 2,118 850 - 3,900 cells/uL [facility] MONOCYTE ABSOLUTE 531 200 - 950 cells/uL [facility] EOSINOPHIL ABSOLUTE 270 15 - 500 cells/uL [facility] BASOPHILS ABSOLUTE 39 0 - 200 cells/uL [facility] NEUTROPHIL 61.6 % [facility] LYMPHOCYTES 27.5 % [facility] MONOCYTE 6.9 % [facility] EOSINOPHILS 3.5 % [facility] BASOPHILS 0.5 % [facility] Comment: FASTING:YES FASTING: YES Test Performed at: [facility] [address] [place] [address] Marycruz Lopes MD 06/21/2024 6:43 AM DIRECTOR CORPORATE SECURITY 06/21/2024 6:45 AM DIRECTOR CORPORATE SECURITY us David Judge MD HEMATOLOGY ORDERABLES Final Res ult [facility] [phone] [facility] [address] [place] [address] * (ABNORMAL) COMPREHENSIVE METABOLIC PANEL (06/21/2024 6:43 AM DIRECTOR CORPORATE SECURITY) GLUCOSE 124(H) 65 - 99 mg/dL [facility] Comment: Fasting reference interval For someone without known diabetes, a glucose value between 100 and 125 mg/dL is consistent with prediabetes and should be confirmed with a follow-up test. BUN 18 7 - 25 mg/dL [facility] CREATININE 0.87 0.60 - 1.00 mg/dL [facility] GFR 71 > OR = 60 mL/min/1. 73m2 [facility] BUN/CREAT RATIO SEE NOTE: (calc) [facility] Comment: Not Reported: BUN and Creatinine are within reference range. SODIUM 140 135 - 146 mmol/L [facility] POTASSIUM 3.8 3.5 - 5.3 mmol/L [facility] CHLORIDE 101 98 - 110 mmol/L [facility] CO2 28 20 - 32 mmol/L [facility] CALCIUM 9.5 8.6 - 10.4 mg/dL [facility] TOTAL PROTEIN 7.0 6.1 - 8.1 g/dL [facility] ALBUMIN 4.5 3.6 - 5.1 g/dL [facility] GLOBULIN 2.5 1.9 - 3.7 g/dL (calc) [facility] ALBUMIN/GLOBULIN RATIO 1.8 1.0 - 2.5 (calc) [facility] BILIRUBIN TOTAL 1.0 0.2 - 1.2 mg/dL [facility] ALKALINE PHOSPHATASE 77 37 - 153 U/L [facility] AST 19 10 - 35 U/L [facility] ALT 18 6 - 29 U/L [facility] Comment: FASTING:YES FASTING: YES Test Performed at: [facility] [address] [place] [address] Marycruz Lopes MD 06/21/2024 6:43 AM DIRECTOR CORPORATE SECURITY 06/21/2024 6:45 AM DIRECTOR CORPORATE SECURITY David Judge MD CHEMISTRY ORDERABLES Final Resu lt [facility] [phone] [facility] [address] [place] [address] from Last 3 Months Insurance MEDICARE PART A AND B [facility] Appointedd [facility] Care Teams Hiv Cts Specialist Relationship Specialty Start Date End Date Alex Lerma MD [address] [place] [phone] PCP - General Family Practice 12/02/23
--- OUTSIDE RECORDS SUMMARY | 2024-06-24 12:49 | XMS_ITS | Clinical Summary ---
Author Organization [facility] Address [address] [place] [address] Care Team Providers Care Pole Framer Name Role Phone Travis Pizano MD Primary Care Provider [phone] Source Comments [facility],non-owned Affiliates and Associated Physician Practices is amultiple site organization consisting of ambulatory clinics and hospital sitesin [place], [place], [place] and [place]. This disclosure is being madepursuant to the Care Everywhere program and may not contain all information available regarding this patient. Last updated 18.[facility] Allergies Active Allergy Reactions Criticality Noted Date [...] (one) tablet by mouth once daily Active diclofenac sodium (Voltaren) 1 % gel [...] (4000 mg) / 24 hours. 06/02/2024 Active naproxen (Naprosyn) 500 MG tabletIndications :Osteoarthritis Take 1 (one) tablet by mouth 2 times daily for 14 days Reasons: Joint Damage causing Pain and Loss of Function 28 tablet 06/02/2024 06/16/2024 Active Problems Problem Noted Date Diagnosed Date Right patella fracture 07/30/2021 Fracture of proximal end of right humerus 2021 Closed fracture of right distal femur 07/29/2021 Encounters Date Type Department Care Team Description 06/02/2024 12:42 PM [facility] - 06/02/2024 2:11 PM [facility] Emergency [facility] EMERGENCY DEPARTMENT [address] [place] [phone] Usama Marcelo DO Patellofemoral arthritis (Primary Dx); [...] Comments Blood Pressure 168/83 06/02/2024 7:07 AM WEB MASTER Pulse 113 06/02/2024 7:07 AM WEB MASTER Temperature 36.6 C (97.8 F) 06/02/2024 7:07 AM WEB MASTER Respiratory Rate 12 06/02/2024 7:07 AM WEB MASTER Oxygen Saturation 99% 06/02/2024 7:07 AM WEB MASTER Inhaled Oxygen Concentration 45% 08/01/2021 6 :00 AM CDT Weight 88 kg (194 lb) 06/02/2024 7:07 AM WEB MASTER Height 162.6 cm (5' 4 ) 06/02/2024 7:07 AM WEB MASTER Body Mass Index 33.3 06/02/2024 7:07 AM WEB MASTER Plan of Treatment Health Maintenance Due Date [...] history exists DEPRESSION SCREENING 05/11/2024 MEDICARE AWV CALENDAR YEAR 2024 SCREENING FOR DIABETES 06/02/2027 [...] this topic Medical Devices Implanted Type Area Bottom Pounder Cement Shoes Device Identifier Shelf Expiration Date Model / Serial / Lot Graft Bone Accell Evo3 Dbm 10ml Ptty - [id number] Implanted:Qty: 1 on 07/31/2021 by Wu Vazquez MD at [facility] Right: Leg Integra Neurosciences 07/08/2022 02-5000-100 / [id number] / [id number] Rfn - Advanced System - Locking Attachment Washer (Law) - 10 Degree - Right Implanted:Qty: 1 on 07/31/2021 by Wu Vazquez MD at [facility] Right: Leg 02.233.104S / / Optilink 5.0mm Va Locking Screw - 60mm Implanted:Qty: 1 on 07/31/2021 by Wu Vazquez MD at [facility] Right: Leg 42.231.260 / / Optilink 5.0mm Va Locking Screw - 80mm Implanted:Qty: 1 on 07/31/2021 by Wu Vazquez MD at [facility] Right: Leg 42.231.280 / / Screw 4.5mm 8mm 76mm Cortx Slf-Tap Lg Implanted:Qty: 1 on 07/31/2021 by Wu Vazquez MD at [facility] Right: Leg Synthes Usa 214.876 / / Graft Bone Canc 60ml Frzdr Chp 4-9.5mm Implanted:Qty: 1 on 07/31/2021 by Wu Vazquez MD at [facility] Right: Leg Allosource 09/14/2025 [id number] / / Description:ID: [id number] Rfna / 11mm/ 360mm - 5 Degree Bend Implanted:Qty: 1 on 07/31/2021 by Wu Vazquez MD at [facility] Right: Femur 04/09/2026 04.233.136S / / [id number] Screw 5mm 4.3mm 72mm T25 Ft Slf-Tap Lck Implanted:Qty: 1 on 07/31/2021 by Wu Vazquez MD at [facility] Right: Leg Synthes Usa 04.005.562S / / Screw 5mm 4.3mm 68mm T25 Ft Slf-Tap Lck Implanted:Qty: 1 on 07/31/2021 by Wu Vazquez MD at [facility] Right: Leg Synthes Usa 04.005.558S / / Screw 5mm 4.3mm 40mm T25 Ft Slf-Tap Lck Implanted:Qty: 1 on 07/31/2021 by Wu Vazquez MD at [facility] Right: Leg Synthes Usa 04.005.530S / / Screw 3.5mm 6mm 34mm 2.5mm Ft Slf-Tap Implanted:Qty: 1 on 07/31/2021 by Wu Vazquez MD at [facility] Right: Leg Synthes Usa 204.834 / / Screw 3.5mm 6mm 32mm 2.5mm Ft Slf-Tap Implanted:Qty: 1 on 07/31/2021 by Wu Vazquez MD at [facility] Right: Leg Synthes Usa 204.832 / / Explanted Type Area Bottom Pounder Cement Shoes Device Identifier Shelf Expiration Date Model / Serial / Lot Screw 3.5mm 6mm 36mm 2.5mm Ft Slf-Tap Explanted:Qty: 1 on 07/31/2021 by Wu Vazquez MD at [facility] Right: Leg Synthes Usa 204.836 / / Procedures Procedure Name Priority Date/Time Associated Diagnosis Comments C-REACTIVE PROTEIN JOSE L 06/02/2024 9: 54 AM WEB MASTER ERYTHROCYTE SEDIMENTATION RATE STAT 06/02/2024 9:54 AM WEB MASTER CBC W AUTO DIFFERENTIAL STAT 06/02/2024 9:54 AM WEB MASTER COMPREHENSIVE METABOLIC PANEL STAT 06/02/2024 9:54 AM WEB MASTER XR KNEE RIGHT 3VW STAT 06/02/2024 7:5 7 AM WEB MASTER Chronic pain of right knee from Last 3 Months Results * C-REACTIVE PROTEIN (06/02/2024 9:54 AM WEB MASTER) Pathologist [facility] C-Reactive Protein <0.5 <=0.5 mg/dL 06/02/2024 10:30 AM WEB MASTER [facility] Blood BLOOD SPECIMEN / Unknown Venipuncture / Unknown 06/02/2024 9:54 AM WEB MASTER 06/02/2024 10:01 AM WEB MASTER Jefe Parish MD LAB - CHEMISTR Y ORDERABLES [address] [address], [facility] [phone] * ERYTHROCYTE SEDIMENTATION RATE (06/02/2024 9:54 AM WEB MASTER) Pathologist [facility] Erythrocyte Sedimentation Rate Westergren 5 0 - 30 MM/HR 06/02/2024 10:22 AM WEB MASTER [facility] Blood BLOOD SPECIMEN / Unknown Venipuncture / Unknown 06/02/2024 9:54 AM WEB MASTER 06/02/2024 10:01 AM WEB MASTER Jefe Parish MD LAB - HEMATOLO GY ORDERABLES [facility] [address] [place] [address], [facility] [phone] * CBC W AUTO DIFFERENTIAL (06/02/2024 9:54 AM [facility]) WBC 8.6 4.0 - 10.7 x10E9/L 06/02/2024 10:09 AM [facility] RBC Count 4.72 3.90 - 5.20 x10E12/L 06/02/2024 10:09 AM [facility] Hemoglobin 14.9 11.9 - 15.8 g/dL 06/02/2024 10:09 AM [facility] Hematocrit 43.1 34.8 - 46.1 % 06/02/2024 10:09 AM [facility] MCV 91.3 80.0 - 98.0 fL 06/02/2024 10:09 AM [facility] MCH 31.6 26.7 - 33.6 pg 06/02/2024 10:09 AM [facility] MCHC 34.6 31.7 - 36.3 g/dL 06/02/2024 10:09 AM [facility] RDW-CV 12.8 11.3 - 14.8 % 06/02/2024 10:09 AM [facility] Platelet Count 258 150 - 420 x10E9/L 06/02/2024 10:09 AM [facility] MPV 11.4 7.8 - 11.4 fL 06/02/2024 10:09 AM [facility] Neutrophil % 67.1 41.0 - 74.0 % 06/02/2024 10:09 AM [facility] Lymphocyte % 25.2 17.0 - 47.0 % 06/02/2024 10:09 AM [facility] Monocyte % 5.8 3.0 - 11.0 % 06/02/2024 10:09 AM [facility] Eosinophil % 1.2 0.0 - 7.0 % 06/02/2024 10:09 AM [facility] Basophil % 0.5 0.0 - 1.6 % 06/02/2024 10:09 AM [facility] Immature Granulocytes % 0.2 0.0 - 1.0 % 06/02/2024 10:09 AM [facility] Neutrophil Absolute 5.77 1.60 - 7.50 x10E9/L 06/02/2024 10:09 AM [facility] Lymphocyte Absolute 2.17 1.00 - 4.40 x10E9/L 06/02/2024 10:09 AM [facility] Monocyte Absolute 0.50 0.15 - 1.00 x10E9/L 06/02/2024 10:09 AM [facility] Eosinophil Absolute 0.10 0.00 - 0.60 x10E9/L 06/02/2024 10:09 AM [facility] Basophil Absolute 0.04 0.00 - 0.13 x10E9/L 06/02/2024 10:09 AM [facility] Blood BLOOD SPECIMEN / Unknown Venipuncture / Unknown 06/02/2024 9:54 AM [facility] 06/02/2024 10:01 AM [facility] Jefe Parish MD LAB - HEMATOLO GY ORDERABLES Performing Organization Address [facility]/State/[facility] Co de Phone Number [facility] [address] [place] [phone] [phone] * (ABNORMAL) COMPREHENSIVE METABOLIC PANEL (06/02/2024 9:54 AM [facility]) BUN 20 7 - 26 mg/dL 06/02/2024 10:27 AM [facility] Creatinine 1.08(H) 0.56 - 0.96 mg/dL 06/02/2024 10:27 AM [facility] Sodium 138 136 - 145 mmol/L 06/02/2024 10:27 AM [facility] Potassium 4.2 3.5 - 4.5 mmol/L 06/02/2024 10:27 AM [facility] Chloride 105 98 - 107 mmol/L 06/02/2024 10:27 AM [facility] CO2 21(L) 22 - 29 mmol/L 06/02/2024 10:27 AM [facility] Glucose 170(H) 70 - 99 mg/dL 06/02/2024 10:27 AM [facility] Calcium 9.4 8.4 - 10.2 mg/dL 06/02/2024 10:27 AM [facility] Protein Total 7.8 6.0 - 8.3 g/dL 06/02/2024 10:27 AM [facility] Albumin 4.4 3.4 - 5.0 g/dL 06/02/2024 10:27 AM [facility] Bilirubin Total 1.6(H) 0.2 - 1.2 mg/dL 06/02/2024 10:27 AM [facility] Alkaline Phosphatase 63 40 - 150 U/L 06/02/2024 10:27 AM [facility] ALT 21 5 - 55 U/L 06/02/2024 10:27 AM [facility] AST 24 5 - 34 U/L 06/02/2024 10:27 AM [facility] Anion Gap 12 6 - 16 06/02/2024 10:27 AM [facility] BUN/Creatinine Ratio 19 7 - 23 06/02/2024 10:27 AM [facility] Osmolality Calculated 293 275 - 295 mOsm/kg 06/02/2024 10:27 AM [facility] Albumin/Globulin Ratio 1.3 1.1 - 2.3 06/02/2024 10:27 AM [facility] eGFR by CKD-EPI 55(L) >=90 mL/min/1.7 3 m2 06/02/2024 10:27 AM [facility] Blood BLOOD SPECIMEN / Unknown Venipuncture / Unknown 06/02/2024 9:54 AM [facility] 06/02/2024 10:01 AM [facility] Jefe Parihs MD LAB - CHEMISTR Y ORDERABLES [facility] [address] [place] [address], [facility] [phone] * XR Knee Right 3Vw (06/02/2024 7:57 AM WEB MASTER) Anatomical Region Laterality Modality Lower Extremity Digital Radiogra phy 06/02/2024 7:59 AM WEB MASTER Impressions 06/02/2024 8:39 AM WEB MASTER IMPRESSION: No acute fracture or dislocation identified; Healed internally fixed distal femoral fracture and patellar fracture. Hardware appears intact without evidence of loosening. Patellofemoral arthritis. This preliminary report was dictated by Joel Cross MD (DR/IR Resident). IEmperatriz MD have personally reviewed and interpreted this examination/study. 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
--- OUTSIDE RECORDS SUMMARY | 2024-06-24 12:49 | XMS_ITS | Referral Summary ---
Author Organization [facility] Address [address] [place] [address] Care Team Providers Care Quill Picking Machine Operator Name Role Phone Travis Pizano MD Primary Care Provider [phone] Source Comments [facility],non-owned Affiliates and Associated Physician Practices is amultiple site organization consisting of ambulatory clinics and hospital sitesin [place], [place], [place] and [place]. This disclosure is being madepursuant to the Care Everywhere program and may not contain all information available regarding this patient. Last updated 18.[facility] Encounters Date Type Department Care Team Description 06/02/2024 Travel 06/02/2024 12:42 PM EMBROIDERY PATTERNMAKER - 06/02/2024 2:11 PM [facility] Emergency [facility] EMERGENCY [facility] [address] [place] [address] Usama Marcelo DO Patellofemoral arthritis (Primary Dx); [...] Comments Blood Pressure 168/83 06/02/2024 7:07 AM EMBROIDERY PATTERNMAKER Pulse 113 06/02/2024 7:07 AM EMBROIDERY PATTERNMAKER Temperature 36.6 C (97.8 F) 06/02/2024 7:07 AM EMBROIDERY PATTERNMAKER Respiratory Rate 12 06/02/2024 7:07 AM EMBROIDERY PATTERNMAKER Oxygen Saturation 99% 06/02/2024 7:07 AM EMBROIDERY PATTERNMAKER Inhaled Oxygen Concentration 45% 08/01/2021 6 :00 AM CDT Weight 88 kg (194 lb) 06/02/2024 7:07 AM EMBROIDERY PATTERNMAKER Height 162.6 cm (5' 4 ) 06/02/2024 7:07 AM EMBROIDERY PATTERNMAKER Body Mass Index 33.3 06/02/2024 7:07 AM EMBROIDERY PATTERNMAKER Functional Status Functional Status Response Date of [...] on file Medical Devices Implanted Type Area Shanker Out Device Identifier Shelf Expiration Date Model / Serial / Lot Graft Bone Accell Evo3 Dbm 10ml Ptty - [id number] Implanted:Qty: 1 on 07/31/2021 by Wu Vazquez MD at [facility] Right: Leg Integra [employer] 07/08/2022 02-5000-100 / [id number] / [id number] Rfn - Advanced System - Locking Attachment Washer (Law) - 10 Degree - Right Implanted:Qty: 1 on 07/31/2021 by Wu Vazquez MD at [facility] Right: Leg 02.233.104S / / Optilink 5.0mm Va Locking Screw - 60mm Implanted:Qty: 1 on 07/31/2021 by Wu Vazquez MD at [facility] Right: Leg 42.231.260 / / Optilink 5.0mm Va Locking Screw - 80mm Implanted:Qty: 1 on 07/31/2021 by Wu Vazquez MD at [facility] Right: Leg 42.231.280 / / Screw 4.5mm 8mm 76mm Cortx Slf-Tap Lg Implanted:Qty: 1 on 07/31/2021 by Wu Vazquez MD at [facility] Right: Leg Synthes Usa 214.876 / / Graft Bone Canc 60ml Frzdr Chp 4-9.5mm Implanted:Qty: 1 on 07/31/2021 by Wu Vazquez MD at [facility] Right: Leg Allosource 09/14/2025 [id number] / / Description:ID: [id number] Rfna / 11mm/ 360mm - 5 Degree Bend Implanted:Qty: 1 on 07/31/2021 by Wu Vazquez MD at [facility] Right: Femur 04/09/2026 04.233.136S / / [id number] Screw 5mm 4.3mm 72mm T25 Ft Slf-Tap Lck Implanted:Qty: 1 on 07/31/2021 by Wu Vazquez MD at [facility] Right: Leg [employer]sa 04.005.562S / / Screw 5mm 4.3mm 68mm T25 Ft Slf-Tap Lck Implanted:Qty: 1 on 07/31/2021 by Wu Vazquez MD at [facility] Right: Leg [employer]sa 04.005.558S / / Screw 5mm 4.3mm 40mm T25 Ft Slf-Tap Lck Implanted:Qty: 1 on 07/31/2021 by Wu Vazquez MD at [facility] Right: Leg [employer]sa 04.005.530S / / Screw 3.5mm 6mm 34mm 2.5mm Ft Slf-Tap Implanted:Qty: 1 on 07/31/2021 by Wu Vazquez MD at [facility] Right: Leg [employer]sa 204.834 / / Screw 3.5mm 6mm 32mm 2.5mm Ft Slf-Tap Implanted:Qty: 1 on 07/31/2021 by Wu Vazquez MD at [facility] Right: Leg [employer]sa 204.832 / / Explanted Type Area Shanker Out Device Identifier Shelf Expiration Date Model / Serial / Lot Screw 3.5mm 6mm 36mm 2.5mm Ft Slf-Tap Explanted:Qty: 1 on 07/31/2021 by Wu Vazquez MD at [facility] Right: Leg [employer] Usa 204.836 / / Procedures Procedure Name Priority Date/Time Associated Diagnosis Comments C-REACTIVE PROTEIN JOSE L 06/02/2024 9: 54 AM EMBROIDERY PATTERNMAKER ERYTHROCYTE SEDIMENTATION RATE STAT 06/02/2024 9:54 AM EMBROIDERY PATTERNMAKER CBC W AUTO DIFFERENTIAL STAT 06/02/2024 9:54 AM EMBROIDERY PATTERNMAKER COMPREHENSIVE METABOLIC PANEL STAT 06/02/2024 9:54 AM EMBROIDERY PATTERNMAKER XR KNEE RIGHT 3VW STAT 06/02/2024 7:5 7 AM EMBROIDERY PATTERNMAKER Chronic pain of right knee from Last 3 Months Results * C-REACTIVE PROTEIN (06/02/2024 9:54 AM EMBROIDERY PATTERNMAKER) C-Reactive Protein <0.5 <=0.5 mg/dL 06/02/2024 10:30 AM [facility] Blood BLOOD SPECIMEN / Unknown Venipuncture / Unknown 06/02/2024 9:54 AM EMBROIDERY PATTERNMAKER 06/02/2024 10:01 AM EMBROIDERY PATTERNMAKER Jefe Parish MD LAB - CHEMISTR Y ORDERABLES [address] [address], [facility] [phone] * ERYTHROCYTE SEDIMENTATION RATE (06/02/2024 9:54 AM EMBROIDERY PATTERNMAKER) Erythrocyte Sedimentation Rate Westergren 5 0 - 30 MM/HR 06/02/2024 10:22 AM [facility] Blood BLOOD SPECIMEN / Unknown Venipuncture / Unknown 06/02/2024 9:54 AM EMBROIDERY PATTERNMAKER 06/02/2024 10:01 AM EMBROID[facility] PATTERNMAKER Jefe Parish MD LAB - HEMATOLO GY ORDERABLES [address] [address], [facility] [phone] * CBC W AUTO DIFFERENTIAL (06/02/2024 9:54 AM EMBROIDERY PATTERNMAKER) WBC 8.6 4.0 - 10.7 x10E9/L 06/02/2024 10:09 AM [facility] RBC Count 4.72 3.90 - 5.20 x10E12/L 06/02/2024 10:09 AM [facility] Hemoglobin 14.9 11.9 - 15.8 g/dL 06/02/2024 10:09 AM [facility] Hematocrit 43.1 34.8 - 46.1 % 06/02/2024 10:09 AM [facility] MCV 91.3 80.0 - 98.0 fL 06/02/2024 10:09 AM [facility] MCH 31.6 26.7 - 33.6 pg 06/02/2024 10:09 AM [facility] MCHC 34.6 31.7 - 36.3 g/dL 06/02/2024 10:09 AM [facility] RDW-CV 12.8 11.3 - 14.8 % 06/02/2024 10:09 AM [facility] Platelet Count 258 150 - 420 x10E9/L 06/02/2024 10:09 AM [facility] MPV 11.4 7.8 - 11.4 fL 06/02/2024 10:09 AM [facility] Neutrophil % 67.1 41.0 - 74.0 % 06/02/2024 10:09 AM [facility] Lymphocyte % 25.2 17.0 - 47.0 % 06/02/2024 10:09 AM [facility] Monocyte % 5.8 3.0 - 11.0 % 06/02/2024 10:09 AM [facility] Eosinophil % 1.2 0.0 - 7.0 % 06/02/2024 10:09 AM [facility] Basophil % 0.5 0.0 - 1.6 % 06/02/2024 10:09 AM [facility] Immature Granulocytes % 0.2 0.0 - 1.0 % 06/02/2024 10:09 AM [facility] Neutrophil Absolute 5.77 1.60 - 7.50 x10E9/L 06/02/2024 10:09 AM [facility] Lymphocyte Absolute 2.17 1.00 - 4.40 x10E9/L 06/02/2024 10:09 AM [facility] Monocyte Absolute 0.50 0.15 - 1.00 x10E9/L 06/02/2024 10:09 AM [facility] Eosinophil Absolute 0.10 0.00 - 0.60 x10E9/L 06/02/2024 10:09 AM [facility] Basophil Absolute 0.04 0.00 - 0.13 x10E9/L 06/02/2024 10:09 AM [facility] Blood BLOOD SPECIMEN / Unknown Venipuncture / Unknown 06/02/2024 9:54 AM EMBROIDERY PATTERNMAKER 06/02/2024 10:01 AM [facility] Jefe Parish MD LAB - HEMATOLO GY ORDERABLES [facility] [address] [place] [address], [facility] [phone] * (ABNORMAL) COMPREHENSIVE METABOLIC PANEL (06/02/2024 9:54 AM [facility]) BUN 20 7 - 26 mg/dL 06/02/2024 10:27 AM [facility] Creatinine 1.08(H) 0.56 - 0.96 mg/dL 06/02/2024 10:27 AM [facility] Sodium 138 136 - 145 mmol/L 06/02/2024 10:27 AM [facility] Potassium 4.2 3.5 - 4.5 mmol/L 06/02/2024 10:27 AM [facility] Chloride 105 98 - 107 mmol/L 06/02/2024 10:27 AM [facility] CO2 21(L) 22 - 29 mmol/L 06/02/2024 10:27 AM [facility] Glucose 170(H) 70 - 99 mg/dL 06/02/2024 10:27 AM [facility] Calcium 9.4 8.4 - 10.2 mg/dL 06/02/2024 10:27 AM [facility] Protein Total 7.8 6.0 - 8.3 g/dL 06/02/2024 10:27 AM [facility] Albumin 4.4 3.4 - 5.0 g/dL 06/02/2024 10:27 AM [facility] Bilirubin Total 1.6(H) 0.2 - 1.2 mg/dL 06/02/2024 10:27 AM [facility] Alkaline Phosphatase 63 40 - 150 U/L 06/02/2024 10:27 AM [facility] ALT 21 5 - 55 U/L 06/02/2024 10:27 AM [facility] AST 24 5 - 34 U/L 06/02/2024 10:27 AM [facility] Anion Gap 12 6 - 16 06/02/2024 10:27 AM [facility] BUN/Creatinine Ratio 19 7 - 23 06/02/2024 10:27 AM [facility] Osmolality Calculated 293 275 - 295 mOsm/kg 06/02/2024 10:27 AM [facility] Albumin/Globulin Ratio 1.3 1.1 - 2.3 06/02/2024 10:27 AM [facility] eGFR by CKD-EPI 55(L) >=90 mL/min/1.7 3 m2 06/02/2024 10:27 AM [facility] Blood BLOOD SPECIMEN / Unknown Venipuncture / Unknown 06/02/2024 9:54 AM EMBROIDERY PATTERNMAKER 06/02/2024 10:01 AM EMBR[facility] PATTERNMAKER Jefe Parish MD LAB - CHEMISTR Y ORDERABLES [facility] [address] [place] [address], [facility] [phone] * XR Knee Right 3Vw (06/02/2024 7:57 AM EMBROIDERY PATTERNMAKER) Anatomical Region Laterality Modality Lower Extremity Digital Radiogra phy 06/02/2024 7:59 AM EMBROIDERY PATTERNMAKER Impressions 06/02/2024 8:39 AM EMBROIDERY PATTERNMAKER IMPRESSION: No acute fracture or dislocation identified; Healed internally fixed distal femoral fracture and patellar fracture. Hardware appears intact without evidence of loosening. Patellofemoral arthritis. This preliminary report was dictated by Joel Cross MD (DR/IR Resident). I, Emperatriz Bean MD have personally reviewed and interpreted this examination/study. 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
--- OUTSIDE RECORDS SUMMARY | 2024-06-24 12:49 | XMS_ITS | Patient Health Summary ---
Author Organization [facility] Address [address] [place] [address] Care Team Providers Care Dress Cutter Name Role Phone Travis Pizano MD Primary Care Provider [phone] Note from [facility],non-owned Affiliates and Associated Physician Practices is amultiple site organization consisting of ambulatory clinics and hospital sitesin [place], [place], [place] and [place]. This disclosure is being madepursuant to the Care Everywhere program and may not contain all information available regarding this patient. Last updated 18.[facility] Allergies * Sulfa Drugs(Urticaria) -Medium Criticality Medications [...] (one) tablet by mouth once daily * diclofenac sodium (Voltaren) 1 % gel(Started [...] 4 Grams (4000 mg) / 24 hours. Ended Medications* naproxen (Naprosyn) 500 MG tablet(Started 06/02/2024)() Take 1 (one) tablet by mouth 2 times daily for 14 days Reasons: Joint Damage causing Pain and Loss of Function Active Problems Problem Noted Date Diagnosed Date [...] Comments Blood Pressure 168/83 06/02/2024 7:07 AM RECRUITING OPERATIONS CONSULTANT Pulse 113 06/02/2024 7:07 AM RECRUITING OPERATIONS CONSULTANT Temperature 36.6 C (97.8 F) 06/02/2024 7:07 AM RECRUITING OPERATIONS CONSULTANT Respiratory Rate 12 06/02/2024 7:07 AM RECRUITING OPERATIONS CONSULTANT Oxygen Saturation 99% 06/02/2024 7:07 AM RECRUITING OPERATIONS CONSULTANT Inhaled Oxygen Concentration 45% 08/01/2021 6 :00 AM CDT Weight 88 kg (194 lb) 06/02/2024 7:07 AM RECRUITING OPERATIONS CONSULTANT Height 162.6 cm (5' 4 ) 06/02/2024 7:07 AM RECRUITING OPERATIONS CONSULTANT Body Mass Index 33.3 06/02/2024 7:07 AM RECRUITING OPERATIONS CONSULTANT Medical Devices Implanted Type Area Sex Worker Or Escort Device Identifier Shelf Expiration Date Model / Serial / Lot Graft Bone Accell Evo3 Dbm 10ml Ptty - [id number] Implanted:Qty: 1 on 07/31/2021 by Wu Vazquez MD at [facility] Right: Leg [employer] 07/08/2022 [id number] / [id number] / [id number] Rfn - Advanced System - Locking Attachment Washer (Law) - 10 Degree - Right Implanted:Qty: 1 on 07/31/2021 by Wu Vazquez MD at [facility] Right: Leg 02.233.104S / / Optilink 5.0mm Va Locking Screw - 60mm Implanted:Qty: 1 on 07/31/2021 by Wu Vazquez MD at [facility] Right: Leg 42.231.260 / / Optilink 5.0mm Va Locking Screw - 80mm Implanted:Qty: 1 on 07/31/2021 by Wu Vazquez MD at [facility] Right: Leg 42.231.280 / / Screw 4.5mm 8mm 76mm Cortx Slf-Tap Lg Implanted:Qty: 1 on 07/31/2021 by Wu Vazquez MD at [facility] Right: Leg Synthes Usa 214.876 / / Graft Bone Canc 60ml Frzdr Chp 4-9.5mm Implanted:Qty: 1 on 07/31/2021 by Wu Vazquez MD at [facility] Right: Leg Allosource 09/14/2025 [id number] / / Description:ID: [id number] Rfna / 11mm/ 360mm - 5 Degree Bend Implanted:Qty: 1 on 07/31/2021 by Wu Vazquez MD at [facility] Right: Femur 04/09/2026 04.233.136S / / [id number] Screw 5mm 4.3mm 72mm T25 Ft Slf-Tap Lck Implanted:Qty: 1 on 07/31/2021 by Wu Vazquez MD at [facility] Right: Leg [employer]sa 04.005.562S / / Screw 5mm 4.3mm 68mm T25 Ft Slf-Tap Lck Implanted:Qty: 1 on 07/31/2021 by Wu Vazquez MD at [facility] Right: Leg [employer]sa 04.005.558S / / Screw 5mm 4.3mm 40mm T25 Ft Slf-Tap Lck Implanted:Qty: 1 on 07/31/2021 by Wu Vazquez MD at [facility] Right: Leg [employer]sa 04.005.530S / / Screw 3.5mm 6mm 34mm 2.5mm Ft Slf-Tap Implanted:Qty: 1 on 07/31/2021 by Wu Vazquez MD at [facility] Right: Leg [employer] 204.834 / / Screw 3.5mm 6mm 32mm 2.5mm Ft Slf-Tap Implanted:Qty: 1 on 07/31/2021 by Wu Vazquez MD at [facility] Right: Leg [employer] 204.832 / / Explanted Type Area Sex Worker Or Escort Device Identifier Shelf Expiration Date Model / Serial / Lot Screw 3.5mm 6mm 36mm 2.5mm Ft Slf-Tap Explanted:Qty: 1 on 07/31/2021 by Wu Vazquez MD at [facility] Right: Leg Synthes [facility] 204.836 / / Procedures * C-REACTIVE PROTEIN(Performed 06/02/2024) * ERYTHROCYTE SEDIMENTATION RATE(Performed 06/02/2024) * CBC W AUTO DIFFERENTIAL(Performed 06/02/2024) * COMPREHENSIVE METABOLIC PANEL(Performed 06/02/2024) * XR KNEE RIGHT 3VW(Performed 06/02/2024) Performed for Chronic pain of right knee * CARDIAC RHYTHM STRIP ORDER(Performed 02/20/2022) * KS KNEE SCOPE,LYSIS OF ADHESNS(Performed 02/18/2022) Performed for M24.661 * XR FEMUR RIGHT 2VW(Performed 01/23/2022) Performed for Closed fracture of distal end of right femur with routine healing, unspecified fracture morphology, subsequent encounter * FL ARMANDO SURGERY(Performed 12/25/2021) Performed for Closed fracture of distal end of right femur with routine healing, unspecified fracture morphology, subsequent encounter * KS MANIPULATN KNEE JT+ANESTHESIA(Performed 12/25/2021) Performed for Closed [...] unspecified fracture morphology, initial encounter ([facility]) * XR SHOULDER RIGHT 2VW OR [...] unspecified fracture morphology, initial encounter ([facility]) * CARDIAC EKG ORDER(Performed 08/07/2021) * [...] unspecified fracture morphology, initial encounter ([facility]) * PREPARE RBC LEUKOREDUCED UNIT(Performed 08/01/2021) [...] unspecified fracture morphology, initial encounter ([facility]) * FL ARMANDO SURGERY(Performed 07/31/2021) Performed for Closed fracture of distal end of right femur, unspecified fracture morphology, initial encounter ([facility]) * KS OPEN RX PATELLA FX(Performed 07/31/2021) Performed for Closed displaced fracture of right patella, unspecified fracture morphology, initial encounter, Closed fracture of right femur, unspecified fracture morphology, unspecified portion of femur, initial encounter ([facility]) * OPEN REDUCTION INTERNAL FIXATION (ORIF) FEMUR(Performed 07/31/2021) Performed for Closed displaced fracture of right patella, unspecified fracture morphology, initial encounter, Closed fracture of right femur, unspecified fracture morphology, unspecified portion of femur, initial encounter ([facility]) * ENDOTRACHEAL TUBE NOTE(Performed 07/31/2021) * [...] unspecified fracture morphology, initial encounter ([facility]) * CT KNEE RIGHT WO CONTRAST(Performed [...] Results * C-REACTIVE PROTEIN (06/02/2024 9:54 AM RECRUITING OPERATIONS CONSULTANT) C-Reactive Protein <0.5 <=0.5 mg/dL 06/02/2024 10:30 AM RECRUITING OPERATIONS CONSULTANT [facility] Blood BLOOD SPECIMEN / Unknown Venipuncture / Unknown 06/02/2024 9:54 AM RECRUITING OPERATIONS CONSULTANT 06/02/2024 10:01 AM RECRUITING OPERATIONS CONSULTANT Jefe Parish MD LAB - CHEMISTR Y ORDERABLES [facility] [address] [address], [facility] [phone] * ERYTHROCYTE SEDIMENTATION RATE (06/02/2024 9:54 AM RECRUITING OPERATIONS CONSULTANT) Erythrocyte Sedimentation Rate Westergren 5 0 - 30 MM/HR 06/02/2024 10:22 AM RECRUITING OPERATIONS CONSULTANT [facility] Blood BLOOD SPECIMEN / Unknown Venipuncture / Unknown 06/02/2024 9:54 AM RECRUITING OPERATIONS CONSULTANT 06/02/2024 10:01 AM RECRUITING OPERATIONS CONSULTANT Jefe Parish MD LAB - HEMATOLO GY ORDERABLES [facility] [address] [place] [address], [facility] [phone] * CBC W AUTO DIFFERENTIAL (06/02/2024 9:54 AM [facility]) Only the most recent of5 resultswithin the time period is included. WBC 8.6 4.0 - 10.7 x10E9/L 06/02/2024 10:09 AM [facility] RBC Count 4.72 3.90 - 5.20 x10E12/L 06/02/2024 10:09 AM [facility] Hemoglobin 14.9 11.9 - 15.8 g/dL 06/02/2024 10:09 AM [facility] Hematocrit 43.1 34.8 - 46.1 % 06/02/2024 10:09 AM [facility] MCV 91.3 80.0 - 98.0 fL 06/02/2024 10:09 AM [facility] MCH 31.6 26.7 - 33.6 pg 06/02/2024 10:09 AM [facility] MCHC 34.6 31.7 - 36.3 g/dL 06/02/2024 10:09 AM [facility] RDW-CV 12.8 11.3 - 14.8 % 06/02/2024 10:09 AM [facility] Platelet Count 258 150 - 420 x10E9/L 06/02/2024 10:09 AM [facility] MPV 11.4 7.8 - 11.4 fL 06/02/2024 10:09 AM [facility] Neutrophil % 67.1 41.0 - 74.0 % 06/02/2024 10:09 AM [facility] Lymphocyte % 25.2 17.0 - 47.0 % 06/02/2024 10:09 AM [facility] Monocyte % 5.8 3.0 - 11.0 % 06/02/2024 10:09 AM [facility] Eosinophil % 1.2 0.0 - 7.0 % 06/02/2024 10:09 AM [facility] Basophil % 0.5 0.0 - 1.6 % 06/02/2024 10:09 AM [facility] Immature Granulocytes % 0.2 0.0 - 1.0 % 06/02/2024 10:09 AM [facility] Neutrophil Absolute 5.77 1.60 - 7.50 x10E9/L 06/02/2024 10:09 AM [facility] Lymphocyte Absolute 2.17 1.00 - 4.40 x10E9/L 06/02/2024 10:09 AM [facility] Monocyte Absolute 0.50 0.15 - 1.00 x10E9/L 06/02/2024 10:09 AM [facility] Eosinophil Absolute 0.10 0.00 - 0.60 x10E9/L 06/02/2024 10:09 AM [facility] Basophil Absolute 0.04 0.00 - 0.13 x10E9/L 06/02/2024 10:09 AM [facility] Blood BLOOD SPECIMEN / Unknown Venipuncture / Unknown 06/02/2024 9:54 AM [facility] 06/02/2024 10:01 AM [facility] Jefe Parish MD LAB - HEMATOLO GY ORDERABLES [facility] [address] [place] [address], [facility] [phone] * (ABNORMAL) COMPREHENSIVE METABOLIC PANEL (06/02/2024 9:54 AM [facility]) Only the most recent of3 resultswithin the time period is included. BUN 20 7 - 26 mg/dL 06/02/2024 10:27 AM [facility] Creatinine 1.08(H) 0.56 - 0.96 mg/dL 06/02/2024 10:27 AM [facility] Sodium 138 136 - 145 mmol/L 06/02/2024 10:27 AM [facility] Potassium 4.2 3.5 - 4.5 mmol/L 06/02/2024 10:27 AM [facility] Chloride 105 98 - 107 mmol/L 06/02/2024 10:27 AM [facility] CO2 21(L) 22 - 29 mmol/L 06/02/2024 10:27 AM [facility] Glucose 170(H) 70 - 99 mg/dL 06/02/2024 10:27 AM [facility] Calcium 9.4 8.4 - 10.2 mg/dL 06/02/2024 10:27 AM [facility] Protein Total 7.8 6.0 - 8.3 g/dL 06/02/2024 10:27 AM [facility] Albumin 4.4 3.4 - 5.0 g/dL 06/02/2024 10:27 AM [facility] Bilirubin Total 1.6(H) 0.2 - 1.2 mg/dL 06/02/2024 10:27 AM [facility] Alkaline Phosphatase 63 40 - 150 U/L 06/02/2024 10:27 AM [facility] ALT 21 5 - 55 U/L 06/02/2024 10:27 AM [facility] AST 24 5 - 34 U/L 06/02/2024 10:27 AM [facility] Anion Gap 12 6 - 16 06/02/2024 10:27 AM [facility] BUN/Creatinine Ratio 19 7 - 23 06/02/2024 10:27 AM [facility] Osmolality Calculated 293 275 - 295 mOsm/kg 06/02/2024 10:27 AM [facility] Albumin/Globulin Ratio 1.3 1.1 - 2.3 06/02/2024 10:27 AM [facility] eGFR by CKD-EPI 55(L) >=90 mL/min/1.7 3 m2 06/02/2024 10:27 AM [facility] Blood BLOOD SPECIMEN / Unknown Venipuncture / Unknown 06/02/2024 9:54 AM RECRUITING OPERATIONS CONSULTANT 06/02/2024 10:01 AM [facility] Jefe Parish MD LAB - CHEMISTR Y ORDERABLES [facility] [address] [place] [address], [facility] [phone] * XR Knee Right 3Vw (06/02/2024 7:57 AM [facility]) Only the most recent of3 resultswithin the time period is included. Anatomical Region Laterality Modality Lower Extremity Digital Radiogra phy 06/02/2024 7:59 AM RECRUITING OPERATIONS CONSULTANT Impressions 06/02/2024 8:39 AM RECRUITING OPERATIONS CONSULTANT IMPRESSION: No acute fracture or dislocation identified; Healed internally fixed distal femoral fracture and patellar fracture. Hardware appears intact without evidence of loosening. Patellofemoral arthritis. This preliminary report was dictated by Joel Cross MD (DR/IR Resident). IEmperatriz MD have personally reviewed and interpreted this examination/study. > Interpreting Provider: Emperatriz Bean MD on 06/02/2024 8:39 AM Narrative 06/02/2024 8:39 AM RECRUITING OPERATIONS CONSULTANT PROCEDURE: XR KNEE RIGHT 3VW, DATE/TIME OF EXAM: 06/02/2024 7:57 AM, LOCATION [facility] INDICATION: M25.561: Chronic pain of right [...] DATE/TIME OF EXAM: 06/02/2024 7:57 AM, LOCATION [facility] INDICATION: M25.561: Chronic pain of right [...] alignment. Report dictated by Ade Rich MD (vice president [employer]). Sebastian Cruz MD have personally reviewed and interpreted this examination/study. > Interpreting Provider: Sebastian Montalvo MD on 01/23/2022 9:44 AM Narrative 01/23/2022 9:44 AM CDT PROCEDURE: XR FEMUR RIGHT 2VW, DATE/TIME OF EXAM: 01/23/2022 9:14 AM, LOCATION [facility] INDICATION: S72.401D: Closed fracture of distal end [...] DATE/TIME OF EXAM: 01/23/2022 9:14 AM, LOCATION [facility] INDICATION: S72.401D: Closed fracture of distal end [...] alignment. Report dictated by Ade Rich MD (vice president [employer]). I, Sebastian Montalvo MD have personally reviewed and interpreted this examination/study. > Interpreting Provider: Sebastian Montalvo MD on 29:44 AM Wu Vazquze MD DIAGNOSTIC IMAGING ORDERABLES * FL ARMANDO SURGERY (12/25/2021 9:53 AM CDT) Only the most recent of2 resultswithin the time period is included. Narrative [facility] - 12/25/2021 9:55 AM CDT Fluoroscopy was used for this exam in the OR. Please see the Operative report. Wu Vazquez MD FLUOROSCOPY ORDERAB LES [facility] * BASIC METABOLIC PANEL (CALCIUM TOTAL) (12/20/2021 1:30 PM CDT) Only the most recent of5 resultswithin the time period is included. BUN 16 7 - 26 mg/dL 12/20/2021 2:05 PM [facility] Creatinine 0.69 0.56 - 0.96 mg/dL 12/20/2021 2:05 PM [facility] Sodium 139 136 - 145 mmol/L 12/20/2021 2:05 PM [facility] Potassium 4.3 3.5 - 4.5 mmol/L 12/20/2021 2:05 PM [facility] Chloride 100 98 - 107 mmol/L 12/20/2021 2:05 PM [facility] CO2 27 22 - 29 mmol/L 12/20/2021 2:05 PM [facility] Glucose 109 70 - 115 mg/dL 12/20/2021 2:05 PM [facility] Calcium 10.0 8.4 - 10.2 mg/dL 12/20/2021 2:05 PM [facility] Anion Gap 16 8 - 18 12/20/2021 2:05 PM [facility] BUN/Creatinine Ratio 23 7 - 23 12/20/2021 2:05 PM [facility] Osmolality Calculated 290 270 - 300 mOsm/kg 12/20/2021 2:05 PM [facility] eGFR by CKD-EPI >90 >=90 mL/min/1.7 3 m2 12/20/2021 2:05 PM [facility] Blood BLOOD SPECIMEN / Unknown Lab Venipuncture / Unknown 12/20/2021 1:30 PM CDT 12/20/2021 1:41 PM CDT Apurva Rojas BEHAVIORAL INTERVENTION SPECIALIST-IT BUSINESS ANALYST LAB - [facility] ORDERABLES [facility] [address] [place] [address], [facility] [phone] * CT KNEE RIGHT WO CONTRAST (12/12/2021 6:44 AM CDT) Only the most recent of2 resultswithin the time period is included. Anatomical Region Laterality Modality Lower Extremity Computed Tomogra phy 12/12/2021 6:47 AM CDT Impressions 12/12/2021 7:39 AM CDT IMPRESSION: Internally fixated distal femoral fracture and patellar fracture with evidence of healing. The hardware is intact. The osseous alignment is grossly unchanged. > Dictated by Desi Jones MD (vice president [employer]). IRa MD have personally reviewed and interpreted [...] unchanged. > Dictated by Desi Jones MD (vice president [employer]). IRa MD have personally reviewed and interpreted [...] humeral fracture. Dictated by Marquis Bernstein DO (vice president [employer]). Dr. EMPERATRIZ Cruz M.D. have personally reviewed and interpreted this examination/study. This report was electronically signed by EMPERATRIZ BEAN M.D. on 12/05/2021 3:21 PM . Narrative 12/05/2021 3:21 [...] humeral fracture. Dictated by Marquis Bernstein DO (vice president [employer]). I, Dr. EMPERATRIZ BEAN M.D. have personally reviewed and interpreted this examination/study. This report was electronically signed by EMPEARTRIZ BEAN M.D. on 12/05/2021 3:21 PM . Wu Vazquez MD DIAGNOSTIC IMAGING ORDERABLES * CARDIAC EKG ORDER (08/07/2021 11:37 AM CDT) Only the most recent of2 resultswithin the time period is included. Narrative 08/07/2021 11:37 AM CDT Ordered by an unspecified provider. Scanned Document CARDIAC SERVICES ORD ERABLES * SARS-COV-2 (COVID-19) RAPID (08/02/2021 1:21 PM CDT) COVID-19 PCR Not detected Not detected 08/03/19 22 2:17 PM CDT [facility] Microbiology SPECIMEN FROM NASOPHARYNGEAL STRUCTURE / Unknown Collection / Unknown 08/02/2021 1:21 PM CDT 08/02/2021 1:32 PM CDT Narrative [facility] - 08/02/2021 2:17 PM CDT This nucleic acid amplification assay performance was validated by [facility]. This test has been authorized by the Food and Drug administration (FDA)under an Emergency Use Authorization (EUA). This test has been validated [...] LAB - MICROBIOLOGY ORDERABLES Performing Organization Address [facility]/ZIP Co de Phone Number [facility] [address] [place] [address], [facility] [phone] * (ABNORMAL) CALCIUM IONIZED WHOLE BLOOD (08/01/2021 11:20 PM CDT) Only the most recent of2 resultswithin the time period is included. Calcium Ionized 1.03 mmol/L 08/01/2021 11:58 PM CDT [facility] pH 7.39 7.35 - 7.45 pH 08/01/2021 11:58 PM CDT [facility] Ionized Calcium pH Adjusted 1.03(L) 1.19 - 1.34 mmol/L 08/01/2021 11:58 PM CDT [facility] Blood BLOOD SPECIMEN / Unknown Venipuncture / Unknown 08/01/2021 11:20 PM CDT 08/01/2021 11:55 PM CDT Reid Anderson MD LAB - CHEMISTRY OR DERABLES Performing Organization Address [facility]/ZIP Co de Phone Number [facility] [address] [place] [phone], [facility] [phone] * (ABNORMAL) PHOSPHORUS BLOOD (08/01/2021 11:20 PM CDT) Only the most recent of5 resultswithin the time period is included. Phosphorus 2.5(L) 2.9 - 5.1 mg/dL 08/02/2021 12:24 AM CDT [facility] Blood BLOOD SPECIMEN / Unknown Venipuncture / Unknown 08/01/2021 11:20 PM CDT 08/01/2021 11:57 PM CDT Reid Anderson MD LAB - CHEMISTRY OR DERABLES [facility] [address] [place] [address], [facility] [phone] * MAGNESIUM BLOOD (08/01/2021 11:20 PM CDT) Only the most recent of4 resultswithin the time period is included. Magnesium 2.1 1.6 - 2.6 mg/dL 08/02/2021 12:24 AM CDT [facility] Blood BLOOD SPECIMEN / Unknown Venipuncture / Unknown 08/01/2021 11:20 PM CDT 08/01/2021 11:57 PM CDT Reid Anderson MD LAB - CHEMISTRY OR DERABLES Performing Organization Address [facility]/ZIP Co de Phone Number [facility] [address] [place] [address], [facility] [phone] * XR CHEST 1VW PORTABLE (08/01/2021 5:06 [...] cardiomediastinal silhouette is normal. Dictated by Tejal sEtrella MD (vice president [employer]). I, Dr. ZAFAR BOWMAN have personally reviewed and interpreted this examination/study. This report was electronically signed by ZAFAR BOWMAN on 08/01/2021 4:14 PM . Narrative 08/01/2021 4:14 PM CDT EXAMINATION: XR CHEST 1VW PORTABLE HISTORY: S72.401A: Closed fracture of distal end of right femur, unspecified fracture morphology, initial encounter COMPARISON: Comparison is made with a portable AP chest radiograph from 08/01/2019. Procedure Note Zafar Bowman DO - 08/01/2021 EXAMINATION: XR CHEST 1VW [...] is normal. Dictated by Tejal Estrella MD (vice president [employer]). I, Dr. ZAFAR BOWMAN have personally reviewed and interpreted this examination/study. This report was electronically signed by ZAFAR BOWMAN on 08/01/2021 4:14 PM . Sung Rowe PA-C DIAGNOSTIC IMAGIN G ORDERABLES * PREPARE (CROSSMATCH) RBC UNIT(S), 1 Units (08/01/2021 1:17 AM CDT) Unit Description AS1 LR PRBC [facility] Unit ABO O [facility] Unit Rh NEG [facility] Product Number R02 [facility] B LO[facility] Unit Donor # [id number] [facility] Unit Status released [facility] BL[facility] D [facility] LAB Product Code [id number] [facility] B[facility] OD BANK LAB Blood Type Barcode 9500 [facility] Expiration Date [id number] S BLOOD BANK LAB Blood Bank BLOOD SPECIMEN / Unknown 07/28/2021 8:16 PM CDT Wu Vazquez MD LAB - BLOOD BANK OR DERABLES [facility] [address] [place] [address], [place] [phone] * (ABNORMAL) BLOOD GASES ART + COOX PANEL (08/01/2021 12:22 AM CDT) Only the most recent of2 resultswithin the time period is included. pH Arterial 7.50(H) 7.35 - 7.45 pH 08/01/2021 12:35 AM [facility] pO2 Arterial 101(H) 80 - 100 mmHg 08/01/2021 12:35 AM [facility] pCO2 Arterial 30(L) 35 - 45 mmHg 12:35 AM [facility] HCO3 Arterial 23 20 - 30 mmol/l 08/01/2021 12:35 AM [facility] BE Arterial 0.4 -2.0 - 2.0 mmol/L 08/01/2021 12:35 AM [facility] Oxyhemoglobin Arterial 96.6 % 08/01/2021 12:35 AM [facility] Dexoyhemoglobin (HHB) % 0.8 % 08/01/2021 12:35 AM [facility] Methemoglobin <0.8 0.0 - 2.0 % 08/01/2021 12:35 AM [facility] Carboxyhemoglobin 1.9 0.0 - 2.0 % 2021 12:35 AM [facility] O2 Content Arterial 10.8 Interpret within clinical context mg/dL 08/01/2021 12:35 AM [facility] Hemoglobin by COOX 7.8(L) 12.0 - 15.6 g/dL 08/01/2021 12:35 AM [facility] O2 Saturation Arterial 99 90 - 100 % 08/01/2021 12:35 AM [facility] FI O2 Arterial 50.0 % 08/01/2021 12:35 AM [facility] Blood, arterial ARTERIAL BLOOD SPECIMEN / Unknown Arterial Puncture / Unknown 08/01/2021 12:22 AM [facility] 08/01/2021 12:32 AM [facility] - 08/01/2021 12:35 AM [facility] Carboxyhemoglobin Normal Concentration: Non-smokers: 0-2%; Smokers: 0-9%; Toxic: >20% Reid Anderson MD LAB - BLOOD GASES ORDERABLES [facility] [address] [place] [address], [facility] [phone] * ETT LINE PERFORMABLE (07/31/2021 12:55 PM CDT) Henrique Carla Still, - 07/31/2021 12:55 PM CDT Carla StillDO 07/31/2021 12:56 PM Endotracheal Tube Placement: Patient Location: OR. Intubation Event Date/Time: 07/31/2021 12:40 PM Procedure: intubation (23028). Procedure Section: Sedation: under general anesthesia. Indications for Airway Management: anesthesia Induction: standard IV Patient Position: supine Mask Ventilation: easy. Blade Type: Hitesh Blade [...] auscultation and CO2 monitor Tube secured with: adhesive tape. Dentition unchanged? Yes Difficult Airway? No. Procedure Start Time: 07/31/2021 12:40 PM. Staff Section Anesthesia Provider: Sandrine Vaughan Anes Asst, Performed the procedure Provider #1: María Elena Robin MD. Additional Comments: Attempt #1 by med student. Unable to achieve view. Attempt #2 by Alexus. Atraumatic intubation with lips, teeth, and tongue in pre-op condition. Eyes taped prior to airway manipulation. María Elena Robin MD GENERAL ANESTHESIA O RDERABLES * (ABNORMAL) CBC W/O DIFFERENTIAL (07/31/2021 1:45 AM CDT) Only the most recent of2 resultswithin the time period is included. WBC 8.1 3.5 - 10.5 10 3/uL 07/31/2021 2:11 AM [facility]T [facility] [facility] RBC 2.75(L) 3.80 - 5.20 10 6/uL 07/31/2021 2:11 AM CDT [facility] Hemoglobin 8.8(L) 12.0 - 15.6 g/dL 07/31/2021 2:11 AM [facility] Hematocrit 25.9(L) 35.0 - 45.0 % 07/31/2021 2:11 AM [facility] MCV 94.2 80.7 - 98.3 fL 07/31/2021 2:11 AM [facility] MCH 32.0 26.7 - 34.0 pg 07/31/2021 2:11 AM [facility] MCHC 34.0 30.8 - 35.9 g/dL 07/31/2021 2:11 AM [facility] Platelet Count 132(L) 150 - 400 10 3/uL 07/31/2021 2:11 AM [facility] RDW-SD 45.1 36.0 - 50.0 fL 07/31/2021 2:11 AM [facility] RDW-CV 13.1 11.2 - 14.8 % 07/31/2021 2:11 AM [facility] MPV 12.6 9.4 - 12.9 fL 07/31/2021 2:11 AM [facility] nRBC Absolute 0.00 0 10 3/uL 07/31/2021 2:11 AM [facility] nRBC Auto 0.0 0 /100 WBC 07/31/2021 2:11 AM [facility] Blood BLOOD SPECIMEN / Unknown Lab Venipuncture / Unknown 07/31/2021 1:45 AM CDT 07/31/2021 1:55 AM CDT Tova Wright MD LAB - HEMATOLOGY ORD ERABLES [facility] [address] [place] [address], [facility] [phone] * EKG 12-LEAD (07/29/2021 3:32 PM CDT) Only the most recent of2 resultswithin the time period is included. Ventricular Rate 92 BPM [facility] MUSE Atrial Rate 92 BPM [facility] MUSE P-R Interval 132 ms [facility] QRS Duration ms 72 ms [facility] Q-T Interval ms 354 ms [facility] QTC Calculation (Bezet) 437 ms [facility] Calculated P [place] 36 degrees [facility] Calculated R [place] 67 degrees [facility] Calculated T [place] 22 degrees [facility] Interpretation EKG NORMAL SINUS RHYTHM NONSPECIFIC T WAVE ABNORMALITY ABNORMAL ECG WHEN COMPARED WITH ECG OF 28-JUL-2021 14:21 NONSPECIFIC T WAVE ABNORMALITY IS NOW PRESENT Confirmed by Stephen Valverde ([id number]) on 07/31/2021 11:56:25 AM [facility] MUSE 07/29/2021 3:32 PM CDT 07/31/2021 11:56 AM CDT Melissa R Modesto BEHAVIORAL INTERVENTION SPECIALIST-FUR SORTER ECG ORDERABLES [facility] MUSE * XR HUMERUS RIGHT 2VW OR [...] tissue swelling. Dictated by Riley Manuel MD (vice president [employer]). I, Dr. RAJIV HALL M.D. have personally reviewed and interpreted this examination/study. This report was electronically signed by RAJIV HALL M.D. on 07/29/2021 3:48 PM . Narrative 07/29/2021 3:48 [...] tissue swelling. Dictated by Riley Manuel MD (vice president [employer]). Dr. RAJIV Cruz M.D. have personally reviewed [...] described above. Dictated by Juwan Yin MD (Director Of Development) This report was approved by Juwan Yin on 07/29/2021 8:14 PM . I, Dr. NOHEMI CRUZ have personally reviewed and interpreted this examination/study. This report was electronically signed by NOHEMI CRUZ on 07/29/2021 8:14 PM . Narrative 07/29/2021 8:14 [...] described above. Dictated by Juwan Yin MD (Director Of Development) This report was approved by Juwan Yin [...] described above. Dictated by Juwan Yin MD (Director Of Development) This report was approved by Juwan Yin on 07/29/2021 8:14 PM . I, Dr. NOHEMI CRUZ have personally reviewed and interpreted this examination/study. This report was electronically signed by NOHEMI CRUZ on 07/29/2021 8:14 PM . Narrative 07/29/2021 8:14 [...] described above. Dictated by Juwan Yin MD (Director Of Development) This report was approved by Juwan Yin on 07/29/2021 8:[address] NOHEMI Cruz have personally reviewed and interpreted this examination/study. [...] unchanged alignment. Dictated by Juwan Yin MD (vice president [employer]). IDr. EMPERATRIZ M.D. have personally reviewed and interpreted this examination/study. This report was electronically signed by EMPERATRIZ BEAN M.D. on 07/29/2021 2:57 PM . Narrative 07/29/2021 2:57 [...] unchanged alignment. Dictated by Juwan Yin MD (vice president [employer]). I, Dr. EMPERATRIZ BEAN M.D. have personally reviewed and interpreted this examination/study. This report was electronically signed by EMPERATRIZ BEAN M.D. on 07/29/2021 2:57 PM . Kevin Taylor MD DIAGNOSTIC IMAGING O RDERABLES * SARS-COV-2 (COVID-19)+INFLU A+B PCR RAPID (07/28/2021 9:03 PM CDT) COVID-19 PCR Not detected Not detected 07/29/19 9:35 PM CDT [facility] Influenza A Rapid BELLA Not Detected Not Detected 07/28/2021 9:35 PM CDT [facility] Influenza B BELLA Rapid Not Detected Not Detected 07/28/2021 9:35 PM CDT [facility] Microbiology SPECIMEN FROM NASOPHARYNGEAL STRUCTURE / Unknown Collection / Unknown 07/28/2021 9:03 PM CDT 07/28/2021 9:12 PM CDT Narrative [facility] - 07/28/2021 9:35 PM CDT Influenza assay performed by Nucleic Acid Ampl[employer]. Results do not exclude the possibility of a mixed viral infection. NOTE: Detecting and identifying specific viral nucleic acids from individuals exhibiting signs and symptoms of respiratory infection aids in the diagnosis of respiratory infection, if used in conjunction with other clinical and laboratory findings. The results of this test should not be used as the sole basis for diagnosis, treatment, or patient management decisions. This nucleic acid amplification assay performance was validated by [facility]. This test has been authorized by the Food and Drug administration (FDA)under an Emergency Use Authorization (EUA). This test has been validated [...] Kevin Taylor MD LAB - MICROBIOLOGY O [facility] Performing Organization Address City/State/[facility] Co de Phone Number [address] [phone] [phone] * XR PELVIS 1 OR 2VW (07/28/2021 8:39 PM CDT) Anatomical Region Laterality Modality Pelvis Radiographic Madelaine ging 07/28/2021 8:38 PM CDT Impressions 07/29/2021 2:50 PM CDT IMPRESSION: No acute fracture identified. Dictated by Juwan Yin MD (vice president [employer]). I, Dr. EMPERATRIZ BEAN M.D. have personally reviewed and interpreted this examination/study. This report was electronically signed by EMPERATRIZ BEAN M.D. on 07/29/2021 2:50 PM . Narrative 07/29/2021 2:50 [...] fracture identified. Dictated by Juwan Yin MD (vice president [employer]). I, Dr. EMPERATRIZ BEAN M.D. have personally reviewed and interpreted this examination/study. This report was electronically signed by EMPERATRIZ BEAN M.D. on 07/29/2021 2:50 PM . Kevni Taylor MD DIAGNOSTIC IMAGING O RDERABLES * BLOOD TYPE VERIFICATION (07/28/2021 8:22 PM CDT) ABO Rh O NEG 07/28/2021 9:1 1 PM CDT [facility] LAB Blood Bank BLOOD SPECIMEN / Unknown Venipuncture / Unknown 07/28/2021 8:22 PM CDT 07/28/2021 8:27 PM CDT Kevin Taylor MD LAB - BLOOD BANK ORD ERABLES [facility] BLOOD [facility]ANK LAB [address] [place] [address], [facility] [phone] * PTT [facility] (07/28/2021 8:05 PM CDT) APTT 24.6 23.0 - 38.4 Seconds 07/28/2021 8:28 PM CDT [facility] Comment:Suggested therapeuti c range for full dose I.V. unfractionated heparin therapy for venous thromboembolism is 71 to 109 seconds. Blood BLOOD SPECIMEN / Unknown Venipuncture / Unknown 07/28/2021 8:05 PM CDT 07/28/2021 8:11 PM CDT Kevin Taylor MD LAB - COAGULATION OR DERABLES Performing Organization Address City/[facility]/ZIP Co de Phone Number [facility] [address] [place] [address], [place] [phone] * PT-INR [facility] (07/28/2021 8:05 PM CDT) Pathologist [facility] PT 13.3 12.1 - 14.8 Seconds 07/28/2021 8:27 PM CDT [facility] INR 1.0 See Comment 07/28/2021 8:27 PM CDT [facility] Comment:The suggested therap eutic range for standard coumadin (warfarin) therapy is an INR of 2.0-3.0. For high-risk patients (Mechanical Mitral Valve Prosthesis, etc.), the suggested prophylactic therapeutic range is an INR of 2.5-3.5. Blood BLOOD SPECIMEN / Unknown Venipuncture / Unknown 07/28/2021 8:05 PM CDT 07/28/2021 8:11 PM CDT Kevin Taylor MD LAB - COAGULATION OR DERABLES Performing Organization Address [facility]/ZIP Co de Phone Number [facility] [address] [place] [address], [place] [phone] * TYPE + SCREEN PANEL (07/28/2021 8:05 PM CDT) Pathologist [facility] Antibody Screen NEG 9:06 PM CDT [facility] B[facility]OD [facility] LAB ABO Rh O NEG 07/28/2021 9:06 PM CDT [facility] B[facility] LAB Blood Bank BLOOD SPECIMEN / Unknown Venipuncture / Unknown 07/28/2021 8:05 PM CDT 07/28/2021 8:16 PM CDT Kevin Taylor MD LAB - BLOOD BANK ORD ERABLES [facility] [address] [place] [address], [place] [phone] * DERMATOPATHOLOGY (12/22/2018 12:00 AM CDT) Pathologist [facility] Case Report Dermatopathology Report Case: [id number] Authorizing Provider: Gene Love MD Collected: 12/22/2018 12:00 AM Ordering Location: [facility] DermPath Lab Received: 12/23/2018 12:54 PM Pathologist: [...] specimen consists of a shave biopsy measuring [id number]. Jar 0. 1:00 PM CDT DERMATOPATHOLOGY LABORATORY [...] purposes. Billing Codes Specimen Charges Stain Charges 30105 1 1:00 PM CDT DERMATOPATHOLOGY LABORATORY Embedded Images 1:00 PM CDT DERMATOPATHOLOGY LABORATORY Pathology/Cytolog y TISSUE SPECIMEN FROM SKIN / Unknown 12/22/2018 12/23/2018 12:54 PM CDT Gene Love MD LAB - PATHOLOGY/CYTO LOGY ORDERABLES DERMATOPATHOLOGY LABORATORY [facility] - Department of Dermatology [facility], 5th Floor Lab [address] [phone] Care Teams Dress Cutter Relationship Specialty Start Date End Date Travis Pizano MD [address] [place] [address] PCP - General 02/24/22
== END 2024-06-24 12:45 | disposition home or self-care (01) ==
LOC: ANHIMG 12:45
PROVIDERS: PCP Family Medicine; Visit Provider Surgery
DX: C50.912 Malignant neoplasm of unspecified site of left female breast (principal); Z98.890 Other specified postprocedural states; R92.8 Other abnormal and inconclusive findings on diagnostic imaging of breast
CPT/HCPCS: 77062; 77066; G0279

== ENCOUNTER 2024-06-28 11:58 | Outpatient (CLI) | payer OTHER, SELFPAY ==
--- NOTE | ~2024-06-28 | US_ITS ---
US breast LT limited 06/28/2024 12:34 Indication: Status post lumpectomy on 01/05/2024. Procedure: High-resolution Limited ultrasound of the left breast Comparison: Mammogram dated 06/24/2024 Findings: At 4:00, 6 cm from the nipple there is a complex heterogeneous area of soft tissue near the incision scar without discrete drainable fluid collection or abnormal internal vascularity. This cor responds to the area of asymmetry seen on mammography. Impression: 1: Probable benign postoperative change in the left breast at 4:00, 6 cm from the nipple. BI-RADS CATEGORY 3-PROBABLY BENIGN FINDING RECOMMENDATION: Six-month follow-up diagnostic left mammogram and Limited left breast ultrasound gary mmended. Reviewed, dictated and finalized at location B. [facility] Impression: 1: Probable benign postoperative change in the left breast at 4:00, 6 cm from t he nipple. BI-RADS CATEGORY 3-PROBABLY BENIGN FINDING RECOMMENDATION: Six-month follow-up diagnostic left mammogram and Limited left breast ultrasound recommended.
--- OUTSIDE RECORDS SUMMARY | 2024-06-28 12:01 | XMS_ITS | Clinical Summary ---
Author Organization [facility] Address [address] [place] [address] Care Team Providers Care Dag Sprayer Name Role Phone Travis Pizano MD Primary Care Provider [phone] Source Comments [facility],non-owned Affiliates and Associated Physician Practices is amultiple site organization consisting of ambulatory clinics and hospital sitesin [place], [place], [place] and [place]. This disclosure is being madepursuant to the Care Everywhere program and may not contain all information available regarding this patient. Last updated 18.[facility] Allergies Active Allergy Reactions Criticality Noted Date [...] Department Care Team Description 06/02/2024 12:42 PM [facility] - 06/02/2024 2:11 PM [facility] Emergency [facility] EMERGENCY DEPARTMENT [address] [place] [phone] Usama Marcelo DO Patellofemoral arthritis (Primary Dx); [...] Comments Blood Pressure 168/83 06/02/2024 7:07 AM ELECTROGALVANIZING MACHINE OPERATOR Pulse 113 06/02/2024 7:07 AM ELECTROGALVANIZING MACHINE OPERATOR Temperature 36.6 C (97.8 F) 06/02/2024 7:07 AM ELECTROGALVANIZING MACHINE OPERATOR Respiratory Rate 12 06/02/2024 7:07 AM ELECTROGALVANIZING MACHINE OPERATOR Oxygen Saturation 99% 06/02/2024 7:07 AM ELECTROGALVANIZING MACHINE OPERATOR Inhaled Oxygen Concentration 45% 08/01/2021 6 :00 AM CDT Weight 88 kg (194 lb) 06/02/2024 7:07 AM ELECTROGALVANIZING MACHINE OPERATOR Height 162.6 cm (5' 4 ) 06/02/2024 7:07 AM ELECTROGALVANIZING MACHINE OPERATOR Body Mass Index 33.3 06/02/2024 7:07 AM ELECTROGALVANIZING MACHINE OPERATOR Plan of Treatment Health Maintenance Due Date [...] this topic Medical Devices Implanted Type Area Workers Compensation Claims Specialist Device Identifier Shelf Expiration Date Model / Serial / Lot Graft Bone Accell Evo3 Dbm 10ml Ptty - [id number] Implanted:Qty: 1 on 07/31/2021 by Wu Vazquez MD at [facility] Right: Leg [employer] 07/08/2022 02-5000-100 / [id number] / [id number] Rfn - Advanced System - Locking Attachment Washer (Law) - 10 Degree - Right Implanted:Qty: 1 on 07/31/2021 by Wu Vazquez MD at [facility] Right: Leg 02.233.104S / / Optilink 5.0mm Va Locking Screw - 60mm Implanted:Qty: 1 on 07/31/2021 by Wu Vazquez MD at [facility] Right: Leg 42.231.260 / / Optilink 5.0mm Va Locking Screw - 80mm Implanted:Qty: 1 on 07/31/2021 by Wu Vazquez MD at [facility] Right: Leg 42.231.280 / / Screw 4.5mm 8mm 76mm Cortx Slf-Tap Lg Implanted:Qty: 1 on 07/31/2021 by Wu Vazquez MD at [facility] Right: Leg Synthes Usa 214.876 / / Graft Bone Canc 60ml Frzdr Chp 4-9.5mm Implanted:Qty: 1 on 07/31/2021 by Wu Vazquez MD at [facility] Right: Leg [employer] 09/14/2025 [id number] / / Description:ID: [id number] Rfna / 11mm/ 360mm - 5 Degree Bend Implanted:Qty: 1 on 07/31/2021 by Wu Vazquez MD at [facility] Right: Femur 04/09/2026 04.233.136S / / [id number] Screw 5mm 4.3mm 72mm T25 Ft Slf-Tap Lck Implanted:Qty: 1 on 07/31/2021 by Wu Vazquez MD at [facility] Right: Leg S[employer]sa 04.005.562S / / Screw 5mm 4.3mm 68mm T25 Ft Slf-Tap Lck Implanted:Qty: 1 on 07/31/2021 by Wu Vazquez MD at [facility] Right: Leg [employer] 04.005.558S / / Screw 5mm 4.3mm 40mm T25 Ft Slf-Tap Lck Implanted:Qty: 1 on 07/31/2021 by Wu Vazquez MD at [facility] Right: Leg [employer] 04.005.530S / / Screw 3.5mm 6mm 34mm 2.5mm Ft Slf-Tap Implanted:Qty: 1 on 07/31/2021 by Wu Vazquez MD at [facility] Right: Leg [employer] 204.834 / / Screw 3.5mm 6mm 32mm 2.5mm Ft Slf-Tap Implanted:Qty: 1 on 07/31/2021 by Wu Vazquez MD at [facility] Right: Leg [employer] 204.832 / / Explanted Type Area Workers Compensation Claims Specialist Device Identifier Shelf Expiration Date Model / Serial / Lot Screw 3.5mm 6mm 36mm 2.5mm Ft Slf-Tap Explanted:Qty: 1 on 07/31/2021 by Wu Vazquez MD at [facility] Right: Leg [employer] 204.836 / / Procedures Procedure Name Priority Date/Time Associated Diagnosis Comments C-REACTIVE PROTEIN JOSE L 06/02/2024 9: 54 AM ELECTROGALVANIZING MACHINE OPERATOR ERYTHROCYTE SEDIMENTATION RATE STAT 06/02/2024 9:54 AM ELECTROGALVANIZING MACHINE OPERATOR CBC W AUTO DIFFERENTIAL STAT 06/02/2024 9:54 AM ELECTROGALVANIZING MACHINE OPERATOR COMPREHENSIVE METABOLIC PANEL STAT 06/02/2024 9:54 AM ELECTROGALVANIZING MACHINE OPERATOR XR KNEE RIGHT 3VW STAT 06/02/2024 7:5 7 AM ELECTROGALVANIZING MACHINE OPERATOR Chronic pain of right knee from Last 3 Months Results * C-REACTIVE PROTEIN (06/02/2024 9:54 AM ELECTROGALVANIZING MACHINE OPERATOR) Pathologist [facility] C-Reactive Protein <0.5 <=0.5 mg/dL 06/02/2024 10:30 AM ELECTROGALVANIZING MACHINE OPERATOR [facility] Blood BLOOD SPECIMEN / Unknown Venipuncture / Unknown 06/02/2024 9:54 AM ELECTROGALVANIZING MACHINE OPERATOR 06/02/2024 10:01 AM ELECTROGALVANIZING MACHINE OPERATOR Jefe Parish MD LAB - CHEMISTR Y ORDERABLES [address] [address], [facility] [phone] * ERYTHROCYTE SEDIMENTATION RATE (06/02/2024 9:54 AM ELECTROGALVANIZING MACHINE OPERATOR) Pathologist [facility] Erythrocyte Sedimentation Rate Westergren 5 0 - 30 MM/HR 06/02/2024 10:22 AM ELECTROGALVANIZING MACHINE OPERATOR [facility] Blood BLOOD SPECIMEN / Unknown Venipuncture / Unknown 06/02/2024 9:54 AM ELECTROGALVANIZING MACHINE OPERATOR 06/02/2024 10:01 AM ELECTROGALVANIZING MACHINE OPERATOR Jefe Parish MD LAB - HEMATOLO GY ORDERABLES [facility] [address] [place] [address], [facility] [phone] * CBC W AUTO DIFFERENTIAL (06/02/2024 9:54 AM [facility]) WBC 8.6 4.0 - 10.7 x10E9/L 06/02/2024 10:09 AM [facility] RBC Count 4.72 3.90 - 5.20 x10E12/L 06/02/2024 10:09 AM [facility] Hemoglobin 14.9 11.9 - 15.8 g/dL 06/02/2024 10:09 AM [facility] Hematocrit 43.1 34.8 - 46.1 % 06/02/2024 10:09 AM [facility] MCV 91.3 80.0 - 98.0 fL 06/02/2024 10:09 AM [facility] MCH 31.6 26.7 - 33.6 pg 06/02/2024 10:09 AM [facility] MCHC 34.6 31.7 - 36.3 g/dL 06/02/2024 10:09 AM [facility] RDW-CV 12.8 11.3 - 14.8 % 06/02/2024 10:09 AM [facility] Platelet Count 258 150 - 420 x10E9/L 06/02/2024 10:09 AM [facility] MPV 11.4 7.8 - 11.4 fL 06/02/2024 10:09 AM [facility] Neutrophil % 67.1 41.0 - 74.0 % 06/02/2024 10:09 AM [facility] Lymphocyte % 25.2 17.0 - 47.0 % 06/02/2024 10:09 AM [facility] Monocyte % 5.8 3.0 - 11.0 % 06/02/2024 10:09 AM [facility] Eosinophil % 1.2 0.0 - 7.0 % 06/02/2024 10:09 AM [facility] Basophil % 0.5 0.0 - 1.6 % 06/02/2024 10:09 AM [facility] Immature Granulocytes % 0.2 0.0 - 1.0 % 06/02/2024 10:09 AM [facility] Neutrophil Absolute 5.77 1.60 - 7.50 x10E9/L 06/02/2024 10:09 AM [facility] Lymphocyte Absolute 2.17 1.00 - 4.40 x10E9/L 06/02/2024 10:09 AM [facility] Monocyte Absolute 0.50 0.15 - 1.00 x10E9/L 06/02/2024 10:09 AM [facility] Eosinophil Absolute 0.10 0.00 - 0.60 x10E9/L 06/02/2024 10:09 AM [facility] Basophil Absolute 0.04 0.00 - 0.13 x10E9/L 06/02/2024 10:09 AM [facility] Blood BLOOD SPECIMEN / Unknown Venipuncture / Unknown 06/02/2024 9:54 AM [facility] 06/02/2024 10:01 AM [facility] Jefe Parish MD LAB - HEMATOLO GY ORDERABLES Performing Organization Address [facility]/State/[facility] Co de Phone Number [facility] [address] [place] [phone] [phone] * (ABNORMAL) COMPREHENSIVE METABOLIC PANEL (06/02/2024 9:54 AM [facility]) BUN 20 7 - 26 mg/dL 06/02/2024 10:27 AM [facility] Creatinine 1.08(H) 0.56 - 0.96 mg/dL 06/02/2024 10:27 AM [facility] Sodium 138 136 - 145 mmol/L 06/02/2024 10:27 AM [facility] Potassium 4.2 3.5 - 4.5 mmol/L 06/02/2024 10:27 AM [facility] Chloride 105 98 - 107 mmol/L 06/02/2024 10:27 AM [facility] CO2 21(L) 22 - 29 mmol/L 06/02/2024 10:27 AM [facility] Glucose 170(H) 70 - 99 mg/dL 06/02/2024 10:27 AM [facility] Calcium 9.4 8.4 - 10.2 mg/dL 06/02/2024 10:27 AM [facility] Protein Total 7.8 6.0 - 8.3 g/dL 06/02/2024 10:27 AM [facility] Albumin 4.4 3.4 - 5.0 g/dL 06/02/2024 10:27 AM [facility] Bilirubin Total 1.6(H) 0.2 - 1.2 mg/dL 06/02/2024 10:27 AM [facility] Alkaline Phosphatase 63 40 - 150 U/L 06/02/2024 10:27 AM [facility] ALT 21 5 - 55 U/L 06/02/2024 10:27 AM [facility] AST 24 5 - 34 U/L 06/02/2024 10:27 AM [facility] Anion Gap 12 6 - 16 06/02/2024 10:27 AM [facility] BUN/Creatinine Ratio 19 7 - 23 06/02/2024 10:27 AM [facility] Osmolality Calculated 293 275 - 295 mOsm/kg 06/02/2024 10:27 AM [facility] Albumin/Globulin Ratio 1.3 1.1 - 2.3 06/02/2024 10:27 AM [facility] eGFR by CKD-EPI 55(L) >=90 mL/min/1.7 3 m2 06/02/2024 10:27 AM [facility] Blood BLOOD SPECIMEN / Unknown Venipuncture / Unknown 06/02/2024 9:54 AM [facility] 06/02/2024 10:01 AM [facility] Jefe Parish MD LAB - CHEMISTR Y ORDERABLES [facility] [address] [place] [address], [facility] [phone] * XR Knee Right 3Vw (06/02/2024 7:57 AM ELECTROGALVANIZING MACHINE OPERATOR) Anatomical Region Laterality Modality Lower Extremity Digital Radiogra phy 06/02/2024 7:59 AM ELECTROGALVANIZING MACHINE OPERATOR Impressions 06/02/2024 8:39 AM ELECTROGALVANIZING MACHINE OPERATOR IMPRESSION: No acute fracture or dislocation identified; Healed internally fixed distal femoral fracture and patellar fracture. Hardware appears intact without evidence of loosening. Patellofemoral arthritis. This preliminary report was dictated by Joel Cross MD (DR/IR Resident). IEmperatriz MD have personally reviewed and interpreted this examination/study. > Interpreting Provider: Emperatriz Bean MD on 06/02/2024 8:39 AM Narrative 06/02/2024 8:39 AM ELECTROGALVANIZING MACHINE OPERATOR PROCEDURE: XR KNEE RIGHT 3VW, DATE/TIME OF EXAM: 06/02/2024 7:57 AM, LOCATION [facility] INDICATION: M25.561: Chronic pain of [...] DATE/TIME OF EXAM: 06/02/2024 7:57 AM, LOCATION [facility] INDICATION: M25.561: Chronic pain of [...] Documents on File Type Date Recorded Patient Psychologist Industrial Organizational Expl anation Adv Directive/Living Will/POA 08/07/2021 9:37 AM * Full Code (Latest Code Status on File) Date Activated Date Inactivated Comments 07/29/2021 4:25 AM 08/02/2021 8:11 PM Care Teams Dag Sprayer Relationship Specialty Start Date End Date Travis Pizano MD [address] [place] [phone] PCP - General 02/24/22
--- OUTSIDE RECORDS SUMMARY | 2024-06-28 12:01 | XMS_ITS | Patient Health Summary ---
Author Organization [facility] Address [address] [place] [address] Care Team Providers Care Surgical Supplies Sterilizer Name Role Phone Travis Pizano MD Primary Care Provider [phone] Note from [facility],non-owned Affiliates and Associated Physician Practices is amultiple site organization consisting of ambulatory clinics and hospital sitesin [place], [place], [place] and [place]. This disclosure is being madepursuant to the Care Everywhere program and may not contain all information available regarding this patient. Last updated 18.[facility] Allergies * Sulfa Drugs(Urticaria) -Medium [...] Comments Blood Pressure 168/83 06/02/2024 7:07 AM SHIPPING SUPERVISOR Pulse 113 06/02/2024 7:07 AM SHIPPING SUPERVISOR Temperature 36.6 C (97.8 F) 06/02/2024 7:07 AM SHIPPING SUPERVISOR Respiratory Rate 12 06/02/2024 7:07 AM SHIPPING SUPERVISOR Oxygen Saturation 99% 06/02/2024 7:07 AM SHIPPING SUPERVISOR Inhaled Oxygen Concentration 45% 08/01/2021 6 :00 AM CDT Weight 88 kg (194 lb) 06/02/2024 7:07 AM SHIPPING SUPERVISOR Height 162.6 cm (5' 4 ) 06/02/2024 7:07 AM SHIPPING SUPERVISOR Body Mass Index 33.3 06/02/2024 7:07 AM SHIPPING SUPERVISOR Medical Devices Implanted Type Area Paleontological Helper Device Identifier Shelf Expiration Date Model / Serial / Lot Graft Bone Accell Evo3 Dbm 10ml Ptty - [id number] Implanted:Qty: 1 on 07/31/2021 by Wu Vazquez MD at [facility] Right: Leg [employer] 07/08/2022 [id number] / [id number] / [id number] Rfn - Advanced System - Locking Attachment Washer (Law) - 10 Degree - Right Implanted:Qty: 1 on 07/31/2021 by Wu Vazquez MD at [facility] Right: Leg 02.233.104S / / Optilink 5.0mm Va Locking Screw - 60mm Implanted:Qty: 1 on 07/31/2021 by Wu Vazquez MD at [facility] Right: Leg 42.231.260 / / Optilink 5.0mm Va Locking Screw - 80mm Implanted:Qty: 1 on 07/31/2021 by Wu Vazquez MD at [facility] Right: Leg 42.231.280 / / Screw 4.5mm 8mm 76mm Cortx Slf-Tap Lg Implanted:Qty: 1 on 07/31/2021 by Wu Vazquez MD at [facility] Right: Leg Synthes Usa 214.876 / / Graft Bone Canc 60ml Frzdr Chp 4-9.5mm Implanted:Qty: 1 on 07/31/2021 by Wu Vazquez MD at [facility] Right: Leg Allosource 09/14/2025 [id number] / / Description:ID: [id number] Rfna / 11mm/ 360mm - 5 Degree Bend Implanted:Qty: 1 on 07/31/2021 by Wu Vazquez MD at [facility] Right: Femur 04/09/2026 04.233.136S / / [id number] Screw 5mm 4.3mm 72mm T25 Ft Slf-Tap Lck Implanted:Qty: 1 on 07/31/2021 by Wu Vazquez MD at [facility] Right: Leg S[employer]sa 04.005.562S / / Screw 5mm 4.3mm 68mm T25 Ft Slf-Tap Lck Implanted:Qty: 1 on 07/31/2021 by Wu Vazquez MD at [facility] Right: Leg S[employer] Usa 04.005.558S / / Screw 5mm 4.3mm 40mm T25 Ft Slf-Tap Lck Implanted:Qty: 1 on 07/31/2021 by Wu Vazquez MD at [facility] Right: Leg [employer]sa 04.005.530S / / Screw 3.5mm 6mm 34mm 2.5mm Ft Slf-Tap Implanted:Qty: 1 on 07/31/2021 by Wu Vazquez MD at [facility] Right: Leg [employer] 204.834 / / Screw 3.5mm 6mm 32mm 2.5mm Ft Slf-Tap Implanted:Qty: 1 on 07/31/2021 by Wu Vazquez MD at [facility] Right: Leg [employer] 204.832 / / Explanted Type Area Paleontological Helper Device Identifier Shelf Expiration Date Model / Serial / Lot Screw 3.5mm 6mm 36mm 2.5mm Ft Slf-Tap Explanted:Qty: 1 on 07/31/2021 by Wu Vazquez MD at [facility] Right: Leg Synthes [facility] 204.836 / / Procedures * C-REACTIVE PROTEIN(Performed 06/02/2024) * ERYTHROCYTE SEDIMENTATION RATE(Performed 06/02/2024) * CBC W AUTO DIFFERENTIAL(Performed 06/02/2024) * COMPREHENSIVE METABOLIC PANEL(Performed 06/02/2024) * XR KNEE RIGHT 3VW(Performed 06/02/2024) Performed for Chronic pain of right knee * CARDIAC RHYTHM STRIP ORDER(Performed 02/20/2022) * SC KNEE SCOPE,LYSIS OF ADHESNS(Performed 02/18/2022) Performed for M24.661 * XR FEMUR RIGHT 2VW(Performed 01/23/2022) Performed for Closed fracture of distal end of right femur with routine healing, unspecified fracture morphology, subsequent encounter * FL ARMANDO SURGERY(Performed 12/25/2021) Performed for Closed fracture of distal end of right femur with routine healing, unspecified fracture morphology, subsequent encounter * SC MANIPULATN KNEE JT+ANESTHESIA(Performed 12/25/2021) Performed for Closed [...] right femur, unspecified fracture morphology, initial encounter ([facility]) * XR SHOULDER RIGHT 2VW OR [...] right femur, unspecified fracture morphology, initial encounter ([facility]) * CARDIAC EKG ORDER(Performed 08/07/2021) * [...] right femur, unspecified fracture morphology, initial encounter ([facility]) * PREPARE RBC LEUKOREDUCED UNIT(Performed 08/01/2021) [...] right femur, unspecified fracture morphology, initial encounter ([facility]) * FL ARMANDO SURGERY(Performed 07/31/2021) Performed for Closed fracture of distal end of right femur, unspecified fracture morphology, initial encounter ([facility]) * SC OPEN RX PATELLA FX(Performed 07/31/2021) Performed for Closed displaced fracture of right patella, unspecified fracture morphology, initial encounter, Closed fracture of right femur, unspecified fracture morphology, unspecified portion of femur, initial encounter ([facility]) * OPEN REDUCTION INTERNAL FIXATION (ORIF) FEMUR(Performed 07/31/2021) Performed for Closed displaced fracture of right patella, unspecified fracture morphology, initial encounter, Closed fracture of right femur, unspecified fracture morphology, unspecified portion of femur, initial encounter ([facility]) * ENDOTRACHEAL TUBE NOTE(Performed 07/31/2021) * [...] right femur, unspecified fracture morphology, initial encounter ([facility]) * CT KNEE RIGHT WO CONTRAST(Performed [...] Results * C-REACTIVE PROTEIN (06/02/2024 9:54 AM SHIPPING SUPERVISOR) C-Reactive Protein <0.5 <=0.5 mg/dL 06/02/2024 10:30 AM SHIPPING SUPERVISOR [facility] Blood BLOOD SPECIMEN / Unknown Venipuncture / Unknown 06/02/2024 9:54 AM SHIPPING SUPERVISOR 06/02/2024 10:01 AM SHIPPING SUPERVISOR Jefe Parish MD LAB - CHEMISTR Y ORDERABLES [facility] [address] [address], [facility] [phone] * ERYTHROCYTE SEDIMENTATION RATE (06/02/2024 9:54 AM SHIPPING SUPERVISOR) Erythrocyte Sedimentation Rate Westergren 5 0 - 30 MM/HR 06/02/2024 10:22 AM SHIPPING SUPERVISOR [facility] Blood BLOOD SPECIMEN / Unknown Venipuncture / Unknown 06/02/2024 9:54 AM SHIPPING SUPERVISOR 06/02/2024 10:01 AM SHIPPING SUPERVISOR Jefe Parish MD LAB - HEMATOLO GY ORDERABLES [facility] [address] [place] [address], [facility] [phone] * CBC W AUTO DIFFERENTIAL (06/02/2024 9:54 AM [facility]) Only the most recent of5 resultswithin the time period is included. WBC 8.6 4.0 - 10.7 x10E9/L 06/02/2024 10:09 AM [facility] RBC Count 4.72 3.90 - 5.20 x10E12/L 06/02/2024 10:09 AM [facility] Hemoglobin 14.9 11.9 - 15.8 g/dL 06/02/2024 10:09 AM [facility] Hematocrit 43.1 34.8 - 46.1 % 06/02/2024 10:09 AM [facility] MCV 91.3 80.0 - 98.0 fL 06/02/2024 10:09 AM [facility] MCH 31.6 26.7 - 33.6 pg 06/02/2024 10:09 AM [facility] MCHC 34.6 31.7 - 36.3 g/dL 06/02/2024 10:09 AM [facility] RDW-CV 12.8 11.3 - 14.8 % 06/02/2024 10:09 AM [facility] Platelet Count 258 150 - 420 x10E9/L 06/02/2024 10:09 AM [facility] MPV 11.4 7.8 - 11.4 fL 06/02/2024 10:09 AM [facility] Neutrophil % 67.1 41.0 - 74.0 % 06/02/2024 10:09 AM [facility] Lymphocyte % 25.2 17.0 - 47.0 % 06/02/2024 10:09 AM [facility] Monocyte % 5.8 3.0 - 11.0 % 06/02/2024 10:09 AM [facility] Eosinophil % 1.2 0.0 - 7.0 % 06/02/2024 10:09 AM [facility] Basophil % 0.5 0.0 - 1.6 % 06/02/2024 10:09 AM [facility] Immature Granulocytes % 0.2 0.0 - 1.0 % 06/02/2024 10:09 AM [facility] Neutrophil Absolute 5.77 1.60 - 7.50 x10E9/L 06/02/2024 10:09 AM [facility] Lymphocyte Absolute 2.17 1.00 - 4.40 x10E9/L 06/02/2024 10:09 AM [facility] Monocyte Absolute 0.50 0.15 - 1.00 x10E9/L 06/02/2024 10:09 AM [facility] Eosinophil Absolute 0.10 0.00 - 0.60 x10E9/L 06/02/2024 10:09 AM [facility] Basophil Absolute 0.04 0.00 - 0.13 x10E9/L 06/02/2024 10:09 AM [facility] Blood BLOOD SPECIMEN / Unknown Venipuncture / Unknown 06/02/2024 9:54 AM [facility] 06/02/2024 10:01 AM [facility] Jefe Parish MD LAB - HEMATOLO GY ORDERABLES [facility] [address] [place] [phone], [facility] [phone] * (ABNORMAL) COMPREHENSIVE METABOLIC PANEL (06/02/2024 9:54 AM [facility]) Only the most recent of3 resultswithin the time period is included. BUN 20 7 - 26 mg/dL 06/02/2024 10:27 AM [facility] Creatinine 1.08(H) 0.56 - 0.96 mg/dL 06/02/2024 10:27 AM [facility] Sodium 138 136 - 145 mmol/L 06/02/2024 10:27 AM [facility] Potassium 4.2 3.5 - 4.5 mmol/L 06/02/2024 10:27 AM [facility] Chloride 105 98 - 107 mmol/L 06/02/2024 10:27 AM [facility] CO2 21(L) 22 - 29 mmol/L 06/02/2024 10:27 AM [facility] Glucose 170(H) 70 - 99 mg/dL 06/02/2024 10:27 AM [facility] Calcium 9.4 8.4 - 10.2 mg/dL 06/02/2024 10:27 AM [facility] Protein Total 7.8 6.0 - 8.3 g/dL 06/02/2024 10:27 AM [facility] Albumin 4.4 3.4 - 5.0 g/dL 06/02/2024 10:27 AM [facility] Bilirubin Total 1.6(H) 0.2 - 1.2 mg/dL 06/02/2024 10:27 AM [facility] Alkaline Phosphatase 63 40 - 150 U/L 06/02/2024 10:27 AM [facility] ALT 21 5 - 55 U/L 06/02/2024 10:27 AM [facility] AST 24 5 - 34 U/L 06/02/2024 10:27 AM [facility] Anion Gap 12 6 - 16 06/02/2024 10:27 AM [facility] BUN/Creatinine Ratio 19 7 - 23 06/02/2024 10:27 AM [facility] Osmolality Calculated 293 275 - 295 mOsm/kg 06/02/2024 10:27 AM [facility] Albumin/Globulin Ratio 1.3 1.1 - 2.3 06/02/2024 10:27 AM [facility] eGFR by CKD-EPI 55(L) >=90 mL/min/1.7 3 m2 06/02/2024 10:27 AM [facility] Blood BLOOD SPECIMEN / Unknown Venipuncture / Unknown 06/02/2024 9:54 AM SHIPPING SUPERVISOR 06/02/2024 10:01 AM [facility] Jefe Parish MD LAB - CHEMISTR Y ORDERABLES [facility] [address] [place] [address], [facility] [phone] * XR Knee Right 3Vw (06/02/2024 7:57 AM [facility]) Only the most recent of3 resultswithin the time period is included. Anatomical Region Laterality Modality Lower Extremity Digital Radiogra phy 06/02/2024 7:59 AM SHIPPING SUPERVISOR Impressions 06/02/2024 8:39 AM SHIPPING SUPERVISOR IMPRESSION: No acute fracture or dislocation identified; Healed internally fixed distal femoral fracture and patellar fracture. Hardware appears intact without evidence of loosening. Patellofemoral arthritis. This preliminary report was dictated by Joel Cross MD (DR/IR Resident). IEmperatriz MD have personally reviewed and interpreted this examination/study. > Interpreting Provider: Emperatriz Bean MD on 06/02/2024 8:39 AM Narrative 06/02/2024 8:39 AM SHIPPING SUPERVISOR PROCEDURE: XR KNEE RIGHT 3VW, DATE/TIME OF EXAM: 06/02/2024 7:57 AM, LOCATION [facility] INDICATION: M25.561: Chronic pain of right knee [...] DATE/TIME OF EXAM: 06/02/2024 7:57 AM, LOCATION [facility] INDICATION: M25.561: Chronic pain of right knee [...] alignment. Report dictated by Ade Rich MD (residential manager). Sebastian Cruz MD have personally reviewed and interpreted this examination/study. > Interpreting Provider: Sebastian Montalvo MD on 01/23/2022 9:44 AM Narrative 01/23/2022 9:44 AM CDT PROCEDURE: XR FEMUR RIGHT 2VW, DATE/TIME OF EXAM: 01/23/2022 9:14 AM, LOCATION [facility] INDICATION: S72.401D: Closed fracture of distal end [...] DATE/TIME OF EXAM: 01/23/2022 9:14 AM, LOCATION [facility] INDICATION: S72.401D: Closed fracture of distal end [...] alignment. Report dictated by Ade Rich MD (residential manager). I, Sebastian Montalvo MD have personally reviewed and interpreted this examination/study. > Interpreting Provider: Sebastian Montalvo MD on 29:44 AM Wu Vazquez MD DIAGNOSTIC IMAGING ORDERABLES * FL ARMANDO SURGERY (12/25/2021 9:53 AM CDT) Only the most recent of2 resultswithin the time period is included. Narrative [facility] - 12/25/2021 9:55 AM CDT Fluoroscopy was used for this exam in the OR. Please see the Operative report. Wu Vazquez MD FLUOROSCOPY ORDERAB LES [facility] * BASIC METABOLIC PANEL (CALCIUM TOTAL) (12/20/2021 1:30 PM CDT) Only the most recent of5 resultswithin the time period is included. BUN 16 7 - 26 mg/dL 12/20/2021 2:[address] [facility] Creatinine 0.69 0.56 - 0.96 mg/dL 12/20/2021 2:05 PM [facility] Sodium 139 136 - 145 mmol/L 12/20/2021 2:05 PM [facility] Potassium 4.3 3.5 - 4.5 mmol/L 12/20/2021 2:05 PM [facility] Chloride 100 98 - 107 mmol/L 12/20/2021 2:05 PM [facility] CO2 27 22 - 29 mmol/L 12/20/2021 2:05 PM [facility] Glucose 109 70 - 115 mg/dL 12/20/2021 2:05 PM [facility] Calcium 10.0 8.4 - 10.2 mg/dL 12/20/2021 2:05 PM [facility] Anion Gap 16 8 - 18 12/20/2021 2:05 PM [facility] BUN/Creatinine Ratio 23 7 - 23 12/20/2021 2:05 PM [facility] Osmolality Calculated 290 270 - 300 mOsm/kg 12/20/2021 2:05 PM [facility] eGFR by CKD-EPI >90 >=90 mL/min/1.7 3 m2 12/20/2021 2:05 PM [facility] Blood BLOOD SPECIMEN / Unknown Lab Venipuncture / Unknown 12/20/2021 1:30 PM CDT 12/20/2021 1:41 PM CDT Apurva Rojas MANAGER RESIDENTIAL-FRONT END ENGINEER LAB - [facility] ORDERABLES [facility] [address] [place] [address], [facility] [phone] * CT KNEE RIGHT WO CONTRAST (12/12/2021 [...] unchanged. > Dictated by Desi Jones MD (residential manager). IRa MD have personally reviewed and interpreted [...] unchanged. > Dictated by Desi Jones MD (residential manager). IRa MD have personally reviewed and interpreted [...] humeral fracture. Dictated by Marquis Bernstein DO (residential manager). Dr. EMPERATRIZ Cruz M.D. have personally reviewed [...] humeral fracture. Dictated by Marquis Bernstein DO (residential manager). I, Dr. EMPERATRIZ BEAN M.D. have personally [...] Not detected 08/03/19 22 2:17 PM CDT [facility] Microbiology SPECIMEN FROM NASOPHARYNGEAL STRUCTURE / Unknown Collection / Unknown 08/02/2021 1:21 PM CDT 08/02/2021 1:32 PM CDT Narrative [facility] - 08/02/2021 2:17 PM CDT This nucleic acid amplification assay performance was validated by [facility]. This test has been authorized by [...] LAB - MICROBIOLOGY ORDERABLES Performing Organization Address [facility]/ZIP Co de Phone Number [facility] [address] [place] [address], [facility] [phone] * (ABNORMAL) CALCIUM IONIZED WHOLE BLOOD (08/01/2021 11:20 PM CDT) Only the most recent of2 resultswithin the time period is included. Calcium Ionized 1.03 mmol/L 08/01/2021 11:58 PM CDT [facility] pH 7.39 7.35 - 7.45 pH 08/01/2021 11:58 PM CDT [facility] Ionized Calcium pH Adjusted 1.03(L) 1.19 - 1.34 mmol/L 08/01/2021 11:58 PM CDT [facility] Blood BLOOD SPECIMEN / Unknown Venipuncture / Unknown 08/01/2021 11:20 PM CDT 08/01/2021 11:55 PM CDT Reid Anderson MD LAB - CHEMISTRY OR DERABLES Performing Organization Address [facility]/ZIP Co de Phone Number [facility] [address] [place] [phone], [facility] [phone] * (ABNORMAL) PHOSPHORUS BLOOD (08/01/2021 11:20 PM CDT) Only the most recent of5 resultswithin the time period is included. Phosphorus 2.5(L) 2.9 - 5.1 mg/dL 08/02/2021 12:24 AM CDT [facility] Blood BLOOD SPECIMEN / Unknown Venipuncture / Unknown 08/01/2021 11:20 PM CDT 08/01/2021 11:57 PM CDT Reid Anderson MD LAB - CHEMISTRY OR DERABLES [facility] [address] [place] [address], [facility] [phone] * MAGNESIUM BLOOD (08/01/2021 11:20 PM CDT) Only the most recent of4 resultswithin the time period is included. Magnesium 2.1 1.6 - 2.6 mg/dL 08/02/2021 12:24 AM CDT [facility] Blood BLOOD SPECIMEN / Unknown Venipuncture / Unknown 08/01/2021 11:20 PM CDT 08/01/2021 11:57 PM CDT Reid Anderson MD LAB - CHEMISTRY OR DERABLES Performing Organization Address City/[facility]/ZIP Co de Phone Number [facility] [address] [place] [phone], [facility] [phone] * XR CHEST 1VW PORTABLE (08/01/2021 5:06 [...] is normal. Dictated by Tejal Estrella MD (residential manager). I, Dr. ZAFAR BOWMAN have personally reviewed [...] is normal. Dictated by Tejal Estrella MD (residential manager). I, Dr. ZAFAR BOWMAN have personally reviewed and interpreted this examination/study. This report was electronically signed by ZAFAR BOWMAN on 08/01/2021 4:14 PM . Sung Rowe PA-C DIAGNOSTIC IMAGIN G ORDERABLES * PREPARE (CROSSMATCH) RBC UNIT(S), 1 Units (08/01/2021 1:17 AM CDT) Unit Description AS1 LR PRBC [facility] LAB Unit ABO O [facility] Unit Rh NEG [facility] Product Number R02 [facility] B LOOD BANK LAB Unit Donor # [id number] [facility] B[facility] LAB Unit Status released [facility] BLOO D BANK LAB Product Code [id number] [facility] BLO OD BANK LAB Blood Type Barcode 9500 [facility] LAB Expiration Date [id number] S BLOOD BANK LAB Blood Bank BLOOD SPECIMEN / Unknown 07/28/2021 8:16 PM CDT Wu Vazquez MD LAB - BLOOD BANK OR DERABLES [facility] [address] [place] [address], [place] [phone] * (ABNORMAL) BLOOD GASES ART + COOX PANEL (08/01/2021 12:22 AM CDT) Only the most recent of2 resultswithin the time period is included. pH Arterial 7.50(H) 7.35 - 7.45 pH 08/01/2021 12:35 AM [facility] pO2 Arterial 101(H) 80 - 100 mmHg 08/01/2021 12:35 AM [facility] pCO2 Arterial 30(L) 35 - 45 mmHg 12:35 AM [facility] HCO3 Arterial 23 20 - 30 mmol/l 08/01/2021 12:35 AM [facility] BE Arterial 0.4 -2.0 - 2.0 mmol/L 08/01/2021 12:35 AM [facility] Oxyhemoglobin Arterial 96.6 % 08/01/2021 12:35 AM [facility] Dexoyhemoglobin (HHB) % 0.8 % 08/01/2021 12:35 AM [facility] Methemoglobin <0.8 0.0 - 2.0 % 08/01/2021 12:35 AM [facility] Carboxyhemoglobin 1.9 0.0 - 2.0 % 2021 12:35 AM [facility] O2 Content Arterial 10.8 Interpret within clinical context mg/dL 08/01/2021 12:35 AM [facility] Hemoglobin by COOX 7.8(L) 12.0 - 15.6 g/dL 08/01/2021 12:35 AM [facility] O2 Saturation Arterial 99 90 - 100 % 08/01/2021 12:35 AM [facility] FI O2 Arterial 50.0 % 08/01/2021 12:35 AM [facility] Blood, arterial ARTERIAL BLOOD SPECIMEN / Unknown Arterial Puncture / Unknown 08/01/2021 12:22 AM [facility] 08/01/2021 12:[address] [facility] - 08/01/2021 12:35 AM [facility] Carboxyhemoglobin Normal Concentration: Non-smokers: 0-2%; Smokers: 0-9%; Toxic: >20% Reid Anderson MD LAB - BLOOD GASES ORDERABLES [facility] [address] [place] [address], [facility] [phone] * ETT LINE PERFORMABLE (07/31/2021 12:55 PM CDT) Henrique Carla Still, - 07/31/2021 12:55 PM CDT Carla StillDO 07/31/2021 12:56 PM Endotracheal Tube Placement: Patient Location: OR. Intubation Event Date/Time: 07/31/2021 12:40 PM Procedure: intubation (97335). Procedure Section: Sedation: under general anesthesia. Indications [...] 10.5 10 3/uL 07/31/2021 2:11 AM CDT [facility] RBC 2.75(L) 3.80 - 5.20 10 6/uL 07/31/2021 2:11 AM CDT [facility] Hemoglobin 8.8(L) 12.0 - 15.6 g/dL 07/31/2021 2:11 AM [facility] Hematocrit 25.9(L) 35.0 - 45.0 % 07/31/2021 2:11 AM [facility] MCV 94.2 80.7 - 98.3 fL 07/31/2021 2:11 AM [facility] MCH 32.0 26.7 - 34.0 pg 07/31/2021 2:11 AM [facility] MCHC 34.0 30.8 - 35.9 g/dL 07/31/2021 2:11 AM [facility] Platelet Count 132(L) 150 - 400 10 3/uL 07/31/2021 2:11 AM [facility] RDW-SD 45.1 36.0 - 50.0 fL 07/31/2021 2:11 AM [facility] RDW-CV 13.1 11.2 - 14.8 % 07/31/2021 2:11 AM [facility] MPV 12.6 9.4 - 12.9 fL 07/31/2021 2:11 AM [facility] nRBC Absolute 0.00 0 10 3/uL 07/31/2021 2:11 AM [facility] nRBC Auto 0.0 0 /100 WBC 07/31/2021 2:11 AM [facility] Blood BLOOD SPECIMEN / Unknown Lab Venipuncture / Unknown 07/31/2021 1:45 AM CDT 07/31/2021 1:55 AM CDT Tova Wright MD LAB - HEMATOLOGY ORD ERABLES [facility] [address] [place] [address], [facility] [phone] * EKG 12-LEAD (07/29/2021 3:32 PM CDT) Only the most recent of2 resultswithin the time period is included. Ventricular Rate 92 BPM [facility] MUSE Atrial Rate 92 BPM [facility] M[facility] P-R Interval 132 ms [facility] QRS Duration ms 72 ms [facility] Q-T Interval ms 354 ms [facility] QTC Calculation (Bezet) 437 ms [facility] Calculated P [place] 36 degrees [facility] Calculated R [place] 67 degrees [facility] Calculated T [place] 22 degrees [facility] Interpretation EKG NORMAL SINUS RHYTHM NONSPECIFIC T WAVE ABNORMALITY ABNORMAL ECG WHEN COMPARED WITH ECG OF 28-JUL-2021 14:21 NONSPECIFIC T WAVE ABNORMALITY IS NOW PRESENT Confirmed by Stephen Valverde ([id number]) on 07/31/2021 11:56:25 AM [facility] 07/29/2021 3:32 PM CDT 07/31/2021 11:56 AM CDT Melissa R [place] MANAGER RESIDENTIAL-CLINICAL RESEARCH SPECIALIST ECG ORDERABLES [facility] * XR HUMERUS RIGHT 2VW OR [...] tissue swelling. Dictated by Riley Manuel MD (residential manager). I, Dr. RAJIV HALL M.D. have personally [...] tissue swelling. Dictated by Riley Manuel MD (residential manager). Dr. RAJIV Cruz M.D. have personally reviewed [...] described above. Dictated by Juwan Yin MD (Business Services Representative) This report was approved by Juwan Yin [...] described above. Dictated by Juwan Yin MD (Business Services Representative) This report was approved by Juwan Yin [...] described above. Dictated by Juwan Yin MD (Business Services Representative) This report was approved by Juwan Yin [...] described above. Dictated by Juwan Yin MD (Business Services Representative) This report was approved by Juwan Yin [...] unchanged alignment. Dictated by Juwan Yin MD (residential manager). IDr. EMPERATRIZ M.D. have personally reviewed and [...] unchanged alignment. Dictated by Juwan Yin MD (residential manager). I, Dr. EMPERATRIZ BEAN M.D. have personally reviewed and interpreted this examination/study. This report was electronically signed by EMPERATRIZ BEAN M.D. on 07/29/2021 2:57 PM . Kevin Taylor MD DIAGNOSTIC IMAGING O RDERABLES * SARS-COV-2 (COVID-19)+INFLU A+B PCR RAPID (07/28/2021 9:03 PM CDT) COVID-19 PCR Not detected Not detected 07/29/19 9:35 PM CDT [facility] Influenza A Rapid BELLA Not Detected Not Detected 07/28/2021 9:35 PM CDT [facility] Influenza B BELLA Rapid Not Detected Not Detected 07/28/2021 9:35 PM CDT [facility] Microbiology SPECIMEN FROM NASOPHARYNGEAL STRUCTURE / Unknown Collection / Unknown 07/28/2021 9:03 PM CDT 07/28/2021 9:12 PM CDT Narrative [facility] - 07/28/2021 9:35 PM CDT Influenza [...] acid amplification assay performance was validated by [facility]. This test has been authorized by [...] Kevin Taylor MD LAB - MICROBIOLOGY O [facility] Performing Organization Address City/State/[facility] Co de Phone Number [address] [address] [phone] * XR PELVIS 1 OR 2VW (07/28/2021 8:39 PM CDT) Anatomical Region Laterality Modality Pelvis Radiographic Madelaine ging 07/28/2021 8:38 PM CDT Impressions 07/29/2021 2:50 PM CDT IMPRESSION: No acute fracture identified. Dictated by Juwan Yin MD (residential manager). I, Dr. EMPERATRIZ BEAN M.D. have personally [...] fracture identified. Dictated by Juwan Yin MD (residential manager). I, Dr. EMPERATRIZ BEAN M.D. have personally reviewed and interpreted this examination/study. This report was electronically signed by EMPERATRIZ BEAN M.D. on 07/29/2021 2:50 PM . Kevin Taylor MD DIAGNOSTIC IMAGING O RDERABLES * BLOOD TYPE VERIFICATION (07/28/2021 8:22 PM CDT) ABO Rh O NEG 07/28/2021 9:1 1 PM CDT [facility] Blood Bank BLOOD SPECIMEN / Unknown Venipuncture / Unknown 07/28/2021 8:22 PM CDT 07/28/2021 8:27 PM CDT Kevin Taylor MD LAB - BLOOD BANK ORD ERABLES [facility] LAB [address] [place] [address], [facility] [phone] * PTT [facility] (07/28/2021 8:05 PM CDT) APTT 24.6 23.0 - 38.4 Seconds 07/28/2021 8:28 PM CDT [facility] Comment:Suggested therapeuti c range for full dose I.V. unfractionated heparin therapy for venous thromboembolism is 71 to 109 seconds. Blood BLOOD SPECIMEN / Unknown Venipuncture / Unknown 07/28/2021 8:05 PM CDT 07/28/2021 8:11 PM CDT Kevin Taylor MD LAB - COAGULATION OR DERABLES Performing Organization Address City/[facility]/ZIP Co de Phone Number [facility] [address] [place] [address], [place] [phone] * PT-INR [facility] (07/28/2021 8:05 PM CDT) Pathologist [facility] PT 13.3 12.1 - 14.8 Seconds 07/28/2021 8:27 PM CDT [facility] INR 1.0 See Comment 07/28/2021 8:27 PM CDT [facility] Comment:The suggested therap eutic range for standard coumadin (warfarin) therapy is an INR of 2.0-3.0. For high-risk patients (Mechanical Mitral Valve Prosthesis, etc.), the suggested prophylactic therapeutic range is an INR of 2.5-3.5. Blood BLOOD SPECIMEN / Unknown Venipuncture / Unknown 07/28/2021 8:05 PM CDT 07/28/2021 8:11 PM CDT Kevin Taylor MD LAB - COAGULATION OR DERABLES Performing Organization Address [facility]/ZIP Co de Phone Number [facility] [address] [place] [address], [place] [phone] * TYPE + SCREEN PANEL (07/28/2021 8:05 PM CDT) Pathologist [facility] Antibody Screen NEG 9:06 PM CDT [facility] ABO Rh O NEG 07/28/2021 9:06 PM CDT [facility] LAB Blood Bank BLOOD SPECIMEN / Unknown Venipuncture / Unknown 07/28/2021 8:05 PM CDT 07/28/2021 8:16 PM CDT Kevin Taylor MD LAB - BLOOD BANK ORD ERABLES [facility] [address] [place] [address], [place] [phone] * DERMATOPATHOLOGY (12/22/2018 12:00 AM CDT) Pathologist [facility] Case Report Dermatopathology Report Case: [id number] Authorizing Provider: Gene Love MD Collected: 12/22/2018 12:00 AM Ordering Location: [facility] DermPath Lab Received: 12/23/2018 12:54 PM [...] specimen consists of a shave biopsy measuring [id number]. Jar 0. 1:00 PM CDT DERMATOPATHOLOGY LABORATORY [...] characteristic determined by the Dermatopathology Laboratory at [facility], directed by Dr. Gloria Bourgeois. These tests need not be, and therefore are not, approved by the [place] Food and Drug Administration. The tests are used for clinical purposes. Billing Codes Specimen Charges Stain Charges 46747 1 1:00 PM CDT DERMATOPATHOLOGY LABORATORY Embedded Images 1:00 PM CDT DERMATOPATHOLOGY LABORATORY Pathology/Cytolog y TISSUE SPECIMEN FROM SKIN / Unknown 12/22/2018 12/23/2018 12:54 PM CDT Gene Love MD LAB - PATHOLOGY/CYTO LOGY ORDERABLES DERMATOPATHOLOGY LABORATORY [facility] - Department of Dermatology [facility], 5th Floor Lab [address] [phone] Care Teams Surgical Supplies Sterilizer Relationship Specialty Start Date End Date Travis Pizano MD [address] [place] [address] PCP - General 02/24/22
--- OUTSIDE RECORDS SUMMARY | 2024-06-28 12:01 | XMS_ITS | Encounter Summary ---
Author Organization [facility] Address [address] [place] [address] Care Team Providers Care Screener And Blender Operator Name Role Phone Travis Pizano MD Primary Care Provider Pavel Russo DO Primary Care Provider [phone] Travis Pizano MD Primary Care Provider [phone] Encounter Details Date Type Department Care Team (Late st Contact Info) Description 12/23/2018 Lab Requisition [facility] Care DermPath Lab [address] [place] [address] [place] [address] Social History Tobacco Use Types [...] AM CDT) Case Report Dermatopathology Report Case: [id number] Authorizing Provider: Gene Love MD Collected: 12/22/2018 12:00 AM Ordering Location: [facility] DermPath Lab Received: 12/23/2018 12:54 PM [...] specimen consists of a shave biopsy measuring [id number]. Jar 0. 1:00 PM CDT DERMATOPATHOLOGY LABORATORY [...] characteristic determined by the Dermatopathology Laboratory at [facility], directed by Dr. Gloria Bourgeois. These tests need not be, and therefore are not, approved by the [place] Food and Drug Administration. The tests are used for clinical purposes. Billing Codes Specimen Charges Stain Charges 92229 1 1:00 PM CDT DERMATOPATHOLOGY LABORATORY Embedded Images 1:00 PM CDT DERMATOPATHOLOGY LABORATORY Pathology/Cytolog y TISSUE SPECIMEN FROM SKIN / Unknown 12/22/2018 12/23/2018 12:54 PM CDT Gene Love MD LAB - PATHOLOGY/CYTO LOGY ORDERABLES DERMATOPATHOLOGY LABORATORY [facility] - Department of Dermatology [address] [facility], 5th Floor Lab B [address] [phone] documented in this encounter Visit Diagnoses Not on filedocumented in this encounter Care Teams Screener And Blender Operator Relationship Specialty Start Date End Date Travis Pizano MD [address] [place] [address] PCP - General 04/12/18 02/17/22 Pavel Russo DO [address] [place] [address] PCP - General Internal Medicine 02/18/22 02/23/22 Travis Pizano MD [address] [place] [address] PCP - General 02/24/22 documented as of this encounter
--- OUTSIDE RECORDS SUMMARY | 2024-06-28 12:01 | XMS_ITS | Referral Summary ---
Author Organization [facility] Address [address] [place] [address] Care Team Providers Care Traffic Ii Manager Name Role Phone Travis Pizano MD Primary Care Provider [phone] Source Comments [facility],non-owned Affiliates and Associated Physician Practices is amultiple site organization consisting of ambulatory clinics and hospital sitesin [place], [place], [place] and [place]. This disclosure is being madepursuant to the Care Everywhere program and may not contain all information available regarding this patient. Last updated 18.[facility] Encounters Date Type Department Care Team Description 06/02/2024 Travel 06/02/2024 12:42 PM ASSISTANT PROFESSOR OF HISTORY - 06/02/2024 2:11 PM [facility] Emergency [facility] EMERGENCY DEPARTMENT [address] [place] [address] Usama Marcelo DO Patellofemoral arthritis (Primary Dx); [...] Comments Blood Pressure 168/83 06/02/2024 7:07 AM ASSISTANT PROFESSOR OF HISTORY Pulse 113 06/02/2024 7:07 AM ASSISTANT PROFESSOR OF HISTORY Temperature 36.6 C (97.8 F) 06/02/2024 7:07 AM ASSISTANT PROFESSOR OF HISTORY Respiratory Rate 12 06/02/2024 7:07 AM ASSISTANT PROFESSOR OF HISTORY Oxygen Saturation 99% 06/02/2024 7:07 AM ASSISTANT PROFESSOR OF HISTORY Inhaled Oxygen Concentration 45% 08/01/2021 6 :00 AM CDT Weight 88 kg (194 lb) 06/02/2024 7:07 AM ASSISTANT PROFESSOR OF HISTORY Height 162.6 cm (5' 4 ) 06/02/2024 7:07 AM ASSISTANT PROFESSOR OF HISTORY Body Mass Index 33.3 06/02/2024 7:07 AM ASSISTANT PROFESSOR OF HISTORY Functional Status Functional Status Response Date of [...] on file Medical Devices Implanted Type Area Shoe Repairer Apprentice Device Identifier Shelf Expiration Date Model / Serial / Lot Graft Bone Accell Evo3 Dbm 10ml Ptty - [id number] Implanted:Qty: 1 on 07/31/2021 by Wu Vazquez MD at [facility] Right: Leg [employer] 07/08/2022 02-5000-100 / [id number] / [id number] Rfn - Advanced System - Locking Attachment Washer (Law) - 10 Degree - Right Implanted:Qty: 1 on 07/31/2021 by Wu Vazquez MD at [facility] Right: Leg 02.233.104S / / Optilink 5.0mm Va Locking Screw - 60mm Implanted:Qty: 1 on 07/31/2021 by Wu Vazquez MD at [facility] Right: Leg 42.231.260 / / Optilink 5.0mm Va Locking Screw - 80mm Implanted:Qty: 1 on 07/31/2021 by Wu Vazquez MD at [facility] Right: Leg 42.231.280 / / Screw 4.5mm 8mm 76mm Cortx Slf-Tap Lg Implanted:Qty: 1 on 07/31/2021 by Wu Vazquez MD at [facility] Right: Leg Synthes Usa 214.876 / / Graft Bone Canc 60ml Frzdr Chp 4-9.5mm Implanted:Qty: 1 on 07/31/2021 by Wu Vazquez MD at [facility] Right: Leg Allosource 09/14/2025 [id number] / / Description:ID: [id number] Rfna / 11mm/ 360mm - 5 Degree Bend Implanted:Qty: 1 on 07/31/2021 by Wu Vazquez MD at [facility] Right: Femur 04/09/2026 04.233.136S / / [id number] Screw 5mm 4.3mm 72mm T25 Ft Slf-Tap Lck Implanted:Qty: 1 on 07/31/2021 by Wu Vazquez MD at [facility] Right: Leg Synthes [employer]sa 04.005.562S / / Screw 5mm 4.3mm 68mm T25 Ft Slf-Tap Lck Implanted:Qty: 1 on 07/31/2021 by Wu Vazquez MD at [facility] Right: Leg [employer] 04.005.558S / / Screw 5mm 4.3mm 40mm T25 Ft Slf-Tap Lck Implanted:Qty: 1 on 07/31/2021 by Wu Vazquez MD at [facility] Right: Leg [employer]sa 04.005.530S / / Screw 3.5mm 6mm 34mm 2.5mm Ft Slf-Tap Implanted:Qty: 1 on 07/31/2021 by Wu Vazquez MD at [facility] Right: Leg [employer]sa 204.834 / / Screw 3.5mm 6mm 32mm 2.5mm Ft Slf-Tap Implanted:Qty: 1 on 07/31/2021 by Wu Vazquez MD at [facility] Right: Leg [employer]sa 204.832 / / Explanted Type Area Shoe Repairer Apprentice Device Identifier Shelf Expiration Date Model / Serial / Lot Screw 3.5mm 6mm 36mm 2.5mm Ft Slf-Tap Explanted:Qty: 1 on 07/31/2021 by Wu Vazquez MD at [facility] Right: Leg [employer]sa 204.836 / / Procedures Procedure Name Priority Date/Time Associated Diagnosis Comments C-REACTIVE PROTEIN JOSE L 06/02/2024 9: 54 AM ASSISTANT PROFESSOR OF HISTORY ERYTHROCYTE SEDIMENTATION RATE STAT 06/02/2024 9:54 AM ASSISTANT PROFESSOR OF HISTORY CBC W AUTO DIFFERENTIAL STAT 06/02/2024 9:54 AM ASSISTANT PROFESSOR OF HISTORY COMPREHENSIVE METABOLIC PANEL STAT 06/02/2024 9:54 AM ASSISTANT PROFESSOR OF HISTORY XR KNEE RIGHT 3VW STAT 06/02/2024 7:5 7 AM ASSISTANT PROFESSOR OF HISTORY Chronic pain of right knee from Last 3 Months Results * C-REACTIVE PROTEIN (06/02/2024 9:54 AM ASSISTANT PROFESSOR OF HISTORY) C-Reactive Protein <0.5 <=0.5 mg/dL 06/02/2024 10:30 AM [facility] Blood BLOOD SPECIMEN / Unknown Venipuncture / Unknown 06/02/2024 9:54 AM ASSISTANT PROFESSOR OF HISTORY 06/02/2024 10:01 AM ASSISTANT PROFESSOR OF HISTORY Jefe Parish MD LAB - CHEMISTR Y ORDERABLES [address] [address], [facility] [phone] * ERYTHROCYTE SEDIMENTATION RATE (06/02/2024 9:54 AM ASSISTANT PROFESSOR OF HISTORY) Erythrocyte Sedimentation Rate Westergren 5 0 - 30 MM/HR 06/02/2024 10:22 AM [facility] Blood BLOOD SPECIMEN / Unknown Venipuncture / Unknown 06/02/2024 9:54 AM ASSISTANT PROFESSOR OF HISTORY 06/02/2024 10:01 AM ASSISTANT PROFESSOR OF HISTORY Jefe Parish MD LAB - HEMATOLO GY ORDERABLES [address] [address], [facility] [phone] * CBC W AUTO DIFFERENTIAL (06/02/2024 9:54 AM ASSISTANT PROFESSOR OF HISTORY) WBC 8.6 4.0 - 10.7 x10E9/L 06/02/2024 10:09 AM [facility] RBC Count 4.72 3.90 - 5.20 x10E12/L 06/02/2024 10:09 AM [facility] Hemoglobin 14.9 11.9 - 15.8 g/dL 06/02/2024 10:09 AM [facility] Hematocrit 43.1 34.8 - 46.1 % 06/02/2024 10:09 AM [facility] MCV 91.3 80.0 - 98.0 fL 06/02/2024 10:09 AM [facility] MCH 31.6 26.7 - 33.6 pg 06/02/2024 10:09 AM [facility] MCHC 34.6 31.7 - 36.3 g/dL 06/02/2024 10:09 AM [facility] RDW-CV 12.8 11.3 - 14.8 % 06/02/2024 10:09 AM [facility] Platelet Count 258 150 - 420 x10E9/L 06/02/2024 10:09 AM [facility] MPV 11.4 7.8 - 11.4 fL 06/02/2024 10:09 AM [facility] Neutrophil % 67.1 41.0 - 74.0 % 06/02/2024 10:09 AM [facility] Lymphocyte % 25.2 17.0 - 47.0 % 06/02/2024 10:09 AM [facility] Monocyte % 5.8 3.0 - 11.0 % 06/02/2024 10:09 AM [facility] Eosinophil % 1.2 0.0 - 7.0 % 06/02/2024 10:09 AM [facility] Basophil % 0.5 0.0 - 1.6 % 06/02/2024 10:09 AM [facility] Immature Granulocytes % 0.2 0.0 - 1.0 % 06/02/2024 10:09 AM [facility] Neutrophil Absolute 5.77 1.60 - 7.50 x10E9/L 06/02/2024 10:09 AM [facility] Lymphocyte Absolute 2.17 1.00 - 4.40 x10E9/L 06/02/2024 10:09 AM [facility] Monocyte Absolute 0.50 0.15 - 1.00 x10E9/L 06/02/2024 10:09 AM [facility] Eosinophil Absolute 0.10 0.00 - 0.60 x10E9/L 06/02/2024 10:09 AM [facility] Basophil Absolute 0.04 0.00 - 0.13 x10E9/L 06/02/2024 10:09 AM [facility] Blood BLOOD SPECIMEN / Unknown Venipuncture / Unknown 06/02/2024 9:54 AM ASSISTANT PROFESSOR OF HISTORY 06/02/2024 10:01 AM [facility] Jefe Parish MD LAB - HEMATOLO GY ORDERABLES [facility] [address] [place] [address], [facility] [phone] * (ABNORMAL) COMPREHENSIVE METABOLIC PANEL (06/02/2024 9:54 AM [facility]) BUN 20 7 - 26 mg/dL 06/02/2024 10:27 AM [facility] Creatinine 1.08(H) 0.56 - 0.96 mg/dL 06/02/2024 10:27 AM [facility] Sodium 138 136 - 145 mmol/L 06/02/2024 10:27 AM [facility] Potassium 4.2 3.5 - 4.5 mmol/L 06/02/2024 10:27 AM [facility] Chloride 105 98 - 107 mmol/L 06/02/2024 10:27 AM [facility] CO2 21(L) 22 - 29 mmol/L 06/02/2024 10:27 AM [facility] Glucose 170(H) 70 - 99 mg/dL 06/02/2024 10:27 AM [facility] Calcium 9.4 8.4 - 10.2 mg/dL 06/02/2024 10:27 AM [facility] Protein Total 7.8 6.0 - 8.3 g/dL 06/02/2024 10:27 AM [facility] Albumin 4.4 3.4 - 5.0 g/dL 06/02/2024 10:27 AM [facility] Bilirubin Total 1.6(H) 0.2 - 1.2 mg/dL 06/02/2024 10:27 AM [facility] Alkaline Phosphatase 63 40 - 150 U/L 06/02/2024 10:27 AM [facility] ALT 21 5 - 55 U/L 06/02/2024 10:27 AM [facility] AST 24 5 - 34 U/L 06/02/2024 10:27 AM [facility] Anion Gap 12 6 - 16 06/02/2024 10:27 AM [facility] BUN/Creatinine Ratio 19 7 - 23 06/02/2024 10:27 AM [facility] Osmolality Calculated 293 275 - 295 mOsm/kg 06/02/2024 10:27 AM [facility] Albumin/Globulin Ratio 1.3 1.1 - 2.3 06/02/2024 10:27 AM [facility] eGFR by CKD-EPI 55(L) >=90 mL/min/1.7 3 m2 06/02/2024 10:27 AM [facility] Blood BLOOD SPECIMEN / Unknown Venipuncture / Unknown 06/02/2024 9:54 AM ASSISTANT PROFESSOR OF HISTORY 06/02/2024 10:01 AM ASSISTANT PROFESSOR OF HISTORY Jefe Parish MD LAB - CHEMISTR Y ORDERABLES [facility] [address] [place] [address], [facility] [phone] * XR Knee Right 3Vw (06/02/2024 7:57 AM ASSISTANT PROFESSOR OF HISTORY) Anatomical Region Laterality Modality Lower Extremity Digital Radiogra phy 06/02/2024 7:59 AM ASSISTANT PROFESSOR OF HISTORY Impressions 06/02/2024 8:39 AM ASSISTANT PROFESSOR OF HISTORY IMPRESSION: No acute fracture or dislocation identified; Healed internally fixed distal femoral fracture and patellar fracture. Hardware appears intact without evidence of loosening. Patellofemoral arthritis. This preliminary report was dictated by Joel Cross MD (DR/IR Resident). I, Emperatriz Bean MD have personally reviewed and interpreted this examination/study. 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
--- OUTSIDE RECORDS SUMMARY | 2024-06-28 12:01 | XMS_ITS | Clinical Summary ---
Author Organization [facility] Address [address] [facility] [place] [address] Phone Care Team Providers Care Apparel Machinery Instructor Name Role Phone Alex Lerma MD Primary Care Provider [phone] Allergies Active Allergy Reactions Criticality Noted Date [...] STL ABSTRACTION Provider, Abstract 05/24/2024 Chart Note [facility] Emergency Department - [address] [address] Vladimir Ko MD 03/29/2024 1:00 PM CONTACT CENTER ENGINEER Office Visit [facility] Oncology and Hematology [facility] [address] [place] [address] David Judge MD Malignant neoplasm of [...] on file Legal Sex Female 4:14 AM CONTACT CENTER ENGINEER Gender Identity Not on file Sexual Orientation Not on file Last Filed Vital Signs Vital Sign Reading Time Taken Comments Blood Pressure 129/69 03/29/2024 1:05 PM CONTACT CENTER ENGINEER Pulse 99 03/29/2024 1:02 PM CONTACT CENTER ENGINEER Temperature 36.1 C (97 F) 03/29/2024 1:02 PM CONTACT CENTER ENGINEER Respiratory Rate 16 03/29/2024 1:02 PM CONTACT CENTER ENGINEER Oxygen Saturation 95% 03/29/2024 1:02 PM CONTACT CENTER ENGINEER Inhaled Oxygen Concentration - - Weight 84.8 kg (187 lb) 03/29/2024 1:02 PM CONTACT CENTER ENGINEER Height 162.6 cm (5' 4 ) 12/03/2023 10:27 AM CDT Body Mass Index 32.1 12/03/2023 10:27 AM CDT Plan of Treatment Upcoming Encounters Date Type Department Care Team (Late st Contact Info) Description 07/07/2024 2:30 PM CONTACT CENTER ENGINEER Office Visit [facility] Oncology and Hematology - [place] [address] [facility] [address] [place] [address] David Judge MD [address] [facility] [address] [place] [address] Health Maintenance Due Date Last [...] COMPREHENSIVE METABOLIC PANEL Routine 06/21/2024 6:43 AM CONTACT CENTER ENGINEER CBC WITH DIFFERENTIAL Routine 06/21/2024 6:43 AM CONTACT CENTER ENGINEER CANCER ANTIGEN 15-3 Routine 06/21/2024 6 :43 AM CONTACT CENTER ENGINEER Malignant neoplasm of left breast in female, estrogen receptor positive, unspecified site of breast (CMS/HCC) from Last 3 Months Results * CANCER ANTIGEN 15-3 (06/21/2024 6:43 AM CONTACT CENTER ENGINEER) Pathologist [facility] CA 15-3 23 <32 U/mL [facility] Comment: This test was performed using the Siemens (Codoon) chemiluminescent method. Values obtained from different assay methods cannot be used interchangeably. CA 15-3 levels, regardless of value, should not be interpreted as absolute evidence of the presence or absence of disease. FASTING:YES FASTING: YES Test Performed at: [facility] [address] [place] [address] Marycruz Lopes MD Blood 06/21/2024 6:43 AM CONTACT CENTER ENGINEER 06/21/2024 6:45 AM CONTACT CENTER ENGINEER us David Judge MD CHEMISTRY ORDERABLES Final Resu lt [facility] [phone] [facility] [address] [place] [address] * (ABNORMAL) CBC WITH DIFFERENTIAL (06/21/2024 6:43 AM CONTACT CENTER ENGINEER) WBC 7.7 3.8 - 10.8 Thousand/u L [...] Comment: FASTING:YES FASTING: YES Test Performed at: [facility] [address] [place] [address] Marycruz Lopes MD 06/21/2024 6:43 AM CONTACT CENTER ENGINEER 06/21/2024 6:45 AM CONTACT CENTER ENGINEER us David Judge MD HEMATOLOGY ORDERABLES Final Res ult [facility] [phone] [facility] [address] [place] [address] * (ABNORMAL) COMPREHENSIVE METABOLIC PANEL (06/21/2024 6:43 AM CONTACT CENTER ENGINEER) GLUCOSE 124(H) 65 - 99 mg/dL [facility] [...] Comment: FASTING:YES FASTING: YES Test Performed at: [facility] [address] [place] [address] Marycruz Lopes MD 06/21/2024 6:43 AM CONTACT CENTER ENGINEER 06/21/2024 6:45 AM CONTACT CENTER ENGINEER David Judge MD CHEMISTRY ORDERABLES Final Resu lt [facility] [phone] [facility] [address] [place] [address] from Last 3 Months Insurance MEDICARE PART A AND B [facility] [employer] [facility] Care Teams Apparel Machinery Instructor Relationship Specialty Start Date End Date Alex Lerma MD [address] [place] [phone] PCP - General Family Practice 12/02/23
== END 2024-06-28 11:59 | disposition home or self-care (01) ==
LOC: ANHIMG 11:59
PROVIDERS: PCP Family Medicine; Visit Provider Surgery
DX: C50.912 Malignant neoplasm of unspecified site of left female breast (principal); R92.8 Other abnormal and inconclusive findings on diagnostic imaging of breast
CPT/HCPCS: 76642

== ENCOUNTER 2024-09-08 06:00 | Observation (INO) | payer OTHER, SELFPAY ==
[2024-09-08] VITALS (19 sets, daily range): BP systolic 106–130; BP diastolic 49–91; PULSE 73–102; RESP 13–22; TEMP 36.2–37; O2SAT 94–98; BMI 30.6
--- NOTE | ~2024-09-08 | MR_ITS ---
EXAMINATION: MR brain/brain stem wo con DATE: 09/08/2024 15:57 INDICATION: Dizziness TECHNIQUE: Magnetic resonance imaging (MRI) of the brain and brainstem was performed without intraven ous contrast. Sequences included sagittal and axial T1-weighted SE, axial diffusion-weighted FS SE, a xial T2*-weighted GRE, axial T2-weighted FLAIR, and axial T2-weighted FSE. Postcontrast axial and cor onal T1-weighted SE was obtained. Apparent diffusion coefficient (ADC) maps were created. COMPARISON: Head CT and CT angiogram dated 09/08/2024 FINDINGS: There are no areas of restricted diffusion to suggest acute infarction. No intracranial hemorrhage or abnormal intracranial mass lesion. There are scattered areas of nonspecific increased T2-weighted si gnal intensity in the cerebral white matter, predominantly involving the deep and periventricular whi te matter. There are no intraparenchymal signal abnormalities seen on the other pulse sequences. The ventricles are symmetric and normal in size. There are no abnormal extra-axial fluid collections. Randell w voids are seen in the cerebral arteries on the T2-weighted sequences consistent with their expected patency. Changes of bilateral intraocular lens replacement. Visualized orbits and soft tissues are unremarkable. IMPRESSION: 1. No acute intracranial process. 2. Moderate periventricular predominant calcific white matter T2 hyperintensity which is within giacomo l limits for age and likely sequela of chronic small vessel ischemic disease. Reviewed, dictated and finalized at location B. IMPRESSION: 1. No acute intracranial process. 2. Moderate periventricular predominant calcific white matter T2 hyperintensity which is within normal limits for age and likely sequela of chronic small vess el ischemic disease.
--- NOTE | ~2024-09-08 | XR_ITS ---
Clinical Indication: Dizziness PA and lateral views of the chest: Comparison: 07/17/2023 Findings: The lungs are clear, without evidence of focal consolidation or pleural effusion. Cardiome diastinal silhouette is within normal limits. There is advanced degenerative change of the right rima ohumeral joint. Impression: Clear lungs. Reviewed, dictated and finalized at location . Impression: Clear lungs.
--- NOTE | ~2024-09-08 | CT_ITS ---
EXAMINATION: CTA BRAIN/CAROTID DATE: 09/08/2024 07:45 INDICATION: Dizziness. Headache, diaphoresis and numbness to the right arm TECHNIQUE: Computed tomographic angiography (CTA) of the head and neck was performed with 100 mL Omni paque-350 intravenous contrast. Multiplanar reconstructions and maximum intensity projection 3D-recon structions of the carotid arteries and of the intracranial arteries were created by the technologist on a separate workstation. Precontrast CT of the head was also obtained. Automated exposure control and iterative reconstruction technique were employed.The dose-length product was 1641.67 mGy-cm. COMPARISON: None. FINDINGS: Carotid arteries: There is scattered nonhemodynamically significant atherosclerotic plaque along the normal caliber aor tic arch and the visualized great vessels arising from the arch. There is atherosclerotic plaque with 0% stenosis of the both the right and left carotid bulbs relative to normal distal artery lumen diam eter (NASCET criteria). Bilateral vertebral arteries are codominant with no hemodynamically significa nt stenosis. Moderate emphysema in the visualized upper lungs. The soft tissues are unremarkable. Sev ere cervical spondylosis. Head: Small bilateral basal ganglia old lacunar infarcts at the head of the right caudate nucleus and left lentiform nucleus. No acute intracranial hemorrhage, acute infarction or abnormal extra axial fluid c ollection. There is moderate scattered white matter hypoattenuation consistent with chronic small ves lm ischemic disease. Symmetric prominence of the sulci and and subarachnoid spaces overlying the rashad ateral frontal lobes consistent with mild age-appropriate diffuse cerebral volume loss. Ventricles ar e normal and symmetric. No mass/mass effect. No abnormally enhancing brain lesions on the postcontras t imaging. The orbits, paranasal sinuses and mastoid air cells are normal. Intracranial arteries Nonhemodynamically significant atherosclerotic plaque at the bilateral carotid siphons. There is no h emodynamically significant stenosis in the vertebral, basilar and internal carotid arteries. Vertebra l arteries are codominant. There are no aneurysms identified. Both A1 and P1 segments are patent. C erebral arterial arborization appears symmetric. IMPRESSION: 1. Atherosclerotic plaque with 0% stenosis of the right and left carotid bulbs relative to normal dis jessica artery lumen diameter (NASCET criteria). 2. Aging brain with a couple bilateral basal ganglia old lacunar infarcts. No acute intracranial proc ess. 3. Unremarkable cerebral CT angiogram with no aneurysm, thrombosis or hemodynamically significant javy nosis. Reviewed, dictated and finalized at location B. IMPRESSION: 1. Atherosclerotic plaque with 0% stenosis of the right and left carotid bulbs relative to normal distal artery lumen diameter (NASCET criteria). 2. Aging brain with a couple bilateral basal ganglia old lacunar infarcts. No a cute intracranial process. 3. Unremarkable cerebral CT angiogram with no aneurysm, thrombosis or hemodynam ically significant stenosis.
--- OUTSIDE RECORDS SUMMARY | 2024-09-08 06:03 | XMS_ITS | Clinical Summary ---
Author Organization [facility] Address [address] [place] [address] Phone Care Team Providers Care Biomedical Engineering Supervisor Name Role Phone Alex Lerma MD Primary Care Provider [phone] Allergies Active Allergy Reactions Criticality Noted Date [...] Encounters Date Type Department Care Team Description 07/27/2024 External Device Data STL ABSTRACTION Provider, Abstract 07/16/2024 External Device Data ST[facility] ABSTRACTION Provider, Abstract 07/16/2024 External Device Data [facility] ABSTRACTION Provider, Abstract 07/13/2024 External Device Data [facility] ABSTRACTION Provider, Abstract 07/07/2024 2:30 PM CLIENT SUPPORT ADMINISTRATOR Office Visit [facility] Oncology and Hematology - [place] [address] [place] [address] David Judge MD Malignant neoplasm of left breast in female, estrogen receptor positive, unspecified site of breast (CMS/HCC) (Primary Dx) 06/29/2024 External Device Data STL ABSTRACTION Provider, Abstract from Last 3 Months Family History Medical [...] on file Legal Sex Female 4:14 AM CLIENT SUPPORT ADMINISTRATOR Gender Identity Not on file Sexual Orientation Not on file Last Filed Vital Signs Vital Sign Reading Time Taken Comments Blood Pressure 127/72 07/07/2024 2:50 PM CLIENT SUPPORT ADMINISTRATOR Pulse 100 07/07/2024 2:47 PM CLIENT SUPPORT ADMINISTRATOR Temperature 36.1 C (96.9 F) 07/07/2024 2:47 PM CLIENT SUPPORT ADMINISTRATOR Respiratory Rate 15 07/07/2024 2:47 PM CLIENT SUPPORT ADMINISTRATOR Oxygen Saturation 96% 07/07/2024 2:47 PM CLIENT SUPPORT ADMINISTRATOR Inhaled Oxygen Concentration - - Weight 87.6 kg (193 lb 3.2 oz) 07/07/2024 2:47 P M CLIENT SUPPORT ADMINISTRATOR Height 162.6 cm (5' 4 ) 12/03/2023 10:27 AM CDT Body Mass Index 33.16 12/03/2023 10:27 AM CDT Plan of Treatment Upcoming Encounters Date Type Department Care Team (Late st Contact Info) Description 11/04/2024 11:30 AM CDT Office Visit [facility] Oncology and Hematology - [place] [address] [facility] [address] [place] [address] David Judge MD [address] [facility] [address] [place] [address] Health Maintenance Due Date Last Done Comments DTAP/TDAP/TD VACCINES (1 - Tdap) 1972 BREAST CANCER SCREENING 1993 COLORECTAL SCREENING 1998 Colorectal Cancer Screening 1998 FIT-DNA Q 3 years 1998 FIT/FOBT Q 1 year 1998 Flex Sig/CT Colonography Q 5 years 1998 PNEUMOCOCCAL VACCINE 50+ YEARS (1 of 1 - PCV) 05/08/20 03 ZOSTER VACCINE (1 of 2) 2003 OSTEOPOROSIS SCREENING 2018 INFLUENZA VACCINE (#1) 2023 RSV VACCINE (60+ or ) (1 - 1-dose 75+ series) 2028 Procedures Procedure Name Priority Date/Time Associated Diagnosis Comments COMPREHENSIVE METABOLIC PANEL Routine 06/21/2024 6:43 AM CLIENT SUPPORT ADMINISTRATOR CBC WITH DIFFERENTIAL Routine 06/21/2024 6:43 AM CLIENT SUPPORT ADMINISTRATOR CANCER ANTIGEN 15-3 Routine 06/21/2024 6 :43 AM CLIENT SUPPORT ADMINISTRATOR Malignant neoplasm of left breast in female, estrogen receptor positive, unspecified site of breast (CMS/HCC) from Last 3 Months Results * CANCER ANTIGEN 15-3 (06/21/2024 6:43 AM CLIENT SUPPORT ADMINISTRATOR) Pathologist [facility] CA 15-3 23 <32 U/mL [facility] Comment: This test was performed using the Siemens (Outcome Referrals) chemiluminescent method. Values obtained from different assay methods cannot be used interchangeably. CA 15-3 levels, regardless of value, should not be interpreted as absolute evidence of the presence or absence of disease. FASTING:YES FASTING: YES Test Performed at: [facility] [address] [place] [address] Marycruz Lopes MD Blood 06/21/2024 6:43 AM CLIENT SUPPORT ADMINISTRATOR 06/21/2024 6:45 AM CLIENT SUPPORT ADMINISTRATOR us David Judge MD CHEMISTRY ORDERABLES Final Resu lt [facility] [phone] [facility] [id number] [place] [phone] * (ABNORMAL) CBC WITH DIFFERENTIAL (06/21/2024 6:43 AM CLIENT SUPPORT ADMINISTRATOR) Pathologist [facility] WBC 7.7 3.8 - 10.8 Thousand/u L [...] Comment: FASTING:YES FASTING: YES Test Performed at: [facility] [address] [address] Marycruz Lopes MD 06/21/2024 6:43 AM CLIENT SUPPORT ADMINISTRATOR 06/21/2024 6:45 AM CLIENT SUPPORT ADMINISTRATOR David Judge MD HEMATOLOGY ORDERABLES Final Res ult [facility] [phone] [facility] [address] [place] [address] * (ABNORMAL) COMPREHENSIVE METABOLIC PANEL (06/21/2024 6:43 AM CLIENT SUPPORT ADMINISTRATOR) GLUCOSE 124(H) 65 - 99 mg/dL [facility] [...] [facility] BUN/CREAT RATIO SEE NOTE: 6 - 22 (calc) [facility] Comment: Not Reported: [...] Comment: FASTING:YES FASTING: YES Test Performed at: [facility] [address] [place] [address] Marycruz Lopes MD 06/21/2024 6:43 AM CLIENT SUPPORT ADMINISTRATOR 06/21/2024 6:45 AM CLIENT SUPPORT ADMINISTRATOR David Judge MD CHEMISTRY ORDERABLES Final Resu lt [facility] [phone] [facility] [address] [address] [phone] from Last 3 Months Insurance MEDICARE PART A AND B [facility] [employer] [facility] Care Teams Biomedical Engineering Supervisor Relationship Specialty Start Date End Date Alex Lerma MD [address] [place] [address] PCP - General Family Practice 12/02/23
--- OUTSIDE RECORDS SUMMARY | 2024-09-08 06:03 | XMS_ITS | Clinical Summary ---
Author Organization [facility] Address [address] [place] [address] Care Team Providers Care Registered Radiologic Technologist Name Role Phone Travis Pizano MD Primary Care Provider [phone] Source Comments [facility],non-owned Affiliates and Associated Physician Practices is amultiple site organization consisting of ambulatory clinics and hospital sitesin [place], [place], [place] and [place]. This disclosure is being madepursuant to the Care Everywhere program and may not contain all information available regarding this patient. Last updated 18.[facility] Allergies Active Allergy Reactions Criticality Noted Date Comments Sulfa Drugs Urticaria Medium 07/28/2021 Medications * Be aware that medications may not be up to date on this document. Alwaysverify current medications with the patient. lisinopril (PRINIVIL; ZESTRIL) 20 MG tablet Take [...] by mouth once daily Active Vitamin D3 (Cholecalcifer ol) 25 MCG tablet Take 1 (one) tablet by mouth once daily Active calcium 500 mg tablet Take 650 mg by mouth daily with food Active busPIRone (Buspar) 30 MG tablet Take 1 (one) tablet by mouth 2 times daily 2 Active aspirin (Aspirin) 325 MG tablet Take 1 (one) tablet by mouth once daily Active diclofenac sodium (Voltaren) 1 % gel Apply 2 (two) g to affected area 4 times daily 100 g 5 Active cyclobenzaprin e (Flexeril) 10 MG tablet Take 1 (one) tablet by mouth 3 times daily as needed for Muscle Spasms 30 tablet 5 Active acetaminophen (Tylenol) 500 MG tablet Take 1 (one) tablet by mouth every 4 hours as needed for Fever or Pain Maximum allowable Acetaminophen amount = 4 Grams (4000 mg) / 24 hours. 5 Active Active Problems Problem Noted Date Diagnosed Date Right patella fracture 07/30/2021 Fracture of proximal end of right humerus 2021 Closed fracture of right distal femur 07/29/2021 Family History Medical History Relation Name Comments [...] money to get more. 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 Gender Identity Not on file Sexual Orientation Not on file Last Filed Vital Signs Vital Sign Reading Time Taken Comments Blood Pressure 168/83 06/02/2024 7:07 AM MOTORCYCLE RACER Pulse 113 06/02/2024 7:07 AM MOTORCYCLE RACER Temperature 36.6 C (97.8 F) 06/02/2024 7:07 AM MOTORCYCLE RACER Respiratory Rate 12 06/02/2024 7:07 AM MOTORCYCLE RACER Oxygen Saturation 99% 06/02/2024 7:07 AM MOTORCYCLE RACER Inhaled Oxygen Concentration 45% 08/01/2021 6 :00 AM CDT Weight 88 kg (194 lb) 06/02/2024 7:07 AM MOTORCYCLE RACER Height 162.6 cm (5' 4 ) 06/02/2024 7:07 AM MOTORCYCLE RACER Body Mass Index 33.3 06/02/2024 7:07 AM MOTORCYCLE RACER Plan of Treatment Health Maintenance Due Date Last Done Comments BONE DENSITY TESTING 1953 COLOGUARD (AGES 45-75) - COLON CA SCREENING 1953 COLON MONITORING 1953 COLONOSCOPY - COLON CA SCREENING 1953 CT COLONOGRAPHY - COLON CA SCREENING 1953 Colorectal Cancer Screening 1953 FIT - COLON CA SCREENING 1953 FLEX SIG - COLON CA SCREENING 1953 MAMMOGRAM 1955 MEDICARE AWV 12 MONTHS 1953 HEPATITIS C SCREENING 05/04/1971 DTAP/TDAP/TD VACCINES (1 - Tdap) 1972 PNEUMOCOCCAL VACCINE 50+ (1 of 1 - PCV) 2003 ZOSTER VACCINE (1 of 2) 2003 COVID-19 VACCINE (4 - season) 2024 03/01/2021, 07/21/2020, 06/23/2020 DEPRESSION SCREENING 05/11/2024 INFLUENZA VACCINE (Season Ended) 2025 02/25/2021, 02/25/2020, 02/23/2019, Additional history exists SCREENING FOR DIABETES 06/02/2027 , 12/20/2021, 08/01/2021, Additional history exists Respiratory Syncytial [...] complete this topic MENINGOCOCCAL (Group B) VACCINE SHARED DECISION-MAKING Aged Out No longer eligible based on patient's age to complete this topic MENINGOCOCCAL GROUPS A/C/Y/W VACCINE Aged Out No longer eligible based on patient's age to complete this topic Medical Devices Implanted Type Area Snow Removal Supervisor Device Identifier Shelf Expiration Date Model / Serial / Lot Graft Bone Accell Evo3 Dbm 10ml Ptty - [id number] Implanted:Qty: 1 on 07/31/2021 by Wu Vazquez MD at [facility] Right: Leg [employer] 07/08/2022 [id number] / [id number] / [id number] Rfn - Advanced System - Locking Attachment Washer (Law) - 10 Degree - Right Implanted:Qty: 1 on 07/31/2021 by Wu Vazquez MD at [facility] Right: Leg 02.233.104S / / Optilink 5.0mm Va Locking Screw - 60mm Implanted:Qty: 1 on 07/31/2021 by Wu Vazquez MD at [facility] Right: Leg 42.231.260 / / Optilink 5.0mm Va Locking Screw - 80mm Implanted:Qty: 1 on 07/31/2021 by Wu Vazquez MD at [facility] Right: Leg 42.231.280 / / Screw 4.5mm 8mm 76mm Cortx Slf-Tap Lg Implanted:Qty: 1 on 07/31/2021 by Wu Vazquez MD at [facility] Right: Leg Synthes Usa 214.876 / / Graft Bone Canc 60ml Frzdr Chp 4-9.5mm Implanted:Qty: 1 on 07/31/2021 by Wu Vazquez MD at [facility] Right: Leg Allosource 09/14/2025 [id number] / / Description:ID: [id number] Rfna / 11mm/ 360mm - 5 Degree Bend Implanted:Qty: 1 on 07/31/2021 by uW Vazquez MD at [facility] Right: Femur 04/09/2026 04.233.136S / / [id number] Screw 5mm 4.3mm 72mm T25 Ft Slf-Tap Lck Implanted:Qty: 1 on 07/31/2021 by Wu Vazquez MD at [facility] Right: Leg Synthes Usa 04.005.562S / / Screw 5mm 4.3mm 68mm T25 Ft Slf-Tap Lck Implanted:Qty: 1 on 07/31/2021 by Wu Vazquez MD at [facility] Right: Leg Synthes Usa 04.005.558S / / Screw 5mm 4.3mm 40mm T25 Ft Slf-Tap Lck Implanted:Qty: 1 on 07/31/2021 by Wu Vazquez MD at [facility] Right: Leg Synthes Usa 04.005.530S / / Screw 3.5mm 6mm 34mm 2.5mm Ft Slf-Tap Implanted:Qty: 1 on 07/31/2021 by Wu Vazquez MD at [facility] Right: Leg Synthes Usa 204.834 / / Screw 3.5mm 6mm 32mm 2.5mm Ft Slf-Tap Implanted:Qty: 1 on 07/31/2021 by Wu Vazquez MD at [facility] Right: Leg Synthes Usa 204.832 / / Explanted Type Area Snow Removal Supervisor Device Identifier Shelf Expiration Date Model / Serial / Lot Screw 3.5mm 6mm 36mm 2.5mm Ft Slf-Tap Explanted:Qty: 1 on 07/31/2021 by Wu Vazquez MD at [facility] Right: Leg Synthes Usa 204.836 / / Procedures Procedure Name Priority Date/Time Associated Diagnosis Comments COMPREHENSIVE METABOLIC PANEL STAT 06/02/2024 9:54 AM [facility] from Last 3 Months or Most Recently Relevant to Health Maintenance Results * (ABNORMAL) COMPREHENSIVE METABOLIC PANEL (06/02/2024 9:54 AM [facility]) BUN 20 7 - 26 mg/dL [...] Unknown Venipuncture / Unknown 06/02/2024 9:54 AM MOTORCYCLE RACER 06/02/2024 10:01 AM [facility] us Jefe Parish MD LAB - CHEMISTRY ORDERA BLES Final Result [facility] [address] [place] [address], [facility] [[email or web address]] [phone] from Last 3 Months or Most Recently Relevant to Health Maintenance Insurance [employer] MEDICARE SELF PAY NO INSURANCE Member Subscriber Plan / Payer (Ef fective for All Dates) Name:Delaney Swan Member ID:Not on file Relation to Subscriber:Not on file Name:DELANEY SWAN Subscriber ID:Not on file (Home) Address: [address] [place] [address] Payer ID:Not on file Group ID:Not on file Type:Self Pay Address: [place], [place] * Guarantor: DELANEY SWAN Account Type Relation to Patient Date of Phone Billing Address Personal/Family [address] [place] [address] [employer] MED[employer]ARE SELF PAY NO INSURANCE Member Subscriber Plan / Payer (Ef fective for All Dates) Name:Delaney Swan Member ID:Not on file Relation to Subscriber:Not on file Name:SOSADELANEY Subscriber ID:Not on file (Home) Address: [address] [place] [address] Payer ID:Not on file Group ID:Not on file Type:Self Pay Address: [place], [place] * Guarantor: SOSADELANEY Account Type Relation to Patient Date of Phone Billing Address Personal/Family [address] [place] [address] [employer] MED[employer]ARE SELF PAY NO INSURANCE Member Subscriber Plan / Payer (Ef fective for All Dates) Name:Sosa Delaney Maricruz Member ID:Not on file Relation to Subscriber:Not on file Name:SOSADELANEY Subscriber ID:Not on file (Home) Address: [facility] [place] [address] Payer ID:Not on file Group ID:Not on file Type:Self Pay Address: [place], [place] * Guarantor: DELANEY SWAN Account Type Relation to Patient Date of Phone Billing Address Personal/Family [address] [place] [address] [facility] MEDICARE SELF PAY NO INSURANCE Member Subscriber Plan / Payer (Ef fective for All Dates) Name:Sosa Delaney S Member ID:Not on file Relation to Subscriber:Not on file Name:DELANEY SWAN Subscriber ID:Not on file (Home) Address: [address] [place] [address] Payer ID:Not on file Group ID:Not on file Type:Self Pay Address: [place], [place] Advance Directives Documents on File Type Date Recorded Patient 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
--- OUTSIDE RECORDS SUMMARY | 2024-09-08 06:03 | XMS_ITS | Encounter Summary ---
Author Organization [facility] Address [address] [address] Care Team Providers Care Specialties Operator Name Role Phone Travis Pizano MD Primary Care Provider [phone] Pavel Russo DO Primary Care Provider [phone] Travis Pizano MD Primary Care Provider [phone] Encounter Details Date Type Department Care Team (Late st Contact Info) Description 12/23/2018 Lab Requisition [facility] D[facility] [address] [place] [address] Gene Love MD [address] [place] [address] Social History Tobacco Use Types Packs/Day Years Used Date Smoking Tobacco: Never Assessed Comments Unknown Sex and Gender Information Value Date Recorded Sex Assigned at Not on file 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 Gender Identity Not on file Sexual Orientation Not on file documented as of this encounter Plan of Treatment Not on file documented as of this encounter Procedures Procedure Name Priority Date/Time Associated Diagnosis Comments DERMATOPATHOLOGY Routine 12/22/2018 12:0 0 AM CDT documented in this encounter Results * DERMATOPATHOLOGY (12/22/2018 12:00 AM CDT) Case Report Dermatopathology Report Case: [id number] Authorizing Provider: Gene Love MD Collected: 12/22/2018 12:00 AM Ordering Location: [facility] D[facility] Lab Received: 12/23/2018 12:54 PM [...] specimen consists of a shave biopsy measuring 1p4x3pg. Jar 0. 1:00 PM CDT DERMATOPATHOLOGY LABORATORY [...] determined by the Dermatopathology Laboratory at [facility], directed by Dr. Gloria Bourgeois. These tests need not be, and therefore are not, approved by the [place] Food and Drug Administration. The tests are used for clinical purposes. Billing Codes Specimen Charges Stain Charges 86974 1 1:00 PM CDT DERMATOPATHOLOGY LABORATORY Embedded Images 1:00 PM CDT DERMATOPATHOLOGY LABORATORY Pathology/Cytolog y TISSUE SPECIMEN FROM SKIN / Unknown 12/22/2018 12/23/2018 12:54 PM CDT us Gene Love MD LAB - PATHOLOGY/CYTOLOGY ORD ERABLES Final Result DERMATOPATHOLOGY LABORATORY [facility] - Department of Dermatology [address] [facility] [place] [address], [facility] [phone] documented in this encounter Visit Diagnoses Not on filedocumented in this encounter Care Teams Specialties Operator Relationship Specialty Start Date End Date Travis Pizano MD [address] [place] [address] PCP - General 04/12/18 02/17/22 Pavel Russo DO [address] [place] [address] PCP - General Internal Medicine 02/18/22 02/23/22 Travis Pizano MD [address] [place] [address] PCP - General 02/24/22 documented as of this encounter
--- NOTE | 2024-09-08 06:11 | ECG_ITS ---
Test Date: 2024-09-08 06:21:12 Measurements Intervals [place] Rate: 96 P: 19 NM: 157 QRS: 50 QRSD: 77 T: 38 QT: 347 QTc: 438 Interpretive Statements SINUS RHYTHM No previous ECG available for comparison Electronically Signed On 09-09-2024 18:56:15 CDT by Dash Campoverde
[2024-09-08 06:31] LABS: Basophils Percent Auto 0.5 % (0.2-1.2); Eosinophils Absolute Auto 0.1 K/mm3 (0-0.3); Eosinophils Percent Auto 2.3 % (0-4.4); Hematocrit 42.9 % (37.0-47.0); Hemoglobin 14.6 g/dL (12.0-15.0); Immature Granulocyte Absolute 0.01 K/mm3 (0.00-0.031); Immature Granulocyte Percent A 0.2 % (0-0.5); Lymphocytes Absolute Auto 1.85 K/mm3 (0.9-3.2); Lymphocytes Percent Auto 33.1 % (18.3-44.2); Mean Corpuscular Hemoglobin 31.6 pg (26-34); Mean Corpuscular Volume 92.9 fl (80-100); Mean Platelet Volume 12.3 fl (7.4-10.4); Monocytes Absolute Auto 0.5 K/mm3 (0.1-0.6); Monocytes Percent Auto 8.4 % (2.6-8.5); Neutrophils Absolute Auto 3.1 K/mm3 (1.3-6.7); Neutrophils Percent Auto 55.5 % (45.5-73.1); Platelet Count Result 228 k/mm3 (150-375); Red Blood Count 4.62 M/mm3 (4.2-5.4); Red Cell Distribution Width 12.7 % (11.5-14.5); White Blood Count 5.6 K/mm3 (4.5-10.0)
[2024-09-08 06:40] LABS: Alanine Aminotransferase 23 U/L (6-35); Albumin Level 4.8 g/dL (3.5-5.1); Alkaline Phosphatase 67 U/L (38-126); Anion Gap 15 mmol/L (4-12); Aspartate Amino Transferase 25 U/L (14-36); Bilirubin,Total 1.4 mg/dL (0.2-1.3); Blood Urea Nitrogen 16 mg/dL (7-17); Calcium 9.4 mg/dL (8.4-10.2); Carbon Dioxide 22 mmol/L (22-30); Chloride 103 mmol/L (98-107); Estimated CRCL calculation 56 ml/min; Estimated Glomerular Filt Rate > 60; Glucose 129 mg/dL (65-110); Potassium 3.8 mmol/L (3.4-5.0); Sodium 140 mmol/L (137-145)
[2024-09-08] MEDS: SODIUM CHLORIDE 0.9% IV 1,000 ML 999 ML IV CONT (07:29)
[2024-09-08] MEDS: MECLIZINE HCL 25 MG TABLET PO ×2 (07:29→13:42)
--- OUTSIDE RECORDS SUMMARY | 2024-09-08 07:42 | XMS_ITS | Clinical Summary ---
Author Organization [facility] [employer] Address [address] [place] [address] Care Team Providers Care Reinsurance Accountant Name Role Phone Travis Pizano MD Primary Care Provider [phone] Source Comments [facility] [employer]non-owned Affiliates and Associated Physician Practices is amultiple site organization consisting of ambulatory clinics and hospital sitesin [place], [place], [place] and [place]. This disclosure is being madepursuant to the Care Everywhere program and may not contain all information available regarding this patient. Last updated 18.[facility] [employer] 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 OPERATOR GASOLINE Gender Identity Not on file Sexual Orientation Not on file Last Filed Vital Signs Vital Sign Reading Time Taken Comments Blood Pressure 168/83 06/02/2024 7:07 AM CATALYST OPERATOR GASOLINE Pulse 113 06/02/2024 7:07 AM CATALYST OPERATOR GASOLINE Temperature 36.6 C (97.8 F) 06/02/2024 7:07 AM CATALYST OPERATOR GASOLINE Respiratory Rate 12 06/02/2024 7:07 AM CATALYST OPERATOR GASOLINE Oxygen Saturation 99% 06/02/2024 7:07 AM CATALYST OPERATOR GASOLINE Inhaled Oxygen Concentration 45% 08/01/2021 6 :00 AM CDT Weight 88 kg (194 lb) 06/02/2024 7:07 AM CATALYST OPERATOR GASOLINE Height 162.6 cm (5' 4 ) 06/02/2024 7:07 AM CATALYST OPERATOR GASOLINE Body Mass Index 33.3 06/02/2024 7:07 AM CATALYST OPERATOR GASOLINE Plan of Treatment Health Maintenance Due Date [...] this topic Medical Devices Implanted Type Area Mechanical Assembly Device Identifier Shelf Expiration Date Model / Serial / Lot Graft Bone Accell Evo3 Dbm 10ml Ptty - [id number] Implanted:Qty: 1 on 07/31/2021 by Wu Vazquez MD at [facility] Right: Leg Integra [employer] 07/08/2022 [id number] / [id number] / [id number] Rfn - Advanced System - Locking Attachment Washer (Law) - 10 Degree - Right Implanted:Qty: 1 on 07/31/2021 by Wu Vazquez MD at [facility] Right: Leg [id number] / / Optilink 5.0mm Va Locking Screw - 60mm Implanted:Qty: 1 on 07/31/2021 by Wu Vazquez MD at [facility] Right: Leg 42.231.260 / / Optilink 5.0mm Va Locking Screw - 80mm Implanted:Qty: 1 on 07/31/2021 by Wu Vazquez MD at [facility] Right: Leg 42.231.280 / / Screw 4.5mm 8mm 76mm Cortx Slf-Tap Lg Implanted:Qty: 1 on 07/31/2021 by Wu Vazquez MD at [facility] Right: Leg Synthes Usa 214.876 / / Graft Bone Canc 60ml Frzdr Chp 4-9.5mm Implanted:Qty: 1 on 07/31/2021 by Wu Vazquez MD at [facility] Right: Leg Allosource 09/14/2025 [id number] / / Description:ID: [id number] Rfna / 11mm/ 360mm - 5 Degree Bend Implanted:Qty: 1 on 07/31/2021 by Wu Vazquez MD at [facility] Right: Femur 04/09/2026 04.233.136S / / [id number] Screw 5mm 4.3mm 72mm T25 Ft Slf-Tap Lck Implanted:Qty: 1 on 07/31/2021 by Wu Vazquez MD at [facility] Right: Leg Synthes Usa 04.005.562S / / Screw 5mm 4.3mm 68mm T25 Ft Slf-Tap Lck Implanted:Qty: 1 on 07/31/2021 by Wu Vazquez MD at [facility] Right: Leg Synthes Usa 04.005.558S / / Screw 5mm 4.3mm 40mm T25 Ft Slf-Tap Lck Implanted:Qty: 1 on 07/31/2021 by Wu Vazquez MD at [facility] Right: Leg Synthes Usa 04.005.530S / / Screw 3.5mm 6mm 34mm 2.5mm Ft Slf-Tap Implanted:Qty: 1 on 07/31/2021 by Wu Vazquez MD at [facility] Right: Leg Synthes Usa 204.834 / / Screw 3.5mm 6mm 32mm 2.5mm Ft Slf-Tap Implanted:Qty: 1 on 07/31/2021 by Wu Vazquez MD at [facility] Right: Leg Synthes Usa 204.832 / / Explanted Type Area Mechanical Assembly Device Identifier Shelf Expiration Date Model / Serial / Lot Screw 3.5mm 6mm 36mm 2.5mm Ft Slf-Tap Explanted:Qty: 1 on 07/31/2021 by Wu Vazquez MD at [facility] Right: Leg Synthes Usa 204.836 / / Procedures Procedure Name Priority Date/Time Associated Diagnosis Comments COMPREHENSIVE METABOLIC PANEL STAT 06/02/2024 9:54 AM [facility] from Last 3 Months or Most Recently Relevant to Health Maintenance Results * (ABNORMAL) COMPREHENSIVE METABOLIC PANEL (06/02/2024 9:54 AM [facility]) BUN 20 7 - 26 mg/dL 06/02/2024 10:27 AM [facility] Creatinine 1.08(H) 0.56 - 0.96 mg/dL 06/02/2024 10:27 AM [facility] Sodium 138 136 - 145 mmol/L 06/02/2024 10:27 AM [facility] Potassium 4.2 3.5 - 4.5 mmol/L 06/02/2024 10:27 AM [facility] Chloride 105 98 - 107 mmol/L 06/02/2024 10:27 AM [facility] CO2 21(L) 22 - 29 mmol/L 06/02/2024 10:27 AM [facility] Glucose 170(H) 70 - 99 mg/dL 06/02/2024 10:27 AM [facility] Calcium 9.4 8.4 - 10.2 mg/dL 06/02/2024 10:27 AM [facility] Protein Total 7.8 6.0 - 8.3 g/dL 06/02/2024 10:27 AM [facility] Albumin 4.4 3.4 - 5.0 g/dL 06/02/2024 10:27 AM [facility] Bilirubin Total 1.6(H) 0.2 - 1.2 mg/dL 06/02/2024 10:27 AM [facility] Alkaline Phosphatase 63 40 - 150 U/L 06/02/2024 10:27 AM [facility] ALT 21 5 - 55 U/L 06/02/2024 10:27 AM [facility] AST 24 5 - 34 U/L 06/02/2024 10:27 AM [facility] Anion Gap 12 6 - 16 06/02/2024 10:27 AM [facility] BUN/Creatinine Ratio 19 7 - 23 06/02/2024 10:27 AM [facility] Osmolality Calculated 293 275 - 295 mOsm/kg 06/02/2024 10:27 AM [facility] Albumin/Globulin Ratio 1.3 1.1 - 2.3 06/02/2024 10:27 AM [facility] eGFR by CKD-EPI 55(L) >=90 mL/min/1.7 3 m2 06/02/2024 10:27 AM [facility] Blood BLOOD SPECIMEN / Unknown Venipuncture / Unknown 06/02/2024 9:54 AM CATALYST OPERATOR GASOLINE 06/02/2024 10:01 AM [facility] us Jefe Parish MD LAB - CHEMISTRY ORDERA BLES Final Result [facility] [address] [place] [address], [facility] [phone] from Last 3 Months or Most Recently Relevant to Health Maintenance Insurance [employer] [facility] MEDICARE SELF PAY NO INSURANCE Member Subscriber Plan / Payer (Ef fective for All Dates) Name:Delaney Swan Member ID:Not on file Relation to Subscriber:Not on file Name:DELANEY SWAN Subscriber ID:Not on file (Home) Address: [address] [place] [address] Payer ID:Not on file Group ID:Not on file Type:Self Pay Address: [place], [place] * Guarantor: DELANEY SWAN Account Type Relation to Patient Date of Phone Billing Address Personal/Family [address] [place] [address] [employer] MED[employer] SELF PAY NO INSURANCE Member Subscriber Plan / Payer (Ef fective for All Dates) Name:Delaney Swan Member ID:Not on file Relation to Subscriber:Not on file Name:SOSADELANEY Subscriber ID:Not on file (Home) Address: [address] [place] [address] Payer ID:Not on file Group ID:Not on file Type:Self Pay Address: [place], [place] * Guarantor: SOSADELANEY Account Type Relation to Patient Date of Phone Billing Address Personal/Family [address] [place] [address] [employer] SELF PAY NO INSURANCE Member Subscriber Plan / Payer (Ef fective for All Dates) Name:Sosa Delaney Maricruz Member ID:Not on file Relation to Subscriber:Not on file Name:SOSADELANEY Subscriber ID:Not on file (Home) Address: [facility] [address] [place] [address] Payer ID:Not on file Group ID:Not on file Type:Self Pay Address: [place], [place] * Guarantor: DELANEY SWAN Account Type Relation to Patient Date of Phone Billing Address Personal/Family [address] [place] [address] [facility] MEDICARE SELF PAY NO INSURANCE Member Subscriber Plan / Payer (Ef fective for All Dates) Name:Sosa Delaney S Member ID:Not on file Relation to Subscriber:Not on file Name:DELANEY SWAN Subscriber ID:Not on file (Home) Address: [address] [place] [address] Payer ID:Not on file Group ID:Not on file Type:Self Pay Address: [place], [place] Advance Directives Documents on File Type Date Recorded 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
--- OUTSIDE RECORDS SUMMARY | 2024-09-08 07:43 | XMS_ITS | Encounter Summary ---
Author Organization [facility] Address [address] [place] [address] Care Team Providers Care Chuck Wagon Driver Name Role Phone Travis Pizano MD Primary Care Provider [phone] Pavel Russo DO Primary Care Provider [phone] Travis Pizano MD Primary Care Provider Encounter Details Date Type Department Care Team (Late st Contact Info) Description 12/23/2018 Lab Requisition [facility] D[facility] [address] [place] [address] Gene Love MD [address] [place] [address] Social History Tobacco Use Types Packs/Day Years Used Date Smoking Tobacco: Never Assessed Comments Unknown Sex and Gender Information Value Date Recorded Sex Assigned at Not on file 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 Gender Identity Not on file Sexual Orientation Not on file documented as of this encounter Plan of Treatment Not on file documented as of this encounter Procedures Procedure Name Priority Date/Time Associated Diagnosis Comments DERMATOPATHOLOGY Routine 12/22/2018 12:0 0 AM CDT documented in this encounter Results * DERMATOPATHOLOGY (12/22/2018 12:00 AM CDT) Case Report Dermatopathology Report Case: [id number] Authorizing Provider: Gene Love MD Collected: 12/22/2018 12:00 AM Ordering Location: [facility] Derm[facility] Lab Received: 12/23/2018 12:54 [...] specimen consists of a shave biopsy measuring [id number]. Jar 0. 1:00 PM CDT DERMATOPATHOLOGY LABORATORY [...] characteristic determined by the Dermatopathology Laboratory at [facility], directed by Dr. Gloria Bourgeois. These tests need not be, and therefore are not, approved by the [place] Food and Drug Administration. The tests are used for clinical purposes. Billing Codes Specimen Charges Stain Charges 36170 1 1:00 PM CDT DERMATOPATHOLOGY LABORATORY Embedded Images 1:00 PM CDT DERMATOPATHOLOGY LABORATORY Pathology/Cytolog y TISSUE SPECIMEN FROM SKIN / Unknown 12/22/2018 12/23/2018 12:54 PM CDT us Gene Love MD LAB - PATHOLOGY/CYTOLOGY ORD ERABLES Final Result DERMATOPATHOLOGY LABORATORY [facility] - Department of Dermatology [address] [facility], [address]th [place] [address], [facility] [phone] documented in this encounter Visit Diagnoses Not on filedocumented in this encounter Care Teams Chuck Wagon Driver Relationship Specialty Start Date End Date Travis Pizano MD [address] [place] [address] PCP - General 04/12/18 02/17/22 Pavel Russo DO [address] [place] [address] PCP - General Internal Medicine 02/18/22 02/23/22 Travis Pizano MD [address] [place] [address] PCP - General 02/24/22 documented as of this encounter
--- OUTSIDE RECORDS SUMMARY | 2024-09-08 07:43 | XMS_ITS | Clinical Summary ---
Author Organization [facility] Address [address] [facility] [address] Phone Care Team Providers Care Toll Mechanic Name Role Phone Alex Lerma MD Primary Care Provider [phone] Allergies Active Allergy Reactions Criticality Noted Date [...] STL ABSTRACTION Provider, Abstract 07/07/2024 2:30 PM PROGRESSIVE DIE MAKER Office Visit [facility] Oncology and Hematology - [place] [address] [place] [address] David Judge MD Malignant neoplasm [...] on file Legal Sex Female 4:14 AM PROGRESSIVE DIE MAKER Gender Identity Not on file Sexual Orientation Not on file Last Filed Vital Signs Vital Sign Reading Time Taken Comments Blood Pressure 127/72 07/07/2024 2:50 PM PROGRESSIVE DIE MAKER Pulse 100 07/07/2024 2:47 PM PROGRESSIVE DIE MAKER Temperature 36.1 C (96.9 F) 07/07/2024 2:47 PM PROGRESSIVE DIE MAKER Respiratory Rate 15 07/07/2024 2:47 PM PROGRESSIVE DIE MAKER Oxygen Saturation 96% 07/07/2024 2:47 PM PROGRESSIVE DIE MAKER Inhaled Oxygen Concentration - - Weight 87.6 kg (193 lb 3.2 oz) 07/07/2024 2:47 P M PROGRESSIVE DIE MAKER Height 162.6 cm (5' 4 ) 12/03/2023 10:27 AM CDT Body Mass Index 33.16 12/03/2023 10:27 AM CDT Plan of Treatment Upcoming Encounters Date Type Department Care Team (Late st Contact Info) Description 11/04/2024 11:30 AM CDT Office Visit [facility] Oncology and Hematology - [place] [address] [facility] [address] [place] [address] David Judge MD [address] [facility] [address] [place] [address] Health Maintenance Due Date Last [...] COMPREHENSIVE METABOLIC PANEL Routine 06/21/2024 6:43 AM PROGRESSIVE DIE MAKER CBC WITH DIFFERENTIAL Routine 06/21/2024 6:43 AM PROGRESSIVE DIE MAKER CANCER ANTIGEN 15-3 Routine 06/21/2024 6 :43 AM PROGRESSIVE DIE MAKER Malignant neoplasm of left breast in female, estrogen receptor positive, unspecified site of breast (CMS/HCC) from Last 3 Months Results * CANCER ANTIGEN 15-3 (06/21/2024 6:43 AM PROGRESSIVE DIE MAKER) Pathologist [facility] CA 15-3 23 <32 U/mL [facility] Comment: This test was performed using the Siemens (Sagge) chemiluminescent method. Values obtained from different assay methods cannot be used interchangeably. CA 15-3 levels, regardless of value, should not be interpreted as absolute evidence of the presence or absence of disease. FASTING:YES FASTING: YES Test Performed at: [facility] [address] [place] [address] Marycruz Lopes MD Blood 06/21/2024 6:43 AM PROGRESSIVE DIE MAKER 06/21/2024 6:45 AM PROGRESSIVE DIE MAKER us David Judge MD CHEMISTRY ORDERABLES Final Resu lt [facility] [phone] [facility] [id number] [place] [phone] * (ABNORMAL) CBC WITH DIFFERENTIAL (06/21/2024 6:43 AM PROGRESSIVE DIE MAKER) Pathologist [facility] WBC 7.7 3.8 - 10.8 Thousand/u L [...] Comment: FASTING:YES FASTING: YES Test Performed at: [facility] [address] [address] Marycruz Lopes MD 06/21/2024 6:43 AM PROGRESSIVE DIE MAKER 06/21/2024 6:45 AM PROGRESSIVE DIE MAKER David Judge MD HEMATOLOGY ORDERABLES Final Res ult [facility] [phone] [facility] [address] [place] [phone] * (ABNORMAL) COMPREHENSIVE METABOLIC PANEL (06/21/2024 6:43 AM PROGRESSIVE DIE MAKER) GLUCOSE 124(H) 65 - 99 mg/dL [facility] [...] Comment: FASTING:YES FASTING: YES Test Performed at: [facility] [address] [address] Marcyruz Lopes MD 06/21/2024 6:43 AM PROGRESSIVE DIE MAKER 06/21/2024 6:45 AM PROGRESSIVE DIE MAKER David Judge MD CHEMISTRY ORDERABLES Final Resu lt [facility] [phone] [facility] [address] [address] from Last 3 Months Insurance MEDICARE PART A AND B [facility] [address] [place], [place] [id number] Care Teams Toll Mechanic Relationship Specialty Start Date End Date Alex Lerma MD [address] [place] [address] PCP - General Family Practice 12/02/23
[2024-09-08 08:35] LABS: Add Urine Microscopic? YES; Appearance Urine Clear (Clear); Bacteria Urine 4+ /hpf; Bilirubin Urine Negative (Negative); Blood Urine Negative (Negative); Color Urine Yellow (Yellow); Glucose Urine UA Negative (Negative); Ketones Urine Negative (Negative); Leukocyte Esterase Ur Negative LEU/UL (Negative); Nitrate Urine Positive (Negative); Non Pathogenic Casts 0-2; Protein Urine Negative (Negative); RBC Urine 0-2 /hpf (0-2); Specific Grav Ur > 1.045 (1.001-1.035); Squamous Epithelial Cell Urine None Seen /hpf (Few); Urobilinogen Urine 0.2 mg/dL (<2.0); WBC Urine 0-5 /hpf (0-3)
[2024-09-08 08:37] LABS: Lactic Acid Reflex 0.9 mmol/L (0.7-2.0)
[2024-09-08 08:38] LABS: Magnesium 1.8 mg/dL (1.6-2.3)
[2024-09-08 08:43] LABS: INR 1.1; Prothrombin Time 14.4 Seconds (11.1-14.7)
[2024-09-08 08:44] LABS: Partial Thromboplastin Time 26.2 Seconds (22.3-36.8)
[2024-09-08 08:49] LABS: Troponin I < 0.012 ng/mL (0.000-0.034)
[2024-09-08 09:07] LABS: Influenza A QL RT-PCR Negative (Negative); Influenza B QL RT-PCR Negative (Negative); RSV RNA, RT-PCR Negative (Negative); SARS-CoV-2 RNA PCR Negative (Negative)
--- NOTE | 2024-09-08 10:11 | ED_ITS ---
HPI - General Adult General Chief complaint: Dizziness Stated complaint: dizziness, diaphoretic, neck pain Time Seen by Provider: 09/08/24 07:11 History of Present Illness HPI narrative: Patient 69-year-old female who presents emergency department with chief complaint of dizziness. Patient reports she had sudden onset of dizziness had a headache and some pain in her neck the patient reports she went to sleep last night around 7:00 p.m. and woke this morning with the symptoms patient reports that she has had an episode like this similarly but the symptoms resolved. Patient reports she had some numbness with it as well. Related Data Home Medications Medication Instructions Recorded Confirmed Last Taken Type calcium 500 mg-vitamin D3 100 1 tablet PO BID 12/30/23 09/08/24 06/08/24 History unit-vitamin K 40 mcg chewable tablet cholecalciferol (vitamin D3) 25 25 mcg PO DAILY 12/30/23 09/08/24 06/08/24 History mcg (1,000 unit) capsule ldgypwcx-nyr-frbc-FA-Ca carb-vit K 1 tablet PO DAILY 12/30/23 09/08/24 06/08/24 History 18 mg iron-400 mcg-500 mg tablet anastrozole 1 mg tablet 1 mg PO DAILY 05/27/24 09/08/24 06/08/24 History Allergies Allergy/AdvReac Type Severity Reaction Status Date / Time Sulfa (Sulfonamide AdvReac Mild Hives Verified 09/08/24 12:07 Antibiotics) adhesive AdvReac Redness of Verified 09/08/24 12:07 Skin transparent dressing AdvReac Blister Verified 09/08/24 12:07 Review of Systems 2 Review of Systems: A 10 system review of systems was completed on the patient and is negative except for what is stated in the HPI. Nursing and ancillary documentation was reviewed. [facility] Past Medical History Medical History (Updated 09/08/24 @ 13:35 by Gloria Herzog APRN) Chronic obstructive pulmonary disease, unspecified Invasive lobular carcinoma of left breast in female s/p lumpectomy Endometriosis Iron deficiency anemia Prediabetes A1C 5.9% on 03/2024 Depression Elevated troponin Ureteral stone Septic shock Chronic neck and back pain Osteopenia Closed fracture of right distal femur (~07/28/21) R patella and R humeral Fx as well - transferred to U Arthritis of foot, degenerative Postmenopause Hypertension Vision abnormalities Vertigo Dizziness Obesity Anxiety and depression Mixed hyperlipidemia Surgical History Surgical History History of tonsillectomy History of lumpectomy of left breast Status post removal of thyroid nodule Family History Family History Father Patient's father is , Onset Age: 72 Hypertension, Onset Age: 72 Family history of alcoholism Mother High cholesterol Patient's mother is Social History Social History Smoking packs per day: 2 Smoking cigarettes per day: 40.0 Years smoked: 30 Smoking pack-years: 60.00 Smoking status: Former smoker Tobacco type: cigarettes Second hand tobacco smoke exposure: No Smoking end date: 09/08/05 Alcohol intake: never Alcohol use details: QUIT 1992 Substance use: never Substance use type: does not use Do You Feel Safe in your Home?: Yes Lack of Transportation: No Lack of Food: Never True Current Housing: I Have Housing Concerned About Future Housing: No Difficulty Paying Gas/Electric Bills: No Difficulty Paying for Meds: No Currently Unemployed: No Education: Don't Know Difficulty w/ Childcare or Family Care: No Living arrangements: alone Spiritual care concerns: No Agree to blood products: Yes Exam 2 Narrative: GENERAL: Well-appearing, well-nourished, and in no acute distress. HEAD: Normocephalic, atraumatic. EYES: PERRLA and EOMI. ENT: Nares clear, no rhinorrhea or epistaxis. Mucous membranes moist. NECK: Supple. CHEST: Clear to auscultation. No respiratory distress. HEART: Regular rate and rhythm. No murmur heard. Normal peripheral pulses. ABDOMEN: Soft, nontender, nondistended, normal active bowel sounds. EXTREMITIES: Normal range of motion. No edema. SKIN: Warm, dry, no rash. NEURO: No focal deficits. Alert and oriented x3. PSYCH: Normal mood and affect. Course Vital Signs Vital signs: Vital Signs Temperature 37.0 C 09/08/24 06:13 Pulse Rate 102 H 09/08/24 06:13 Respiratory Rate 17 09/08/24 06:13 Pulse Oximetry 95 09/08/24 06:13 Oxygen Delivery Room Air 09/08/24 06:13 Temperature 37.0 C 09/08/24 06:13 Pulse Rate 77 09/08/24 12:00 Respiratory Rate 19 09/08/24 10:30 Blood Pressure 123/58 L 09/08/24 10:01 Pulse Oximetry 96 09/08/24 10:30 Oxygen Delivery Room Air 09/08/24 06:13 Medical Decision Making MDM Narrative Medical decision making narrative: Differential diagnosis includes CVA, vertigo, electrolyte abnormality, dehydration, EKG showed no acute ischemic changes initial troponin was negative patient has had no signs of dysrhythmia on library monitor COVID flu and RSV were negative CTA head neck with noncontrast head CT were negative Chest x-ray showed no focal infiltrate Patient felt better after receiving Antivert and fluids but was still somewhat unsteady with ambulation. Due to this the case will be discussed with the hospitalist for admission for observation and MRI Vital Signs Vital Signs: Vital Signs Temperature 37.0 C 09/08/24 06:13 Pulse Rate 102 H 09/08/24 06:13 Respiratory Rate 17 09/08/24 06:13 Pulse Oximetry 95 09/08/24 06:13 Oxygen Delivery Room Air 09/08/24 06:13 Temperature 37.0 C 09/08/24 06:13 Pulse Rate 77 09/08/24 12:00 Respiratory Rate 19 09/08/24 10:30 Blood Pressure 123/58 L 09/08/24 10:01 Pulse Oximetry 96 09/08/24 10:30 Oxygen Delivery Room Air 09/08/24 06:13 Lab Data 09/08/24 06:25 09/08/24 06:25 Labs: Lab Results 09/08/24 09/08/24 Range/Units 06:25 08:22 WBC 5.6 (4.5-10.0) K/mm3 RBC 4.62 (4.2-5.4) M/mm3 Hgb 14.6 D (12.0-15.0) g/dL Hct 42.9 (37.0-47.0) % MCV 92.9 (80-100) fl MCH 31.6 (26-34) pg MCHC 34.0 (32-36) g/dl RDW 12.7 (11.5-14.5) % Plt Count 228 (150-375) k/mm3 MPV 12.3 H (7.4-10.4) fl Immature Gran % (Auto) 0.2 (0-0.5) % Neut % (Auto) 55.5 (45.5-73.1) % Lymph % (Auto) 33.1 (18.3-44.2) % [place] % (Auto) 8.4 (2.6-8.5) % Eos % (Auto) 2.3 (0-4.4) % Baso % (Auto) 0.5 (0.2-1.2) % Lymph # (Auto) 1.85 (0.9-3.2) K/mm3 [place] # (Auto) 0.5 (0.1-0.6) K/mm3 Eos # (Auto) 0.1 (0-0.3) K/mm3 Baso # (Auto) 0.0 (0.0-0.1) K/mm3 Abs Immat Gran (auto) 0.01 (0.00-0.031) K/mm3 Absolute Neuts (auto) 3.1 (1.3-6.7) K/mm3 Absolute Nucleated RBC 0.000 (0.0-0.012) K/mm3 Nucleated RBC % 0.0 (0.0-0.2) % PT 14.4 (11.1-14.7) Seconds INR 1.1 APTT 26.2 (22.3-36.8) Seconds Sodium 140 (137-145) mmol/L Potassium 3.8 (3.4-5.0) mmol/L Chloride 103 (98-107) mmol/L Carbon Dioxide 22 (22-30) mmol/L Anion Gap 15 H (4-12) mmol/L BUN 16 (7-17) mg/dL Creatinine 0.82 (0.7-1.0) mg/dL Estim Creat Clear Calc 56 ml/min Estimated GFR > 60 (59 - ) Glucose 129 H (65-110) mg/dL Lactic Acid 0.9 (0.7-2.0) mmol/L Calcium 9.4 (8.4-10.2) mg/dL Magnesium 1.8 (1.6-2.3) mg/dL Total Bilirubin 1.4 H (0.2-1.3) mg/dL AST 25 (14-36) U/L ALT 23 (6-35) U/L Alkaline Phosphatase 67 (38-126) U/L Troponin I < 0.012 (0.000-0.034) ng/mL Total Protein 8.0 (6.3-8.2) g/dL Albumin 4.8 (3.5-5.1) g/dL Urine Color Yellow (Yellow) Urine Appearance Clear (Clear) Urine pH 7.0 (5.0-9.0) Ur Specific Owen > 1.045 H (1.001-1.035) Urine Protein Negative (Negative) mg/dL Urine Glucose (UA) Negative (Negative) mg/dL Urine Ketones Negative (Negative) mg/dL Ur Blood (Man) Negative (Negative) Urine Nitrate Positive H (Negative) Urine Bilirubin Negative (Negative) Urine Urobilinogen 0.2 (<2.0) mg/dL Leukocyte Esterase Rfl Negative (Negative) PAULINO/UL Urine RBC 0-2 (0-2) /hpf Urine WBC 0-5 (0-3) /hpf Ur Squamous Epith Cells None seen (Few) /hpf Urine Bacteria 4+ H /hpf Urine Casts 0-2 Influenza A (RT-PCR) Negative (Negative) Influenza B (RT-PCR) Negative (Negative) RSV (RT-PCR) Negative (Negative) SARS-CoV-2 RNA (RT-PCR) Negative (Negative) Discharge Plan Discharge Clinical Impression: Dizziness Patient Disposition: Still a Patient Condition: Stable
--- NOTE | 2024-09-08 11:52 | ADMGEN ---
This patient, Delaney Mckeon, was admitted to [facility] Surg Room 327-01. Patient/family oriented to hospital policies and general routines including ID bracelet, bed and alarms, visiting hours, pain management, procedures, bathroom and other care routines, personal items, smoking policy, room service/diet, and visiting hours. Information on how to activate the Rapid Response Team has been discussed. Patient/Family are encouraged to report perceived risks to care and to ask questions if they do not understand what they are told or what they should do. Report from
--- NOTE | 2024-09-08 13:10 | PM.IMHP ---
H&P: HPI History of Present Illness Date/Time: 09/08/24 13:10 Chief Complaint: Dizziness Narrative: 69 y/o F with PMH of vertigo, anxiety/depression, hypertension, hyperlipidemia, osteopenia, and kidney stones presents here with dizziness. The patient presents here from home on 09/08/2024 for further evaluation of sudden onset dizziness. She reports her last known well was yesterday evening before going to bed on 09/07 at 7:30 p.m. she reports she woke this morning at 04:30 a.m. with dizziness, headache, and mild neck pain (midline). She describes the dizziness as if she was on a boat and persistent. Reports the dizziness is affecting her balance and walking. It is also accompanied by a nausea without vomiting, numbness to the right upper extremity (described as pinpricks in her finger tips), and discomfort to the inner left ear. Did not take any medications/OTC meds for her symptoms. She reports he similar episode on Thursday, 09/03, while she was at rest. She reports during this episode she had diaphoresis, dizziness, headache, and neck pain. Episode lasted for 2-3 days and resolved without intervention. Reporting improvement in dizziness with Meclizine. Initial VS at presentation: 98.6° F, HR 102, R 17, 127/73, and 95% on RA. ED workup showed: No leukocytosis, no anemia, normal coags, no significant electrolyte derangements, creatinine 0.82 and GFR >60, glucose 129, initial troponin negative, and UA showed a high specific gravity with positive nitrates and 4+ bacteria with no epithelial cells, viral PCR negative. CXR showed clear lungs. Head/neck CTA showed atherosclerotic plaque was 0% stenosis of the right and left carotid bulbs, aging brain with a couple bilateral basal ganglia old lacunar infarcts, no acute intracranial process, unremarkable cerebral CT angiogram. Review of Systems Review of Systems: All systems reviewed & are unremarkable except as noted in HPI and below [facility] Past Medical History Medical History (Updated 09/08/24 @ 15:31 by Vivian Ramos MD) Invasive lobular carcinoma of left breast in female s/p lumpectomy Chronic obstructive pulmonary disease, unspecified Endometriosis Iron deficiency anemia Prediabetes A1C 5.9% on 03/2024 Depression Elevated troponin Ureteral stone Septic shock Chronic neck and back pain Osteopenia Closed fracture of right distal femur (~07/28/21) R patella and R humeral Fx as well - transferred to U Arthritis of foot, degenerative Postmenopause Hypertension Vision abnormalities Vertigo Dizziness Obesity Anxiety and depression Mixed hyperlipidemia Surgical History Surgical History History of tonsillectomy History of lumpectomy of left breast Status post removal of thyroid nodule Family History Family History Father Patient's father is , Onset Age: 72 Hypertension, Onset Age: 72 Family history of alcoholism Mother High cholesterol Patient's mother is Social History Social History Smoking packs per day: 2 Smoking cigarettes per day: 40.0 Years smoked: 30 Smoking pack-years: 60.00 Smoking status: Former smoker Tobacco type: cigarettes Second hand tobacco smoke exposure: No Smoking end date: 09/08/05 Alcohol intake: never Alcohol use details: QUIT 1992 Substance use: never Substance use type: does not use Do You Feel Safe in your Home?: Yes Lack of Transportation: No Lack of Food: Never True Current Housing: I Have Housing Concerned About Future Housing: No Difficulty Paying Gas/Electric Bills: No Difficulty Paying for Meds: No Currently Unemployed: No Education: Don't Know Difficulty w/ Childcare or Family Care: No Living arrangements: alone Spiritual care concerns: No Agree to blood products: Yes Meds Home Medications and Allergies Home Medications Medication Instructions Recorded Confirmed Type calcium 500 mg-vitamin D3 100 1 tablet PO BID 12/30/23 09/08/24 History unit-vitamin K 40 mcg chewable tablet cholecalciferol (vitamin D3) 25 25 mcg PO DAILY 12/30/23 09/08/24 History mcg (1,000 unit) capsule ksvifdvd-ahf-mxyv-FA-Ca carb-vit K 1 tablet PO DAILY 12/30/23 09/08/24 History 18 mg iron-400 mcg-500 mg tablet atorvastatin 20 mg tablet See Rx Instructions .Route 04/08/24 09/08/24 Rx .COMPLEX #90 tabs lisinopril 20 mg tablet See Rx Instructions .Route 04/08/24 09/08/24 Rx .COMPLEX #90 tabs venlafaxine 75 mg capsule,extended 225 mg (3 x 75 mg) PO QAM #270 caps 04/08/24 09/08/24 Rx release 24 hr buspirone 30 mg tablet 30 mg PO BID 3 months #180 tabs 04/11/24 09/08/24 Rx anastrozole 1 mg tablet 1 mg PO DAILY 05/27/24 09/08/24 History amlodipine 5 mg tablet See Rx Instructions .Route 07/06/24 09/08/24 Rx .COMPLEX #90 tabs Allergies Allergy/AdvReac Type Severity Reaction Status Date / Time Sulfa (Sulfonamide AdvReac Mild Hives Verified 09/08/24 12:07 Antibiotics) adhesive AdvReac Redness of Verified 09/08/24 12:07 Skin transparent dressing AdvReac Blister Verified 09/08/24 12:07 Vital Signs Vital Signs - 24 hr 09/08/24 06:13 09/08/24 06:18 09/08/24 07:00 Temperature 98.6 F Pulse Rate 102 H 98 86 Respiratory Rate 17 14 Blood Pressure 127/73 Pulse Oximetry 95 96 Oxygen Delivery Room Air 09/08/24 07:15 09/08/24 08:19 09/08/24 08:37 Temperature Pulse Rate 86 76 77 Respiratory Rate 16 15 22 H Blood Pressure 121/91 H Pulse Oximetry 95 98 98 Oxygen Delivery 09/08/24 08:45 09/08/24 09:36 09/08/24 09:45 Temperature Pulse Rate 75 79 75 Respiratory Rate 21 H 17 14 Blood Pressure 125/58 L Pulse Oximetry 98 95 98 Oxygen Delivery 09/08/24 09:46 09/08/24 10:00 09/08/24 10:01 Temperature Pulse Rate 76 73 75 Respiratory Rate 14 16 15 Blood Pressure 130/67 123/58 L Pulse Oximetry 97 96 94 Oxygen Delivery 09/08/24 10:15 09/08/24 10:30 09/08/24 12:00 Temperature Pulse Rate 79 88 77 Respiratory Rate 13 19 Blood Pressure Pulse Oximetry 97 96 Oxygen Delivery Exam Const: General: comfortable and no acute distress Other: , female, nontoxic appearance HENMT: Face/Nose/Sinus: Normal nares present Mouth: Yes moist mucous membranes Eyes: General: appearance normal, both eyes and all related structures Sclera: sclerae normal Pupils: Equal, round and reactive pupils present EOM: EOMs intact bilaterally Resp: Effort & Inspection: normal respiratory effort Auscultation: clear to auscultation bilaterally Cardio: Rate: regular rate Rhythm: regular rhythm Other: S1-S2 present without murmur, rub, ectopy GI: Other: Abdomen soft, nondistended, nontender. Normoactive bowel sounds in all quadrants. Skin: General skin exam: normal color and no rashes or lesions noted Wounds: no wounds Neuro: Speech: normal speech Motor exam (neuro): 5/5 motor strength present throughout Sensory Exam: normal sensation Other: A&O x4, NIHSS 0 Extrem: General: normal to inspection Psych: Mental Status: mental status grossly normal Affect: normal affect Other: Good insight and judgment, pleasant H&P: Results Labs Labs: Short CBC 09/08/24 Range/Units 06:25 WBC 5.6 (4.5-10.0) K/mm3 Hgb 14.6 D (12.0-15.0) g/dL Hct 42.9 (37.0-47.0) % Plt Count 228 (150-375) k/mm3 BMP 09/08/24 06:25 Sodium 140 Potassium 3.8 Chloride 103 Carbon Dioxide 22 BUN 16 Creatinine 0.82 Glucose 129 H Calcium 9.4 Cardiac Enzymes 09/08/24 Range/Units 08:22 Troponin I < 0.012 (0.000-0.034) ng/mL Liver Function 09/08/24 Range/Units 06:25 Total Bilirubin 1.4 H (0.2-1.3) mg/dL AST 25 (14-36) U/L ALT 23 (6-35) U/L Alkaline Phosphatase 67 (38-126) U/L Albumin 4.8 (3.5-5.1) g/dL Urine 09/08/24 Range/Units 08:22 Urine Color Yellow (Yellow) Urine Appearance Clear (Clear) Urine pH 7.0 (5.0-9.0) Ur Specific [place] > 1.045 H (1.001-1.035) Urine Protein Negative (Negative) mg/dL Urine Glucose (UA) Negative (Negative) mg/dL Assessment and Plan Assessment and plan (1) Dizziness: Code(s): R42 - Dizziness and giddiness Status: Acute Assessment and Plan: New dizziness, difficulty with balance, and right upper extremity numbness discovered on 09/08 at XX a.m. upon awakening. Last known well at XX p.m. on 09/07. - admission for observation and telemetry - not candidate for thrombolytics due to timeframe. not candidate for thrombectomy, no LVO on CTA. - CTA head/neck and CXR were unremarkable - neurology consulted - brain MRI w/wo ordered - echo w/Bubble ordered - cancelled, no CVA on MRI - neuro checks Q4 - monitor daily labs - check lipid panel, A1C, and TSH - meclizine 25 mg b.i.d. p.r.n. for dizziness - telemetry monitoring DDx: myocardial infarction, TIA, stroke, vertigo, anxiety/stress, coronary artery disease, thyroid disorder. Patient has history of vertigo and description of dizziness in favor vertigo, high suspicion for this diagnosis with exacerbation due to suspected UTI. However, right upper extremity numbness more so consistent with CVA. MRI pending - negative for CVA. (2) UTI (urinary tract infection): Qualifiers: Hematuria presence: without hematuria Urinary tract infection type: acute cystitis Qualified Code(s): N30.00 - Acute cystitis without hematuria Code(s): N39.0 - Urinary tract infection, site not specified Status: Acute Assessment and Plan: - UA: High specific gravity, positive nitrates, 4+ bacteria, no epithelial cells - UC pending - previous micro reviewed, most recent positive culture from 07/15/2023 grew pansensitive E coli - started on Ceftriaxone on 09/08 (3) Hypertension: Qualifiers: Hypertension type: unspecified Qualified Code(s): I10 - Essential (primary) hypertension Code(s): I10 - Essential (primary) hypertension Status: Chronic Assessment and Plan: - chronic, currently 123/58 - continue home medications: amlodipine 5 mg daily, lisinopril 20 mg daily - monitor Plan Diet: Heart healthy GI Prophylaxis: Not currently indicated DVT Prophylaxis: SCDs IV fluids: LR 100 mL/hr x1L Lines/Tubes: Peripheral IV Code Status: Full code Quality VTE Prophylaxis VTE prophylaxis: mechanical ordered Hospitalist [facility] Advance Care Plan I have confirmed that the patient's Advanced Care Plan is present, code status is documented, or surrogate decision maker is listed in patient medical record.: Yes Medication Reconciliation I have utilized all available resources to obtain, update and review the patients current medications (includes all prescriptions, OTC, herbals, cannabis, and nutritional supplements).: Yes
[2024-09-08] MEDS: LACTATED RINGERS 1,000 ML 100 ML IV CONT (13:37)
[2024-09-08 13:56] LABS: Troponin I < 0.012 ng/mL (0.000-0.034)
--- NOTE | 2024-09-08 15:22 | WPDNEURCNPN ---
Assessment and Plan Assessment and plan (1) Dizziness: Code(s): R42 - Dizziness and giddiness Status: Acute Assessment and Plan: Patient's symptoms are suggestive of benign paroxysmal positional vertigo however view of the history of carcinoma of breast and had her age we needs to consider other etiologies. I agree with MRI of the brain which is planned. Thereafter if the MRI does not show anything she may require vestibular exercises. Given some ideas about it. In fact she has been through that several years ago which also helps her. Her CT scan of brain and CT angiogram of the head and neck did not show any significant abnormalities. Neurologic examination also did not show any significant findings. No nystagmus. Plan Follow-up results of MRIs of the brain and if normal vestibular therapy or exercises at home may be initiated Consult date: 09/08/24 HPI: Delaney Mckeon is a 69 year old female Presented to the hospital with symptoms of vertigo which started early this morning. She also had mild headache. No nausea or vomiting or diplopia or any weakness in upper lower limbs. Does not suffer from migraine. She has had a similar attack of vertigo last Thursday she had she recalls that several years ago she has had attack of vertigo for which she was treated with vestibular exercises by her family physician. Few months ago she has had some itching in the left ear but she does not have any hearing loss or any other symptoms. No history of head trauma or any febrile illness. Usual state of health. However she had does report that the dizziness affected her walking and balance. The episode lasted for several hours and now she is feeling better. She underwent a CT scan of the brain and thereafter CT angiogram of the head and neck in the emergency room which did not show any significant abnormality. In the emergency room her vital signs were stable and she is afebrile. Baseline CBC and chemistry profile did not show any significant abnormalities. Reviewing her notes a found that she had a left breast lump which was removed and she had radiation therapy last year. She had invasive lobular carcinoma of the left breast Review of Systems Review of Systems: All systems reviewed & are unremarkable except as noted in HPI and below [facility] Past Medical History Medical History (Updated 09/08/24 @ 15:31 by Vivian Ramos MD) Invasive lobular carcinoma of left breast in female s/p lumpectomy Chronic obstructive pulmonary disease, unspecified Endometriosis Iron deficiency anemia Prediabetes A1C 5.9% on 03/2024 Depression Elevated troponin Ureteral stone Septic shock Chronic neck and back pain Osteopenia Closed fracture of right distal femur (~07/28/21) R patella and R humeral Fx as well - transferred to U Arthritis of foot, degenerative Postmenopause Hypertension Vision abnormalities Vertigo Dizziness Obesity Anxiety and depression Mixed hyperlipidemia Surgical History Surgical History History of tonsillectomy History of lumpectomy of left breast Status post removal of thyroid nodule Family History Family History Father Patient's father is , Onset Age: 72 Hypertension, Onset Age: 72 Family history of alcoholism Mother High cholesterol Patient's mother is Social History Social History Smoking packs per day: 2 Smoking cigarettes per day: 40.0 Years smoked: 30 Smoking pack-years: 60.00 Smoking status: Former smoker Tobacco type: cigarettes Second hand tobacco smoke exposure: No Smoking end date: 09/08/05 Alcohol intake: never Alcohol use details: QUIT 1992 Substance use: never Substance use type: does not use Do You Feel Safe in your Home?: Yes Lack of Transportation: No Lack of Food: Never True Current Housing: I Have Housing Concerned About Future Housing: No Difficulty Paying Gas/Electric Bills: No Difficulty Paying for Meds: No Currently Unemployed: No Education: Don't Know Difficulty w/ Childcare or Family Care: No Living arrangements: alone Spiritual care concerns: No Agree to blood products: Yes Meds Home Medications and Allergies Home Medications Medication Instructions Recorded Confirmed Type calcium 500 mg-vitamin D3 100 1 tablet PO BID 12/30/23 09/08/24 History unit-vitamin K 40 mcg chewable tablet cholecalciferol (vitamin D3) 25 25 mcg PO DAILY 12/30/23 09/08/24 History mcg (1,000 unit) capsule rnkenqya-dlg-lhok-FA-Ca carb-vit K 1 tablet PO DAILY 12/30/23 09/08/24 History 18 mg iron-400 mcg-500 mg tablet atorvastatin 20 mg tablet See Rx Instructions .Route 04/08/24 09/08/24 Rx .COMPLEX #90 tabs lisinopril 20 mg tablet See Rx Instructions .Route 04/08/24 09/08/24 Rx .COMPLEX #90 tabs venlafaxine 75 mg capsule,extended 225 mg (3 x 75 mg) PO QAM #270 caps 04/08/24 09/08/24 Rx release 24 hr buspirone 30 mg tablet 30 mg PO BID 3 months #180 tabs 04/11/24 09/08/24 Rx anastrozole 1 mg tablet 1 mg PO DAILY 05/27/24 09/08/24 History amlodipine 5 mg tablet See Rx Instructions .Route 07/06/24 09/08/24 Rx .COMPLEX #90 tabs Allergies Allergy/AdvReac Type Severity Reaction Status Date / Time Sulfa (Sulfonamide AdvReac Mild Hives Verified 09/08/24 12:07 Antibiotics) adhesive AdvReac Redness of Verified 09/08/24 12:07 Skin transparent dressing AdvReac Blister Verified 09/08/24 12:07 Vital Signs Vital Signs - 24 hr 09/08/24 06:13 09/08/24 06:18 09/08/24 07:00 Temperature 98.6 F Pulse Rate 102 H 98 86 Respiratory Rate 17 14 Blood Pressure 127/73 Pulse Oximetry 95 96 Oxygen Delivery Room Air 09/08/24 07:15 09/08/24 08:19 09/08/24 08:37 Temperature Pulse Rate 86 76 77 Respiratory Rate 16 15 22 H Blood Pressure 121/91 H Pulse Oximetry 95 98 98 Oxygen Delivery 09/08/24 08:45 09/08/24 09:36 09/08/24 09:45 Temperature Pulse Rate 75 79 75 Respiratory Rate 21 H 17 14 Blood Pressure 125/58 L Pulse Oximetry 98 95 98 Oxygen Delivery 09/08/24 09:46 09/08/24 10:00 09/08/24 10:01 Temperature Pulse Rate 76 73 75 Respiratory Rate 14 16 15 Blood Pressure 130/67 123/58 L Pulse Oximetry 97 96 94 Oxygen Delivery 09/08/24 10:15 09/08/24 10:30 09/08/24 11:30 Temperature 97.9 F Pulse Rate 79 88 73 Respiratory Rate 13 19 18 Blood Pressure 128/61 Pulse Oximetry 97 96 98 Oxygen Delivery 09/08/24 12:00 09/08/24 14:00 Temperature 97.1 F L Pulse Rate 77 83 Respiratory Rate 18 Blood Pressure 106/49 L Pulse Oximetry 97 Oxygen Delivery Exam Const: General: cooperative, well developed and alert Orientation/consciousness: patient oriented x3 HENMT: Head: atraumatic Mouth: Yes oropharynx normal Eyes: Alignment and Position: position normal Pupils: Equal, round and reactive pupils present EOM: EOMs intact bilaterally Neck: Neck: supple Resp: Effort & Inspection: normal respiratory effort Cardio: Rate: regular rate Rhythm: regular rhythm Neuro: General: patient oriented x3 Cranial nerves: Yes CN's II-XII intact bilaterally, Yes facial sensation intact/muscles of mastication intact, Yes Equal, round and reactive pupils present, Yes facial symmetry and Yes Midline tongue present Cognition (Neuro): normal cognition Speech: normal speech Motor exam (neuro): 5/5 motor strength present throughout Sensory Exam: normal sensation Coordination: [id number] test normal and Normal rapid alternating movements of the distal upper extremity present (Neuro) Results Labs 09/08/24 06:25 09/08/24 06:25 Labs: Short CBC 09/08/24 Range/Units 06:25 WBC 5.6 (4.5-10.0) K/mm3 Hgb 14.6 D (12.0-15.0) g/dL Hct 42.9 (37.0-47.0) % Plt Count 228 (150-375) k/mm3 BMP 09/08/24 06:25 Sodium 140 Potassium 3.8 Chloride 103 Carbon Dioxide 22 BUN 16 Creatinine 0.82 Glucose 129 H Calcium 9.4 Cardiac Enzymes 09/08/24 09/08/24 Range/Units 08:22 13:28 Troponin I < 0.012 < 0.012 (0.000-0.034) ng/mL Liver Function 09/08/24 Range/Units 06:25 Total Bilirubin 1.4 H (0.2-1.3) mg/dL AST 25 (14-36) U/L ALT 23 (6-35) U/L Alkaline Phosphatase 67 (38-126) U/L Albumin 4.8 (3.5-5.1) g/dL Urine 09/08/24 Range/Units 08:22 Urine Color Yellow (Yellow) Urine Appearance Clear (Clear) Urine pH 7.0 (5.0-9.0) Ur Specific [place] > 1.045 H (1.001-1.035) Urine Protein Negative (Negative) mg/dL Urine Glucose (UA) Negative (Negative) mg/dL
[2024-09-08] MEDS: busPIRone HCL 10 MG TABLET 30 MG PO (20:58)
[2024-09-09] VITALS (7 sets, daily range): BP systolic 124–139; BP diastolic 73–75; PULSE 71–90; RESP 16; TEMP 36.8–37.1; O2SAT 94–97
[2024-09-09 06:14] LABS: Basophils Percent Auto 0.6 % (0.2-1.2); Eosinophils Absolute Auto 0.2 K/mm3 (0-0.3); Eosinophils Percent Auto 3.8 % (0-4.4); Hematocrit 39.2 % (37.0-47.0); Hemoglobin 13.1 g/dL (12.0-15.0); Immature Granulocyte Absolute 0.01 K/mm3 (0.00-0.031); Immature Granulocyte Percent A 0.2 % (0-0.5); Lymphocytes Absolute Auto 1.57 K/mm3 (0.9-3.2); Lymphocytes Percent Auto 29.8 % (18.3-44.2); Mean Corpuscular HGB Conc 33.4 g/dl (32-36); Mean Corpuscular Hemoglobin 31.3 pg (26-34); Mean Corpuscular Volume 93.6 fl (80-100); Mean Platelet Volume 12.2 fl (7.4-10.4); Monocytes Absolute Auto 0.5 K/mm3 (0.1-0.6); Monocytes Percent Auto 8.7 % (2.6-8.5); Neutrophils Percent Auto 56.9 % (45.5-73.1); Platelet Count Result 191 k/mm3 (150-375); Red Blood Count 4.19 M/mm3 (4.2-5.4); Red Cell Distribution Width 12.8 % (11.5-14.5); White Blood Count 5.3 K/mm3 (4.5-10.0)
[2024-09-09 06:28] LABS: Anion Gap 8 mmol/L (4-12); Blood Urea Nitrogen 12 mg/dL (7-17); Calcium 8.5 mg/dL (8.4-10.2); Carbon Dioxide 24 mmol/L (22-30); Chloride 108 mmol/L (98-107); Cholesterol 126 mg/dL (0-200); Estimated CRCL calculation 66 ml/min; Estimated Glomerular Filt Rate > 60; Glucose 109 mg/dL (65-110); HDL Direct 46 mg/dL; Potassium 4.1 mmol/L (3.4-5.0); Sodium 140 mmol/L (137-145); Triglycerides 79 mg/dL (<150)
[2024-09-09 06:38] LABS: Hemoglobin A1C 5.7 % (<5.7)
[2024-09-09 06:39] LABS: LDL Cholesterol Direct 48 mg/dL
[2024-09-09] MEDS: VENLAFAXINE HCL XR 75 MG CAP.ER.24H 225 MG PO (08:25)
[2024-09-09] MEDS: lisinopriL 20 MG TABLET PO (08:25)
[2024-09-09] MEDS: amLODIPine BESYLATE 5 MG TABLET PO (08:26)
[2024-09-09] MEDS: ANASTROZOLE (*CHEMO) 1 MG TABLET PO (08:26)
[2024-09-09] MEDS: THERAPEUTIC MULTIVITAMINS/MINERALS TAB (*BKC) 1 TABLET PO (08:26)
[2024-09-09] MEDS: busPIRone HCL 10 MG TABLET 30 MG PO (08:26)
[2024-09-09] MEDS: ATORVASTATIN 20 MG TABLET PO (08:26)
[2024-09-09] MEDS: CHOLECALCIFEROL 1,000 UNITS TABLET 1000 UNITS PO (08:26)
--- NOTE | 2024-09-09 13:13 | ECHO_ITS ---
Patient Info Name: Delaney Mckeon Age: 69 years : 1955 Gender: Female Ht: 64 in Wt: 178 lbs BSA: 1.94 m2 HR: 78 bpm BP: 139 / 75 mmHg Technical Quality: Good Exam Date: 09/09/2024 3:00 PM Exam Location: Echo Lab Patient Status: Outpatient Admit Date: 09/08/2024 Staff Ordering Physician: Gloria Herzog APRN Relationship Manager: Fátima Maciel RDCS Attending Provider: Marissa Sage APRN Referring Physician: Rosenda ROMERO; Exam Type: CA echo dop w bubble study Study Info Indications - TIA w/u Complete two-dimensional, color flow and Doppler transthoracic echocardiogram is performed with agitated saline. Contrast/Agitated Saline Contrast/Ag. Saline: Agitated Saline Amount: 12.00 ml Existing IV Access: Yes IV Access Condition: patent with no signs of infiltration Summary 1. Left ventricular chamber dimension is normal. 2. Left ventricular systolic function is normal, estimated at 60-65%. 3. The left ventricular diastolic function is normal. 4. E/e' 7 is not elevated. 5. There is mild aortic valve sclerosis. 6. There is mild mitral valve regurgitation. 7. There is mild tricuspid valve regurgitation. 8. No pulmonary hypertension, estimated pulmonary arterial systolic pressure is 36 mmHg. Left Ventricle E/e' 7 is not elevated. Left ventricular chamber dimension is normal. Left ventricular systolic function is normal, estimated at 60-65%. The left ventricular diastolic function is normal. Right Ventricle Right ventricular chamber dimension is normal. Right ventricular systolic function is normal. Left Atria Left atrial chamber dimension is normal. Right Atria Right atrial chamber dimension is normal. Atrial Septum Agitated saline injection with and without valsalva maneuver opacified right side cardiac chambers without shunt to left side cardiac chambers. Intact interatrial septum visualized by 2D and agitated saline imaging. Aortic Valve The aortic valve is trileaflet. There is mild aortic valve sclerosis. There is no aortic valve stenosis. There is no aortic valve regurgitation. Pulmonic Valve There is no pulmonic regurgitation. Mitral Valve There is no mitral valve stenosis. There is mild mitral valve regurgitation. Tricuspid Valve There is mild tricuspid valve regurgitation. No pulmonary hypertension, estimated pulmonary arterial systolic pressure is 36 mmHg. Pericardium/Pleural There is no pericardial effusion. Inferior Vena Cava Normal inferior vena cava with >50% collapse upon inspiration consistent with normal right atrial pressure, 5 mmHg. Aorta The aortic root size at the sinus of Valsalva is normal. Left Ventricular Outflow Tract Name Value Normal LVOT 2D LVOT Diameter 1.8 cm LVOT Doppler LVOT Peak Gradient 8 mmHg LVOT Mean Gradient 4 mmHg LVOT VTI 28 cm LVOT VTI/AV VTI Ratio 1.0 LVOT Stroke Volume 76 ml LVOT CO 15.9 l/min LVOT CI 8.2 l/min/m2 Pulmonic Valve Name Value Normal PV Doppler PV Peak Gradient 4 mmHg Mitral Valve Name Value Normal MV Doppler MV Decel [place] 363 cm/s2 MV PHT 61 ms MV Area (PHT) 3.6 cm2 4.0-5.0 MV Diastolic Function MV E Peak Velocity 76 cm/s MV A Peak Velocity 63 cm/s MV E/A 1.2 MV Decel Time 210 ms MV Annular TDI MV E/e' (Septal) 10.6 <=8.0 MV E/e' (Lateral) 6.4 <=8.0 MV E/e' (Average) 8.5 Tricuspid Valve Name Value Normal TV Regurgitation Doppler TR Peak Velocity 280 cm/s TR Peak Gradient 26 mmHg Estimated PAP/RSVP RA Pressure 5 mmHg <=5 PA Systolic Pressure 36 mmHg <36 RV Systolic Pressure 36 mmHg <36 Aorta Name Value Normal Ascending Aorta Ao Root Diameter (MM) 3.2 cm Ao Root Diam Index (MM) 1.6 cm/m2 Aortic Valve Name Value Normal AV Doppler AV Peak Velocity 144 cm/s AV Peak Gradient 8 mmHg AV Mean Gradient 5 mmHg AV VTI 30 cm AV Area (Cont Eq VTI) 2.6 cm2 >=3.0 AV Area (Cont Eq [place]) 2.6 cm2 AV Regurgitation 2D LVOT Area 2.7 cm2 Ventricles Name Value Normal LV Dimensions 2D/MM IVS Diastolic Thickness (2D) 0.9 cm 0.6-1.0 LVID Diastole (2D) 3.4 cm 3.8-5.2 LVIW Diastolic Thickness (2D) 0.8 cm 0.6-0.9 LVID Systole (2D) 2.2 cm 2.2-3.5 LVOT Diameter 1.8 cm LV Mass (2D Cubed) 78.92 g 67.00-162.00 LV Mass Index (2D Cubed) 41 g/m2 43-95 Relative Wall Thickness (2D) 0.49 LV Fractional Shortening/Ejection Fraction 2D/MM LV Fractional Shortening (2D) 33 % 27-45 LV EF (2D Teichmargaritaz) 63 % 54-74 LV Diastolic Volume (4C MOD) 82 ml LV EF (4C MOD) 67 % LV Diastolic Volume (2C MOD) 77 ml LV EF (2C MOD) 76 % LV Diastolic Volume (BP MOD) 80 ml 46-106 LV Diastolic Volume Index (BP MOD) 42 ml/m2 29-61 LV Systolic Volume (BP MOD) 23 ml 14-42 LV Systolic Volume Index (BP MOD) 12 ml/m2 8-24 LV EF (BP MOD) 72 % 54-74 LV Diastolic Length (4C) 8.6 cm LV Systolic Length (4C) 6.7 cm LV Stroke Volume (4C MOD) 55 ml RV Dimensions 2D/MM RVID Diastole (2D) 3.3 cm 2.5-3.5 Atria Name Value Normal LA Dimensions LA Dimension (MM) 0.0 cm 2.7-3.8 LA Volume (4C A-L) 40 ml RA Dimensions RA Area (4C) 12.7 cm2 <=18.0 Report Signatures
--- NOTE | 2024-09-09 16:40 | P.DS_ITS ---
DS: Admitting Diagnosis Discharge Date 09/09/24 Admitting Diagnosis Dizziness DS: Discharge Diagnosis Discharge Diagnosis (1) BPPV (benign paroxysmal positional vertigo): Qualifiers: Laterality: bilateral Qualified Code(s): H81.13 - Benign paroxysmal vertigo, bilateral Code(s): H81.10 - Benign paroxysmal vertigo, unspecified ear Status: Acute (2) Prediabetes: Code(s): R73.03 - Prediabetes Status: Acute DS: Summary Hospital Course Reason for hospitalization: Copied from [facility] 09/08: 69 y/o F with PMH of vertigo, anxiety/depression, hypertension, hyperlipidemia, osteopenia, and kidney stones presents here with dizziness. The patient presents here from home on 09/08/2024 for further evaluation of sudden onset dizziness. She reports her last known well was yesterday evening before going to bed on 09/07 at 7:30 p.m. she reports she woke this morning at 04:30 a.m. with dizziness, headache, and mild neck pain (midline). She describes the dizziness as if she was on a boat and persistent. Reports the dizziness is affecting her balance and walking. It is also accompanied by a nausea without vomiting, numbness to the right upper extremity (described as pinpricks in her finger tips), and discomfort to the inner left ear. Did not take any medications/OTC meds for her symptoms. She reports he similar episode on Thursday, 09/03, while she was at rest. She reports during this episode she had diaphoresis, dizziness, headache, and neck pain. Episode lasted for 2-3 days and resolved without intervention. Reporting improvement in dizziness with Meclizine. Initial VS at presentation: 98.6° F, HR 102, R 17, 127/73, and 95% on RA. ED workup showed: No leukocytosis, no anemia, normal coags, no significant electrolyte derangements, creatinine 0.82 and GFR >60, glucose 129, initial troponin negative, and UA showed a high specific gravity with positive nitrates and 4+ bacteria with no epithelial cells, viral PCR negative. CXR showed clear lungs. Head/neck CTA showed atherosclerotic plaque was 0% stenosis of the right and left carotid bulbs, aging brain with a couple bilateral basal ganglia old lacunar infarcts, no acute intracranial process, unremarkable cerebral CT angiogram. Hospital Course: Delaney Mckeon is a 69 year old female who presented for sudden onset of dizziness, treated for: Dizziness: New dizziness, difficulty with balance, and right upper extremity numbness discovered on 09/08 at XX a.m. upon awakening. Last known well at XX p.m. on 09/07. Admitted for observation and telemetry. Not a candidate for thrombolytics due to timeframe. not candidate for thrombectomy, no LVO on CTA. CTA head/neck and CXR were unremarkable. Neurology consulted. Brain MRI w/wo ordered. Echo w/Bubble ordered - cancelled, no acute CVA on MRI, so can be outpatient. Neuro checks during admission. Started meclizine. Lipid panel, A1C, and TSH. Meclizine 25 mg b.i.d. p.r.n. for dizziness. Neurology consulted during admission DDx: myocardial infarction, TIA, stroke, vertigo, anxiety/stress, coronary artery disease, thyroid disorder. Patient has history of vertigo and description of dizziness in favor vertigo, high suspicion for this diagnosis with exacerbation due to suspected UTI. However, right upper extremity numbness more so consistent with CVA. MRI pending - negative for CVA. 09/08/24 Head/Neck CTA 1. Atherosclerotic plaque with 0% stenosis of the right and left carotid bulbs relative to normal distal artery lumen diameter (NASCET criteria). 2. Aging brain with a couple bilateral basal ganglia old lacunar infarcts. No acute intracranial process. 3. Unremarkable cerebral CT angiogram with no aneurysm, thrombosis or hemodynamically significant stenosis. 09/08/24 MRI Brain: 1. No acute intracranial process. 2. Moderate periventricular predominant calcific white matter T2 hyperintensity which is within normal limits for age and likely sequela of chronic small vessel ischemic disease. PLAN Started ASA, Continued Statin Positive UA - UA: High specific gravity, positive nitrates, 4+ bacteria, no epithelial cells no WBC's. Not symptomatic. WBC normal - UC pending at discharge, grew [employer], not saprophyti, possible contaminant. - previous micro reviewed, most recent positive culture from 07/15/2023 grew pansensitive E coli so started on Ceftiraxone, recevied 2 doses, discontinued Hypertension: - chronic, currently 123/58 - continue home medications: amlodipine 5 mg daily, lisinopril 20 mg daily - monitor Status at Discharge Cognitive/behavioral status at discharge: A&Ox4 Time Spent with Patient Time attestation: Total time spent providing and/or coordinating discharge services: 45 minutes Exam Narrative: Const: General: cooperati ve, well developed and alert [place] ation/consciousnes s: patient oriente d x3 HENMT: Head: atraumatic Mouth: Yes orophar ynx normal Eyes: Alignment and Posi tion: position nor mal Pupils: Equal , round and reacti ve pupils present EOM: EOMs intact bilaterally Neck: Neck: supple Resp: Effort & Inspectio n: normal respirat ory effort Cardio: Rate: regular rate Rhythm: regular rhythm Neuro: General: patient o riented x3 Crania l nerves: Yes CN's II-XII intact rashad aterally, Yes faci al sensation intac t/muscles of masti cation intact, Yes Equal, round and reactive pupils pr esent, Face symmet dean and tongue mid line. Cognition: normal cognition Speech: normal spe ech Motor exam: 5 /5 motor strength present throughout Sensory Exam: no rmal sensation Co ordination: finger -to-nose test norm al and Normal rapi d alternating move ments of the dista l upper extremity present DS: Data Data Completed and Pending Labs on day of discharge: Labs from last 24 hours 09/09/24 06:01 WBC 5.3 RBC 4.19 L Hgb 13.1 Hct 39.2 MCV 93.6 MCH 31.3 MCHC 33.4 RDW 12.8 Plt Count 191 MPV 12.2 H Immature Gran % (Auto) 0.2 Neut % (Auto) 56.9 Lymph % (Auto) 29.8 [place] % (Auto) 8.7 H Eos % (Auto) 3.8 Baso % (Auto) 0.6 Lymph # (Auto) 1.57 [place] # (Auto) 0.5 Eos # (Auto) 0.2 Baso # (Auto) 0.0 Abs Immat Gran (auto) 0.01 Absolute Neuts (auto) 3.0 Absolute Nucleated RBC 0.000 Nucleated RBC % 0.0 Sodium 140 Potassium 4.1 Chloride 108 H Carbon Dioxide 24 Anion Gap 8 BUN 12 Creatinine 0.69 L Estim Creat Clear Calc 66 Estimated GFR > 60 Glucose 109 Hemoglobin A1c 5.7 Calcium 8.5 Triglycerides 79 Cholesterol 126 LDL Cholesterol Direct 48 HDL Direct 46 TSH (Reflex) 1.770 Discharge Plan Discharge Attending physician on discharge: Marissa Sage Consulting providers: Vivian Ramos; Gloria Herzog; Dash Campoverde; Levi Willett; Ranjit Esparza; Francisco J Mckeon Discharging Clinician: Marissa Sage Anticipated Discharge Date/Time: 09/09/24 16:30 Patient Disposition: Home Activity: may shower Diet: regular Discharge Instructions: Follow up with your PCP and Neurology below. Also placed a referral for OT for therapy. Head Ct showed a couple bilateral basal ganglia old lacunar infarcts so started a baby aspirin daily for stroke prevention. Patient Instructions: Antibiotic Form Patient Language: Nepali Stand Alone Forms: General Discharge Information Follow-up/Referrals: Chio Lancaster APRN [Primary Care Provider] - 2 Weeks Vivian Ramos MD [Physician] - 4 Weeks Discharge Medications: New aspirin 81 mg tablet,delayed release (DR/EC) 81 mg PO DAILY Qty: 30 0RF Continued cholecalciferol (vitamin D3) 25 mcg (1,000 unit) Capsule 25 mcg PO DAILY calcium-vitamin D3-vitamin K 500-100-40 mg-unit-mcg Tablet,Chewable 1 tablet PO BID ro-[id number]-FA-Ca carb-vit K 18 mg iron-400 mcg-500 mg Tablet 1 tablet PO DAILY anastrozole 1 mg tablet 1 mg PO DAILY atorvastatin 20 mg tablet See Rx Instructions .ROUTE .COMPLEX Qty: 90 1RF Dose Instruction: TAKE 1 TABLET BY MOUTH EVERY DAY Rx Instructions: TAKE 1 TABLET BY MOUTH EVERY DAY lisinopril 20 mg tablet See Rx Instructions .ROUTE .COMPLEX Qty: 90 1RF Dose Instruction: TAKE 1 TABLET BY MOUTH DAILY Rx Instructions: TAKE 1 TABLET BY MOUTH DAILY venlafaxine 75 mg capsule,extended release 24hr 225 mg PO QAM Qty: 270 1RF buspirone 30 mg tablet 30 mg PO BID 90 Days Qty: 180 1RF amlodipine 5 mg tablet See Rx Instructions .ROUTE .COMPLEX Qty: 90 1RF Dose Instruction: TAKE 1 TABLET BY MOUTH EVERY MORNING Rx Instructions: TAKE 1 TABLET BY MOUTH EVERY MORNING Other Ambulatory Orders: OT Outpatient Eval and Treat (ONCE) Timeframe: [id number] Location: Determined by Patient Ordered By: Marissa Sage Date of admission: 09/08/24 10:43 Primary Care Provider: Chio Lancaster Admitting Provider: Aubrey Phipps Attending physician on admission: Marissa Sage Condition: Stable Quality VTE Prophylaxis VTE prophylaxis: mechanical ordered Hospitalist MIPS Heart Failure (Exclusion) Patient has history of Heart Transplant or Left Ventricular Assistive Device?: No IF YES, STOP HERE Heart Failure (Qualifier) Patient has current or prior documentation of LVEF less than or equal to 40%, or mod/servere depressed LVSF?: No IF NO, STOP HERE
== END 2024-09-09 17:15 | disposition home or self-care (01) ==
LOC: ANHED 10:21 → ANH3MEDSUR 11:03
PROVIDERS: Student in an Organized Health Care Education/Training Program; Admitting Provider General Practice; Emergency Provider Emergency Medicine; PCP Nurse Practitioner Family; Visit Provider Nurse Practitioner Acute Care
DX: H81.13 Benign paroxysmal vertigo, bilateral (principal); R73.03 Prediabetes; F41.8 Other specified anxiety disorders; I10 Essential (primary) hypertension; E78.2 Mixed hyperlipidemia; M85.80 Other specified disorders of bone density and structure, unspecified site; R82.79 Other abnormal findings on microbiological examination of urine; J44.9 Chronic obstructive pulmonary disease, unspecified; Z20.822 Contact with and (suspected) exposure to COVID-19; Z79.899 Other long term (current) drug therapy; Z85.3 Personal history of malignant neoplasm of breast; Z86.73 Personal history of transient ischemic attack (TIA), and cerebral infarction without residual deficits; Z87.442 Personal history of urinary calculi; Z87.891 Personal history of nicotine dependence
CPT/HCPCS: 36415; 70496; 70498; 70551; 71046; 80048; 80053; 80061; 81001; 83036; 83605; 83735; 84443; 84484; 85025; 85610; 85730; 87086; 87637; 93005; 93306; 96361; 96365; 96374; 96375; 96376; 99285; A9270; C8929; G0378; J0696; J7030; J7120; Q9967

== ENCOUNTER 2024-10-14 12:47 | Outpatient (CLI) | payer OTHER, SELFPAY ==
--- NOTE | ~2024-10-14 | XR_ITS ---
Left ankle Technique: AP and lateral views were obtained. Clinical History: Pain Findings: No acute fracture or dislocation is seen. Osseous alignment is anatomic. Ankle mortise and other visualized joint spaces are preserved. Soft tissues are otherwise unremarkable. Impression: Unremarkable left ankle. Reviewed, dictated and finalized at location . Impression: Unremarkable left ankle.
--- NOTE | ~2024-10-14 | US_ITS ---
EXAMINATION: US soft tissue LE RT, US soft tissue LE LT DATE: 10/14/2024 13:54 INDICATION: Localized swelling, mass or lump posterior to the left and right ankles TECHNIQUE: Multiple grayscale and Doppler ultrasound images of the region of concern posterior to the left and right ankles were obtained. COMPARISON: None FINDINGS: Relatively symmetric findings of fusiform thickening and decreased echogenicity along bilateral Achil les tendons. No discrete fluid filled defect or evident discontinuity of the linear tendon fibers to suggest associated tear. There is however hyperemia which colocalizes to the region of fusiform thick ening consistent with tendinitis. IMPRESSION: 1. Relatively symmetric moderate bilateral Achilles tendinitis without evident tear. Reviewed, dictated and finalized at location A. IMPRESSION: 1. Relatively symmetric moderate bilateral Achilles tendinitis without evident tear.
--- NOTE | ~2024-10-14 | XR_ITS ---
Right ankle Technique: AP and lateral views were obtained. Clinical History: Pain Findings: No acute fracture or dislocation is seen. Osseous alignment is anatomic. Ankle mortise and other visualized joint spaces are preserved. Soft tissues are otherwise unremarkable. Impression: Unremarkable right ankle. Reviewed, dictated and finalized at location . Impression: Unremarkable right ankle.
--- OUTSIDE RECORDS SUMMARY | 2024-10-14 12:52 | XMS_ITS | Clinical Summary ---
Author Organization [facility] Address [address] [address] Care Team Providers Care Shoe Caser Name Role Phone Travis Pizano MD Primary Care Provider [phone] Source Comments [facility],non-owned Affiliates and Associated Physician Practices is amultiple site organization consisting of ambulatory clinics and hospital sitesin [place], [place], [place] and [place]. This disclosure is being madepursuant to the Care Everywhere program and may not contain all information available regarding this patient. Last updated 18.[facility] Allergies Active Allergy Reactions Criticality Noted Date [...] on file Legal Sex Female 5:21 AM COMMERCIAL SALES DIRECTOR Gender Identity Not on file Sexual Orientation Not on file Last Filed Vital Signs Vital Sign Reading Time Taken Comments Blood Pressure 168/83 06/02/2024 7:07 AM COMMERCIAL SALES DIRECTOR Pulse 113 06/02/2024 7:07 AM COMMERCIAL SALES DIRECTOR Temperature 36.6 C (97.8 F) 06/02/2024 7:07 AM COMMERCIAL SALES DIRECTOR Respiratory Rate 12 06/02/2024 7:07 AM COMMERCIAL SALES DIRECTOR Oxygen Saturation 99% 06/02/2024 7:07 AM COMMERCIAL SALES DIRECTOR Inhaled Oxygen Concentration 45% 08/01/2021 6 :00 AM CDT Weight 88 kg (194 lb) 06/02/2024 7:07 AM COMMERCIAL SALES DIRECTOR Height 162.6 cm (5' 4) 06/02/2024 7:07 AM COMMERCIAL SALES DIRECTOR Body Mass Index 33.3 06/02/2024 7:07 AM COMMERCIAL SALES DIRECTOR Plan of Treatment Health Maintenance Due Date [...] this topic Medical Devices Implanted Type Area Network Designer Device Identifier Shelf Expiration Date Model / Serial / Lot Graft Bone Accell Evo3 Dbm 10ml Ptty - [id number] Implanted:Qty: 1 on 07/31/2021 by Wu Vazquez MD at [facility] Right: Leg Integra Neurosciences 07/08/2022 02-5000-100 / [id number] / [id number] Rfn - Advanced System - Locking Attachment Washer (Law) - 10 Degree - Right Implanted:Qty: 1 on 07/31/2021 by Wu Vazquez MD at [facility] Right: Leg 02.233.104S / / Optilink 5.0mm Va Locking Screw - 60mm Implanted:Qty: 1 on 07/31/2021 by Wu Vazquez MD at [facility] Right: Leg 42.231.260 / / Optilink 5.0mm Va Locking Screw - 80mm Implanted:Qty: 1 on 07/31/2021 by Wu Vazquez MD at [facility] Right: Leg 42.231.280 / / Screw 4.5mm 8mm 76mm Cortx Slf-Tap Lg Implanted:Qty: 1 on 07/31/2021 by Wu Vazquez MD at [facility] Right: Leg Synthes Usa 214.876 / / Graft Bone Canc 60ml Frzdr Chp 4-9.5mm Implanted:Qty: 1 on 07/31/2021 by Wu Vazquez MD at [facility] Right: Leg Allosource 09/14/2025 [id number] / / Description:ID: [id number] Rfna / 11mm/ 360mm - 5 Degree Bend Implanted:Qty: 1 on 07/31/2021 by Wu Vazquez MD at [facility] Right: Femur 04/09/2026 04.233.136S / / [id number] Screw 5mm 4.3mm 72mm T25 Ft Slf-Tap Lck Implanted:Qty: 1 on 07/31/2021 by Wu Vazquez MD at [facility] Right: Leg Synthes Usa 04.005.562S / / Screw 5mm 4.3mm 68mm T25 Ft Slf-Tap Lck Implanted:Qty: 1 on 07/31/2021 by Wu Vazquez MD at [facility] Right: Leg Synthes Usa 04.005.558S / / Screw 5mm 4.3mm 40mm T25 Ft Slf-Tap Lck Implanted:Qty: 1 on 07/31/2021 by Wu Vazquez MD at [facility] Right: Leg Synthes Usa 04.005.530S / / Screw 3.5mm 6mm 34mm 2.5mm Ft Slf-Tap Implanted:Qty: 1 on 07/31/2021 by Wu Vazquez MD at [facility] Right: Leg Synthes Usa 204.834 / / Screw 3.5mm 6mm 32mm 2.5mm Ft Slf-Tap Implanted:Qty: 1 on 07/31/2021 by Wu Vazquez MD at [facility] Right: Leg Synthes Usa 204.832 / / Explanted Type Area Network Designer Device Identifier Shelf Expiration Date Model / Serial / Lot Screw 3.5mm 6mm 36mm 2.5mm Ft Slf-Tap Explanted:Qty: 1 on 07/31/2021 by Wu Vazquez MD at [facility] Right: Leg Synthes Usa 204.836 / / Procedures Procedure Name Priority Date/Time Associated Diagnosis Comments COMPREHENSIVE METABOLIC PANEL STAT 06/02/2024 9:54 AM [facility] from Last 3 Months or Most Recently Relevant to Health Maintenance Results * (ABNORMAL) COMPREHENSIVE METABOLIC PANEL (06/02/2024 9:54 AM [facility]) BUN 20 7 - 26 mg/dL 06/02/2024 [...] Unknown Venipuncture / Unknown 06/02/2024 9:54 AM COMMERCIAL SALES DIRECTOR 06/02/2024 10:01 AM [facility] us Jefe Parish MD LAB - CHEMISTRY ORDERA BLES Final Result [facility] [address] [place] [address], [facility] [phone] from Last 3 Months or Most Recently Relevant to Health Maintenance Insurance ESSENCE MEDICARE [employer] MEDICARE SELF PAY NO INSURANCE Member Subscriber Plan / Payer (Ef fective for All Dates) Name:Delaney Swan Member ID:Not on file Relation to Subscriber:Not on file Name:DELANEY SWAN Subscriber ID:Not on file (Home) Address: [address] [place] [address] Payer ID:Not on file Group ID:Not on file Type:Self Pay Address: [place], [place] * Guarantor: DELANEY SWAN Account Type Relation to Patient Date of Phone Billing Address Personal/Family [address] [place] [address] [employer]ENCE MEDICARE SELF PAY NO INSURANCE Member Subscriber Plan / Payer (Ef fective for All Dates) Name:Delaney Swan Member ID:Not on file Relation to Subscriber:Not on file Name:SOSADELANEY Subscriber ID:Not on file (Home) Address: [address] [place] [address] Payer ID:Not on file Group ID:Not on file Type:Self Pay Address: [place], [place] * Guarantor: SOSADELANEY Account Type Relation to Patient Date of Phone Billing Address Personal/Family [address] [place] [address] [employer] MEDICARE SELF PAY NO INSURANCE Member Subscriber Plan / Payer (Ef fective for All Dates) Name:Sosa Delaney Maricruz Member ID:Not on file Relation to Subscriber:Not on file Name:SOSADELANEY Subscriber ID:Not on file (Home) Address: [facility] [place] [address] [place] [address] Payer ID:Not on file Group ID:Not on file Type:Self Pay Address: [place], [place] * Guarantor: DELANEY SWAN Account Type Relation to Patient Date of Phone Billing Address Personal/Family [address] [address] [facility] MEDICARE SELF PAY NO INSURANCE Member Subscriber Plan / Payer (Ef fective for All Dates) Name:Sosa Delaney S Member ID:Not on file Relation to Subscriber:Not on file Name:DELANEY SWAN Subscriber ID:Not on file (Home) Address: [address] [address] Payer ID:Not on file Group ID:Not on file Type:Self Pay Address: [place], [place] Advance Directives Documents on File Type Date Recorded Patient Belt Measurer Expl anation Adv Directive/Living Will/POA 08/07/2021 9:37 AM * Full Code (Latest Code Status on File) Date Activated Date Inactivated Comments 07/29/2021 4:25 AM 08/02/2021 8:11 PM Care Teams Shoe Caser Relationship Specialty Start Date End Date Travis Pizano MD [address] [place] [address] PCP - General 02/24/22
--- OUTSIDE RECORDS SUMMARY | 2024-10-14 12:52 | XMS_ITS | Clinical Summary ---
Author Organization [facility] [address] Address [address] [facility] [place] [address] Phone Care Team Providers Care Commercial Estimator Name Role Phone Alex Lerma MD Primary Care Provider [phone] Allergies Active Allergy Reactions Criticality Noted Date [...] Encounters Date Type Department Care Team Description 09/29/2024 External Device Data [facility] Provider, Abstract 09/28/2024 External Device Data [facility] Provider, Abstract 09/27/2024 External Device Data [facility] Provider, Abstract 07/27/2024 External Device Data [facility] Provider, [...] on file Legal Sex Female 4:14 AM CVIR TECH Gender Identity Not on file Sexual Orientation Not on file Last Filed Vital Signs Vital Sign Reading Time Taken Comments Blood Pressure 127/72 07/07/2024 2:50 PM CVIR TECH Pulse 100 07/07/2024 2:47 PM CVIR TECH Temperature 36.1 C (96.9 F) 07/07/2024 2:47 PM CVIR TECH Respiratory Rate 15 07/07/2024 2:47 PM CVIR TECH Oxygen Saturation 96% 07/07/2024 2:47 PM CVIR TECH Inhaled Oxygen Concentration - - Weight 87.6 kg (193 lb 3.2 oz) 07/07/2024 2:47 P M CVIR TECH Height 162.6 cm (5' 4) 12/03/2023 10:27 AM CDT Body Mass Index 33.16 12/03/2023 10:27 AM CDT Plan of Treatment Upcoming Encounters Date Type Department Care Team (Late st Contact Info) Description 11/04/2024 11:30 AM CDT Office Visit [facility] Oncology and Hematology [facility] [address] [place] [address] [facility] [address] [place] [address] David Judge MD [address] [facility] [address] [place] [address] Health Maintenance Due Date Last [...] ) (1 - 1-dose 75+ series) 2028 Insurance MEDICARE PART A AND B [facility] [employer] [facility] Care Teams Commercial Estimator Relationship Specialty Start Date End Date Alex Lerma MD [address] [place] [address] PCP - General Family Practice 12/02/23
--- OUTSIDE RECORDS SUMMARY | 2024-10-14 12:52 | XMS_ITS | Encounter Summary ---
Author Organization [facility] Address [address] [place] [address] Care Team Providers Care Computer Graphic Artist Name Role Phone Travis Pizano MD Primary Care Provider [phone] Pavel Russo DO Primary Care Provider [phone] Travis Pizano MD Primary Care Provider Encounter Details Date Type Department Care Team (Late st Contact Info) Description 12/23/2018 Lab Requisition [facility] D[facility] [address] [place] [address] Gene Love MD [address] [place] [address] Social History Tobacco Use Types Packs/Day Years Used Date Smoking Tobacco: Never Assessed Comments Unknown Sex and Gender Information Value Date Recorded Sex Assigned at Not on file Legal Sex Female 5:21 AM CLIENT EVALUATOR Gender Identity Not on file Sexual Orientation Not on file documented as of this encounter Plan of Treatment Not on file documented as of this encounter Procedures Procedure Name Priority Date/Time Associated Diagnosis Comments DERMATOPATHOLOGY Routine 12/22/2018 12:0 0 AM CDT documented in this encounter Results * DERMATOPATHOLOGY (12/22/2018 12:00 AM CDT) Case Report Dermatopathology Report Case: [id number] Authorizing Provider: Gene Love MD Collected: 12/22/2018 12:00 AM Ordering Location: [facility] Lab Received: 12/23/2018 12:54 PM Pathologist: Ariela Bourgeois MD Specimen: Skin, right distal anterior thigh 1:00 PM CDT DERMATOPATHOLOGY LABORATORY Final Diagnosis Specimen A. SKIN, right distal anterior thigh: COMPOUND MELANOCYTIC NEVUS (D22.71) (see microscopic description) 1:00 PM CDT DERMATOPATHOLOGY LABORATORY at 1300 CDT Clinical History R/O dys nevus vs ISK. 1:00 PM CDT DERMATOPATHOLOGY LABORATORY Gross Description Specimen A: Received is one formalin filled container labeled with the patient's name and designated right distal anterior thigh. The specimen consists of a shave biopsy measuring [id number]. Jar 0. 1:00 PM CDT DERMATOPATHOLOGY LABORATORY [...] characteristic determined by the Dermatopathology Laboratory at [facility], directed by Dr. Gloria Bourgeois. These tests need not be, and therefore are not, approved by the [place] Food and Drug Administration. The tests are used for clinical purposes. Billing Codes Specimen Charges Stain Charges 42685 1 1:00 PM CDT DERMATOPATHOLOGY LABORATORY Embedded Images 1:00 PM CDT DERMATOPATHOLOGY LABORATORY Pathology/Cytolog y TISSUE SPECIMEN FROM SKIN / Unknown 12/22/2018 12/23/2018 12:54 PM CDT Gene Love MD LAB - PATHOLOGY/CYTOLOGY ORD ERABLES Final Result DERMATOPATHOLOGY LABORATORY [facility] - Department of Dermatology [address] [facility] [address] [facility], [address]th [place] [address], [facility] [phone] documented in this encounter Visit Diagnoses Not on filedocumented in this encounter Care Teams Computer Graphic Artist Relationship Specialty Start Date End Date Travis Pizano MD [address] [place] [address] PCP - General 04/12/18 02/17/22 Pavel Russo DO [address] [place] [address] PCP - General Internal Medicine 02/18/22 02/23/22 Travis Pizano MD [address] [place] [address] PCP - General 02/24/22 documented as of this encounter
== END 2024-10-14 12:48 | disposition home or self-care (01) ==
PROVIDERS: PCP Nurse Practitioner Family; Visit Provider Podiatrist Foot & Ankle Surgery
DX: M25.571 Pain in right ankle and joints of right foot (principal); M25.572 Pain in left ankle and joints of left foot; M76.62 Achilles tendinitis, left leg; M76.61 Achilles tendinitis, right leg
CPT/HCPCS: 73600; 76882

== ENCOUNTER 2024-12-01 15:42 | Emergency (ER) | payer OTHER, SELFPAY ==
--- OUTSIDE RECORDS SUMMARY | 2024-12-01 15:46 | XMS_ITS | Clinical Summary ---
Author Organization [facility] Address [address] [place] [address] Care Team Providers Care Surgical Specialist Name Role Phone Travis Pizano MD Primary Care Provider [phone] Source Comments [facility],non-owned Affiliates and Associated Physician Practices is amultiple site organization consisting of ambulatory clinics and hospital sitesin [place], [place], [place] and [place]. This disclosure is being madepursuant to the Care Everywhere program and may not contain all information available regarding this patient. 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 Gender Identity Not on file Sexual Orientation Not on file Last Filed Vital Signs Vital Sign Reading Time Taken Comments Blood Pressure 168/83 06/02/2024 7:07 AM PIPELINE CONSTRUCTION INSPECTOR Pulse 113 06/02/2024 7:07 AM PIPELINE CONSTRUCTION INSPECTOR Temperature 36.6 C (97.8 F) 06/02/2024 7:07 AM PIPELINE CONSTRUCTION INSPECTOR Respiratory Rate 12 06/02/2024 7:07 AM PIPELINE CONSTRUCTION INSPECTOR Oxygen Saturation 99% 06/02/2024 7:07 AM PIPELINE CONSTRUCTION INSPECTOR Inhaled Oxygen Concentration 45% 08/01/2021 6 :00 AM CDT Weight 88 kg (194 lb) 06/02/2024 7:07 AM PIPELINE CONSTRUCTION INSPECTOR Height 162.6 cm (5' 4) 06/02/2024 7:07 AM PIPELINE CONSTRUCTION INSPECTOR Body Mass Index 33.3 06/02/2024 7:07 AM PIPELINE CONSTRUCTION INSPECTOR Plan of Treatment Health Maintenance Due Date [...] 07/21/2020, 06/23/2020 DEPRESSION SCREENING 05/11/2024 INFLUENZA VACCINE (#1) 2025 1, 02/25/2020, 02/23/2019, Additional history exists SCREENING FOR DIABETES 06/02/2027 5, 12/20/2021, 08/01/2021, [...] this topic Medical Devices Implanted Type Area Behavioral Assistant Device Identifier Shelf Expiration Date Model / Serial / Lot Graft Bone Accell Evo3 Dbm 10ml Ptty - [id number] Implanted:Qty: 1 on 07/31/2021 by Wu Vazquez MD at [facility] Right: Leg Integra Neurosciences 07/08/2022 02-5000-100 / [id number] / [id number] Rfn - Advanced System - Locking Attachment Washer (Law) - 10 Degree - Right Implanted:Qty: 1 on 07/31/2021 by Wu Vazquez MD at [facility] Right: Leg 02.233.104S / / Optilink 5.0mm Va Locking Screw - 60mm Implanted:Qty: 1 on 07/31/2021 by Wu Vazquez MD at [facility] Right: Leg 42.231.260 / / Optilink 5.0mm Va Locking Screw - 80mm Implanted:Qty: 1 on 07/31/2021 by Wu Vazquez MD at [facility] Right: Leg 42.231.280 / / Screw 4.5mm 8mm 76mm Cortx Slf-Tap Lg Implanted:Qty: 1 on 07/31/2021 by Wu Vazquez MD at [facility] Right: Leg Synthes Usa 214.876 / / Graft Bone Canc 60ml Frzdr Chp 4-9.5mm Implanted:Qty: 1 on 07/31/2021 by Wu Vazquez MD at [facility] Right: Leg Allosource 09/14/2025 [id number] / / Description:ID: [id number] Rfna / 11mm/ 360mm - 5 Degree Bend Implanted:Qty: 1 on 07/31/2021 by Wu Vazquez MD at [facility] Right: Femur 04/09/2026 04.233.136S / / [id number] Screw 5mm 4.3mm 72mm T25 Ft Slf-Tap Lck Implanted:Qty: 1 on 07/31/2021 by Wu Vazquez MD at [facility] Right: Leg Synthes Usa 04.005.562S / / Screw 5mm 4.3mm 68mm T25 Ft Slf-Tap Lck Implanted:Qty: 1 on 07/31/2021 by Wu Vazquez MD at [facility] Right: Leg Synthes Usa 04.005.558S / / Screw 5mm 4.3mm 40mm T25 Ft Slf-Tap Lck Implanted:Qty: 1 on 07/31/2021 by Wu Vazquez MD at [facility] Right: Leg Synthes Usa 04.005.530S / / Screw 3.5mm 6mm 34mm 2.5mm Ft Slf-Tap Implanted:Qty: 1 on 07/31/2021 by Wu Vazquez MD at [facility] Right: Leg Synthes [employer]sa 204.834 / / Screw 3.5mm 6mm 32mm 2.5mm Ft Slf-Tap Implanted:Qty: 1 on 07/31/2021 by Wu Vazquez MD at [facility] Right: Leg Synthes Usa 204.832 / / Explanted Type Area Behavioral Assistant Device Identifier Shelf Expiration Date Model / Serial / Lot Screw 3.5mm 6mm 36mm 2.5mm Ft Slf-Tap Explanted:Qty: 1 on 07/31/2021 by Wu Vazquez MD at [facility] Right: Leg Synthes Usa 204.836 / / Procedures Procedure Name Priority Date/Time Associated Diagnosis Comments COMPREHENSIVE METABOLIC PANEL STAT 06/02/2024 9:54 AM [facility] from Last 3 Months or Most Recently Relevant to Health Maintenance Results * (ABNORMAL) COMPREHENSIVE METABOLIC PANEL (06/02/2024 9:54 AM [facility]) BUN 20 7 - 26 mg/dL [...] Unknown Venipuncture / Unknown 06/02/2024 9:54 AM PIPELINE CONSTRUCTION INSPECTOR 06/02/2024 10:01 AM [facility] us Jefe Parish MD LAB - CHEMISTRY ORDERA BLES Final Result [facility] [address] [place] [address], [facility] [phone] from Last 3 Months or Most Recently Relevant to Health Maintenance Insurance [employer] MEDICARE [employer] MEDICARE SELF PAY NO INSURANCE Member Subscriber Plan / Payer (Ef fective for All Dates) Name:Delaney Swan Member ID:Not on file Relation to Subscriber:Not on file Name:DELANEY SWAN Subscriber ID:Not on file (Home) Address: [address] [place] [address] Payer ID:Not on file Group ID:Not on file Type:Self Pay Address: [place], [place] * Guarantor: DELANEY SWAN Account Type Relation to Patient Date of Phone Billing Address Personal/Family [address] [place] [address] [employer] MEDICARE SELF PAY NO INSURANCE Member Subscriber Plan / Payer (Ef fective for All Dates) Name:Delaney Swan Member ID:Not on file Relation to Subscriber:Not on file Name:SOSADELANEY Subscriber ID:Not on file (Home) Address: [address] [place] [address] Payer ID:Not on file Group ID:Not on file Type:Self Pay Address: [place], [place] * Guarantor: SOSADELANEY Account Type Relation to Patient Date of Phone Billing Address Personal/Family [address] [place] [address] [employer] MED[employer]ARE SELF PAY NO INSURANCE Member Subscriber Plan / Payer (Ef fective for All Dates) Name:Sosa Delaney Maricruz Member ID:Not on file Relation to Subscriber:Not on file Name:SOSADELANEY Subscriber ID:Not on file (Home) Address: [facility] [place] [address] [place] [address] Payer ID:Not on file Group ID:Not on file Type:Self Pay Address: [place], [place] * Guarantor: DELANEY SWAN Account Type Relation to Patient Date of Phone Billing Address Personal/Family [address] [place] [address] [facility] MEDICARE SELF PAY NO INSURANCE Member Subscriber Plan / Payer (Ef fective for All Dates) Name:Sosa Delaney S Member ID:Not on file Relation to Subscriber:Not on file Name:DELANEY SWAN Subscriber ID:Not on file (Home) Address: [address] [place] [address] Payer ID:Not on file Group ID:Not on file Type:Self Pay Address: [place], [place] Advance Directives Documents on File Type Date Recorded 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
--- OUTSIDE RECORDS SUMMARY | 2024-12-01 15:46 | XMS_ITS | Clinical Summary ---
Author Organization [facility] Address [address] [place] [address] Phone Care Team Providers Care Supervisor Of Communications Name Role Phone Alex Lerma MD Primary Care Provider [phone] Allergies Active Allergy Reactions Criticality Noted Date [...] HCl (BUSPIRONE ORAL) Take by mouth. Active aspirin (ECOTRIN EC) 81 mg Tablet, Delayed Release (E.C.) Take 1 Tablet by mouth daily. 5 Active anastrozole (Arimidex) 1 mg tablet Take 1 Tablet (1 mg) by mouth daily. 90 Tablet 2 5 Active anastrozole (Arimidex) 1 mg tablet Take 1 Tablet (1 mg) by mouth daily. 90 Tablet 2 4 11/05/19 Discontinu ed(Reorder ) Active Problems No known active problems Encounters Date Type Department Care Team Description 11/23/2024 External Device Data STL ABSTRACTION Provider, Abstract 11/23/2024 External Device Data [facility] ABSTRACTION Provider, Abstract 11/23/2024 External Device Data [facility] ABSTRACTION Provider, Abstract 11/04/2024 11:30 AM CDT Office Visit [facility] Oncology and Hematology - [address] [place] [address] David Judge MD Malignant neoplasm of left breast in female, estrogen receptor positive, unspecified site of breast (CMS/HCC) (Primary Dx) 10/26/2024 External Device Data STL ABSTRACTION Provider, Abstract 10/25/2024 External Device Data [facility] ABSTRACTION Provider, Abstract 10/24/2024 Orders Only Initial Department [address] FRANK: Prelude [place] [address] Provider, Historical 09/29/2024 External Device Data ST[facility] ABSTRACTION Provider, [...] on file 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 Gender Identity Not on file Sexual Orientation Not on file Last Filed Vital Signs Vital Sign Reading Time Taken Comments Blood Pressure 126/77 11/04/2024 10:52 AM CDT Pulse 94 11/04/2024 10:52 AM CDT Temperature 36.6 C (97.9 F) 11/04/2024 10:52 AM CDT Respiratory Rate 15 11/04/2024 10:5 2 AM CDT Oxygen Saturation 97% 11/04/2024 10: 52 AM CDT Inhaled Oxygen Concentration - - Weight 75 kg (165 lb 6.4 oz) 11/04/2024 10:52 AM CDT Pt verbally stated that this is the correct weight Height 162.6 cm (5' 4) 12/03/2023 10:2 7 AM CDT Body Mass Index 28.39 12/03/2023 10:27 AM CDT Plan of Treatment Upcoming Encounters Date Type Department Care Team (Late st Contact Info) Description 03/10/2025 10:30 AM CDT Office Visit [facility] Oncology and Hematology - [place] [address] [place] [address] David Judge MD [address] [facility] [address] [facility] [address] [place] [address] Health Maintenance Due Date Last [...] 2003 OSTEOPOROSIS SCREENING 2018 INFLUENZA VACCINE (#1) 2024 RSV VACCINE (60+ or ) (1 - 1-dose 75+ series) 2028 Procedures Procedure Name Priority Date/Time Associated Diagnosis Comments CANCER ANTIGEN 15-3 Routine 10/24/2024 8 :51 AM CDT CBC WITH DIFFERENTIAL Routine 10/24/2024 8:51 AM CDT COMPREHENSIVE METABOLIC PANEL Routine 10/24/2024 8:51 AM CDT from Last 3 Months Results * CANCER ANTIGEN 15-3 (10/24/2024 8:51 AM CDT) CA 15-3 24 <32 U/mL [facility] Comment: This test was performed using the Siemens (EcoSynth) chemiluminescent method. Values obtained from different assay methods cannot be used interchangeably. CA 15-3 levels, regardless of value, should not be interpreted as absolute evidence of the presence or absence of disease. FASTING:YES FASTING: YES Test [facility] [address] [place] [address] Marycruz Lopes MD 10/24/2024 8:51 AM CDT 10/24/2024 8:53 AM CDT us David Judge MD CHEMISTRY ORDERABLES Final Resu lt [facility] [phone] [facility] [address] [place] [address] * (ABNORMAL) CBC WITH DIFFERENTIAL (10/24/2024 8:51 AM CDT) WBC 7.0 3.8 - 10.8 Thousand/u L [facility] RBC 4.83 3.80 - 5.10 Million/uL [facility] HEMOGLOBIN 15.4 11.7 - 15.5 g/dL [facility] HEMATOCRIT 47.7(H) 35.0 - 45.0 % [facility] MCV 98.8 80.0 - 100.0 fL [facility] MCH 31.9 27.0 - 33.0 pg [facility] MCHC 32.3 32.0 - 36.0 g/dL [facility] Comment: For adults, a slight decrease in the calculated MCHC value (in the range of 30 to 32 g/dL) is most likely not clinically significant; however, it should be interpreted with caution in correlation with other red cell parameters and the patient's clinical condition. RDW 12.2 11.0 - 15.0 % [facility] PLATELETS 255 140 - 400 Thousand/u L [facility] MPV 12.9(H) 7.5 - 12.5 fL [facility] NEUTROPHIL ABSOLUTE 4,480 1,500 - 7,800 cells/uL [facility] LYMPHOCYTE ABSOLUTE 1,953 850 - 3,900 cells/uL [facility] MONOCYTE ABSOLUTE 434 200 - 950 cells/uL [facility] EOSINOPHIL ABSOLUTE 91 15 - 500 cells/uL [facility] BASOPHILS ABSOLUTE 42 0 - 200 cells/uL [facility] NEUTROPHIL 64 % [facility] LYMPHOCYTES 27.9 % [facility] MONOCYTE 6.2 % [facility] EOSINOPHILS 1.3 % [facility] BASOPHILS 0.6 % [facility] Comment: FASTING:YES FASTING: YES Test Performed at: [facility] [address] [facility] [place] [address] Marycruz Lopes MD 10/24/2024 8:51 AM CDT 10/24/2024 8:53 AM CDT us David Judge MD HEMATOLOGY ORDERABLES Final Res ult [facility] [phone] [facility] [address] [facility] [place] [address] * (ABNORMAL) COMPREHENSIVE METABOLIC PANEL (10/24/2024 8:51 AM CDT) GLUCOSE 152(H) 65 - 99 mg/dL [facility] Comment: Fasting reference interval For someone without known diabetes, a glucose value >125 mg/dL indicates that they may have diabetes and this should be confirmed with a follow-up test. BUN 18 7 - 25 mg/dL [facility] CREATININE 0.94 0.60 - 1.00 mg/dL [facility] GFR 65 > OR = 60 mL/min/1. 73m2 [facility] BUN/CREAT RATIO SEE NOTE: 6 - 22 (calc) [facility] Comment: Not Reported: BUN and Creatinine are within reference range. SODIUM 138 135 - 146 mmol/L [facility] POTASSIUM 4.4 3.5 - 5.3 mmol/L [facility] CHLORIDE 101 98 - 110 mmol/L [facility] CO2 27 20 - 32 mmol/L [facility] CALCIUM 10.1 8.6 - 10.4 mg/dL [facility] TOTAL PROTEIN 7.7 6.1 - 8.1 g/dL [facility] ALBUMIN 5.1 3.6 - 5.1 g/dL [facility] GLOBULIN 2.6 1.9 - 3.7 g/dL (calc) [facility] ALBUMIN/GLOBULIN RATIO 2.0 1.0 - 2.5 (calc) [facility] BILIRUBIN TOTAL 1.5(H) 0.2 - 1.2 mg/dL [facility] ALKALINE PHOSPHATASE 70 37 - 153 U/L [facility] AST 20 10 - 35 U/L [facility] ALT 17 6 - 29 U/L [facility] Comment: FASTING:YES FASTING: YES Test Performed at: [facility] [address] [address] Marycruz Lopes MD 10/24/2024 8:51 AM CDT 10/24/2024 8:53 AM CDT David Judge MD CHEMISTRY ORDERABLES Final Resu lt [facility] [phone] [facility] [address] [phone] from Last 3 Months Insurance MEDICARE PART A AND B [facility] [employer] ACCESS CHOICE [facility] [place] [id number] Care Teams Supervisor Of Communications Relationship Specialty Start Date End Date Alex Lerma MD [address] [place] [address] PCP - General Family Practice 12/02/23
--- OUTSIDE RECORDS SUMMARY | 2024-12-01 15:46 | XMS_ITS | Encounter Summary ---
Author Organization [facility] Address [address] [place] [address] Care Team Providers Care Armature Coil Winder Name Role Phone Travis Pizano MD Primary Care Provider Pavel Russo DO Primary Care Provider [phone] Travis Pizano MD Primary Care Provider [phone] Encounter Details Date Type Department Care Team (Late st Contact Info) Description 12/23/2018 Lab Requisition [facility] [address] [place] [address] Gene Love MD [address] [place] [address] Social History Tobacco Use Types Packs/Day Years Used Date Smoking Tobacco: Never Assessed Comments Unknown Sex and Gender Information Value Date Recorded Sex Assigned at Not on file 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 Gender Identity Not on file Sexual Orientation Not on file documented as of this encounter Plan of Treatment Not on file documented as of this encounter Procedures Procedure Name Priority Date/Time Associated Diagnosis Comments DERMATOPATHOLOGY Routine 12/22/2018 12:0 0 AM CDT documented in this encounter Results * DERMATOPATHOLOGY (12/22/2018 12:00 AM CDT) Case Report Dermatopathology Report Case: [id number] Authorizing Provider: Gene Love MD Collected: 12/22/2018 12:00 AM Ordering Location: [facility] D[facility] Lab Received: 12/23/2018 12:54 [...] specimen consists of a shave biopsy measuring [id number]. Jar 0. 1:00 PM CDT DERMATOPATHOLOGY LABORATORY [...] determined by the Dermatopathology Laboratory at [facility], directed by Dr. Gloria Bourgeois. These tests need not be, and therefore are not, approved by the [place] Food and Drug Administration. The tests are used for clinical purposes. Billing Codes Specimen Charges Stain Charges 78307 1 1:00 PM CDT DERMATOPATHOLOGY LABORATORY Embedded Images 1:00 PM CDT DERMATOPATHOLOGY LABORATORY Pathology/Cytolog y TISSUE SPECIMEN FROM SKIN / Unknown 12/22/2018 12/23/2018 12:54 PM CDT Gene Love MD LAB - PATHOLOGY/CYTOLOGY ORD ERABLES Final Result DERMATOPATHOLOGY LABORATORY [facility] - Department of Dermatology [address] [facility] [place] [address], [facility] [phone] documented in this encounter Visit Diagnoses Not on filedocumented in this encounter Care Teams Armature Coil Winder Relationship Specialty Start Date End Date Travis Pizano MD [address] [place] [address] PCP - General 04/12/18 02/17/22 Pavel Russo DO [address] [place] [address] PCP - General Internal Medicine 02/18/22 02/23/22 Travis Pizano MD [address] [place] [address] PCP - General 02/24/22 documented as of this encounter
[2024-12-01 15:50] VITALS: BP 131/59; PULSE 79; RESP 16; TEMP 36.4; O2SAT 96
--- NOTE | 2024-12-01 16:10 | ED.FEMALEGU ---
HPI - Female Genitourinary General Chief complaint: Urogenital-Female Stated complaint: bladder infection/uti Time Seen by Provider: 12/01/24 16:00 Source: patient Mode of arrival: ambulatory Limitations: no limitations History of Present Illness HPI Narrative: Delaney is a 69-year-old female patient presenting to the clinic today with complaints of a possible UTI. She reports since around 3:00 a.m. this morning she developed burning, frequency, and urgency of urination with low urine output. Also reporting some bladder pain. No fevers, chills, abdominal pain, or back/flank pain. No history of frequent UTIs. She is not sexually active. Took azo at 3:15 a.m. this morning Related Data Home Medications ?Medication ?Instructions ?Recorded ?Confirmed ?Last Taken ?Type calcium 500 mg-vitamin D3 100 1 tablet PO BID 12/30/23 09/16/24 06/08/24 History unit-vitamin K 40 mcg chewable tablet cholecalciferol (vitamin D3) 25 25 mcg PO DAILY 12/30/23 09/16/24 06/08/24 History mcg (1,000 unit) capsule qzlyccks-fbn-kuhi-FA-Ca carb-vit K 1 tablet PO DAILY 12/30/23 09/16/24 06/08/24 History 18 mg iron-400 mcg-500 mg tablet anastrozole 1 mg tablet 1 mg PO DAILY 05/27/24 09/16/24 06/08/24 History Allergies Allergy/AdvReac Type Severity Reaction Status Date / Time Sulfa (Sulfonamide AdvReac Mild Hives Verified 12/01/24 16:03 Antibiotics) adhesive AdvReac Redness of Verified 12/01/24 16:03 Skin transparent dressing AdvReac Blister Verified 12/01/24 16:03 Review of Systems Review of Systems: Pertinent positives per HPI. Patient denies any fever, chills, rash, headache, visual changes, dizziness, cough, runny nose, sore throat, shortness of breath, chest pain, palpitations, nausea, vomiting, diarrhea, constipation, abdominal pain. [facility] Past Medical History Medical History (Updated 12/01/24 @ 16:15 by Ulises Nelson APRN) Invasive lobular carcinoma of left breast in female s/p lumpectomy Chronic obstructive pulmonary disease, unspecified Endometriosis Iron deficiency anemia Prediabetes A1C 5.9% on 03/2024 Depression Elevated troponin Ureteral stone Septic shock Chronic neck and back pain Osteopenia Closed fracture of right distal femur (~07/28/21) R patella and R humeral Fx as well - transferred to U Arthritis of foot, degenerative Postmenopause Hypertension Vision abnormalities Vertigo Dizziness Obesity Anxiety and depression Mixed hyperlipidemia Surgical History Surgical History S/P lumpectomy, left breast History of tonsillectomy History of lumpectomy of left breast Status post removal of thyroid nodule Family History Family History Father Patient's father is , Onset Age: 72 Hypertension, Onset Age: 72 Family history of alcoholism Mother High cholesterol Patient's mother is Social History Social History Smoking packs per day: 2 Smoking cigarettes per day: 40.0 Years smoked: 30 Smoking pack-years: 60.00 Smoking status: Former smoker Tobacco type: cigarettes Second hand tobacco smoke exposure: No Smoking end date: 09/08/05 Alcohol intake: never Alcohol use details: QUIT 1992 Substance use: never Substance use type: does not use Do You Feel Safe in your Home?: Yes Lack of Transportation: No Lack of Food: Never True Current Housing: I Have Housing Concerned About Future Housing: No Difficulty Paying Gas/Electric Bills: No Difficulty Paying for Meds: No Currently Unemployed: No Education: Don't Know Difficulty w/ Childcare or Family Care: No Living arrangements: alone Spiritual care concerns: No Agree to blood products: Yes Comments At the time of my signature, I reviewed and agree with the nursing past medical, surgical, social, and family history. There is no relevant family history pertinent to the patient complaint. Exam Narrative: General: Well-developed, well nourished, in no apparent distress. Head: Normocephalic, atraumatic. Cardio: Regular rate and rhythm, s1 and s2 normal, no murmur appreciated. Resp: Clear to auscultation bilaterally, no rhonchi, rales, wheezing or rubs. Abdomen: Soft, pliable, bowel sounds present in all quadrants, suprapubic-tender to palpation, no organomegly, no CVAT tenderness. Course Course Emergency Course: Portions of this record may have been created with voice recognition software. Level of Care: Express Care Visit Vital Signs Vital signs: Vital Signs Temperature 36.4 C L 12/01/24 15:50 Pulse Rate 79 12/01/24 15:50 Respiratory Rate 16 12/01/24 15:50 Blood Pressure 131/59 L 12/01/24 15:50 Pulse Oximetry 96 12/01/24 15:50 Oxygen Delivery Room Air 12/01/24 15:50 Temperature 36.4 C L 12/01/24 15:50 Pulse Rate 79 12/01/24 15:50 Respiratory Rate 16 12/01/24 15:50 Blood Pressure 131/59 L 12/01/24 15:50 Pulse Oximetry 96 12/01/24 15:50 Oxygen Delivery Room Air 12/01/24 15:50 Vital signs reviewed MDM - Female Genitourinary MDM Narrative Medical decision making narrative: At the time of visit patient is resting comfortably on the exam table. Patient appears to be nontoxic. 69-year-old female patient presenting to the clinic today with complaints of a possible UTI. She reports since around 3:00 a.m. this morning she developed burning, frequency, and urgency of urination with low urine output. Also reporting some bladder pain. Took azo around 315 this morning. No fevers, chills, abdominal pain, or back/flank pain. No history of frequent UTIs. She is not sexually active. Urine culture was ordered Labs: Urine orange in color - we will not dip the urine but send for culture. Plan: I suspect patient has UTI due to her symptoms. Will send urine for culture. Prescription for cephalexin was sent to the pharmacy. Supportive measures were discussed with the patient and they voiced understanding discharge instructions and agrees to treatment plan. Return precautions reviewed Differential Diagnosis Differential diagnosis: Likely urinary tract infection, cystitis and other (Bladder mass, overactive bladder) Discharge Plan Discharge Clinical Impression: UTI (urinary tract infection) Qualifiers: Urinary tract infection type: acute cystitis Hematuria presence: without hematuria Qualified Code(s): N30.00 - Acute cystitis without hematuria Patient Disposition: Home Condition: Stable Instructions: Antibiotic Form, Urinary Tract Infection in Women (ED) Additional Instructions: We will send your urine for culture Take medications as prescribed-cephalexin Increase fluids and stay well hydrated Wipe front to back. May use wet wipes. Avoid tub baths If sexually active- pee before and after intercourse. Wear cotton panties Avoid tight clothing up against the genitals Follow up with your PCP in 1 week if symptoms persist. Patient Language: Cook Islander Prescriptions: New cephalexin 500 mg capsule 500 mg PO Q12H 7 Days Qty: 14 0RF No Action cholecalciferol (vitamin D3) 25 mcg (1,000 unit) Capsule 25 mcg PO DAILY calcium-vitamin D3-vitamin K 500-100-40 mg-unit-mcg Tablet,Chewable 1 tablet PO BID kp-ij-euwa-FA-Ca carb-vit K 18 mg iron-400 mcg-500 mg Tablet 1 tablet PO DAILY anastrozole 1 mg tablet 1 mg PO DAILY atorvastatin 20 mg tablet See Rx Instructions .ROUTE .COMPLEX Qty: 90 1RF Dose Instruction: TAKE 1 TABLET BY MOUTH EVERY DAY Rx Instructions: TAKE 1 TABLET BY MOUTH EVERY DAY amlodipine 5 mg tablet See Rx Instructions .ROUTE .COMPLEX Qty: 90 1RF Dose Instruction: TAKE 1 TABLET BY MOUTH EVERY MORNING Rx Instructions: TAKE 1 TABLET BY MOUTH EVERY MORNING lisinopril 20 mg tablet See Rx Instructions .ROUTE .COMPLEX Qty: 90 1RF Dose Instruction: TAKE 1 TABLET BY MOUTH DAILY Rx Instructions: TAKE 1 TABLET BY MOUTH DAILY venlafaxine 75 mg capsule,extended release 24hr 225 mg PO QAM Qty: 270 1RF buspirone 30 mg tablet See Rx Instructions .ROUTE .COMPLEX Qty: 180 1RF Dose Instruction: TAKE 1 TABLET BY MOUTH TWICE A DAY FOR 3 MONTHS Rx Instructions: TAKE 1 TABLET BY MOUTH TWICE A DAY FOR 3 MONTHS diclofenac sodium [Voltaren Arthritis Pain] 1 % gel 4 g topical QID PRN (Reason: pain) Qty: 100 0RF aspirin 81 mg tablet,delayed release (DR/EC) 81 mg PO DAILY Qty: 90 1RF Follow-up/Referrals: Alex Lerma MD [Primary Care Provider] - Time of Disposition: 16:15 Quality NIHSS Nursing Documentation ED NIHSS nursing documentation: reviewed/agree
== END 2024-12-01 16:20 | disposition home or self-care (01) ==
PROVIDERS: Emergency Provider Nurse Practitioner Family; PCP Family Medicine
DX: N30.00 Acute cystitis without hematuria (principal); Z87.891 Personal history of nicotine dependence; J44.9 Chronic obstructive pulmonary disease, unspecified; N80.9 Endometriosis, unspecified; R73.03 Prediabetes; M85.80 Other specified disorders of bone density and structure, unspecified site; I10 Essential (primary) hypertension; E66.9 Obesity, unspecified; E78.2 Mixed hyperlipidemia; Z85.3 Personal history of malignant neoplasm of breast; Z90.12 Acquired absence of left breast and nipple; F32.A Depression, unspecified; Z68.28 Body mass index [BMI] 28.0-28.9, adult
CPT/HCPCS: 87086; 99213; G0463

== ENCOUNTER 2025-01-05 10:59 | Outpatient (CLI) | payer OTHER, SELFPAY ==
--- NOTE | ~2025-01-05 | MMUS_ITS ---
EXAMINATION: MM diagnostic lilliam LT w oziel, US breast LT limited INDICATION: 69-year old female; recently diagnosed with left breast cancer status post partial lumpectomy with radiation treatment presents for 6 month follow-up evaluation. No breast related symptoms at this time. COMPARISON: 06/24/2024 through 05/28/2021 TECHNIQUE: Digital breast tomosynthesis True lateral, CC and MLO views of the LEFT breast were obtained with computer-aided detection to assist in interpretation of the study. MAMMOGRAM FINDINGS : Expected Posttreatment changes in Left breast. No new focal dominant mass, architectural distortion, or suspicious microcalcifications are identified. LEFT BREAST ULTRASOUND FINDINGS: Targeted evaluation of the lumpectomy bed was completed. At 4:00, 6 cm from the nipple, there is an hypoechoic area of distortion within the breast parenchyma associated with thickening of the overlying skin. These findings are compatible with post treatment surgical changes related to patient's partial mastectomy. No suspicious solid or cystic masses seen. IMPRESSION: Benign findings compatible with expected post treatment changes in the surgical bed at 4:00 location in the left breast. There is no mammographic or sonographic evidence of malignancy. RECOMMENDATION: Annual bilateral mammography due in June 2025 BI-RADS 2, BENIGN Reviewed, dictated and finalized at location B. IMPRESSION: Benign findings compatible with expected post treatment changes in the surgical bed at 4:00 location in the left breast. There is no mammographic or sonograph ic evidence of malignancy. RECOMMENDATION: Annual bilateral mammography due in June 2025 BI-RADS 2, BENIGN
--- OUTSIDE RECORDS SUMMARY | 2025-01-05 11:04 | XMS_ITS | Clinical Summary ---
Author Organization [facility] Address [address] [place] [address] Care Team Providers Care Operations Executive Name Role Phone Travis Pizano MD Primary Care Provider [phone] [facility],non-owned Affiliates and Associated Physician Practices is amultiple site organization consisting of ambulatory clinics and hospital sitesin [place], [place], [place] and [place]. This disclosure is being madepursuant to the Care Everywhere program and may not contain all information available regarding this patient. Last updated 18.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 Gender Identity Not on file Sexual Orientation Not on file Last Filed Vital Signs Vital Sign Reading Time Taken Comments Blood Pressure 168/83 06/02/2024 7:07 AM WICK AND BASE ASSEMBLER Pulse 113 06/02/2024 7:07 AM WICK AND BASE ASSEMBLER Temperature 36.6 C (97.8 F) 06/02/2024 7:07 AM WICK AND BASE ASSEMBLER Respiratory Rate 12 06/02/2024 7:07 AM WICK AND BASE ASSEMBLER Oxygen Saturation 99% 06/02/2024 7:07 AM WICK AND BASE ASSEMBLER Inhaled Oxygen Concentration 45% 08/01/2021 6 :00 AM CDT Weight 88 kg (194 lb) 06/02/2024 7:07 AM WICK AND BASE ASSEMBLER Height 162.6 cm (5' 4) 06/02/2024 7:07 AM WICK AND BASE ASSEMBLER Body Mass Index 33.3 06/02/2024 7:07 AM WICK AND BASE ASSEMBLER Plan of Treatment Health Maintenance Due Date [...] this topic Medical Devices Implanted Type Area Floral Manager Device Identifier Shelf Expiration Date Model / Serial / Lot Graft Bone Accell Evo3 Dbm 10ml Ptty - [id number] Implanted:Qty: 1 on 07/31/2021 by Wu Vazquez MD at [facility] Right: Leg Inte[employer] 07/08/2022 [id number] / [id number] / [id number] Rfn - Advanced System - Locking Attachment Washer (Law) - 10 Degree - Right Implanted:Qty: 1 on 07/31/2021 by Wu Vazquez MD at [facility] Right: Leg 02.233.104S / / Optilink 5.0mm Va Locking Screw - 60mm Implanted:Qty: 1 on 07/31/2021 by Wu Vazquez MD at [facility] Right: Leg 42.231.260 / / Optilink 5.0mm Va Locking Screw - 80mm Implanted:Qty: 1 on 07/31/2021 by Wu Vazquez MD at [facility] Right: Leg 42.231.280 / / Screw 4.5mm 8mm 76mm Cortx Slf-Tap Lg Implanted:Qty: 1 on 07/31/2021 by Wu Vazquez MD at [facility] Right: Leg Synthes Usa 214.876 / / Graft Bone Canc 60ml Frzdr Chp 4-9.5mm Implanted:Qty: 1 on 07/31/2021 by Wu Vazquez MD at [facility] Right: Leg Allosource 09/14/2025 [id number] / / Description:ID: [id number] Rfna / 11mm/ 360mm - 5 Degree Bend Implanted:Qty: 1 on 07/31/2021 by Wu Vazquez MD at [facility] Right: Femur 04/09/2026 04.233.136S / / [id number] Screw 5mm 4.3mm 72mm T25 Ft Slf-Tap Lck Implanted:Qty: 1 on 07/31/2021 by Wu Vazquez MD at [facility] Right: Leg Synthes Usa 04.005.562S / / Screw 5mm 4.3mm 68mm T25 Ft Slf-Tap Lck Implanted:Qty: 1 on 07/31/2021 by Wu Vazquez MD at [facility] Right: Leg Synthes Usa 04.005.558S / / Screw 5mm 4.3mm 40mm T25 Ft Slf-Tap Lck Implanted:Qty: 1 on 07/31/2021 by Wu Vazquez MD at [facility] Right: Leg Synthes Usa 04.005.530S / / Screw 3.5mm 6mm 34mm 2.5mm Ft Slf-Tap Implanted:Qty: 1 on 07/31/2021 by Wu Vazquez MD at [facility] Right: Leg Synthes Usa 204.834 / / Screw 3.5mm 6mm 32mm 2.5mm Ft Slf-Tap Implanted:Qty: 1 on 07/31/2021 by Wu Vazquez MD at [facility] Right: Leg Synthes Usa 204.832 / / Explanted Type Area Floral Manager Device Identifier Shelf Expiration Date Model / Serial / Lot Screw 3.5mm 6mm 36mm 2.5mm Ft Slf-Tap Explanted:Qty: 1 on 07/31/2021 by Wu Vazquez MD at [facility] Right: Leg Synthes Usa 204.836 / / Procedures Procedure Name Priority Date/Time Associated Diagnosis Comments COMPREHENSIVE METABOLIC PANEL STAT 06/02/2024 9:54 AM [facility] from Last 3 Months or Most Recently Relevant to Health Maintenance Results * (ABNORMAL) COMPREHENSIVE METABOLIC PANEL (06/02/2024 9:54 AM [facility]) BUN 20 7 - 26 mg/dL 06/02/2024 10:27 AM [facility] Creatinine 1.08(H) 0.56 - 0.96 mg/dL 06/02/2024 10:27 AM [facility] Sodium 138 136 - 145 mmol/L 06/02/2024 10:27 AM [facility] Potassium 4.2 3.5 - 4.5 mmol/L 06/02/2024 10:27 AM [facility] Chloride 105 98 - 107 mmol/L 06/02/2024 10:27 AM [facility] CO2 21(L) 22 - 29 mmol/L 06/02/2024 10:27 AM [facility] Glucose 170(H) 70 - 99 mg/dL 06/02/2024 10:27 AM [facility] Calcium 9.4 8.4 - 10.2 mg/dL 06/02/2024 10:27 AM [facility] Protein Total 7.8 6.0 - 8.3 g/dL 06/02/2024 10:27 AM [facility] Albumin 4.4 3.4 - 5.0 g/dL 06/02/2024 10:27 AM [facility] Bilirubin Total 1.6(H) 0.2 - 1.2 mg/dL 06/02/2024 10:27 AM [facility] Alkaline Phosphatase 63 40 - 150 U/L 06/02/2024 10:27 AM [facility] ALT 21 5 - 55 U/L 06/02/2024 10:27 AM [facility] AST 24 5 - 34 U/L 06/02/2024 10:27 AM [facility] Anion Gap 12 6 - 16 06/02/2024 10:27 AM [facility] BUN/Creatinine Ratio 19 7 - 23 06/02/2024 10:27 AM [facility] Osmolality Calculated 293 275 - 295 mOsm/kg 06/02/2024 10:27 AM [facility] Albumin/Globulin Ratio 1.3 1.1 - 2.3 06/02/2024 10:27 AM [facility] eGFR by CKD-EPI 55(L) >=90 mL/min/1.7 3 m2 06/02/2024 10:27 AM [facility] Blood BLOOD SPECIMEN / Unknown Venipuncture / Unknown 06/02/2024 9:54 AM W[employer] AND BASE ASSEMBLER 06/02/2024 10:01 AM [facility] us Jefe Parish MD LAB - CHEMISTRY ORDERA BLES Final Result [facility] [address] [place] [address], [facility] [phone] from Last 3 Months or Most Recently Relevant to Health Maintenance Insurance [employer] MEDICARE SELF PAY NO INSURANCE Member Subscriber Plan / Payer (Ef fective for All Dates) Name:Delaney Swan Member ID:Not on file Relation to Subscriber:Not on file Name:DELANEY SWAN Subscriber ID:Not on file (Home) Address: [address] [address] Payer ID:Not on file Group ID:Not on file Type:Self Pay Address: [place], [place] * Guarantor: DELANEY SWAN Account Type Relation to Patient Date of Phone Billing Address Personal/Family [address] [place] [address] [employer] MED[employer] SELF PAY NO INSURANCE Member Subscriber Plan / Payer (Ef fective for All Dates) Name:Delaney Swan Member ID:Not on file Relation to Subscriber:Not on file Name:SOSADELANEY Subscriber ID:Not on file (Home) Address: [address] [place] [address] Payer ID:Not on file Group ID:Not on file Type:Self Pay Address: [place], [place] * Guarantor: SOSADELANEY Account Type Relation to Patient Date of Phone Billing Address Personal/Family [address] [place] [address] [employer] SELF PAY NO INSURANCE Member Subscriber Plan / Payer (Ef fective for All Dates) Name:Sosa Delaney Maricruz Member ID:Not on file Relation to Subscriber:Not on file Name:SOSADELANEY Subscriber ID:Not on file (Home) Address: [facility] [place] [place] [address] Payer ID:Not on file Group ID:Not on file Type:Self Pay Address: [place], [place] * Guarantor: DELANEY SWAN Account Type Relation to Patient Date of Phone Billing Address Personal/Family [address] [place] [address] [facility] MEDICARE SELF PAY NO INSURANCE Member Subscriber Plan / Payer (Ef fective for All Dates) Name:Sosa Delaney S Member ID:Not on file Relation to Subscriber:Not on file Name:DELANEY SWAN Subscriber ID:Not on file (Home) Address: [address] [place] [address] Payer ID:Not on file Group ID:Not on file Type:Self Pay Address: [place], [place] Advance Directives Documents on File Type Date Recorded Patient Coronary Care Unit Nurse Expl anation Adv Directive/Living Will/POA 08/07/2021 9:37 AM * Full Code (Latest Code Status on File) Date Activated Date Inactivated Comments 07/29/2021 4:25 AM 08/02/2021 8:11 PM Care Teams Operations Executive Relationship Specialty Start Date End Date Travis Pizano MD [address] [place] [address] PCP - General 02/24/22
--- OUTSIDE RECORDS SUMMARY | 2025-01-05 11:04 | XMS_ITS | Clinical Summary ---
Author Organization [facility] Address [address] [facility] [address] Phone Care Team Providers Care Tool Room Gear Machine Operator Name Role Phone Alex Lerma MD Primary Care Provider [phone] Allergies Active Allergy Reactions Criticality Noted Date [...] (E.C.) Take 1 Tablet by mouth daily. 09/09/2024 Active anastrozole (Arimidex) 1 mg tablet Take 1 Tablet (1 mg) by mouth daily. 90 Tablet 2 11/04/2024 Active Active Problems No known active problems Encounters Date Type Department Care Team Description 11/23/2024 External Device Data [facility] Provider, Abstract 11/23/2024 External Device Data [facility] Provider, Abstract 11/23/2024 External Device Data [facility] Provider, Abstract 11/04/2024 11:30 AM CDT Office Visit [facility] Oncology and Hematology - [address] [place] [address] David Judge MD Malignant neoplasm of left breast in female, estrogen receptor positive, unspecified site of breast (CMS/HCC) (Primary Dx) 10/26/2024 External Device Data [facility] Provider, Abstract 10/25/2024 External Device Data [facility] Provider, Abstract 10/24/2024 Orders Only Initial Department [address] [place]: [place] [address] Provider, Historical from Last 3 Months Family History Medical [...] on file 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 Values obtained from different assay methods cannot be used interchangeably. CA 15-3 levels, regardless of value, should not be interpreted as absolute evidence of the presence or absence of disease. FASTING:YES FASTING: YES Test Performed at: [facility] [address] [place] [address] Marycruz Lopes MD 10/24/2024 8:51 AM CDT 10/24/2024 8:53 AM CDT us David Judge MD CHEMISTRY ORDERABLES Final Resu lt [facility] [phone] [facility] [address] [facility] [place] [address] * (ABNORMAL) CBC WITH DIFFERENTIAL (10/24/2024 8:51 AM CDT) [facility] WBC 7.0 3.8 - 10.8 Thousand/u L [...] Comment: FASTING:YES FASTING: YES Test Performed at: [facility] [address] [place] [address] Marycruz Lopes MD 10/24/2024 8:51 AM CDT 10/24/2024 8:53 AM CDT us David Judge MD HEMATOLOGY ORDERABLES Final Res ult [facility] [phone] [facility] [address] [place] [address] * (ABNORMAL) COMPREHENSIVE METABOLIC PANEL (10/24/2024 8:51 [...] Comment: FASTING:YES FASTING: YES Test Performed at: [facility] [address] [address] Marycruz Lopes MD 10/24/2024 8:51 AM CDT 10/24/2024 8:53 AM CDT us David Judge MD CHEMISTRY ORDERABLES Final Resu lt [facility] [phone] [facility] [place] [address] [address] from Last 3 Months Insurance MEDICARE PART A AND [facility]UE ACCESS [facility] Care Teams Tool Room Gear Machine Operator Relationship Specialty Start Date End Date Alex Lerma MD [address] [place] [address] PCP - General Family Practice 12/02/23
--- OUTSIDE RECORDS SUMMARY | 2025-01-05 11:04 | XMS_ITS | Encounter Summary ---
Author Organization [facility] Address [address] [place] [address] Care Team Providers Care Substation Inspector Name Role Phone Travis Pizano MD Primary Care Provider [phone] Pavel Russo DO Primary Care Provider [phone] Travis Pizano MD Primary Care Provider [phone] Encounter Details Date Type Department Care Team (Late st Contact Info) Description 12/23/2018 Lab Requisition [facility] [address] [place] [address] Gene Love MD [address] [place] [address] Social History Tobacco Use Types Packs/Day Years Used Date Smoking Tobacco: Never Assessed Comments Unknown Sex and Gender Information Value Date Recorded Sex Assigned at Not on file 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 Gender Identity Not on file Sexual Orientation Not on file documented as of this encounter Plan of Treatment Not on file documented as of this encounter Procedures Procedure Name Priority Date/Time Associated Diagnosis Comments DERMATOPATHOLOGY Routine 12/22/2018 12:0 0 AM CDT documented in this encounter Results * DERMATOPATHOLOGY (12/22/2018 12:00 AM CDT) Case Report Dermatopathology Report Case: [id number] Authorizing Provider: Gene Love MD Collected: 12/22/2018 12:00 AM Ordering Location: [facility] Lab Received: 12/23/2018 12:54 [...] specimen consists of a shave biopsy measuring [id number]. Jar 0. 1:00 PM CDT DERMATOPATHOLOGY LABORATORY [...] characteristic determined by the Dermatopathology Laboratory at [facility], directed by Dr. Gloria Bourgeois. These tests need not be, and therefore are not, approved by the [place] Food and Drug Administration. The tests are used for clinical purposes. Billing Codes Specimen Charges Stain Charges 32858 1 1:00 PM CDT DERMATOPATHOLOGY LABORATORY Embedded Images 1:00 PM CDT DERMATOPATHOLOGY LABORATORY Pathology/Cytolog y TISSUE SPECIMEN FROM SKIN / Unknown 12/22/2018 12/23/2018 12:54 PM CDT Gene Love MD LAB - PATHOLOGY/CYTOLOGY ORD ERABLES Final Result DERMATOPATHOLOGY LABORATORY [facility] - Department of Dermatology [address] [facility] [place] [address], [facility] [phone] documented in this encounter Visit Diagnoses Not on filedocumented in this encounter Care Teams Substation Inspector Relationship Specialty Start Date End Date Travis Pizano MD [address] [place] [address] PCP - General 04/12/18 02/17/22 Pavel Russo DO [address] [place] [address] PCP - General Internal Medicine 02/18/22 02/23/22 Travis Pizano MD [address] [place] [address] PCP - General 02/24/22 documented as of this encounter
== END 2025-01-05 11:00 | disposition home or self-care (01) ==
LOC: ANHFOHIMG 11:01
PROVIDERS: PCP Nurse Practitioner Family; Visit Provider Surgery
DX: C50.912 Malignant neoplasm of unspecified site of left female breast (principal); Z98.890 Other specified postprocedural states; Z85.3 Personal history of malignant neoplasm of breast
CPT/HCPCS: 76642; 77061; 77065; G0279